=== PATIENT | female | born 1985 | race Caucasian/White ===

== ENCOUNTER → 2016-07-29 | Outpatient (CLI) | payer BC ==
[~2016-07-29] MED LIST: HYDR1SOL3 PO; HYDR1SOL6 PO; LEVO50TA4 PO; NITR100C4 PO; PREN29TA PO; PROT40TA PO; TRAZ100T4 PO; ZOFR4TAB PO
== END ==
LOC: HPND 07:20
PROVIDERS: ATTEND Obstetrics & Gynecology
DX: Z36 Encounter for antenatal screening of mother (principal); Z98.84 Bariatric surgery status
CPT/HCPCS: 36416; 76813

== ENCOUNTER 2016-08-13 15:29 | Observation (INO) | payer BC ==
[~2016-08-13] VITALS: Ht 160 cm; Wt 65.0 kg
[2016-08-13 15:34] VITALS: BP 102/54; PULSE 70; RESP 14; O2SAT 100
[2016-08-13] MEDS ORDERED: SODIUM CHLOR 0.9% 1000 ML INJ 1,000 ML IV SCH (17:09)
[2016-08-13] MEDS ORDERED: MORPHINE SULFATE 4 MG/ML INJ IV PUSH ONE (17:15)
[2016-08-13] MEDS ORDERED: ONDANSETRON HCL 4 MG/2 ML VIAL IVP ONE (17:15)
[2016-08-13] MEDS ORDERED: SODIUM CHLORIDE 0.9% FLUSH 5 ML FLUSH IVF PRN (17:15)
--- NOTE | 2016-08-13 17:18 | PD ---
HPI Chief Complaint: GI Complaint Time Seen by Provider: 16:58 Travel History International Travel<30 days: No Contact w/Intl Traveler<30days: No Traveled to known affect area: No History of Present Illness HPI 30-year-old female status post laparoscopic Cassandra-en-Y gastric bypass surgery 2 years ago in [facility] that was followed by numerous complications including peptic ulcers with perforated bowel, cholecystectomy, approximately 15 -1/2 weeks , LMP was 04/27/16, here for evaluation of nausea, vomiting, abdominal pain. The patient reports that she is unable to keep liquids down. Emesis has been frothy/clear, nonbloody. Last bowel movement was 2 days ago. Pain is epigastric and lower, burning/sharp, worse with eating, moderate to severe. She tried taking her hydrocodone at home which she has as needed for epigastric pain without relief of symptoms. She also tried taking Zofran without improvement in nausea. She has noticed slight increase yellowish vaginal discharge which she has communicated with her [employer] physician Dr. Rodriguez. No fevers. No urinary symptoms. PFSH Past Medical History ?: LMP: 04/27/16 Social History Tobacco Use: No (former smoker) Allergies-Medications (Allergen,Severity, Reaction): Coded Allergies: Augmentin (Verified Allergy, Unknown, 08/13/16) Levaquin (Verified Allergy, Unknown, 08/13/16) Nonsteroidal Anti-Inflammatory Agts (Verified Allergy, Unknown, 08/13/16) Suprax (Verified Allergy, Unknown, 08/13/16) Reported Meds & Prescriptions Reported Meds & Active Scripts Active Reported Zofran (Ondansetron HCl) 4 Mg Tab 4 Mg PO Q6HR PRN Hydrocodone-Acetaminophen Liq 7.5-325 Mg/15 Ml Soln 10 Ml PO Q6H PRN Levothyroxine (Levothyroxine Sodium) 50 Mcg Tab 50 Mcg PO DAILY Plus Iron 29-1 mg ( Vit-Iron Carbonyl) 1 Tab Tab 1 Tab PO DAILY Protonix (Pantoprazole Sodium) 40 Mg Tab 40 Mg PO DAILY Trazodone (Trazodone HCl) 100 Mg Tab 100 Mg PO HS Review of Systems Except as stated in HPI: all other systems reviewed are Neg Physical Exam Narrative GENERAL: Well-developed, well-nourished, comfortable, no acute distress. SKIN: Warm and dry. Well-healed laparoscopic surgical incisions on abdomen. HEAD: Atraumatic. Normocephalic. EYES: Pupils equal and round. No scleral icterus. No injection or drainage. ENT: Mucous membranes pink and moist. NECK: Trachea midline. No JVD. CARDIOVASCULAR: Regular rate and rhythm. RESPIRATORY: No accessory muscle use. Clear to auscultation. Breath sounds equal bilaterally. GASTROINTESTINAL: Abdomen soft, nondistended. Mild diffuse tenderness without peritoneal signs. Normal bowel sounds. MUSCULOSKELETAL: No obvious deformities. No clubbing. No cyanosis. No edema. NEUROLOGICAL: Awake and alert. No obvious cranial nerve deficits. Motor grossly within normal limits. Normal speech. PSYCHIATRIC: Appropriate mood and affect; insight and judgment normal. Data Data Last Documented VS Vital Signs Date Time Temp Pulse Resp B/P Pulse Ox O2 Delivery O2 Flow Rate FiO2 08/13/16 15:34 70 14 102/54 100 Room Air Orders Complete Blood Count With Diff (08/13/16 17:) Comprehensive Metabolic Panel (08/13/16 17:) Lipase (08/13/16 17:09) Lactic Acid (08/13/16 17:09) Prothrombin Time / Inr (Pt) (08/13/16 17:09) Act Partial Throm Time (Ptt) (08/13/16 17:09) Urinalysis - C+S If Indicated (08/13/16 17:09) Iv Access Insert/Monitor (08/13/16 17:09) Ecg Monitoring (08/13/16 17:09) Oximetry (08/13/16 17:09) Morphine Inj (Morphine Inj) (08/13/16 17:15) Ondansetron Inj (Zofran Inj) (08/13/16 17:15) Sodium Chlor 0.9% 1000 Ml Inj (Ns 1000 M (08/13/16 17:09) Sodium Chloride 0.9% Flush (Ns Flush) (08/13/16 17:15) Famotidine (Pepcid) (08/13/16 19:30) Sucralfate Liq (Carafate Liq) (08/13/16 19:30) Metoclopramide Inj (Reglan Inj) (08/13/16 19:45) Admit Order (Ed Use Only) (08/13/16 19:37) Consult General Surgery (08/13/16 ) Labs Laboratory Tests Test 08/13/16 17:45 White Blood Count 8.3 TH/MM3 Red Blood Count 3.56 MIL/MM3 Hemoglobin 11.5 GM/DL Hematocrit 33.8 % Mean Corpuscular Volume 94.7 FL Mean Corpuscular Hemoglobin 32.2 PG Mean Corpuscular Hemoglobin 34.0 % Concent Red Cell Distribution Width 12.7 % Platelet Count 158 TH/MM3 Mean Platelet Volume 9.4 FL Neutrophils (%) (Auto) 72.8 % Lymphocytes (%) (Auto) 21.6 % Monocytes (%) (Auto) 4.9 % Eosinophils (%) (Auto) 0.4 % Basophils (%) (Auto) 0.3 % Neutrophils # (Auto) 6.0 TH/MM3 Lymphocytes # (Auto) 1.8 TH/MM3 Monocytes # (Auto) 0.4 TH/MM3 Eosinophils # (Auto) 0.0 TH/MM3 Basophils # (Auto) 0.0 TH/MM3 CBC Comment DIFF FINAL Differential Comment Prothrombin Time 10.5 SEC Prothromb Time International 1.0 RATIO Ratio Activated Partial 26.1 SEC Thromboplast Time Urine Color YELLOW Urine Turbidity CLEAR Urine pH 5.5 Urine Specific [place] 1.025 Urine Protein NEG mg/dL Urine Glucose (UA) NEG mg/dL Urine Ketones 40 mg/dL Urine Occult Blood NEG Urine Nitrite NEG Urine Bilirubin NEG Urine Urobilinogen LESS THAN 2.0 MG/DL Urine Leukocyte Esterase NEG Urine RBC 1 /hpf Urine WBC 1 /hpf Urine Squamous Epithelial 2 /hpf Cells Urine Mucus FEW /lpf Microscopic Urinalysis Comment CULT NOT INDICATED Sodium Level 138 MEQ/L Potassium Level 3.7 MEQ/L Chloride Level 105 MEQ/L Carbon Dioxide Level 23.0 MEQ/L Anion Gap 10 MEQ/L Blood Urea Nitrogen 10 MG/DL Creatinine 0.43 MG/DL Estimat Glomerular Filtration 175 ML/MIN Rate Random Glucose 69 MG/DL Lactic Acid Level 0.7 mmol/L Calcium Level 8.4 MG/DL Total Bilirubin 0.2 MG/DL Aspartate Amino Transf 17 U/L (AST/SGOT) Alanine Aminotransferase 18 U/L (ALT/SGPT) Alkaline Phosphatase 43 U/L Total Protein 6.0 GM/DL Albumin 3.4 GM/DL Lipase 66 U/L [facility] Medical Decision Making Medical Screen Exam Complete: Yes Emergency Medical Condition: Yes Differential Diagnosis Bowel obstruction, internal hernia, peptic ulcer disease, metabolic abnormality , dehydration Narrative Course Initial vital signs show heart rate 70, blood pressure 102/54, pulse ox 100% on room air. CBC shows WBC 8.3, hemoglobin 11.5, hematocrit 33.8, platelets 158. CMP is unremarkable. Lactic acid is 0.7. Lipase is 66. UA shows 40 ketones, otherwise within normal limits, not suggestive of UTI. Bedside transabdominal ultrasound performed by me shows an IUP with heart rate of 150 bpm. The patient was given a dose of morphine and Zofran as well as a liter of normal saline IV. She is still complaining of epigastric abdominal pain. She has some epigastric tenderness on exam. No peritoneal signs. Case discussed with surgical attending Dr. Spangler who has a background and bariatric surgery. He recommends giving the patient a dose of Carafate. The patient will be admitted to the medical service, and he will happily see the patient in consultation. Case discussed with hospitalist Dr. Levy who will admit the patient to her service. Procedures Procedure Narrative Transabdominal bedside ultrasound: Using the curvilinear probe, transabdominal bedside ultrasound was performed by me and shows an IUP with a heart rate of 158 bpm. Diagnosis Primary Impression: Epigastric abdominal pain Additional Impressions: Nausea and vomiting Qualified Code: R11.2 - Nausea and vomiting, intractability of vomiting not specified, unspecified vomiting type Qualified Code: Z3A.15 - 15 weeks gestation of Admitting Information Admitting Physician Requests: Admit Norman Rios MD Aug 13, 2016 17:18
[2016-08-13] MEDS ORDERED: TRAZ100T4 PO (17:31)
[2016-08-13] MEDS ORDERED: PROT40TA PO (17:31)
[2016-08-13] MEDS ORDERED: LEVO50TA4 PO (17:31)
[2016-08-13] MEDS ORDERED: ZOFR4TAB PO (17:31)
[2016-08-13] MEDS ORDERED: HYDR1SOL3 PO (17:31)
[2016-08-13] MEDS ORDERED: PREN29TA PO (17:31)
[2016-08-13 18:25] LABS: BASOPHIL % 0.3 % (0.0-2.0); EOSINOPHIL % 0.4 % (0.0-4.0); HEMATOCRIT 33.8 % (35.0-46.0); HEMO FLAGS DIFF FINAL; LYMPH % 21.6 % (9.0-44.0); LYMPHOCYTE # 1.8 TH/MM3 (1.0-4.8); MEAN CELL VOLUME 94.7 FL (80.0-100.0); MEAN CORPUSCULAR HEMOGLOBIN 32.2 PG (27.0-34.0); MONO % 4.9 % (0.0-8.0); NEUT % 72.8 % (16.0-70.0); PLATELET COUNT 158 TH/MM3 (150-450); RED BLOOD COUNT 3.56 MIL/MM3 (4.00-5.30); RED CELL DISTRIBUTION WIDTH 12.7 % (11.6-17.2); WHITE BLOOD COUNT 8.3 TH/MM3 (4.0-11.0)
[2016-08-13 18:35] LABS: APTT (PATIENT) 26.1 SEC (24.3-30.1); BLOOD, URINE NEG (NEG); COMMENT (UR) CULT NOT INDICATED; CULTURE IF INDICATED CULT NOT INDICATED; GLUCOSE,URINE NEG (NEG); KETONE, URINE 40 mg/dL (NEG); MUCUS URINE FEW /lpf (OCC); NITRITE,URINE NEG (NEG); PH, URINE 5.5 (5.0-8.5); PROTHROMBIN TIME - PATIENT 10.5 SEC (9.8-11.6); SQUAMOUS EPITHELIAL CELL URINE 2 /hpf (0-5); URINE COLOR YELLOW (YELLW/STRAW)
[2016-08-13 18:49] LABS: ALKALINE PHOSPHATASE 43 U/L (45-117); TOTAL BILIRUBIN ADULT 0.2 MG/DL (0.2-1.0)
[2016-08-13 18:50] LABS: ALT (GPT) 18 U/L (10-53); ANION GAP 10 MEQ/L (5-15); AST (GOT) 17 U/L (15-37); BLOOD UREA NITROGEN 10 MG/DL (7-18); CHLORIDE 105 MEQ/L (98-107); GLOMERULAR FILTRATION RATE 175 ML/MIN (>89); POTASSIUM 3.7 MEQ/L (3.5-5.1); SODIUM (NA) 138 MEQ/L (136-145)
[2016-08-13] MEDS ORDERED: FAMOTIDINE 20 MG TAB PO ONE (19:30)
[2016-08-13] MEDS ORDERED: SUCRALFATE 1 GM/10 ML CUP PO ONE (19:30)
[2016-08-13] MEDS ORDERED: SODIUM CHLORIDE 0.9% FLUSH 5 ML FLUSH FLUSH PRN (19:45)
[2016-08-13] MEDS ORDERED: METOCLOPRAMIDE HCL 10 MG/2 ML VIAL IV PUSH ONE (19:45)
[2016-08-13] MEDS ORDERED: NALOXONE HCL 0.4 MG/ML AMP IV PRN (19:45)
[2016-08-13] MEDS ORDERED: SUCRALFATE 1 GM TAB PO PRN (19:45)
[2016-08-13 20:00] VITALS: BP 98/51; PULSE 58; RESP 16; O2SAT 98
[2016-08-13] MEDS ORDERED: MULTIVITAMIN INJ 10 ML, THIAMINE INJ 100 MG, FOLIC ACID INJ 1 MG in SODIUM CHLOR 0.45% ... IV ONE (20:15)
[2016-08-13] MEDS: SODIUM CHLOR 0.9% 1000 ML INJ 1,000 ML IV SCH (20:15)
[2016-08-13] MEDS: SODIUM CHLORIDE 0.9% FLUSH 5 ML FLUSH FLUSH SCH (21:00)
[2016-08-13 21:44] VITALS: BP 86/48; PULSE 56; RESP 16; O2SAT 99
--- NOTE | 2016-08-13 21:45 | HHI.HP ---
[facility] No Primary Care Physician Admission Diagnosis epigastric abdominal pain, vomiting, Diagnoses: Chief Complaint: abdominal pain, nausea and vomiting Travel History International Travel<30 Days: No Contact w/Intl Traveler <30 Da: No Traveled to Known Affected Are: No History of Present Illness 30 y/o female with a history of gastric bypass surgery 2 years ago who is 15 weeks presented to the ED with complaints of abdominal pain, nausea and vomiting. Three months after her surgery she developed complications with a peptic ulcer. After discharge the next day she woke up septic from a perforated ulcer. After that she then underwent 7 different surgeries. She states the last few days she has unable to take in food, has associated nausea, vomiting 1-2 times a day and dizziness. She also has severe cramping abdominal pain in the mid gastric region. She states she does go through this a few days every month, ever since she got her feeding tube out in December, and usually sticking to soft foods and soup helps. She explains this episode is different and that is why she came into the hospital. She does take Protonix daily, and she took Zofran prior to coming in without relief. She denies any chest pain, sob, fever or chills. She states she is constipated more than her norm but is unsure if it is related to her . She is currently 15 weeks and is followed by Dr. Rodriguez. Review of Systems Constitutional: COMPLAINS OF: Dizziness, DENIES: Fever, Chills Respiratory: DENIES: Cough, Sputum production, Shortness of breath Cardiovascular: DENIES: Chest pain, Dyspnea on Exertion, Lower Extremity Edema Gastrointestinal: COMPLAINS OF: Abdominal pain, Constipation, Nausea, Vomiting , DENIES: Diarrhea Genitourinary: DENIES: Urinary frequency, Hematuria, Dysuria Musculoskeletal: DENIES: Back pain, Neck pain Integumentary: DENIES: Rash Hematologic/lymphatic: DENIES: Lymphadenopathy Immunologic/allergic: DENIES: Urticaria Neurologic: DENIES: Headache Past Family Social History Past Medical History Hypothyroidism 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5 Peptic ulcer Past Surgical History Tonsillectomy Gastric bypass with multiple abdominal surgeries Cholecystectomy Reported Medications Reported Meds & Active Scripts Active Reported Zofran (Ondansetron HCl) 4 Mg Tab 4 Mg PO Q6HR PRN Hydrocodone-Acetaminophen Liq 7.5-325 Mg/15 Ml Soln 10 Ml PO Q6H PRN Levothyroxine (Levothyroxine Sodium) 50 Mcg Tab 50 Mcg PO DAILY Plus Iron 29-1 mg ( Vit-Iron Carbonyl) 1 Tab Tab 1 Tab PO DAILY Protonix (Pantoprazole Sodium) 40 Mg Tab 40 Mg PO DAILY Trazodone (Trazodone HCl) 100 Mg Tab 100 Mg PO HS Allergies: Coded Allergies: Augmentin (Verified Allergy, Unknown, 08/13/16) Levaquin (Verified Allergy, Unknown, 08/13/16) Nonsteroidal Anti-Inflammatory Agts (Verified Allergy, Unknown, 08/13/16) Suprax (Verified Allergy, Unknown, 08/13/16) Active Ordered Medications Current Medications Medications (Trade) Dose Ordered Sig/[place] Route Start Time Stop Time Status Last Admin (NS 1000 ml Inj) 1,000 ml @ 100 mls/hr Q10H IV 08/13/16 19:38 08/13/16 20:15 (NS Flush) 2 ml UNSCH PRN FLUSH 08/13/16 19:45 (NS Flush) 2 ml BID FLUSH 08/13/16 21:00 (Reglan Inj) 5 mg Q6H PRN IV PUSH 08/13/16 19:45 (Narcan Inj) 0.4 mg UNSCH PRN IV 08/13/16 19:45 Sucralfate 1 gm 1 gm ACHS PRN PO 08/13/16 19:45 (Mvi-12 Inj/ Thiamine Inj/ Folvite Inj/1/2 NS 500 ml Inj) 511.2 ml @ 125 mls/hr ONCE ONCE IV 08/13/16 20:15 08/14/16 00:20 Family History Patient is the only child. She denies any cardiac family history. Social History Tobacco use: denies Alcohol use: denies lllicit drug use: denies Physical Exam Vital Signs Vital Signs Date Time Temp Pulse Resp B/P Pulse Ox O2 Delivery O2 Flow Rate FiO2 08/13/16 15:34 70 14 102/54 100 Room Air Physical Exam GENERAL: This is a well-nourished, well-developed patient, in no apparent distress. SKIN: No rashes, ecchymoses or lesions. Cool and dry. HEAD: Atraumatic. Normocephalic. No temporal or scalp tenderness. EYES: Pupils equal round and reactive. Extraocular motions intact. ENT: Nose without bleeding, purulent drainage or septal hematoma. NECK: Trachea midline. No JVD CARDIOVASCULAR: Regular rate and rhythm without murmurs, gallops, or rubs. RESPIRATORY: Clear to auscultation. Breath sounds equal bilaterally. No wheezes , rales, or rhonchi. GASTROINTESTINAL: Abdomen soft, mid epigastric tenderness, itching weeks . No hepato-splenomegaly, or palpable masses. No guarding. MUSCULOSKELETAL: Extremities without clubbing, cyanosis, or edema. No joint tenderness, effusion, or edema noted. No calf tenderness. NEUROLOGICAL: Awake and alert. Motor and sensory grossly within normal limits. Normal speech. Laboratory Laboratory Tests Test 08/13/16 17:45 White Blood Count 8.3 Red Blood Count 3.56 Hemoglobin 11.5 Hematocrit 33.8 Mean Corpuscular Volume 94.7 Mean Corpuscular Hemoglobin 32.2 Mean Corpuscular Hemoglobin 34.0 Concent Red Cell Distribution Width 12.7 Platelet Count 158 Mean Platelet Volume 9.4 Neutrophils (%) (Auto) 72.8 Lymphocytes (%) (Auto) 21.6 Monocytes (%) (Auto) 4.9 Eosinophils (%) (Auto) 0.4 Basophils (%) (Auto) 0.3 Neutrophils # (Auto) 6.0 Lymphocytes # (Auto) 1.8 Monocytes # (Auto) 0.4 Eosinophils # (Auto) 0.0 Basophils # (Auto) 0.0 CBC Comment DIFF FINAL Differential Comment Prothrombin Time 10.5 Prothromb Time International 1.0 Ratio Activated Partial 26.1 Thromboplast Time Urine Color YELLOW Urine Turbidity CLEAR Urine pH 5.5 Urine Specific [place] 1.025 Urine Protein NEG Urine Glucose (UA) NEG Urine Ketones 40 Urine Occult Blood NEG Urine Nitrite NEG Urine Bilirubin NEG Urine Urobilinogen LESS THAN 2.0 Urine Leukocyte Esterase NEG Urine RBC 1 Urine WBC 1 Urine Squamous Epithelial 2 Cells Urine Mucus FEW Microscopic Urinalysis Comment CULT NOT INDICATED Sodium Level 138 Potassium Level 3.7 Chloride Level 105 Carbon Dioxide Level 23.0 Anion Gap 10 Blood Urea Nitrogen 10 Creatinine 0.43 Estimat Glomerular Filtration 175 Rate Random Glucose 69 Lactic Acid Level 0.7 Calcium Level 8.4 Total Bilirubin 0.2 Aspartate Amino Transf 17 (AST/SGOT) Alanine Aminotransferase 18 (ALT/SGPT) Alkaline Phosphatase 43 Total Protein 6.0 Albumin 3.4 Lipase 66 Result Diagram: 08/13/16174408/13/161744 Assessment and Plan Problem List: (1) ICD Code: Z33.1 Status: Acute (2) Nausea and vomiting ICD Code: R11.2 Status: Acute (3) Epigastric abdominal pain ICD Code: R10.13 Status: Acute Assessment and Plan 30 y/o female with a history of gastric bypass surgery 2 years ago who is 15 weeks presented to the ED with complaints of abdominal pain, nausea and vomiting. , currently 15 weeks -Will be monitored by OB on the medical floor - monitor ordered Epigastric abdominal pain- r/o PUD flare up vs complication of previous bariatric sx / will need evaluation of pouch -Consult general surgery, Dr. Spangler plans to take patient in AM for EGD -IVF hydration -Carafate ACHS Nausea and Vomiting -Antiemetic as needed -Clear liquids as tolerated, NPO after midnight DVT prophylaxis: SCDs Written by Tish BRIGGS, acting as scribe for Dr. Levy on 08/13/16 at 2153. All or portions of this note were transcribed by scribe [Tish Sorto]. I, Dr. Rajeev Levy personally performed the history, physical exam, and medical decision making; and confirmed the accuracy of the information in the transcribed note. Authenticated by Dr. Rajeev Levy on08/13/16 at 2153. PLEASE NOTE THAT PT WAS ADMITTED UNDER OBSERVATION- HP WRONGLY WRITTEN IN DIFFERENT FORMAT OF FULL ADMIT- BUT ADMISSION IS FOR OBS AT THIS POINT AND BILLED SUCH Discussed Condition With Patient and ER physician Physician Certification 2 Midnight Certification Type: Admission for Inpatient Services Order for Inpatient Services The services are ordered in accordance with Medicare regulations or non- Medicare payer requirements, as applicable. In the case of services not specified as inpatient-only, they are appropriately provided as inpatient services in accordance with the 2-midnight benchmark. Estimated LOS (days): 3 days is the estimated time the patient will need to remain in the hospital, assuming treatment plan goals are met and no additional complications. Post-Hospital Plan: Home Problem Qualifiers (1) : Qualified Code: Z3A.15 - 15 weeks gestation of (2) Nausea and vomiting: Qualified Code: R11.2 - Nausea and vomiting, intractability of vomiting not specified, unspecified vomiting type Tish Sorto Aug 13, 2016 21:45 Rajeev Levy MD Aug 14, 2016 06:58
[2016-08-13 22:44] VITALS: BP 91/55; PULSE 60; RESP 16; O2SAT 99
[2016-08-13] MEDS ORDERED: diphenhydrAMINE HCL 50 MG/ML VIAL IV PUSH ONE (23:45)
[2016-08-14 00:28] VITALS: BP 96/50; PULSE 79; RESP 16; TEMP 98.8; O2SAT 96
[2016-08-14] MEDS: METOCLOPRAMIDE HCL 10 MG/2 ML VIAL IV PUSH PRN ×3 (00:45→17:19)
[2016-08-14 04:00] VITALS: BP 87/43; PULSE 57; RESP 16; TEMP 98; O2SAT 99
[2016-08-14] MEDS: LEVOTHYROXINE SODIUM 50 MCG TAB PO SCH (05:35)
--- NOTE | 2016-08-14 07:45 | HHI.PR ---
Subjective Remarks f/u epigastric pain/n/v/ Pt states her abdominal pain is located in the epigastric region, comes and goes , still a 7/10, stabbing in nature w no radiation. Noted pelvic cramps this morning but no vaginal bleeding or spotting. She is NPO for EGD for this morning. No nausea or vomiting thus far (feels that is improved). she tells me that she is being followed but Dr. Nicola Rodriguez (OBGYN) and had an u/s 2 weeks ago and was normal. Objective Vitals Vital Signs Date Time Temp Pulse Resp B/P Pulse Ox O2 Delivery O2 Flow Rate FiO2 08/14/16 04:00 98.0 57 16 87/43 99 08/14/16 00:28 98.8 79 16 96/50 96 08/13/16 22:44 60 16 91/55 99 Room Air 08/13/16 21:44 56 16 86/48 99 Room Air 08/13/16 20:00 58 16 98/51 98 Room Air 08/13/16 15:34 70 14 102/54 100 Room Air I/O 08/13/16 08/13/16 08/13/16 08/14/16 08/14/16 08/14/16 07:00 15:00 23:00 07:00 15:00 23:00 Intake Total 900 ml Balance 900 ml Intake Oral 0 ml IV Total 900 ml # Voids 1 # Bowel Movements 0 Result Diagram: 08/13/16 1745 08/13/16 174 Objective Remarks GENERAL: This is a well-nourished, well-developed patient, in no apparent distress. EYES: Extraocular motions intact. CARDIOVASCULAR: Regular rate and rhythm without murmurs RESPIRATORY: Clear to auscultation. Breath sounds equal bilaterally. No wheezes GASTROINTESTINAL: Abdomen soft, mid epigastric tenderness. some discomfort w palpation in the suprapubic area but no guarding or rebound noted on exam. MUSCULOSKELETAL: Extremities without edema. No calf tenderness. NEUROLOGICAL: Awake and alert. Motor and sensory grossly within normal limits. Normal speech. A/P Problem List: (1) ICD Code: Z33.1 Status: Acute (2) Nausea and vomiting ICD Code: R11.2 Status: Acute (3) Epigastric abdominal pain ICD Code: R10.13 Status: Acute Assessment and Plan 30 y/o female with a history of gastric bypass surgery 2 years ago who is 15 weeks presented to the ED with complaints of abdominal pain, nausea and vomiting. , currently 15 weeks -I have placed an OB consult to her OBGYN, Dr. Rodriguez. She complains of some cramping but no spotting or vaginal bleeding. Continue IVFs for now as this may be caused by dehydration. - monitor ordered by night team. Epigastric abdominal pain- r/o PUD flare up vs complication of previous bariatric sx / will need evaluation of pouch -General surgery, Dr. Spangler following and plans on taking patient for EGD this morning. -IVF hydration -Carafate ACHS prn Nausea and Vomiting -reglan as needed -NPO for EGD DVT prophylaxis: SCDs Discharge Planning scheduled for EGD in AM. Problem Qualifiers (1) : Qualified Code: Z3A.15 - 15 weeks gestation of (2) Nausea and vomiting: Qualified Code: R11.2 - Nausea and vomiting, intractability of vomiting not specified, unspecified vomiting type Maria Gill MD Aug 14, 2016 07:45
[2016-08-14 07:50] VITALS: BP 92/45; PULSE 59; RESP 20; TEMP 97.5; O2SAT 98
[2016-08-14 08:13] LABS: AUTOMATED NEUTROPHIL # 3.1 TH/MM3 (1.8-7.7); BASOPHIL % 0.5 % (0.0-2.0); EOSINOPHIL % 0.5 % (0.0-4.0); HEMATOCRIT 28.4 % (35.0-46.0); LYMPH % 32.5 % (9.0-44.0); LYMPHOCYTE # 1.7 TH/MM3 (1.0-4.8); MEAN CELL VOLUME 93.6 FL (80.0-100.0); MEAN CORPUSCULAR HEMOGLOBIN 33.7 PG (27.0-34.0); MONO % 6.2 % (0.0-8.0); NEUT % 60.3 % (16.0-70.0); PLATELET COUNT 123 TH/MM3 (150-450); RED BLOOD COUNT 3.04 MIL/MM3 (4.00-5.30); RED CELL DISTRIBUTION WIDTH 12.8 % (11.6-17.2); WHITE BLOOD COUNT 5.1 TH/MM3 (4.0-11.0)
[2016-08-14 08:20] LABS: HEMO FLAGS AUTO DIFF
[2016-08-14 08:32] LABS: BICARBONATE 21.2 MEQ/L (21.0-32.0); POTASSIUM 3.3 MEQ/L (3.5-5.1)
[2016-08-14] MEDS: PANTOPRAZOLE SOD 40 MG DELAYED RELEASE TAB PO SCH (09:25)
[2016-08-14] MEDS: SODIUM CHLOR 0.9% 1000 ML INJ 1,000 ML IV SCH ×2 (09:29→22:22)
[2016-08-14] MEDS: SODIUM CHLORIDE 0.9% FLUSH 5 ML FLUSH FLUSH SCH ×2 (09:29→20:55)
[2016-08-14] MEDS: MULTIVIT/MIN/PREN/FOL AC/IRON PRENATAL TAB PO SCH (09:29)
[2016-08-14 09:37] LABS: SCAN/DIFF AUTO DIFF CONFIRMED
[2016-08-14] MEDS ORDERED: SODIUM CHLOR 0.9% 1000 ML INJ 1,000 ML IV ONE (10:00)
--- NOTE | 2016-08-14 10:59 | MB ---
cc: MINO BERRY MD DATE OF CONSULTATION: 08/13/2016 REASON FOR CONSULTATION History of gastric bypass, nausea, vomiting and epigastric pain. HISTORY OF PRESENT ILLNESS The patient is a 30-year-old female who presents with complex medical-surgical history including Cassandra-en-Y gastric bypass 2 years ago. She is also 15 weeks . She presented to the emergency department with increasing nausea, vomiting and epigastric pain. She states the pain started a few days ago and is getting increasingly worse. The pain is severe, it is sharp, epigastric region, is non-radiating and it is worse with food. She states some improvement with lying still and some improvement with IV pain medication. She states this pain feels similar to the pain she experienced with her complex surgical history and previous ulcer disease. She came to the emergency department for further workup including lab values with a normal white count. The patient has again the complex surgical history. She underwent a gastric bypass that was noted. The patient required seven surgeries following her bypass procedure due to perforation, gastric ulcer disease and as noted to have two gastrostomy tubes. These tubes have since been removed and she states she has indeed improved since these episodes and has been doing relatively well. She does report taking her vitamins and bariatric vitamins. She has had substantial weight loss from her bypass procedure, initially weighing 256 pounds and now got down to 143 pounds. On my exam the patient is resting comfortably. She does state this continued epigastric pain. She states the pain is approximately 7 out of 10, it has been going on for about 1 week. She denies any fevers or chills, chest pain. She does have a history of constipation and complains of this, denies diarrhea. PAST MEDICAL HISTORY 1. Morbid obesity. 2. Hypothyroidism. 3. Meningococcal meningitis. 4. Peptic ulcer disease. PAST SURGICAL HISTORY 1. Tonsillectomy. 2. Gastric bypass including seven laparoscopic surgeries and revisions and gastrostomy tubes x2. 3. Cholecystectomy. MEDICATIONS See EMR. ALLERGIES AUGMENTIN, LEVAQUIN, NSAIDS, SUPRAX. FAMILY HISTORY Denies diabetes or hypertension in family. SOCIAL HISTORY Denies smoking, ETOH or IVDA. REVIEW OF SYSTEMS GENERAL: The patient denies fevers, complaint of dizziness and vomiting. HEENT: Denies eye pain, ear pain. RESPIRATORY: Denies cough or wheeze. CARDIOVASCULAR: Denies palpitations or chest pain. GI: Complains of nausea, vomiting, abdominal pain, diarrhea. : Denies dysuria, hematuria. MUSCULOSKELETAL: Denies arthralgias, myalgias. INTEGUMENT: Denies rash or lesions. HEMATOLOGIC: Denies hemarthrosis. NEUROLOGIC: Complains of headache. Denies numbness. PSYCHE: Denies change in sensorium or affect or mood. PHYSICAL EXAMINATION GENERAL: The patient is in no acute distress. VITAL SIGNS: Temperature 98.8, pulse 70, respirations 14, blood pressure 102/54, saturation 100% on room air. HEENT: PERRLA, EOMI. No scleral icterus. Moist mucous membranes. NECK: Supple. Trachea midline. LUNGS: Bilateral expansion. Clear chest. CARDIAC: Regular rate and rhythm, S1-S2. ABDOMEN: Soft, positive tenderness to palpation epigastric region. No rebound. Well-healed surgical scars. : Within normal limits. EXTREMITIES: No edema. Moving all extremities. NEUROLOGIC: GCS of 15, AO x 3. 5/5 motor all extremities. INTEGUMENT: No obvious new masses or lesions. LABORATORY DIAGNOSTIC DATA WBC 8.3, hemoglobin 11.5, hematocrit 33.8, platelets 158, sodium 138, potassium 3.7, chloride 105, BUN 10, creatinine 0.43, glucose 173, calcium 8.4, bili 0.2, AST 17, ALT 18, alk phos 43, lipase 66, INR 1, PTT 26.1, PT 10.5. ASSESSMENT The patient is a 30-year-old female with history of gastric bypass with complication, presents with epigastric pain, primarily concern for recurrent ulcer disease. PLAN After full clinical laboratory workup the patient with above-named findings including significant severe epigastric pain and decreased p.o. intake with nausea, vomiting. At this point the patient will need hydration. We will preemptively treat the patient as if she does have ulcer disease present and give her Protonix, Carafate, pain control and appropriate nausea medication. We will plan to do endoscopy for the patient to evaluate her ulcer disease. We will attempt to avoid full radiologic workup in light of the patient being . If the patient's clinical status changes or further warrants a CT scan or further x-rays, we will obtain this despite the , again if clinically warranted. However, currently we will proceed with endoscopy tomorrow. This was discussed with the patient in detail. She states understanding and agrees with current treatment regimen. MD SHAHRAM Grimaldo/UYEN /10:14 AM /10:32 AM
--- NOTE | 2016-08-14 11:04 | HHI.PR ---
Subjective Subjective Notes Resting in bed Objective Vitals/I&O Vital Signs Date Time Temp Pulse Resp B/P Pulse Ox O2 Delivery O2 Flow Rate FiO2 08/14/16 07:50 97.5 59 20 92/45 98 08/13/16 22:44 Room Air Labs Laboratory Tests Test 08/13/16 08/14/16 17:45 05:44 White Blood Count 8.3 5.1 Red Blood Count 3.56 3.04 Hemoglobin 11.5 10.2 Hematocrit 33.8 28.4 Mean Corpuscular Volume 94.7 93.6 Mean Corpuscular Hemoglobin 32.2 33.7 Mean Corpuscular Hemoglobin 34.0 36.0 Concent Red Cell Distribution Width 12.7 12.8 Platelet Count 158 123 Mean Platelet Volume 9.4 9.7 Neutrophils (%) (Auto) 72.8 60.3 Lymphocytes (%) (Auto) 21.6 32.5 Monocytes (%) (Auto) 4.9 6.2 Eosinophils (%) (Auto) 0.4 0.5 Basophils (%) (Auto) 0.3 0.5 Neutrophils # (Auto) 6.0 3.1 Lymphocytes # (Auto) 1.8 1.7 Monocytes # (Auto) 0.4 0.3 Eosinophils # (Auto) 0.0 0.0 Basophils # (Auto) 0.0 0.0 CBC Comment DIFF FINAL AUTO DIFF Differential Comment AUTO DIFF CONFIRMED Prothrombin Time 10.5 Prothromb Time International 1.0 Ratio Activated Partial 26.1 Thromboplast Time Urine Color YELLOW Urine Turbidity CLEAR Urine pH 5.5 Urine Specific [place] 1.025 Urine Protein NEG Urine Glucose (UA) NEG Urine Ketones 40 Urine Occult Blood NEG Urine Nitrite NEG Urine Bilirubin NEG Urine Urobilinogen LESS THAN 2.0 Urine Leukocyte Esterase NEG Urine RBC 1 Urine WBC 1 Urine Squamous Epithelial 2 Cells Urine Mucus FEW Microscopic Urinalysis Comment CULT NOT INDICATED Sodium Level 138 138 Potassium Level 3.7 3.3 Chloride Level 105 106 Carbon Dioxide Level 23.0 21.2 Anion Gap 10 11 Blood Urea Nitrogen 10 8 Creatinine 0.43 0.39 Estimat Glomerular Filtration 175 196 Rate Random Glucose 69 68 Lactic Acid Level 0.7 Calcium Level 8.4 7.8 Total Bilirubin 0.2 Aspartate Amino Transf 17 (AST/SGOT) Alanine Aminotransferase 18 (ALT/SGPT) Alkaline Phosphatase 43 Total Protein 6.0 Albumin 3.4 Lipase 66 Cardiovascular: Regular Lungs: Clear Abdomen: Non-distended, Other (epigastric tenderness ) Extremities: No edema A/P Assessment and Plan 30 year old female s/p gastric bypass surgery with nausea and vomiting -NPO -1L bolus this morning -Plan for EGD this afternoon with Dr. Spangler -Continue Reglan and Protonix Attending Statement patients seen at bedside concern for ulcer continue medical tx will plan for egd to evaluate gastrojejunostomy Attestation The exam, history, and the medical decision-making described in the above note were completed with the assistance of the mid-level provider. I reviewed and agree with the findings presented. I attest that I had a [id number] encounter with the patient on the same day, and personally performed and documented my assessment and findings in the medical record. Florencia Patterson Aug 14, 2016 11:04 Xavier Spangler MD Aug 17, 2016 21:38
[2016-08-14 11:50] VITALS: BP 96/55; PULSE 57; RESP 20; TEMP 97.8; O2SAT 100
[2016-08-14 15:00] VITALS: BP 104/52; PULSE 59; RESP 20; TEMP 98.5; O2SAT 100
[2016-08-14] MEDS ORDERED: PROPOFOL 200 MG/20 ML AMP IV ONE (16:20)
[2016-08-14] MEDS ORDERED: ONDANSETRON HCL 4 MG/2 ML VIAL IV PUSH ONE (17:00)
[2016-08-14] MEDS ORDERED: ePHEDrine/NS 25 MG/5 ML SYR IV ONE (17:00)
--- NOTE | 2016-08-14 17:08 | GIPROC ---
[facility] [address] [facility]. [facility], [id number] EGD PROCEDURE REPORT EXAM DATE: 08/14/2016 PATIENT NAME: Alda Collado MR #: [id number] BIRTHDATE: 1985 ATTENDING: Xavier Spangler MD ORDER #: [id number] BREAD STACKER: Raz Swann and Cat Deluna STATUS: inpatient INDICATIONS: The patient is a 30 yr old female here for an EGD due to epigastric abdominal pain PROCEDURE PERFORMED: EGD, diagnostic MEDICATIONS: Per Anesthesia and None. TOPICAL ANESTHETIC: none CONSENT: The patient understands the risks and benefits of the procedure and understands that these risks include, but are not limited to: sedation, allergic reaction, infection, perforation and/or bleeding. Alternative means of evaluation and treatment include, among others: physical exam, x-rays, and/or surgical intervention. The patient elects to proceed with this endoscopic procedure. medical equipment was checked for proper function. Hand hygiene and appropriate measures for infection prevention was taken. After the risks, benefits and alternatives of the procedure were thoroughly explained, Informed consent was verified, confirmed and timeout was successfully executed by the treatment team. The patient was anesthetized with topical anesthesia and the [employer] [id number] endoscope was introduced through the mouth and advanced to the gastrojejunostomy . There was presence of a diverticula with a retained pill likely due to hiatal hernia. Long blind limb 8cm. The scope passed through the anstmosis but was somewhat tight. The gastroscope was then slowly withdrawn and removed. Diverticula proximal to gastrojejunal anastomosis, possible due to hiatal hernia. ADVERSE EVENTS: There were no complications. IMPRESSIONS: Diverticula proximal to gastrojejunal anastomosis, possible due to hiatal hernia, stricutring of gastrojejunostomy RECOMMENDATIONS: Upper GI PATIENT CONDITION: fair DISPOSITION: Inpatient REPEAT EXAM: Return as needed for Dilatation Xavier Spangler MD eSigned: Xavier Spangler MD 08/14/2016 5:07 PM cc: [id number]
[2016-08-14] MEDS ORDERED: *ONDANSETRON 4 MG VIAL PERIprocedural Use ONLY ONE (17:09)
[2016-08-14] MEDS ORDERED: *morphine SULFATE 8 MG/ML PERIprocedure ONLY ONE (17:19)
[2016-08-14] MEDS ORDERED: DO NOT ADM ANY ANTICOAGULANT DRUGS XX PRN (18:15)
[2016-08-14 20:48] VITALS: BP 108/52; PULSE 67; RESP 16; TEMP 95.2; O2SAT 100
[2016-08-14] MEDS ORDERED: traZODone HCL 100 MG TAB PO SCH (21:00)
--- NOTE | 2016-08-14 21:40 | MB ---
cc: MINO SPANGLER MD,EVAN GILL,VALENCIA Wing MD DATE OF CONSULTATION 08/10/16 REASON FOR CONSULTATION 1. at 15 weeks. 2. Abdominal pain, nausea and vomiting related to previous gastric bypass HISTORY OF PRESENT ILLNESS The patient is single white female para 0, LMP 04/27/2016, EDC of 02/01/2017. Her course has been benign. Ultrasound showed appropriate growth and genetic testing has been normal. Her history is notable for in 2014 had a Cassandra-en-Y gastric bypass procedure, laparoscopic, and required approximately seven procedures after that for various complications related to the procedure. She did successfully lose about 125 pounds from the procedure. Over the last two weeks, she has had increasing nausea and vomiting, what she calls pouch pain refractory to symptomatic treatment. She was admitted to the hospital last evening, received IV fluid hydration and further gastric evaluation. She had endoscopy today. OB ultrasound today was normal at 15 weeks. PAST MEDICAL HISTORY 1. T&A age [age] 2. History of ALLERGIES TO AUGMENTIN, SUPRAX, LEVAQUIN, NSAIDS AND ASPIRIN. 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 SOCIAL HISTORY She is single. Cigar [employer] at [employer]. Alcohol, tobacco and drugs are none. MEDICATIONS 1. Protonix 2. Levothyroxine 3. Vitamin B12 4. Acyclovir 5. Fiber 6. Iron pills PHYSICAL EXAMINATION GENERAL: A well-nourished well-developed white female in no distress. HEENT: Exam is normal. CHEST: Clear CARDIOVASCULAR: Regular rate. ABDOMEN: Soft, fundal height 15 weeks. ASSESSMENT As above PLAN Proceed with the appropriate evaluation through Dr. Spangler and Dr. Gill. Discharge home when stable. MD HARDIK Nielson/ /9:11 PM /9:17 PM MTDD
[2016-08-15] VITALS: BP 99/55; PULSE 64; RESP 16; TEMP 96.6; O2SAT 93
[2016-08-15] MEDS: METOCLOPRAMIDE HCL 10 MG/2 ML VIAL IV PUSH PRN (00:22)
[2016-08-15] MEDS ORDERED: MORPHINE SULFATE 4 MG/ML INJ IV PUSH ONE (00:30)
[2016-08-15] MEDS: SODIUM CHLOR 0.9% 1000 ML INJ 1,000 ML IV SCH ×2 (01:38→08:25)
[2016-08-15 04:00] VITALS: BP 104/53; PULSE 66; RESP 18; TEMP 97.8; O2SAT 98
[2016-08-15] MEDS: LEVOTHYROXINE SODIUM 50 MCG TAB PO SCH (05:04)
[2016-08-15 06:56] LABS: BICARBONATE 22.1 MEQ/L (21.0-32.0); POTASSIUM 3.3 MEQ/L (3.5-5.1)
--- NOTE | 2016-08-15 07:57 | HHI.PR ---
Subjective Remarks Pt feeling much better. Currently has no pain. Had mild nausea during the night but no vomiting. Passing flatus but no BM. No CP or SOB complains of a sore throat from the procedure. Objective Vitals Vital Signs Date Time Temp Pulse Resp B/P Pulse Ox O2 Delivery O2 Flow Rate FiO2 08/15/16 04:00 97.8 66 18 104/53 98 08/15/16 00:00 96.6 64 16 99/55 93 08/14/16 20:48 95.2 67 16 108/52 100 08/14/16 17:30 90 16 114/58 97 Room Air 08/14/16 17:15 92 16 128/65 99 08/14/16 17:10 97.8 98 16 130/66 99 Nasal Cannula 2 08/14/16 15:00 98.5 59 20 104/52 100 08/14/16 11:50 97.8 57 20 96/55 100 I/O 08/14/16 08/14/16 08/14/16 08/15/16 08/15/16 08/15/16 07:00 15:00 23:00 07:00 15:00 23:00 Intake Total 900 ml 0 ml 900 ml 520 ml Balance 900 ml 0 ml 900 ml 520 ml Intake Oral 0 ml 0 ml 120 ml IV Total 900 ml 900 ml 400 ml # Voids 1 8 2 # Bowel Movements 0 0 Result Diagram: 08/14/16 0544 08/15/16 0608 Objective Remarks GENERAL: This is a well-nourished, well-developed patient, in no apparent distress. EYES: Extraocular motions intact. CARDIOVASCULAR: Regular rate and rhythm without murmurs RESPIRATORY: Clear to auscultation. Breath sounds equal bilaterally. No wheezes GASTROINTESTINAL: Abdomen soft, non tender to deep palpation. no guarding or rebound noted on exam. MUSCULOSKELETAL: Extremities without edema. No calf tenderness. NEUROLOGICAL: Awake and alert. Motor and sensory grossly within normal limits. Normal speech. A/P Problem List: (1) ICD Code: Z33.1 Status: Acute (2) Nausea and vomiting ICD Code: R11.2 Status: Acute (3) Epigastric abdominal pain ICD Code: R10.13 Status: Acute Assessment and Plan 30 y/o female with a history of gastric bypass surgery 2 years ago who is 15 weeks presented to the ED with complaints of abdominal pain, nausea and vomiting. , currently 15 weeks - OB, Dr. Rodriguez evaluated the patient. Has cleared pt for discharge when cleared by surgery. Epigastric abdominal pain- r/o PUD flare up vs complication of previous bariatric sx / will need evaluation of pouch -General surgery, Dr. Spangler following. EGD performed 08/14/16 showed diverticula w retained pill possibly due to hiatal hernia. -Tolerating clears, advance diet per surgical team. -Carafate ACHS prn Nausea and Vomiting -reglan as needed -clears DVT prophylaxis: SCDs Discharge Planning advance diet per surgical team. awaiting final recs from surgical team for discharge. Problem Qualifiers (1) : Qualified Code: Z3A.15 - 15 weeks gestation of (2) Nausea and vomiting: Qualified Code: R11.2 - Nausea and vomiting, intractability of vomiting not specified, unspecified vomiting type Maria Gill MD Aug 15, 2016 07:57
[2016-08-15 08:00] VITALS: BP 80/42; PULSE 60; RESP 16; TEMP 98.2; O2SAT 98
[2016-08-15] MEDS ORDERED: POTASSIUM CHLORIDE 25 MEQ EFFERVESCENT TAB PO ONE (08:00)
[2016-08-15] MEDS: SODIUM CHLORIDE 0.9% FLUSH 5 ML FLUSH FLUSH SCH (08:24)
[2016-08-15] MEDS: MULTIVIT/MIN/PREN/FOL AC/IRON PRENATAL TAB PO SCH (08:24)
[2016-08-15] MEDS: PANTOPRAZOLE SOD 40 MG DELAYED RELEASE TAB PO SCH (08:24)
[2016-08-15 12:00] VITALS: BP 102/50; PULSE 62; RESP 16; TEMP 98.2; O2SAT 99
[2016-08-15 12:18] LABS: AUTOMATED NEUTROPHIL # 3.6 TH/MM3 (1.8-7.7); BASOPHIL % 0.5 % (0.0-2.0); EOSINOPHIL % 0.6 % (0.0-4.0); HEMATOCRIT 30.9 % (35.0-46.0); HEMO FLAGS DIFF FINAL; LYMPHOCYTE # 1.3 TH/MM3 (1.0-4.8); MEAN CELL VOLUME 94.7 FL (80.0-100.0); MEAN CORPUSCULAR HEMOGLOBIN 31.8 PG (27.0-34.0); MEAN CORPUSCULAR HGB CONC 33.6 % (32.0-36.0); MONO % 5.9 % (0.0-8.0); PLATELET COUNT 113 TH/MM3 (150-450); RED BLOOD COUNT 3.26 MIL/MM3 (4.00-5.30); RED CELL DISTRIBUTION WIDTH 12.8 % (11.6-17.2); WHITE BLOOD COUNT 5.3 TH/MM3 (4.0-11.0)
[2016-08-15 12:43] LABS: BICARBONATE 22.2 MEQ/L (21.0-32.0); POTASSIUM 3.8 MEQ/L (3.5-5.1)
--- NOTE | 2016-08-15 15:55 | HHI.PR ---
Subjective Subjective Notes Resting in bed Tolerating clears today Objective Vitals/I&O Vital Signs Date Time Temp Pulse Resp B/P Pulse Ox O2 Delivery O2 Flow Rate FiO2 08/15/16 12:00 98.2 62 16 102/50 99 08/14/16 17:30 Room Air 08/14/16 17:10 2 Labs Laboratory Tests Test 08/15/16 08/15/16 06:08 12:01 Sodium Level 141 138 Potassium Level 3.3 3.8 Chloride Level 109 108 Carbon Dioxide Level 22.1 22.2 Anion Gap 10 8 Blood Urea Nitrogen 6 4 Creatinine 0.34 0.37 Estimat Glomerular Filtration 229 208 Rate Random Glucose 64 69 Calcium Level 7.9 7.8 White Blood Count 5.3 Red Blood Count 3.26 Hemoglobin 10.4 Hematocrit 30.9 Mean Corpuscular Volume 94.7 Mean Corpuscular Hemoglobin 31.8 Mean Corpuscular Hemoglobin 33.6 Concent Red Cell Distribution Width 12.8 Platelet Count 113 Mean Platelet Volume 9.2 Neutrophils (%) (Auto) 69.0 Lymphocytes (%) (Auto) 24.0 Monocytes (%) (Auto) 5.9 Eosinophils (%) (Auto) 0.6 Basophils (%) (Auto) 0.5 Neutrophils # (Auto) 3.6 Lymphocytes # (Auto) 1.3 Monocytes # (Auto) 0.3 Eosinophils # (Auto) 0.0 Basophils # (Auto) 0.0 CBC Comment DIFF FINAL Differential Comment Cardiovascular: Regular Lungs: Clear Abdomen: Non-distended, Non-tender Extremities: No edema A/P Assessment and Plan 30 year old female s/p gastric bypass surgery with nausea and vomiting -Advance to full liquids with bariatric protein shakes -s/p EGD with Dr. Spangler -Continue Reglan and Protonix -OOB and mobilize Attending Statement pt seen at bedside tolerating clears adv to fulls may need egd with dilation if further n/v Attestation The exam, history, and the medical decision-making described in the above note were completed with the assistance of the mid-level provider. I reviewed and agree with the findings presented. I attest that I had a [id number] encounter with the patient on the same day, and personally performed and documented my assessment and findings in the medical record. Florencia Patterson Aug 15, 2016 15:55 Xavier Spangler MD Aug 19, 2016 22:41
[2016-08-15 16:00] VITALS: BP 93/55; PULSE 69; RESP 16; TEMP 98.8; O2SAT 99
--- NOTE | 2016-08-16 19:34 | PD.AMA ---
Against Medical Advice Note Discharge Disposition: Against Medical Advice Pt Condition on Discharge: Stable AMA Statement Patient Alda Collado has decided to leave the hospital against medical advice. This patient has the capacity to refuse care and understands the risks of leaving, including permanent disability and/or , and has had an opportunity to ask questions about her condition. The patient has been informed that she may return for care at any time, and follow up has been arranged/advised. GS wanted pt to remain another 24 hrs to make sure that her pain was controlled and that she was tolerating a diet without any more abdominal pain. Pt opted not to stay in the hospital and leave AMA even though surgery spoke to her again about the risk of leaving AMA. Maria Gill MD Aug 16, 2016 19:34
== END 2016-08-15 18:01 | disposition left against medical advice (07) ==
LOC: NEPB 15:29 → NEDA 19:39 → INTOOBSV 19:39 → NEDA 22:06 → HOCB 22:06 → HOCA 08-14 00:10
PROVIDERS: ADMIT Hospitalist; ATTEND Hospitalist
DX: O99.612 Diseases of the digestive system complicating pregnancy, second trimester (principal); K57.10 Diverticulosis of small intestine without perforation or abscess without bleeding; O21.9 Vomiting of pregnancy, unspecified; O26.892 Other specified pregnancy related conditions, second trimester; R10.13 Epigastric pain; Z3A.15 15 weeks gestation of pregnancy; O99.282 Endocrine, nutritional and metabolic diseases complicating pregnancy, second trimester; E03.9 Hypothyroidism, unspecified; Z88.1 Allergy status to other antibiotic agents; Z88.8 Allergy status to other drugs, medicaments and biological substances; Z87.891 Personal history of nicotine dependence; Z87.11 Personal history of peptic ulcer disease; Z98.84 Bariatric surgery status; Z68.25 Body mass index [BMI] 25.0-25.9, adult; Z98.0 Intestinal bypass and anastomosis status
CPT/HCPCS: 00740; 43235; 76805; 80048; 80053; 81001; 83605; 83690; 85025; 85610; 85730; 96374; 96375; 99284; G0378; J1200; J2270; J2405; J2765; J3411; J7030

== ENCOUNTER → 2016-09-10 | Outpatient (CLI) | payer BC | LOC: HPND 08:03 | PROVIDERS: ATTEND Obstetrics & Gynecology | DX: O35.8XX0 Maternal care for other (suspected) fetal abnormality and damage, not applicable or unspecified (principal); Z98.84 Bariatric surgery status | CPT/HCPCS: 76805; 76816 ==

== ENCOUNTER → 2016-10-07 | Outpatient (CLI) | payer BC | LOC: HPND 07:32 | PROVIDERS: ATTEND Obstetrics & Gynecology | DX: O35.8XX0 Maternal care for other (suspected) fetal abnormality and damage, not applicable or unspecified (principal) | CPT/HCPCS: 76811; 76817 ==

== ENCOUNTER 2016-10-10 15:45 | Emergency (ER) | payer BC ==
[~2016-10-10 15:45] MED LIST changes: -HYDR1SOL6 PO; -NITR100C4 PO
--- NOTE | 2016-10-10 16:50 | PD ---
HPI Travel History International Travel<30 Days: No Contact w/Intl Traveler<30Days: No Known Affected Area: No History of Present Illness HPI This patient is a 30-year-old 2 para 0010 EDC February 01, 2017 presently at 23 weeks and 5 days she presents with a chief complaint of possible rupture of membranes states she felt her vagina after she urinated mild cramps in her lower abdomen this occurred about 7:30 this morning Spoke with Dr. 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 Multiple epidurals for back pain tonsils and adenoid Endoscopies Family History Family History: Negative Social History Alcohol Use: No Tobacco Use: No Substance Abuse: No Allergies-Medications (Allergen,Severity, Reaction): Coded Allergies: Augmentin (Verified Allergy, Unknown, 08/13/16) Levaquin (Verified Allergy, Unknown, 08/13/16) Nonsteroidal Anti-Inflammatory Agts (Verified Allergy, Unknown, 08/13/16) Suprax (Verified Allergy, Unknown, 08/13/16) Home Meds Reported Medications Ondansetron (Zofran)4 Mg Tab4 Mg PO Q6HR PRN (NAUSEA OR VOMITING) Ref 0 08/13/16 Hydrocodone-Acetaminophen Liq 7.5-325 Mg/15 Ml Soln10 Ml PO Q6H PRN (PAIN) Ref 0 08/13/16 Levothyroxine 50 Mcg Tab50 Mcg PO DAILY #30 TAB Ref 0 08/13/16 Vit-Iron Carbonyl ( Plus Iron 29-1 mg)1 Tab Tab1 Tab PO DAILY #30 TAB Ref 0 08/13/16 Pantoprazole (Protonix)40 Mg Tab40 Mg PO DAILY #30 TAB Ref 0 08/13/16 Trazodone 100 Mg [id number] Mg PO HS #30 TAB Ref 0 08/13/16 Review of Systems Gastrointestinal: Abdominal Pain (mild suprapubic cramps) Genitourinary: Other (questionable leaking fluid) Physical Exam Narrative GENERAL: Well-nourished, well-developed patient. Alert oriented 3 and cooperative in no acute distress SKIN: Warm and dry. HEAD: Normocephalic and atraumatic. EYES: No scleral icterus. No injection or drainage. Conjunctiva are pink ENT: No nasal drainage noted. Mucous membranes pink. Airway patent. Mucous membranes are moist NECK: Supple, trachea midline. No JVD. No thyroid enlargement no lymphadenopathy CARDIOVASCULAR: Regular rate and rhythm without murmurs, gallops, or rubs. RESPIRATORY: Breath sounds equal bilaterally. No accessory muscle use. ABDOMEN/GI: Gravid consistent with 23 weeks gestation mild tenderness over the left and right round ligament and in the suprapubic area no palpable contractions no epigastric or right upper quadrant tenderness Gravid to [-] weeks size 23 Fundal Height: [-] GENITOURINARY: Speculum exam is done there is no gross fluid in the vagina what appears to be medication from previous insertion of the vaginal suppositories present External Genitalia: intact and normal in appearance BUS glands: [-] Cervix: [-] Posterior soft Dilatation: [-] Closed Effacement: [-] About 25% effaced Station: [-] High Presentation: [-] Membranes: [intact Amnisure is negative Uterine Contractions: [-] no contractions are palpable or seen on the monitor FHT's: Category: [-] 1 Baseline: [-] 140 Reactive: [-] + For 23 weeks Variability: [-] Moderate Decels: [-] 0 EXTREMITIES: No cyanosis or edema. 2+ reflexes NEUROLOGICAL: Awake and alert. Motor and sensory grossly within normal limits. Five out of 5 muscle strength in all muscle groups. Normal speech. Data Data Vital Signs Reviewed: Yes (blood pressures 105/57 pulse is 71 patient is afebrile) Orders Vital Signs (Adult) .ON ADMISSION (10/10/16 16:41) ^ Labor Status (10/10/16 16:41) Urinalysis - C+S If Indicated (10/10/16 16:41) ^ Hydration (10/10/16 16:41) Pamg-1 Test .ONCE (10/10/16 16:41) [facility] Medical Record Reviewed: Yes Interpretation(s) 30-year-old at 23 weeks and 5 days No clinical evidence of rupture of membranes No clinical evidence of labor History of a short cervix presently being treated with hormonal therapy Multiple medical problems associated with gastric bypass Narrative Course / MDM Urinalysis is negative amnisure is negative Spoke with Dr. FRAGOSO states to discharge the patient home Plan External monitoring By mouth fluid hydration Urinalysis rule out UTI If negative Will discharge patient home to continue by mouth fluid hydration kick counts Follow-up with Dr. marte on Thursday Signs of labor review Physician Communication Discharge home Rest over the weekend By mouth fluid hydration Kick counts Appointment for ultrasound on Thursday Diagnosis Diagnosis: Primary Impression: with 23 completed weeks gestation Additional Impressions: Suspected problem with amniotic cavity and membrane not found Short cervix during in second trimester History of gastric bypass Disposition: 01 DISCHARGE HOME Condition: Stable Elva Montoya MD October 10, 2016 16:50
[2016-10-10 17:20] LABS: BLOOD, URINE NEG (NEG); COMMENT (UR) CULT NOT INDICATED; CULTURE IF INDICATED CULT NOT INDICATED; GLUCOSE,URINE NEG (NEG); KETONE, URINE NEG (NEG); NITRITE,URINE NEG (NEG); SQUAMOUS EPITHELIAL CELL URINE <1 /hpf (0-5); URINE COLOR YELLOW (YELLW/STRAW)
== END 2016-10-10 17:39 | disposition home or self-care (01) ==
LOC: HOBED 15:45
DX: O26.872 Cervical shortening, second trimester (principal); Z98.84 Bariatric surgery status; Z3A.23 23 weeks gestation of pregnancy
CPT/HCPCS: 81001; 99284

== ENCOUNTER → 2016-10-21 | Outpatient (CLI) | payer BC ==
[~2016-10-21] MED LIST changes: +HYDR1SOL6 PO; +NITR100C4 PO
== END ==
LOC: HPND 09:36
PROVIDERS: ATTEND Obstetrics & Gynecology
DX: O26.872 Cervical shortening, second trimester (principal); Z3A.25 25 weeks gestation of pregnancy
CPT/HCPCS: 76815; 76817; 82731

== ENCOUNTER 2016-11-03 22:29 | Inpatient (IN) | payer BC ==
[~2016-11-03] VITALS: Ht 160 cm; Wt 69.4 kg
[~2016-11-03 22:29] MED LIST changes: -HYDR1SOL6 PO; -NITR100C4 PO
[2016-11-04] VITALS (55 sets, daily range): BP systolic 88–110; BP diastolic 43–73; PULSE 67–101; RESP 16–18; TEMP 97.5–98.8
[2016-11-04 00:03] LABS: BACTERIA, URINE RARE /hpf; BLOOD, URINE NEG (NEG); GLUCOSE,URINE NEG (NEG); KETONE, URINE NEG (NEG); NITRITE,URINE NEG (NEG); URINE COLOR LIGHT-YELLOW (YELLW/STRAW)
[2016-11-04 00:04] LABS: COMMENT (UR) CULT NOT INDICATED; CULTURE IF INDICATED CULT NOT INDICATED
--- NOTE | 2016-11-04 00:17 | PD ---
HPI Chief Complaint abdominal pain Date Seen: Nov 03, 2016 Time Seen: 23:00 Travel History International Travel<30 Days: No Contact w/Intl Traveler<30Days: No Known Affected Area: No History of Present Illness HPI Pt is a 30 y/o with IUP at 27.2 wks presents with c/o cramping and lower abdominal pain. Pt states pain started 2 hours ago. Pain is constant but fluctuating in intensity. Pt denies vag bleeding, dysuria, fever, diarrhea , constipation. Pt reports vaginal discharge but currently using progesterone suppository for shortened cervix. Pt states last cervical length of 2.2 cm on ultrasound. also complicated by h/o bariatric surgery with multiple post-surgical complications. Para: 0 : 2 : 1 History Past Medical History Narrative Medical hypothyroidism Obstetric History Obstetric History EAB x 1 secondary to complications from bariatric surgery Past Surgical History Narrative Surgical 2014 gastric bypass pt reports multiple additional surgeries secondary to complications: revision surgeries, hernia repair, G tube placement and removal, GJ tube placement and removal cholecystectomy Family History Family History: Negative Social History Alcohol Use: No Tobacco Use: No Substance Abuse: No Allergies-Medications (Allergen,Severity, Reaction): Coded Allergies: Augmentin (Verified Allergy, Unknown, 08/13/16) Levaquin (Verified Allergy, Unknown, 08/13/16) Nonsteroidal Anti-Inflammatory Agts (Verified Allergy, Unknown, 08/13/16) Suprax (Verified Allergy, Unknown, 08/13/16) Home Meds Reported Medications Ondansetron (Zofran)4 Mg Tab4 Mg PO Q6HR PRN (NAUSEA OR VOMITING) Ref 0 08/13/16 Hydrocodone-Acetaminophen Liq 7.5-325 Mg/15 Ml Soln10 Ml PO Q6H PRN (PAIN) Ref 0 08/13/16 Levothyroxine 50 Mcg Tab50 Mcg PO DAILY #30 TAB Ref 0 08/13/16 Vit-Iron Carbonyl ( Plus Iron 29-1 mg)1 Tab Tab1 Tab PO DAILY #30 TAB Ref 0 08/13/16 Pantoprazole (Protonix)40 Mg Tab40 Mg PO DAILY #30 TAB Ref 0 08/13/16 Trazodone 100 Mg [id number] Mg PO HS #30 TAB Ref 0 08/13/16 Review of Systems General / Constitutional: No: Fever, Weight Gain, Weight Loss, Chills, Other Eyes: No: Diploplia, Blurred Vision, Visual changes, Pain, Photophobia, Other HENT: No: Headaches, Vertigo, Dental Difficulties, Lightheadedness, Other Cardiovascular: No: Irregular Rhythm, Chest Pain or Discomfort, Palpitations, Tachycardia, Syncope, Varicosities, Edema, Cyanosis, Other Respiratory: No: Cough, Short of Breath, Wheezing, Other Gastrointestinal: Abdominal Pain Genitourinary: No: Urgency, Frequency, Dysuria, Nocturia, Hematuria, Decreased Urinary Output, Oliguria, Hesitancy, Dribbling, Incontinence, Pelvic Pain, Dyspareunia, Discharge, Menorrhagia, Vaginal Bleeding, Other Musculoskeletal: No: Limited ROM, Weakness, Cramping, Edema, Pain, Other Skin: No Rash, No Itching, No Dryness, No Lumps, No Change in Pigmentation, No Change in Nails, No Alopecia, No Lesions, No Breast Lumps, No Breast Tenderness , No Breast Swelling, No Other Neurologic: No: Weakness, Dizziness, Syncope, Focal Abnormalities, Coordination Problem, Headache, Slurred Speech, Seizures, Other Psychiatric: No: Anxiety, Depression, Suicidal Ideations, Disorder of Thought, Mood Disorder, Substance Abuse, Homicidal Ideation, Other Endocrine: No: Heat Intolerance, Cold Intolerance, Polydipsia, Polyuria, Other Hematologic/Lymphatic: No Easy Bruising, No Lymph Node Enlargement, No Other Physical Exam 103/59, 67, 18, Narrative GENERAL: Well-nourished, well-developed patient. SKIN: Warm and dry. HEAD: Normocephalic and atraumatic. EYES: No scleral icterus. No injection or drainage. ENT: No nasal drainage noted. Mucous membranes pink. Airway patent. NECK: Supple, trachea midline. No JVD. CARDIOVASCULAR: Regular rate and rhythm without murmurs, gallops, or rubs. RESPIRATORY: Breath sounds equal bilaterally. No accessory muscle use. ABDOMEN/GI: Abdomen soft, non-tender, bowel sounds present, no rebound, no guarding Gravid GENITOURINARY: External Genitalia: intact and normal in appearance BUS glands: [wnl] Cervix: visually closed, large amount of yellow discharge present (c/w progesterone vaginal suppository use) Dilatation: closed Effacement: 50 Station: high Presentation: - Membranes: intact Uterine Contractions: irritability, q 2 FHT's: Category: 1 Baseline: 140s Reactive: no Variability: mod Decels: no EXTREMITIES: No cyanosis or edema. BACK: Nontender without obvious deformity. No CVA tenderness. NEUROLOGICAL: Awake and alert. Motor and sensory grossly within normal limits. Five out of 5 muscle strength in all muscle groups. Normal speech. Data Data Vital Signs Reviewed: Yes Orders Vital Signs (Adult) .ON ADMISSION (11/03/16 23:26) ^ Labor Status (11/03/16 23:26) Urinalysis - C+S If Indicated (11/03/16 23:26) Fibronectin (11/03/16 23:26) Wet Prep Profile (11/03/16 23:26) Lactated Ringer's 1000 Ml Inj (Lr 1000 M (11/03/16 23:26) MDM Medical Record Reviewed: Yes Narrative Course / MDM 30 y/o with IUP at 27.2 wks with lower abdominal pain, h/o short cervix --FFN and wet prep collected --place IV for hydration PT reports pain decreased some after hydration. FFN +, continued uterine activity noted on toco tracing. wet prep neg. UA neg Plan: admit 23 hr observation for threatened premature labor, Magnesium tocolysis, BMS for lung maturity, clindamycin for GBS prophylaxis, ultrasound with diagnostics in am d/w Vazquez Barbosa MD Nov 04, 2016 00:17
[2016-11-04] MEDS ORDERED: ACETAMINOPHEN 325 MG TAB PO PRN (01:15)
[2016-11-04] MEDS ORDERED: MAGNESIUM SULFATE 4 GM PREMIX 100 ML IV ONE (01:15)
[2016-11-04] MEDS ORDERED: CALCIUM GLUCONATE 10% 1 GM/10 ML VIAL IV PRN (01:15)
[2016-11-04] MEDS ORDERED: SODIUM CHLORIDE 0.9% FLUSH 10 ML FLUSH IV FLUSH PRN (01:15)
[2016-11-04] MEDS: BETAMETHASONE SOD PHOS/ACETATE SUSP 30 MG/5 ML VIAL IM SCH (01:47)
[2016-11-04] MEDS: LACTATED RINGER'S 1000 ML INJ 1,000 ML IV SCH ×4 (01:47→16:11)
[2016-11-04 02:09] LABS: AMPHETAMINE, URINE NEG (NEG); BARBITURATES, URINE NEG (NEG); COCAINE, URINE NEG (NEG)
[2016-11-04] MEDS: CLINDAMYCIN INJ 900 MG in SODIUM CHLORIDE 0.9% INJ 100 ML IV SCH ×3 (02:12→18:15)
[2016-11-04] MEDS: MAGNESIUM SULFATE 40 GM PREMIX 1,000 ML IV SCH ×2 (02:26→20:12)
[2016-11-04] MEDS ORDERED: LEVOTHYROXINE SODIUM 100 MCG TAB PO ONE (09:00)
[2016-11-04 11:19] LABS: AUTOMATED NEUTROPHIL # 9.9 TH/MM3 (1.8-7.7); BASOPHIL % 0.1 % (0.0-2.0); HEMATOCRIT 36.3 % (35.0-46.0); HEMO FLAGS DIFF FINAL; LYMPH % 7.1 % (9.0-44.0); LYMPHOCYTE # 0.8 TH/MM3 (1.0-4.8); MEAN CELL VOLUME 97.3 FL (80.0-100.0); MEAN CORPUSCULAR HEMOGLOBIN 32.2 PG (27.0-34.0); MEAN CORPUSCULAR HGB CONC 33.1 % (32.0-36.0); MONO % 0.6 % (0.0-8.0); NEUT % 92.2 % (16.0-70.0); PLATELET COUNT 152 TH/MM3 (150-450); RED BLOOD COUNT 3.72 MIL/MM3 (4.00-5.30); RED CELL DISTRIBUTION WIDTH 12.3 % (11.6-17.2); WHITE BLOOD COUNT 10.8 TH/MM3 (4.0-11.0)
--- NOTE | 2016-11-04 13:06 | MH ---
cc: EVAN VASQUEZ DATE OF ADMISSION: 11/04/2016 ADMITTING DIAGNOSIS at 27 weeks with labor. HISTORY OF PRESENT ILLNESS The patient is a 30-year-old single white female para 0-0-1-0 with an LMP of 04/27/2016, EDC of 02/01/2017. The patient developed lower abdominal crampy discomfort at approximately 10:00 p.m. yesterday. She presented to the OB ED this morning at about 12:30 a.m. Her monitoring showed intermittent contractions and her fFN was positive. She was seen by the hospitalist who then contacted me via phone and we agreed to admission, magnesium sulfate therapy and steroids. The patient is now in therapy and contractions have ceased. PAST MEDICAL HISTORY PREVIOUS SURGERY 1. T&A at age 7. 2. In 2014 she had a Cassandra-en-Y gastric bypass via laparoscope. Has had at least seven additional surgeries for complications since that time. she now sees Dr. Spangler in the [facility] for evaluation and control of pouch pain. MEDICATIONS 1. Vitamins. 1. Hydrocodone. ALLERGIES AUGMENTIN. SUPRAX. LEVAQUIN. NSAIDS. SOCIAL HISTORY She is single. 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 Alcohol, tobacco and drugs are none. PHYSICAL EXAMINATION GENERAL: This is a gravid white female in no distress. HEENT EXAM: Normal. CHEST: Clear. HEART: Regular rate. BREASTS: Symmetrical. ABDOMEN: Gravid, nontender. PELVIC EXAM: Cervical exam this a.m. by our hospitalist was finger and 50%. ASSESSMENT 1. As above. 2. Additionally, the patient is known to have short cervix. PLAN 1. We will continue mag sulfate therapy for 24 hours until second dose is given. 2. Eval tomorrow by [facility] which is scheduled. Evan Vasquez MD JAW/MARIELA /12:40 PM /12:55 PM
[2016-11-04] MEDS: PANTOPRAZOLE SOD 40 MG DELAYED RELEASE TAB PO SCH (18:18)
[2016-11-04] MEDS: SODIUM CHLORIDE 0.9% FLUSH 10 ML FLUSH IV FLUSH SCH (20:40)
[2016-11-04] MEDS ORDERED: traZODone HCL 50 MG TAB PO SCH (21:00)
[2016-11-04] MEDS ORDERED: PROGESTERONE SCH (21:00)
[2016-11-04] MEDS: ACETAMINOPHEN 325MG/HYDROcodone 7.5MG/15ML UDC PO PRN (21:01)
[2016-11-04] MEDS: ONDANSETRON HCL 4 MG/2 ML VIAL IV PRN (21:15)
[2016-11-04] MEDS: traZODone HCL 100 MG TAB PO SCH (21:15)
[2016-11-05] VITALS (63 sets, daily range): BP systolic 93–108; BP diastolic 46–59; PULSE 62–92; RESP 18; TEMP 98–99.5
[2016-11-05] MEDS: BETAMETHASONE SOD PHOS/ACETATE SUSP 30 MG/5 ML VIAL IM SCH (01:06)
[2016-11-05] MEDS: CLINDAMYCIN INJ 900 MG in SODIUM CHLORIDE 0.9% INJ 100 ML IV SCH ×3 (01:06→18:04)
[2016-11-05 05:49] LABS: AUTOMATED NEUTROPHIL # 11.1 TH/MM3 (1.8-7.7); BASOPHIL % 0.1 % (0.0-2.0); EOSINOPHIL % 0.1 % (0.0-4.0); HEMATOCRIT 33.5 % (35.0-46.0); HEMO FLAGS DIFF FINAL; LYMPH % 6.9 % (9.0-44.0); LYMPHOCYTE # 0.9 TH/MM3 (1.0-4.8); MEAN CELL VOLUME 95.2 FL (80.0-100.0); MEAN CORPUSCULAR HEMOGLOBIN 32.5 PG (27.0-34.0); MEAN CORPUSCULAR HGB CONC 34.1 % (32.0-36.0); MONO % 2.7 % (0.0-8.0); NEUT % 90.2 % (16.0-70.0); PLATELET COUNT 152 TH/MM3 (150-450); RED BLOOD COUNT 3.52 MIL/MM3 (4.00-5.30); RED CELL DISTRIBUTION WIDTH 12.5 % (11.6-17.2); WHITE BLOOD COUNT 12.4 TH/MM3 (4.0-11.0)
[2016-11-05] MEDS: LEVOTHYROXINE SODIUM 50 MCG TAB PO SCH (06:49)
[2016-11-05] MEDS: PRENATAL VITAMIN CHEWABLE TAB PO SCH (08:50)
[2016-11-05] MEDS: PANTOPRAZOLE SOD 40 MG DELAYED RELEASE TAB PO SCH (08:50)
[2016-11-05] MEDS: SODIUM CHLORIDE 0.9% FLUSH 10 ML FLUSH IV FLUSH SCH ×2 (09:00→21:00)
[2016-11-05] MEDS ORDERED: MAGNESIUM SULFATE 4 GM PREMIX 100 ML ONE (12:29)
[2016-11-05] MEDS ORDERED: MAGNESIUM SULFATE 40 GM PREMIX 1,000 ML ONE (12:29)
[2016-11-05] MEDS: MAGNESIUM SULFATE 40 GM PREMIX 1,000 ML IV SCH (12:30)
--- NOTE | 2016-11-05 12:48 | PD.CONS ---
HPI Chief Complaint PTL Date Seen: Nov 05, 2016 Time Seen: 12:33 Travel History International Travel<30 Days: No Contact w/Intl Traveler<30Days: No Known Affected Area: No History of Present Illness HPI 30 yo P0010 with ALIREZA 02/01/17 at 27w 3d. Admitted 11/04/16 for PTL- CTX, positive FFN. Initially, closed cervix. No vag bleeding or leaking. No other complaints, no recent trauma or sex. Treated with Mag Suolfate x 24+ hours, Celeastone x 2 doses, antibuiotics. Mag D/Cd this am at 0700 with good uterine quiescence. However, contractions have resumed an are about Q 3 minutes- patient aware. No SOB. by Dr Rodriguez. Complicated by short cx Dxd at 23 weeks-> Crinone. states had negatiove Cell Free DNA screen. History Past Medical History Narrative Medical Hypothyroidism, on Synthroid Obstetric History Obstetric History 1 TOP @ 12 weeks Past Surgical History Narrative Surgical Bariatric surgery 2013 with revision , hernia repair, ulcer repair Family History Family History: Negative Social History Alcohol Use: No Tobacco Use: No Substance Abuse: No Allergies-Medications (Allergen,Severity, Reaction): Coded Allergies: Augmentin (Verified Allergy, Unknown, 08/13/16) Levaquin (Verified Allergy, Unknown, 08/13/16) Nonsteroidal Anti-Inflammatory Agts (Verified Allergy, Unknown, 08/13/16) Suprax (Verified Allergy, Unknown, 08/13/16) Home Meds Reported Medications Ondansetron (Zofran)4 Mg Tab4 Mg PO Q6HR PRN (NAUSEA OR VOMITING) Ref 0 08/13/16 Hydrocodone-Acetaminophen Liq 7.5-325 Mg/15 Ml Soln10 Ml PO Q6H PRN (PAIN) Ref 0 08/13/16 Levothyroxine 50 Mcg Tab50 Mcg PO DAILY #30 TAB Ref 0 08/13/16 Vit-Iron Carbonyl ( Plus Iron 29-1 mg)1 Tab Tab1 Tab PO DAILY #30 TAB Ref 0 08/13/16 Pantoprazole (Protonix)40 Mg Tab40 Mg PO DAILY #30 TAB Ref 0 08/13/16 Trazodone 100 Mg [id number] Mg PO HS #30 TAB Ref 0 08/13/16 Review of Systems Except as stated in HPI: all other systems reviewed are Neg Physical Exam Vital Signs Date Time Temp Pulse Resp B/P Pulse Ox O2 Delivery O2 Flow Rate FiO2 11/05/16 08:47 98.0 18 11/05/16 08:47 85 103/48 11/05/16 06:49 79 104/56 11/05/16 06:00 78 104/49 11/05/16 05:00 82 106/58 11/05/16 04:37 99.5 11/05/16 04:00 74 103/51 11/05/16 03:00 76 104/49 11/05/16 02:00 81 96/53 11/05/16 01:00 62 93/47 11/05/16 00:00 77 101/50 11/05/16 00:00 98.3 18 11/04/16 23:00 79 101/52 11/04/16 22:00 79 105/44 11/04/16 21:00 93 104/54 11/04/16 20:22 98.8 18 11/04/16 20:00 86 109/59 11/04/16 19:00 88 101/57 11/04/16 18:00 86 110/55 11/04/16 17:28 98.0 11/04/16 17:00 81 98/59 11/04/16 16:30 18 11/04/16 16:30 97.5 11/04/16 16:00 82 102/58 11/04/16 15:40 94 104/57 11/04/16 15:40 86 11/04/16 15:35 87 11/04/16 15:30 87 11/04/16 15:25 88 11/04/16 15:20 87 11/04/16 15:15 88 11/04/16 15:10 87 11/04/16 15:05 87 11/04/16 15:00 85 11/04/16 14:55 85 11/04/16 14:50 84 11/04/16 14:45 85 11/04/16 14:40 85 11/04/16 14:35 88 11/04/16 14:30 86 11/04/16 14:25 85 11/04/16 14:20 84 11/04/16 14:15 88 11/04/16 14:10 85 11/04/16 14:05 85 11/04/16 14:00 85 11/04/16 14:00 87 103/53 11/04/16 13:55 86 11/04/16 13:50 93 11/04/16 13:00 82 102/53 Narrative GENERAL: Well-nourished, well-developed patient, alert, NAD SKIN: Warm and dry. HEAD: Normocephalic and atraumatic. EYES: No scleral icterus. No injection or drainage. ENT: No nasal drainage noted. Mucous membranes pink. Airway patent. NECK: Supple, trachea midline. No JVD. CARDIOVASCULAR: Regular rate and rhythm without murmurs, gallops, or rubs. RESPIRATORY: Breath sounds equal bilaterally. No accessory muscle use. ABDOMEN/GI: Abdomen soft, non-tender, bowel sounds present, no rebound, no guarding Gravid uterus, non tender. having mild CTX Q 3 min Pelvic: deferred. Per RN, Cx 1 cm dilated/ 50% eff/ intact FMS: Negative sct with accelerations. CTX Q 3 min. EXTREMITIES: No cyanosis or edema. BACK: Nontender without obvious deformity. No CVA tenderness. NEUROLOGICAL: Awake and alert. Motor and sensory grossly within normal limits. Five out of 5 muscle strength in all muscle groups. Normal speech. NL DTRs. US 11/04/16: Single fetus, cephalic, efw 2lbs 7oz (1108 g). Nl anatomy; kellie 19.6 cm; ant plac gr 1, no lesions, not previa; 3 v cord Data Data Orders Trazodone (Desyrel) (11/04/16 21:00) Pantoprazole (Protonix) (11/04/16 18:00) Sbyiqft-Bbm-Nq-Iron Prena Chew ( (11/05/16 09:00) Acetamin-Hydrocod 325-7.5 Liq (Hycet 325 (11/04/16 18:15) Patient Own Medication (11/04/16 21:00) ^ Medication Indications (11/04/16 21:47) Patient Own Medication (11/05/16 21:00) Magnesium Sulfate 4 Gm Premix (Magnesium (11/05/16 12:29) Magnesium Sulfate 40 Gm Premix (Magnesiu (11/05/16 12:29) Labs Laboratory Tests Test 11/04/16 11/04/16 11/05/16 16:35 21:38 05:00 Magnesium Level 5.4 5.4 White Blood Count 12.4 Red Blood Count 3.52 Hemoglobin 11.4 Hematocrit 33.5 Mean Corpuscular Volume 95.2 Mean Corpuscular Hemoglobin 32.5 Mean Corpuscular Hemoglobin 34.1 Concent Red Cell Distribution Width 12.5 Platelet Count 152 Mean Platelet Volume 9.6 Neutrophils (%) (Auto) 90.2 Lymphocytes (%) (Auto) 6.9 Monocytes (%) (Auto) 2.7 Eosinophils (%) (Auto) 0.1 Basophils (%) (Auto) 0.1 Neutrophils # (Auto) 11.1 Lymphocytes # (Auto) 0.9 Monocytes # (Auto) 0.3 Eosinophils # (Auto) 0.0 Basophils # (Auto) 0.0 CBC Comment DIFF FINAL Differential Comment Date/Time Procedure Status Source Growth 11/03/16 22:48 Urine Culture - Final Complete Urine Clean Catch <10,000 CFU/ML MIXED JUAN... MDM Plan IMPRESSION: 1. IUP 27w 3d 2. PTL- recurrent now after initial tocolysis and Celestone. Slight cx change but regular CTX q 3 min. Not candidate for Indocin due to Hx/ "sllergy" or Procardia due to low DBP. 3. Previous short cx on Crinone 4. Hx gastric by pass with revision RECOMMENDATIONS: 1. Re start Mag Sulfate 4 g IVB, then 2g/hr 2. If unable to tocolyze, consider transfer to Level 3 institution. 3. Total IVFs at 125 ml/hr, follow I & O closely, avoid fluid overload 4. Continue GBS prophylaxis 5. No need to give Celestone- already done 6. Situation, recommendations and risks to her & baby, including risks of therapy and risks of prematurity, discussed. 7. case/ recommendations discussed with Dr Rodriguez 60 minutes Emiliano Terry MD Nov 05, 2016 12:48
[2016-11-05] MEDS ORDERED: CALCIUM GLUCONATE 10% 1 GM/10 ML VIAL IV PUSH PRN (13:30)
[2016-11-05] MEDS ORDERED: MAGNESIUM SULFATE 4GRAM PRMIX-LOAD DOSE IV ONE (13:30)
[2016-11-05] MEDS: LACTATED RINGER'S 1000 ML INJ 1,000 ML IV SCH (13:30)
[2016-11-05] MEDS: ONDANSETRON HCL 4 MG/2 ML VIAL IV PRN (20:23)
[2016-11-05] MEDS ORDERED: PROGESTERONE 200 MG SCH (21:00)
[2016-11-05] MEDS: traZODone HCL 100 MG TAB PO SCH (22:54)
[2016-11-05] MEDS: ACETAMINOPHEN 325MG/HYDROcodone 7.5MG/15ML UDC PO PRN (22:55)
[2016-11-06] VITALS (26 sets, daily range): BP systolic 79–103; BP diastolic 39–57; PULSE 63–85; RESP 16–18; TEMP 98–99
[2016-11-06] MEDS: CLINDAMYCIN INJ 900 MG in SODIUM CHLORIDE 0.9% INJ 100 ML IV SCH ×3 (02:37→17:41)
[2016-11-06] MEDS: LACTATED RINGER'S 1000 ML INJ 1,000 ML IV SCH ×2 (02:43→16:10)
[2016-11-06] MEDS: MAGNESIUM SULFATE 40 GM PREMIX 1,000 ML IV SCH (06:19)
[2016-11-06] MEDS: LEVOTHYROXINE SODIUM 50 MCG TAB PO SCH (06:20)
[2016-11-06] MEDS: SODIUM CHLORIDE 0.9% FLUSH 10 ML FLUSH IV FLUSH SCH ×2 (09:00→21:00)
[2016-11-06] MEDS: PRENATAL VITAMIN CHEWABLE TAB PO SCH (11:02)
[2016-11-06] MEDS: PANTOPRAZOLE SOD 40 MG DELAYED RELEASE TAB PO SCH (11:02)
[2016-11-06] MEDS ORDERED: LIDOCAINE 2% JELLY 30 ML TUBE ONE (16:50)
[2016-11-06] MEDS ORDERED: LIDOCAINE 2% JELLY 30 ML TUBE TOPICAL ONE (17:00)
[2016-11-06] MEDS: ONDANSETRON HCL 4 MG/2 ML VIAL IV PRN (18:50)
[2016-11-06 18:57] LABS: BACTERIA, URINE FEW /hpf; BLOOD, URINE MOD (NEG); COMMENT (UR) CULTURE INDICATED; CULTURE IF INDICATED CULTURE INDICATED; GLUCOSE,URINE NEG (NEG); KETONE, URINE NEG (NEG); NITRITE,URINE POS (NEG); PH, URINE 8.5 (5.0-8.5); RENAL EPITHELIAL CELLS <1 /hpf; URINE COLOR YELLOW (YELLW/STRAW)
[2016-11-06] MEDS: NITROFURANTOIN MONOHYD MACROCR 100 MG CAP PO SCH (19:30)
[2016-11-06] MEDS: traZODone HCL 100 MG TAB PO SCH (22:04)
[2016-11-06] MEDS: ACETAMINOPHEN 325MG/HYDROcodone 7.5MG/15ML UDC PO PRN (22:05)
[2016-11-07] MEDS: CLINDAMYCIN INJ 900 MG in SODIUM CHLORIDE 0.9% INJ 100 ML IV SCH (01:54)
[2016-11-07] MEDS: LEVOTHYROXINE SODIUM 50 MCG TAB PO SCH (06:06)
[2016-11-07] MEDS ORDERED: NITR100C4 PO (07:05)
[2016-11-07 09:11] VITALS: BP 99/48; PULSE 70; TEMP 98.4
[2016-11-07 09:12] VITALS: RESP 18
[2016-11-07] MEDS: PRENATAL VITAMIN CHEWABLE TAB PO SCH (09:20)
[2016-11-07] MEDS: NITROFURANTOIN MONOHYD MACROCR 100 MG CAP PO SCH (09:20)
--- NOTE | 2016-11-11 18:12 | MD ---
cc: EVAN VASQUEZ ADMISSION DATE: 11/06/2016 DISCHARGE DATE: 11/07/2016 ADMISSION DIAGNOSIS 27-28 weeks, labor. DISCHARGE DIAGNOSIS Resolution of labor. HISTORY OF PRESENT ILLNESS A 30 year-old white female para 0-0-1-0 with an EDC of 02/01/2017 admitted on 11/04/2016 for labor. Positive FFN and mild cervical change. She received mag sulfate therapy for 24+ hours. She received steroid therapy x2 after the mag was D&C'd. She began with uterine contractions. Was seen by MFM recommended further 24 hours. This was performed and stopped at 6:30 on 11/06/2016. Contractions have remained absent since that time. She is now discharged home on bed rest, NPV. She will continue her crinone one applicator per vagina qhs daily. She will be off work for remainder of the . She will return to see me in 1 week. She will return to the hospital dru for signs of labor, leakage of fluid, decreased movement or any abnormal symptomatology. She was given a script for Macrobid 100 mg p.o. b.i.d. #14 for positive GI, culture pending. Her last ultrasound on 11/04/16 showed vertex presentation, normal fluid, EFW of 1108 grams. The cervix at 1.8 centimeters. MD HARDIK Nielson/ /7:09 AM /6:11 PM [facility]
== END 2016-11-07 09:53 | disposition home or self-care (01) | DRG 778 ==
LOC: HOBED 22:29 → INTOOBSV 11-04 01:09 → H2EA 11-04 01:09 → OBSVTOIN 11-06 09:48
PROVIDERS: ADMIT Obstetrics & Gynecology; ATTEND Obstetrics & Gynecology
DX: O60.02 Preterm labor without delivery, second trimester (principal); O26.872 Cervical shortening, second trimester; O99.842 Bariatric surgery status complicating pregnancy, second trimester; O99.282 Endocrine, nutritional and metabolic diseases complicating pregnancy, second trimester; Z3A.27 27 weeks gestation of pregnancy; E03.9 Hypothyroidism, unspecified
CPT/HCPCS: 76816; 76817; 80307; 81001; 82731; 83735; 85025; 87077; 87086; 87186; 87210; 96374; 99285; G0378; J0702; J2405; J3475; J7120

== ENCOUNTER 2016-11-21 11:04 | Inpatient (IN) | payer BC ==
[~2016-11-21 11:04] MED LIST changes: +NITR100C4 PO
--- NOTE | 2016-11-21 12:35 | PD ---
HPI Chief Complaint vaginal discharge Date Seen: Nov 21, 2016 Time Seen: 12:27 Travel History International Travel<30 Days: No Contact w/Intl Traveler<30Days: No Known Affected Area: No History of Present Illness HPI 31-year-old white female who is at 29 weeks 2 days gestation comes in with vaginal discharge. Patient states that she's had a thick vaginal discharge for the past 2-1/2 weeks due to the intravaginal progesterone that she 's been utilizing but the discharge has changed in frequency and intensity over the past 2 days. Patient has a history of a shortened cervix and was started on vaginal progesterone in the form of Prometrium at 24 weeks. She was treated early in the with magnesium sulfate and given a full course of betamethasone 2 weeks ago when her cervix was digitally examined and found to be 1 cm and the patient had contractions. She eventually discharged home with follow-up's. Patient denies uterine contractions, vaginal bleeding. Patient states that she's been having normal movement Para: 0 : 2 : 1 History Past Medical History Narrative Medical Hypothyroidism on levo thyroxine Gastric ulcer with perforation Gastric bypass 6 GERD Obstetric History Obstetric History Gastric bypass 6 Laparoscopic cholecystectomy with hernia repair Past Surgical History Narrative Surgical Gastric bypass 6 copy cholecystectomy with hernia repair Surgical History: No Previous Surgery Family History Family History: Negative Social History Alcohol Use: No Tobacco Use: No Substance Abuse: No Allergies-Medications (Allergen,Severity, Reaction): Coded Allergies: Augmentin (Verified Allergy, Unknown, 08/13/16) Levaquin (Verified Allergy, Unknown, 08/13/16) Nonsteroidal Anti-Inflammatory Agts (Verified Allergy, Unknown, 08/13/16) Suprax (Verified Allergy, Unknown, 08/13/16) Home Meds Active Scripts Nitrofurantoin Monohydrate Macrocrystals 100 Mg [id number] Mg PO BID PRN (UTI) #14 CAP Prov:Nicola Rodriguez MD 11/07/16 Reported Medications Ondansetron (Zofran)4 Mg Tab4 Mg PO Q6HR PRN (NAUSEA OR VOMITING) Ref 0 08/13/16 Hydrocodone-Acetaminophen Liq 7.5-325 Mg/15 Ml Soln10 Ml PO Q6H PRN (PAIN) Ref 0 08/13/16 Levothyroxine 50 Mcg Tab50 Mcg PO DAILY #30 TAB Ref 0 08/13/16 Vit-Iron Carbonyl ( Plus Iron 29-1 mg)1 Tab Tab1 Tab PO DAILY #30 TAB Ref 0 08/13/16 Pantoprazole (Protonix)40 Mg Tab40 Mg PO DAILY #30 TAB Ref 0 08/13/16 Trazodone 100 Mg Pss153 Mg PO HS #30 TAB Ref 0 08/13/16 Review of Systems Except as stated in HPI: all other systems reviewed are Neg Physical Exam Narrative GENERAL: Well-nourished, well-developed patient. SKIN: Warm and dry. HEAD: Normocephalic and atraumatic. EYES: No scleral icterus. No injection or drainage. ENT: No nasal drainage noted. Mucous membranes pink. Airway patent. NECK: Supple, trachea midline. No JVD. CARDIOVASCULAR: Regular rate and rhythm without murmurs, gallops, or rubs. RESPIRATORY: Breath sounds equal bilaterally. No accessory muscle use. BREASTS: Bilateral exam showed no masses , no retractions, no nipple discharge. ABDOMEN/GI: Abdomen soft, non-tender, bowel sounds present, no rebound, no guarding Gravid to [-] weeks size Fundal Height: [-29] GENITOURINARY: Sterile speculum examination was performed External Genitalia: intact and normal in appearance BUS glands: [Normal-] Cervix: [-Posterior] Dilatation: [Appears closed although previous exam examination done digitally was 1 cm-] Effacement: [-] Station: [-] Presentation: [-] Membranes: Ruptured based on positive amnisure Uterine Contractions: [-Absent] FHT's: Category: [1-] Baseline: [140-] Reactive: [Moderate-] Variability: [Moderate] Decels: [-Absent] EXTREMITIES: No cyanosis or edema. BACK: Nontender without obvious deformity. No CVA tenderness. NEUROLOGICAL: Awake and alert. Motor and sensory grossly within normal limits. Five out of 5 muscle strength in all muscle groups. Normal speech. Data Data Orders Vital Signs (Adult) .ON ADMISSION (11/21/16 12:23) ^ Labor Status (11/21/16 12:23) Urinalysis - C+S If Indicated (11/21/16 12:23) Diet Liquid (11/21/16 Lunch) Cbc No Diff, Includes Plts (11/21/16 12:23) Type And Screen (11/21/16 12:23) Basic Metabolic Panel (Bmp) (11/21/16 12:23) Lactated Ringer's 1000 Ml Inj (Lr 1000 M (11/21/16 12:23) Us Ob Bpp Wo Nst (11/21/16 12:23) MDM Plan Patient at 29 weeks 2 days with premature rupture of membranes-patient is a candidate for IV antibiotics Ultrasound ordered for EFW and CALLIE Patient recently with a full course of betamethasone 2 weeks ago No signs of labor at this time Diagnosis Diagnosis: Primary Impression: 29 weeks gestation of Additional Impressions: premature rupture of membranes History of gastric bypass History of labor, current Emma Espinal MD Nov 21, 2016 12:35
[2016-11-21] MEDS ORDERED: LACTATED RINGER'S 1000 ML INJ 1,000 ML IV SCH (12:38)
[2016-11-21] MEDS ORDERED: AZITHROMYCIN INJ 250 MG in SODIUM CHLOR 0.9% 250 ML INJ 250 ML IV SCH ×2 (12:45→13:15)
[2016-11-21] MEDS ORDERED: AZITHROMYCIN INJ 500 MG in SODIUM CHLOR 0.9% 250 ML INJ 250 ML IV ONE ×3 (12:45→15:00)
[2016-11-21] MEDS ORDERED: DOCUSATE SODIUM 100 MG CAP PO PRN (12:45)
[2016-11-21] MEDS ORDERED: ZOLPIDEM TARTRATE 5 MG TAB PO PRN (12:45)
[2016-11-21] MEDS ORDERED: SODIUM CHLORIDE 0.9% FLUSH 10 ML FLUSH IV FLUSH PRN (12:45)
[2016-11-21] MEDS ORDERED: CALCIUM GLUCONATE 10% 1 GM/10 ML VIAL IV PRN (12:45)
--- NOTE | 2016-11-21 12:58 | PD ---
History of Present Illness History of Present Illness This patient is unfortunately allergic to penicillin with some skin rash and hives. Although she states she had rashes Suprax she is able to take Ceclor without any issues. Additionally the pharmacy has run out of erythromycin. Plan to administer cephalosporin 2 g initially then 1 g IV every 8 As azithromycin is known to have a similar advantage via the CDC for premature rupture membranes will order 500 mg IV for today followed by 250 mg IV daily If the group B strep comes out negative and patient may have discontinuation of cyclosporine. Emma Espinal MD Nov 21, 2016 12:58
[2016-11-21 13:51] LABS: AMPHETAMINE, URINE NEG (NEG); BARBITURATES, URINE NEG (NEG); COCAINE, URINE NEG (NEG)
[2016-11-21 14:18] LABS: HEMATOCRIT 35.8 % (35.0-46.0); MEAN CELL VOLUME 94.1 FL (80.0-100.0); MEAN CORPUSCULAR HEMOGLOBIN 31.8 PG (27.0-34.0); MEAN CORPUSCULAR HGB CONC 33.7 % (32.0-36.0); PLATELET COUNT 200 TH/MM3 (150-450); RED CELL DISTRIBUTION WIDTH 12.3 % (11.6-17.2); REVIEW FLAG FINAL
[2016-11-21 14:37] LABS: POTASSIUM 3.5 MEQ/L (3.5-5.1)
[2016-11-21] MEDS ORDERED: ceFAZolin 2 GM PREMIX 50 ML IV ONE (14:45)
[2016-11-21] MEDS: LACTATED RINGER'S 1000 ML INJ 1,000 ML IV SCH ×2 (14:54→23:14)
--- NOTE | 2016-11-21 15:08 | MH ---
cc: EVAN VASQUEZ DATE OF ADMISSION: 11/21/2016 ADMITTING DIAGNOSIS at 29/30 weeks with premature rupture of membranes. HISTORY OF PRESENT ILLNESS The patient is a 30-year-old single white female, para 0-0-1-0, with an LMP of 04/27/2016, EDC of 02/01/2017. She has been followed for this since 07/15/2016. She was diagnosed with a short cervix and begun on Crinone vaginal gel on 10/07/2016. She was admitted for labor on 11/04/2016, received mag sulfate for 24 hours and steroids x2, and then had recurrent labor, treated with a second 24-hour window of mag sulfate and then improved and was discharged home in stable condition on bed rest on 11/07/2016. She was doing well until apparently she awoke about 9:00 a.m. yesterday and felt very wet and since that time has had some pink spotting and mucus and continued to feel wet. She called today at 9:15 a.m. and was advised to come in for evaluation. AmniSure was positive. monitoring is normal. No signs of labor. She is now admitted for evaluation and treatment. PAST MEDICAL HISTORY PREVIOUS SURGERY T&A age 7. In 2014 she had a laparoscopic Cassandra-en-Y gastric bypass procedure and at least seven operations afterwards for complications. SERIOUS MEDICAL ILLNESSES She had pneumonia at age 5 and meningitis. She has hypothyroidism. ALLERGIES 1. AUGMENTIN. 2. SUPRAX. 3. LEVAQUIN. 4. NSAIDS. 5. ASPIRIN. SOCIAL HISTORY She is single. 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 Alcohol, tobacco and drugs are none. FAMILY HISTORY Noncontributory. PHYSICAL EXAMINATION GENERAL: A well-nourished, well-developed white female in no distress. HEENT: Exam is normal. CHEST: Clear. HEART: Regular rate. ABDOMEN: Gravid, nontender. BREASTS: Symmetrical. PELVIC: Speculum exam done by Dr. Espinal revealed cervix appeared closed. ASSESSMENT As above. PLAN She is admitted. She will have an ultrasound, check CALLIE, monitoring, strep culture, antibiotic prophylaxis with ampicillin and erythromycin, and observation. If she develops signs of labor or compromise, will need to proceed with delivery. She would prefer to stay at [facility] Delivery if feasible and that will be the intended plan. MD HARDIK Nielson/JW /2:50 PM /2:59 PM
[2016-11-21] MEDS: ONDANSETRON HCL 4 MG/2 ML VIAL IV PRN (15:12)
[2016-11-21 15:37] LABS: BLOOD, URINE NEG (NEG); GLUCOSE,URINE NEG (NEG); KETONE, URINE NEG (NEG); NITRITE,URINE NEG (NEG); PH, URINE 7.5 (5.0-8.5); SQUAMOUS EPITHELIAL CELL URINE <1 /hpf (0-5); URINE COLOR YELLOW (YELLW/STRAW)
[2016-11-21 15:38] LABS: COMMENT (UR) CULT NOT INDICATED; CULTURE IF INDICATED CULT NOT INDICATED
[2016-11-21] MEDS: ACETAMINOPHEN 325MG/HYDROcodone 7.5MG/15ML UDC PO PRN (18:32)
[2016-11-21 19:11] VITALS: BP 102/55; PULSE 72
[2016-11-21 19:12] VITALS: RESP 18; TEMP 98.6
[2016-11-21] MEDS: PANTOPRAZOLE SOD 40 MG DELAYED RELEASE TAB PO SCH (19:57)
[2016-11-21] MEDS: SODIUM CHLORIDE 0.9% FLUSH 10 ML FLUSH IV FLUSH SCH (21:00)
[2016-11-21 23:04] VITALS: RESP 16; TEMP 98.3
[2016-11-21 23:05] VITALS: BP 101/59; PULSE 61
[2016-11-22] VITALS (15 sets, daily range): BP systolic 104–122; BP diastolic 47–65; PULSE 61–90; RESP 16–18; TEMP 98.1–98.5; O2SAT 98–100
[2016-11-22] MEDS: ACETAMINOPHEN 325MG/HYDROcodone 7.5MG/15ML UDC PO PRN ×3 (00:05→15:08)
[2016-11-22] MEDS: traZODone HCL 100 MG TAB PO SCH (00:31)
[2016-11-22] MEDS: LEVOTHYROXINE SODIUM 50 MCG TAB PO SCH (06:37)
[2016-11-22] MEDS: LACTATED RINGER'S 1000 ML INJ 1,000 ML IV SCH ×5 (06:38→23:04)
[2016-11-22 07:35] LABS: AUTOMATED NEUTROPHIL # 6.3 TH/MM3 (1.8-7.7); BASOPHIL % 0.3 % (0.0-2.0); EOSINOPHIL % 0.4 % (0.0-4.0); HEMATOCRIT 32.6 % (35.0-46.0); HEMO FLAGS DIFF FINAL; LYMPH % 19.2 % (9.0-44.0); LYMPHOCYTE # 1.6 TH/MM3 (1.0-4.8); MEAN CELL VOLUME 94.5 FL (80.0-100.0); MEAN CORPUSCULAR HEMOGLOBIN 32.3 PG (27.0-34.0); MEAN CORPUSCULAR HGB CONC 34.2 % (32.0-36.0); MONO % 6.5 % (0.0-8.0); NEUT % 73.6 % (16.0-70.0); PLATELET COUNT 163 TH/MM3 (150-450); RED BLOOD COUNT 3.45 MIL/MM3 (4.00-5.30); RED CELL DISTRIBUTION WIDTH 12.1 % (11.6-17.2); WHITE BLOOD COUNT 8.5 TH/MM3 (4.0-11.0)
[2016-11-22] MEDS: SODIUM CHLORIDE 0.9% FLUSH 10 ML FLUSH IV FLUSH SCH ×2 (07:55→21:00)
[2016-11-22] MEDS: PANTOPRAZOLE SOD 40 MG DELAYED RELEASE TAB PO SCH (09:14)
[2016-11-22] MEDS: MULTIVIT/MIN/PREN/FOL AC/IRON PRENATAL TAB PO SCH (09:14)
[2016-11-22] MEDS: ONDANSETRON HCL 4 MG/2 ML VIAL IV PRN ×2 (09:24→15:07)
[2016-11-22] MEDS ORDERED: BETAMETHASONE SOD PHOS/ACETATE SUSP 30 MG/5 ML VIAL IM ONE (11:00)
[2016-11-22] MEDS: AZITHROMYCIN INJ 250 MG in SODIUM CHLOR 0.9% 250 ML INJ 250 ML IV SCH (13:58)
[2016-11-22] MEDS ORDERED: OXYTOCIN 30 UNITS-500ML PREMIX 500 ML IV PRN (18:15)
[2016-11-22] MEDS ORDERED: LACTATED RINGER'S 1000 ML IV ONE (21:30)
[2016-11-22] MEDS ORDERED: CITRIC ACID-SODIUM CITRATE LIQ 30 ML UDC PO SCH (21:30)
[2016-11-22] MEDS ORDERED: OXYTOCIN 10 UNIT/ML AMP ONE (21:46)
[2016-11-22] MEDS: LACTATED RINGER'S 1000 ML IV SCH (21:50)
[2016-11-22] MEDS ORDERED: SIMETHICONE 80 MG CHEWABLE TAB PO PRN (22:00)
[2016-11-22] MEDS ORDERED: ONDANSETRON HCL 4 MG/2 ML VIAL IVP PRN (22:00)
[2016-11-22] MEDS ORDERED: MEASLES, MUMPS, RUBELLA VACCINE 0.5 ML VIAL SQ ONE (22:00)
[2016-11-22] MEDS ORDERED: ZOLPIDEM TARTRATE 5 MG TAB PO PRN (22:00)
[2016-11-22] MEDS ORDERED: EPIDURAL-NO SYSTEMIC NARCOTICS PRN (22:00)
[2016-11-22] MEDS ORDERED: EPIDURAL-DIPHENHYDRAMINE HCL 50 MG CAP PO PRN (22:00)
[2016-11-22] MEDS ORDERED: EPIDURAL-DO NOT ADMINISTER ANTICOAGULANTS PRN (22:00)
[2016-11-22] MEDS ORDERED: EPIDURAL-DIPHENHYDRAMINE HCL 50 MG/ML VIAL IV PUSH PRN (22:00)
[2016-11-22] MEDS ORDERED: OXYTOCIN 30 UNITS-500ML PREMIX 500 ML IV ONE (22:00)
[2016-11-22] MEDS ORDERED: SODIUM CHLORIDE 0.9% FLUSH 5 ML FLUSH IV PRN (22:00)
[2016-11-22] MEDS ORDERED: EPIDURAL-NALOXONE HCL 0.4 MG/ML AMP IV PRN (22:00)
[2016-11-22] MEDS ORDERED: CLINDAMYCIN PHOS 600 MG/4 ML VIAL ONE (22:20)
[2016-11-22] MEDS: ACETAMINOPHEN 1000 MG/100 ML VIAL IV SCH (22:45)
[2016-11-22] MEDS ORDERED: ACETAMINOPHEN 1000 MG/100 ML VIAL IV ONE (22:47)
[2016-11-22] MEDS ORDERED: MORPHINE SULFATE PF 5 MG/10 ML VIAL ONE (23:01)
[2016-11-22] MEDS ORDERED: ONDANSETRON HCL 4 MG/2 ML VIAL ONE (23:01)
[2016-11-22 23:53] LABS: BLOOD GAS BASE EXCESS -1.5 mmol/L (-2-2); BLOOD GAS O2 HGB SATURATION 28 % (90-100); CORD BLOOD GAS HCO3 24 mmol/L (21-29); CORD BLOOD GAS PCO2 54 mmHG (34-78); CORD BLOOD GAS PH 7.28 (7.14-7.42); CORD BLOOD GAS PO2 17 mmHG (3.0-40.0)
[2016-11-22 23:54] LABS: DRAW SITE CORD BLOOD; STAT NO
[2016-11-23] VITALS: BP 121/58; PULSE 84; RESP 16; TEMP 97.8; O2SAT 98
[2016-11-23] MEDS: traZODone HCL 100 MG TAB PO SCH ×3 (02:23→23:05)
[2016-11-23] MEDS: LACTATED RINGER'S 1000 ML IV SCH (02:25)
[2016-11-23] MEDS: LACTATED RINGER'S 1000 ML INJ 1,000 ML IV SCH (02:46)
[2016-11-23] MEDS: ACETAMINOPHEN 1000 MG/100 ML VIAL IV SCH (06:00)
--- NOTE | 2016-11-23 06:31 | MP ---
cc: EVAN VASQUEZ M.D. DATE OF SURGERY: 11/22/2016 PREOPERATIVE DIAGNOSIS: 1. at 29-30 weeks. 2. Premature rupture of membranes. 3. Non-reassuring heart rate tracing. POSTOPERATIVE DIAGNOSIS: 1. at 29-30 weeks. 2. Premature rupture of membranes. 3. Non-reassuring heart rate tracing. 4. Short cord. OPERATION: Primary low transverse section. ANESTHESIA Spinal SURGEON Evan Vasquez MD. ESTIMATED BLOOD LOSS About 500 cc FLUIDS: One liter Crystalloid OBJECTIVE FINDINGS Following induction of adequate spinal anesthesia the patient was prepped and draped supine on the operating table left lateral tilt position in sterile fashion with the bladder being drained by Jensen catheterization. The abdomen was opened through a Pfannenstiel incision using a knife to cut down from the skin to the fascia. The fascia was opened transversely, stripped from the muscle. The rectus muscle was split in the midline and the peritoneum opened sharply without incident. The bladder flap was taken down sharply, retracted inferiorly with the [place] blade. The lower uterine segment was incised transversely with the knife, extended with blunt dissection, which showed clear fluid. The baby was in LOT position. The baby was delivered with embossograph operator guidance, and fundal pressure. The mouth was suctioned, cord clamped and cut after 45 seconds and the baby was passed to the awaiting team. Cord blood was collected for ABG and for gas. The cord was noted to be short. The placenta was delivered manually. The uterine cavity was wiped clean with laps. The uterus was exteriorized and closed in two layers of running suture, first with a running locking stitch of 0 Vicryl, the second with a running imbricating stitch of 0 Vicryl. On posterior inspection of the uterus, tubes and ovaries were normal. The uterus was now placed in the peritoneal cavity. Irrigation was performed, no bleeding was evident. The bladder flap was closed with a running stitch of 3-0 Vicryl. All laps and retractors were removed, counts were correct. The anterior peritoneum was closed with a running stitch of 2-0 Vicryl, the fascia closed with a running locking stitch of 0 Vicryl, corner to midline and tied. The subcu was closed with running 3-0 Vicryl and skin with a running subcuticular stitch of 3-0 Monocryl. Dermabond applied. All counts were correct. The patient was awake and taken to the recovery room in good condition. MD HARDIK Nielson/ROSA /10:59 PM /6:10 AM
[2016-11-23] MEDS: LEVOTHYROXINE SODIUM 50 MCG TAB PO SCH (06:37)
[2016-11-23] MEDS: ONDANSETRON HCL 4 MG/2 ML VIAL IV PRN (06:37)
[2016-11-23] MEDS: ACETAMINOPHEN 325MG/HYDROcodone 7.5MG/15ML UDC PO PRN ×5 (06:38→21:58)
[2016-11-23 07:40] VITALS: BP 103/62; PULSE 65; RESP 18; TEMP 98.4
[2016-11-23] MEDS: PANTOPRAZOLE SOD 40 MG DELAYED RELEASE TAB PO SCH (09:00)
[2016-11-23] MEDS ORDERED: SODIUM CHLORIDE 0.9% FLUSH 5 ML FLUSH IV SCH (09:00)
[2016-11-23] MEDS: MULTIVIT/MIN/PREN/FOL AC/IRON PRENATAL TAB PO SCH (09:00)
[2016-11-23 09:43] LABS: AUTOMATED NEUTROPHIL # 16.6 TH/MM3 (1.8-7.7); BASOPHIL % 0.1 % (0.0-2.0); HEMATOCRIT 33.2 % (35.0-46.0); HEMO FLAGS DIFF FINAL; LYMPH % 6.7 % (9.0-44.0); LYMPHOCYTE # 1.3 TH/MM3 (1.0-4.8); MEAN CELL VOLUME 94.9 FL (80.0-100.0); MEAN CORPUSCULAR HEMOGLOBIN 31.9 PG (27.0-34.0); MEAN CORPUSCULAR HGB CONC 33.7 % (32.0-36.0); MONO % 4.3 % (0.0-8.0); NEUT % 88.9 % (16.0-70.0); PLATELET COUNT 152 TH/MM3 (150-450); WHITE BLOOD COUNT 18.7 TH/MM3 (4.0-11.0)
[2016-11-23 10:06] LABS: BICARBONATE 22.2 MEQ/L (21.0-32.0); POTASSIUM 3.9 MEQ/L (3.5-5.1)
[2016-11-23] MEDS: traMADol HCL 50 MG TAB PO PRN ×2 (16:45→23:06)
[2016-11-23] MEDS: DOCUSATE SODIUM 50 MG/SENNA 8.6 MG TAB PO PRN (16:48)
[2016-11-23 16:56] VITALS: BP 98/58; PULSE 62; RESP 16
[2016-11-23 19:45] VITALS: BP 89/55; PULSE 58; RESP 16; TEMP 97.9
[2016-11-24] MEDS: ACETAMINOPHEN 325MG/HYDROcodone 7.5MG/15ML UDC PO PRN ×5 (03:43→22:12)
[2016-11-24] MEDS: LACTATED RINGER'S 1000 ML INJ 1,000 ML IV SCH ×2 (04:23→12:23)
[2016-11-24] MEDS: traMADol HCL 50 MG TAB PO PRN ×3 (05:47→19:34)
[2016-11-24] MEDS: DOCUSATE SODIUM 50 MG/SENNA 8.6 MG TAB PO PRN ×2 (05:48→19:34)
[2016-11-24] MEDS: LEVOTHYROXINE SODIUM 50 MCG TAB PO SCH (05:48)
[2016-11-24] MEDS: LACTATED RINGER'S 1000 ML IV SCH ×2 (06:50→13:30)
[2016-11-24] MEDS: SODIUM CHLORIDE 0.9% FLUSH 10 ML FLUSH IV FLUSH SCH (07:43)
[2016-11-24] MEDS: MULTIVIT/MIN/PREN/FOL AC/IRON PRENATAL TAB PO SCH (07:51)
[2016-11-24] MEDS: PANTOPRAZOLE SOD 40 MG DELAYED RELEASE TAB PO SCH (07:51)
[2016-11-24 08:02] VITALS: BP 109/63; PULSE 62; RESP 16; TEMP 98.4
[2016-11-24] MEDS ORDERED: DIPHTH/TETANUS/ACEL PERTUSSIS (BOOSTER) 0.5 ML VIAL/PFS IM ONE (09:00)
[2016-11-24] MEDS: AZITHROMYCIN INJ 250 MG in SODIUM CHLOR 0.9% 250 ML INJ 250 ML IV SCH (14:00)
[2016-11-24 19:32] VITALS: BP 105/60; PULSE 65; RESP 14; TEMP 98.4
[2016-11-24] MEDS: traZODone HCL 100 MG TAB PO SCH (23:24)
[2016-11-25] MEDS: ACETAMINOPHEN 325MG/HYDROcodone 7.5MG/15ML UDC PO PRN ×4 (02:24→15:07)
[2016-11-25] MEDS: traMADol HCL 50 MG TAB PO PRN ×2 (04:20→10:47)
[2016-11-25] MEDS: LEVOTHYROXINE SODIUM 50 MCG TAB PO SCH (06:09)
[2016-11-25] MEDS ORDERED: HYDR1SOL6 PO (08:31)
--- NOTE | 2016-11-25 08:32 | HHI.DCPOC ---
Discharge Care Plan Report Symptoms to Your Doctor -Temperature above 100.5 degrees -Redness, of incision or excessive or foul smelling drainage -Unusual pain or calf pain -Increased vaginal bleeding -Painful or difficulty urinating -Feelings of extreme sadness or anxiety after 2 weeks Goals to Promote Your Health * To prevent worsening of your condition and complications * To maintain your health at the optimal level Directions to Meet Your Goals Take your medications as prescribed Follow your dietary instruction Follow activity as directed Ensure plenty of rest for recovery Drink fluids for hydration Keep your appointments as scheduled Take your immunizations and boosters as scheduled If your symptoms worsen call your PCP, if no PCP go to Urgent Care Center or Emergency Room Smoking is Dangerous to Your Health. Avoid second hand smoke Call the 24-hour crisis hotline for domestic abuse at Nicola Rodriguez MD Nov 25, 2016 08:32
[2016-11-25 09:00] VITALS: BP 97/58; PULSE 62; RESP 16; TEMP 98.3
[2016-11-25] MEDS: PANTOPRAZOLE SOD 40 MG DELAYED RELEASE TAB PO SCH (10:47)
[2016-11-25] MEDS: DOCUSATE SODIUM 50 MG/SENNA 8.6 MG TAB PO PRN (10:47)
[2016-11-25] MEDS: MULTIVIT/MIN/PREN/FOL AC/IRON PRENATAL TAB PO SCH (10:48)
[2016-11-25] MEDS: AZITHROMYCIN INJ 250 MG in SODIUM CHLOR 0.9% 250 ML INJ 250 ML IV SCH (14:00)
== END 2016-11-25 15:18 | disposition home or self-care (01) | DRG 765 ==
LOC: HOBED 11:04 → H2EA 13:11 → H1EA 11-23 00:56
PROVIDERS: ADMIT Obstetrics & Gynecology; ATTEND Obstetrics & Gynecology
PROC: 10D00Z1 Extraction of Products of Conception, Low, Open Approach (ICD-10-PCS; principal; 2016-11-22)
DX: O42.913 Preterm premature rupture of membranes, unspecified as to length of time between rupture and onset of labor, third trimester (principal); O60.14X0 Preterm labor third trimester with preterm delivery third trimester, not applicable or unspecified; O26.873 Cervical shortening, third trimester; O99.284 Endocrine, nutritional and metabolic diseases complicating childbirth; O99.844 Bariatric surgery status complicating childbirth; O76 Abnormality in fetal heart rate and rhythm complicating labor and delivery; O69.3XX0 Labor and delivery complicated by short cord, not applicable or unspecified; Z37.0 Single live birth; Z3A.30 30 weeks gestation of pregnancy; Z88.0 Allergy status to penicillin; Z88.1 Allergy status to other antibiotic agents
CPT/HCPCS: 76819; 80048; 80307; 81001; 82805; 84112; 85025; 85027; 86703; 86850; 86900; 86901; 87081; 87150; 88307; 90715; J0131; J0456; J0690; J0702; J2274; J2405; J2590; J7050; J7120

== ENCOUNTER → 2016-12-26 | Outpatient (CLI) | payer BC, MEDICAID ==
[~2016-12-26] VITALS: Ht 160 cm; Wt 69.2 kg
[~2016-12-26] MED LIST changes: +ALPR.25 PO; +CHLORHEXIDINE GLUCONATE 2 % 1 PACK (2 CLOTHS) TOPICAL PRN; +HYDR1SOL6 PO; +INSULIN HUMAN REGULAR 1,000 UNITS/10 ML VIAL SQ PRN; +LACTATED RINGER'S 1000 ML IV PRN; -NITR100C4 PO; +POVIDONE IODINE 5% (ANTISEPSIS KIT) 4 APPLICATIONS EACH NARE PRN; +PROPOFOL 200 MG/20 ML AMP IV ONE; +SODIUM CHLORID 0.9% 500 ML IV PRN; -TRAZ100T4 PO; +TRAZ100T6 PO; +ZOLO25TA PO
[2016-12-26 05:25] VITALS: BP 104/56; PULSE 58; RESP 16; TEMP 98.3; O2SAT 100
[2016-12-26 08:00] VITALS: TEMP 97.5
--- NOTE | 2016-12-26 08:01 | GIPROC ---
[facility] [address]. [facility] [place] [facility], [address] EGD WITH DILATION PROCEDURE REPORT EXAM DATE: 12/26/2016 PATIENT NAME: Alda Collado MR#: [id number] BIRTHDATE: 1985 ATTENDING: Xavier Spangler MD ORDER #: [id number] HR BUSINESS PARTNER: Ernesto Hudson and Vidhya Quiroz STATUS: outpatient INDICATIONS: The patient is a 31 yr old female here for an EGD with dilation due to dysphagia and history of gastric bypass PROCEDURE PERFORMED: EGD w/ balloon dilation of esophagus MEDICATIONS: None and Per Anesthesia. TOPICAL ANESTHETIC: none CONSENT: The patient understands the risks and benefits of the procedure and understands that these risks include, but are not limited to: sedation, allergic reaction, infection, perforation and/or bleeding. Alternative means of evaluation and treatment include, among others: physical exam, x-rays, and/or surgical intervention. The patient elects to proceed with this endoscopic procedure. medical equipment was checked for proper function. Hand hygiene and appropriate measures for infection prevention was taken. After the risks, benefits and alternatives of the procedure were thoroughly explained, Informed consent was verified, confirmed and timeout was successfully executed by the treatment team. The patient was anesthetized with anesthesia and the [employer]le[employer] [id number] endoscope was introduced through the mouth and advanced to the anastomosis. The instrument was slowly withdrawn as the mucosa was fully examined. Gastrojejunostomy ulcer, stricturing at gastrojejunostomy anastomosis. Dilation was done x2 with improvement following dilation. Dilation was performed at gastrojejunostomy. DILATOR: SIZE(S): RESISTANCE: HEME: APPEARANCE: Dilator: Balloon over guidewire Size(s): 20 Resistance: moderate Appearance: adequate COMMENT: gastrojejunostomy ulcer with stricturing Retroflexion was not performed ADVERSE EVENTS: There were no complications. IMPRESSIONS: 1. Gastrojejunostomy ulcer, stricturing at gastrojejunostomy anastomosis 2. Retroflexion was not performed RECOMMENDATIONS: 1. Continue PPI 2. Carafate 1 gm po qid ac REPEAT EXAM: NONE Xavier Spangler MD eSigned: Xavier Spangler MD 12/26/2016 8:01 AM cc: PATIENT NAME: Tobias Alda Manley MR#: [id number]
[2016-12-26 08:30] VITALS: BP 95/56; PULSE 54; RESP 18; O2SAT 95
== END ==
LOC: HEND 05:08
PROVIDERS: ATTEND Surgery
DX: R13.10 Dysphagia, unspecified (principal); Z98.84 Bariatric surgery status
CPT/HCPCS: 00740; 43245; C1726

== ENCOUNTER 2017-02-22 17:39 | Observation (INO) | payer BC, MEDICAID ==
[~2017-02-22] VITALS: Ht 160 cm; Wt 70.0 kg
[~2017-02-22 17:39] MED LIST changes: -CHLORHEXIDINE GLUCONATE 2 % 1 PACK (2 CLOTHS) TOPICAL PRN; -HYDR1SOL3 PO; -INSULIN HUMAN REGULAR 1,000 UNITS/10 ML VIAL SQ PRN; -LACTATED RINGER'S 1000 ML IV PRN; -POVIDONE IODINE 5% (ANTISEPSIS KIT) 4 APPLICATIONS EACH NARE PRN; -PROPOFOL 200 MG/20 ML AMP IV ONE; -SODIUM CHLORID 0.9% 500 ML IV PRN
[2017-02-22 17:48] VITALS: BP 97/53; PULSE 72; RESP 16; TEMP 98.1; O2SAT 99
[2017-02-22] MEDS ORDERED: CARA1SUS3 PO (17:58)
[2017-02-22] MEDS ORDERED: SODIUM CHLOR 0.9% 1000 ML INJ 1,000 ML IV ONE (18:00)
[2017-02-22] MEDS ORDERED: MORPHINE SULFATE 4 MG/ML INJ IV PUSH ONE ×2 (18:00→19:15)
[2017-02-22] MEDS: SODIUM CHLORIDE 0.9% FLUSH 10 ML FLUSH IV FLUSH PRN ×2 (18:13→19:18)
[2017-02-22 18:26] LABS: BLOOD, URINE NEG (NEG); COMMENT (UR) CULT NOT INDICATED; CULTURE IF INDICATED CULT NOT INDICATED; GLUCOSE,URINE NEG (NEG); KETONE, URINE NEG (NEG); NITRITE,URINE NEG (NEG); SQUAMOUS EPITHELIAL CELL URINE 1 /hpf (0-5); URINE COLOR LIGHT-YELLOW (YELLW/STRAW)
[2017-02-22 18:32] LABS: AUTOMATED NEUTROPHIL # 4.6 TH/MM3 (1.8-7.7); BASOPHIL % 0.5 % (0.0-2.0); EOSINOPHIL # 0.1 TH/MM3 (0-0.4); EOSINOPHIL % 0.9 % (0.0-4.0); HEMATOCRIT 35.9 % (35.0-46.0); LYMPH % 24.8 % (9.0-44.0); LYMPHOCYTE # 1.7 TH/MM3 (1.0-4.8); MEAN CORPUSCULAR HEMOGLOBIN 31.7 PG (27.0-34.0); MEAN CORPUSCULAR HGB CONC 33.7 % (32.0-36.0); MONO % 7.6 % (0.0-8.0); NEUT % 66.2 % (16.0-70.0); PLATELET COUNT 175 TH/MM3 (150-450); RED BLOOD COUNT 3.82 MIL/MM3 (4.00-5.30); RED CELL DISTRIBUTION WIDTH 12.5 % (11.6-17.2); WHITE BLOOD COUNT 6.9 TH/MM3 (4.0-11.0)
[2017-02-22 18:35] LABS: HEMO FLAGS AUTO DIFF
[2017-02-22 18:59] LABS: SCAN/DIFF AUTO DIFF CONFIRMED
[2017-02-22 19:04] LABS: ALT (GPT) 54 U/L (10-53)
[2017-02-22 19:06] LABS: ALKALINE PHOSPHATASE 76 U/L (45-117); TOTAL BILIRUBIN ADULT 0.3 MG/DL (0.2-1.0)
[2017-02-22 19:10] LABS: ANION GAP 6 MEQ/L (5-15); AST (GOT) 40 U/L (15-37); BICARBONATE 25.3 MEQ/L (21.0-32.0); BLOOD UREA NITROGEN 10 MG/DL (7-18); CHLORIDE 111 MEQ/L (98-107); GLOMERULAR FILTRATION RATE 118 ML/MIN (>89); POTASSIUM 3.8 MEQ/L (3.5-5.1); SODIUM (NA) 142 MEQ/L (136-145)
[2017-02-22] MEDS ORDERED: DEXTROSE 50% IN WATER 50 ML SYRINGE IV PUSH ONE (19:15)
--- NOTE | 2017-02-22 19:24 | PD ---
HPI Chief Complaint: GI Complaint Time Seen by Provider: 17:52 Travel History International Travel<30 days: No Contact w/Intl Traveler<30days: No Traveled to known affect area: No History of Present Illness HPI 31-year-old female came to the emergency room by EMS for intractable abdominal pain. Patient has history of gastric bypass surgery in the past. However she says she has been admitted in this hospital and seen by Dr. Spangler in the past. She went to [facility] yesterday for this pain where CT scan and labs were done. They were within normal limit and she was discharged home. However patient continues to be nauseous and abdominal pain and hence decided to come here today. Pain is generalized. No aggravating or relieving factors. It is just constant. Vital signs are stable. [facility] Past Medical History Narrative Medical List of her past medical, surgical, social and family history is reviewed from the nursing note. Blood Disorders: No Anxiety: Yes Depression: No Cancer: No Cardiovascular Problems: No Diabetes: No Endocrine: Yes Gastrointestinal Disorders: Yes (peptic ulcers; endoscopy with perf) Genitourinary: No Hepatitis: No Hiatal Hernia: No Immune Disorder: No Musculoskeletal: No Neurologic: No Psychiatric: Yes (ANXIETY) Reproductive: No Respiratory: No Thyroid Disease: Yes (hypothyroidism) Influenza Vaccination: No ?: Not Past Surgical History Abdominal Surgery: Yes (gastric bypass(reversal)-hernia-feeding tube) AICD: No Cholecystectomy: Yes Ear Surgery: No Eye Surgery: No Gynecologic Surgery: Yes (C SECTION 11-22-2016) Joint Replacement: No Oral Surgery: No Pacemaker: No Tonsillectomy: Yes Social History Alcohol Use: No Tobacco Use: No Substance Use: No Allergies-Medications (Allergen,Severity, Reaction): Coded Allergies: diclofenac (Unverified Allergy, Unknown, 01/13/17) etodolac (Unverified Allergy, Unknown, 01/13/17) flurbiprofen (Unverified Allergy, Unknown, 01/13/17) ibuprofen (Unverified Allergy, Unknown, 01/13/17) indomethacin (Unverified Allergy, Unknown, 01/13/17) ketoprofen (Unverified Allergy, Unknown, 01/13/17) ketorolac (Unverified Allergy, Unknown, 01/13/17) levofloxacin (Unverified Allergy, Unknown, 01/13/17) naproxen (Unverified Allergy, Unknown, 01/13/17) oxaprozin (Unverified Allergy, Unknown, 01/13/17) Comments List of her allergies reviewed from the nursing note. Reported Meds & Prescriptions Reported Meds & Active Scripts Active Reported Carafate Liq (Sucralfate) 1 Gm/10 Ml Susp 1 Gm PO SIX TIMES DAY on empty stomach Levothyroxine (Levothyroxine Sodium) 50 Mcg Tab 50 Mcg PO DAILY Plus Iron 29-1 mg ( Vit-Iron Carbonyl) 1 Tab Tab 1 Tab PO DAILY Protonix (Pantoprazole Sodium) 40 Mg Tab 40 Mg PO DAILY Narrative Medication List of her home medications reviewed from the nursing note. Review of Systems Except as stated in HPI: all other systems reviewed are Neg Physical Exam Narrative GENERAL: Awake, alert, moderate distress SKIN: Focused skin assessment warm/dry. HEAD: Atraumatic. Normocephalic. EYES: Pupils equal and round. No scleral icterus. No injection or drainage. ENT: No nasal bleeding or discharge. Mucous membranes pink and moist. NECK: Trachea midline. No JVD. CARDIOVASCULAR: Regular rate and rhythm. No murmur appreciated. RESPIRATORY: No accessory muscle use. Clear to auscultation. Breath sounds equal bilaterally. GASTROINTESTINAL: Abdomen soft, non-tender, nondistended. Hepatic and splenic margins not palpable. MUSCULOSKELETAL: No obvious deformities. No clubbing. No cyanosis. No edema. NEUROLOGICAL: Awake and alert. No obvious cranial nerve deficits. Motor grossly within normal limits. Normal speech. PSYCHIATRIC: Appropriate mood and affect; insight and judgment normal. Data Data Last Documented VS Orders Orders Complete Blood Count With Diff (02/22/17 17:52) Comprehensive Metabolic Panel (02/22/17 17:52) Lipase (02/22/17 17:52) Urinalysis - C+S If Indicated (02/22/17 17:52) Iv Access Insert/Monitor (02/22/17 17:52) Ecg Monitoring (02/22/17 17:52) Oximetry (02/22/17 17:52) Sodium Chloride 0.9% Flush (Ns Flush) (02/22/17 18:00) Ed Urine Pregnancytest Poc (02/22/17 17:52) Sodium Chlor 0.9% 1000 Ml Inj (Ns 1000 M (02/22/17 18:00) Morphine Inj (Morphine Inj) (02/22/17 18:00) Morphine Inj (Morphine Inj) (02/22/17 19:15) Dextrose 50% In Luis (Syr) Inj (D50w (Syr (02/22/17 19:15) Admit Order (Ed Use Only) (02/22/17 19:35) Labs Laboratory Tests Test 02/22/17 18:00 02/22/17 18:05 White Blood Count 6.9 TH/MM3 Red Blood Count 3.82 MIL/MM3 Hemoglobin 12.1 GM/DL Hematocrit 35.9 % Mean Corpuscular Volume 94.0 FL Mean Corpuscular Hemoglobin 31.7 PG Mean Corpuscular Hemoglobin Concent 33.7 % Red Cell Distribution Width 12.5 % Platelet Count 175 TH/MM3 Mean Platelet Volume 9.8 FL Neutrophils (%) (Auto) 66.2 % Lymphocytes (%) (Auto) 24.8 % Monocytes (%) (Auto) 7.6 % Eosinophils (%) (Auto) 0.9 % Basophils (%) (Auto) 0.5 % Neutrophils # (Auto) 4.6 TH/MM3 Lymphocytes # (Auto) 1.7 TH/MM3 Monocytes # (Auto) 0.5 TH/MM3 Eosinophils # (Auto) 0.1 TH/MM3 Basophils # (Auto) 0.0 TH/MM3 CBC Comment AUTO DIFF Differential Comment AUTO DIFF CONFIRMED Blood Urea Nitrogen 10 MG/DL Creatinine 0.60 MG/DL Random Glucose 50 MG/DL Total Protein 6.1 GM/DL Albumin 3.4 GM/DL Calcium Level 8.2 MG/DL Alkaline Phosphatase 76 U/L Aspartate Amino Transf (AST/SGOT) 40 U/L Alanine Aminotransferase (ALT/SGPT) 54 U/L Total Bilirubin 0.3 MG/DL Sodium Level 142 MEQ/L Potassium Level 3.8 MEQ/L Chloride Level 111 MEQ/L Carbon Dioxide Level 25.3 MEQ/L Anion Gap 6 MEQ/L Estimat Glomerular Filtration Rate 118 ML/MIN Lipase 103 U/L Urine Color LIGHT-YELLOW Urine Turbidity CLEAR Urine pH 6.0 Urine Specific [place] 1.011 Urine Protein NEG mg/dL Urine Glucose (UA) NEG mg/dL Urine Ketones NEG mg/dL Urine Occult Blood NEG Urine Nitrite NEG Urine Bilirubin NEG Urine Urobilinogen LESS THAN 2.0 MG/DL Urine Leukocyte Esterase NEG Urine RBC LESS THAN 1 /hpf Urine WBC 1 /hpf Urine Squamous Epithelial Cells 1 /hpf Microscopic Urinalysis Comment CULT NOT INDICATED MDM Medical Decision Making Medical Screen Exam Complete: Yes Emergency Medical Condition: Yes Medical Record Reviewed: Yes Differential Diagnosis Intractable abdominal pain, acute gastritis, acute gastroenteritis Narrative Course 7:23 PM blood test results of back. Patient has hypoglycemia. I've ordered D50 for her. [facility] fax the medical records of her CAT scan and blood test report. All other reports are within normal limit. She was given a dose of morphine initially but she is complaining that the pain continues and I ordered a second dose. Given her intractable pain I will admit this patient. Awaiting for the hospitalist call back. Procedures EKG Prior to Arrival: No Diagnosis Primary Impression: Intractable abdominal pain Additional Impression: Hypoglycemia Admitting Information Admitting Physician Requests: Observation Scripts Metoclopramide (Reglan) 10 Mg Tab 10 MG PO TIDAC for Nausea/Vomiting, #21 TAB 0 Refills Prov: Jimenez Erwin 02/26/17 Oxycodone (Oxycodone) 5 Mg Tab 5 MG PO Q6HR Y for PAIN > 5, #12 TAB Prov: Jimenez Erwin 02/26/17 Ondansetron (Zofran) 4 Mg Tab 4 MG PO Q6HR Y for NAUSEA OR VOMITING, #10 TAB 0 Refills Prov: Jimenez Erwin 02/26/17 Elvin Mann MD Feb 22, 2017 19:24
[2017-02-22 19:29] VITALS: BP 99/54; PULSE 61; RESP 16; O2SAT 97
[2017-02-22] MEDS ORDERED: SENNOSIDES 8.6 MG TAB PO PRN (20:00)
[2017-02-22] MEDS ORDERED: LACTULOSE SYRUP 20 GM/30 ML CUP PO PRN (20:00)
[2017-02-22] MEDS ORDERED: MAGNESIUM HYDROXIDE SUSP 30 ML CUP PO PRN (20:00)
[2017-02-22] MEDS ORDERED: BISACODYL 10 MG SUPP RECTAL PRN (20:00)
[2017-02-22] MEDS ORDERED: NALOXONE HCL 0.4 MG/ML AMP IV PUSH PRN (20:00)
[2017-02-22] MEDS ORDERED: D5-1/2 NS + KCL 20 MEQ INJ 1,000 ML IV SCH (20:00)
--- NOTE | 2017-02-22 20:30 | HHI.HP ---
HPI Service [facility] Hospitalists Primary Care Physician No Primary Care Physician Admission Diagnosis intractable abdominal pain Diagnoses: Chief Complaint: Abdominal pain Travel History International Travel<30 Days: No Contact w/Intl Traveler <30 Da: No Traveled to Known Affected Are: No History of Present Illness 31-year-old female with a medical history significant for hypothyroidism, gastric bypass with multiple revisions per the patient. She reports she has ongoing abdominal pain and nausea relating to her gastric bypass. She has been followed by Dr. Spangler and pain management. Most recently in November underwent gastrojejunostomy dilation and also found to have ulcers at the time. Patient reports for the past 2 days she has been experiencing severe midepigastric pain. She reports they are sharp and burning. She reports associated nausea and vomiting. She presented to [facility] yesterday where her workup was negative. She was sent home but did not get better and therefore she presented to [place]. She reports ongoing intermittent diarrhea. Significant other at bedside reports they have been under increasing amount of stress which they report may have exacerbated her symptoms. There has been no fevers or chills. No hematemesis. Outside records from [facility] reviewed. She had an unremarkable abdominal CT scan. Labs and vital signs were also unremarkable. Review of Systems Constitutional: DENIES: Fever, Chills Respiratory: DENIES: Hemoptysis, Shortness of breath Gastrointestinal: COMPLAINS OF: Abdominal pain, Diarrhea, Nausea, Vomiting, DENIES: Black stools, Bloody stools, Difficulty Swallowing Except as stated in HPI: all other systems reviewed are Neg Past Family Social History Past Medical History History of gastric bypass with multiple revisions Hypothyroidism Chronic abdominal pain Past Surgical History Patient reports a total of 8 abdominal surgeries including gastric bypass and revisions. Cholecystectomy Reported Medications Reported Meds & Active Scripts Active Hydrocodon-Acetamin 7.5-325/15 (Hydrocodone/Acetaminophen) 15 Ml Solution 30 Ml PO Q4H PRN 10 Days Reported Carafate Liq (Sucralfate) 1 Gm/10 Ml Susp 1 Gm PO SIX TIMES DAY on empty stomach Zofran (Ondansetron HCl) 4 Mg Tab 4 Mg PO Q6HR PRN Levothyroxine (Levothyroxine Sodium) 50 Mcg Tab 50 Mcg PO DAILY Plus Iron 29-1 mg ( Vit-Iron Carbonyl) 1 Tab Tab 1 Tab PO DAILY Protonix (Pantoprazole Sodium) 40 Mg Tab 40 Mg PO DAILY Allergies: Coded Allergies: diclofenac (Unverified Allergy, Unknown, 01/13/17) etodolac (Unverified Allergy, Unknown, 01/13/17) flurbiprofen (Unverified Allergy, Unknown, 01/13/17) ibuprofen (Unverified Allergy, Unknown, 01/13/17) indomethacin (Unverified Allergy, Unknown, 01/13/17) ketoprofen (Unverified Allergy, Unknown, 01/13/17) ketorolac (Unverified Allergy, Unknown, 01/13/17) levofloxacin (Unverified Allergy, Unknown, 01/13/17) naproxen (Unverified Allergy, Unknown, 01/13/17) oxaprozin (Unverified Allergy, Unknown, 01/13/17) Family History Reviewed and found to be noncontributory. Social History Patient does not use tobacco, alcohol, or illicit drugs. Physical Exam Vital Signs Vital Signs Date Time Temp Pulse Resp B/P (MAP) Pulse Ox O2 Delivery O2 Flow Rate FiO2 02/22/17 19:29 61 16 99/54 (69) 97 Room Air 02/22/17 17:48 98.1 72 16 97/53 (68) 99 Physical Exam GENERAL: This is a well-nourished, well-developed patient, in no apparent distress. SKIN: No rashes, ecchymoses or lesions. Cool and dry. HEAD: Atraumatic. Normocephalic. No temporal or scalp tenderness. EYES: Pupils equal round and reactive. Extraocular motions intact. No scleral icterus. No injection or drainage. ENT: Nose without bleeding, purulent drainage or septal hematoma. Throat without erythema, tonsillar hypertrophy or exudate. Uvula midline. Airway patent. NECK: Trachea midline. No JVD or lymphadenopathy. Supple, nontender, no meningeal signs. CARDIOVASCULAR: Regular rate and rhythm without murmurs, gallops, or rubs. RESPIRATORY: Clear to auscultation. Breath sounds equal bilaterally. No wheezes , rales, or rhonchi. GASTROINTESTINAL: Abdomen soft, tender to palpation in the midepigastric region. No guarding. MUSCULOSKELETAL: Extremities without clubbing, cyanosis, or edema. No joint tenderness, effusion, or edema noted. No calf tenderness. Negative Homans sign bilaterally. NEUROLOGICAL: Awake and alert. Cranial nerves II through XII intact. Motor and sensory grossly within normal limits. Five out of 5 muscle strength in all muscle groups. Normal speech. Laboratory Laboratory Tests Test 02/22/17 18:00 02/22/17 18:05 White Blood Count 6.9 Red Blood Count 3.82 Hemoglobin 12.1 Hematocrit 35.9 Mean Corpuscular Volume 94.0 Mean Corpuscular Hemoglobin 31.7 Mean Corpuscular Hemoglobin Concent 33.7 Red Cell Distribution Width 12.5 Platelet Count 175 Mean Platelet Volume 9.8 Neutrophils (%) (Auto) 66.2 Lymphocytes (%) (Auto) 24.8 Monocytes (%) (Auto) 7.6 Eosinophils (%) (Auto) 0.9 Basophils (%) (Auto) 0.5 Neutrophils # (Auto) 4.6 Lymphocytes # (Auto) 1.7 Monocytes # (Auto) 0.5 Eosinophils # (Auto) 0.1 Basophils # (Auto) 0.0 CBC Comment AUTO DIFF Differential Comment AUTO DIFF CONFIRMED Blood Urea Nitrogen 10 Creatinine 0.60 Random Glucose 50 Total Protein 6.1 Albumin 3.4 Calcium Level 8.2 Alkaline Phosphatase 76 Aspartate Amino Transf (AST/SGOT) 40 Alanine Aminotransferase (ALT/SGPT) 54 Total Bilirubin 0.3 Sodium Level 142 Potassium Level 3.8 Chloride Level 111 Carbon Dioxide Level 25.3 Anion Gap 6 Estimat Glomerular Filtration Rate 118 Lipase 103 Urine Color LIGHT-YELLOW Urine Turbidity CLEAR Urine pH 6.0 Urine Specific [place] 1.011 Urine Protein NEG Urine Glucose (UA) NEG Urine Ketones NEG Urine Occult Blood NEG Urine Nitrite NEG Urine Bilirubin NEG Urine Urobilinogen LESS THAN 2.0 Urine Leukocyte Esterase NEG Urine RBC LESS THAN 1 Urine WBC 1 Urine Squamous Epithelial Cells 1 Microscopic Urinalysis Comment CULT NOT INDICATED Result Diagram: 02/22/17 1800 02/22/17 1800 Caprini VTE Risk Assessment Caprini VTE Risk Assessment: No/Low Risk (score <= 1) Caprini Risk Assessment Model Point Value = 1 Point Value = 2 Point Value = 3 Point Value = 5 Age 41-60 Minor surgery BMI > 25 kg/m2 Swollen legs Varicose veins or History of unexplained or recurrent spontaneous Oral contraceptives or hormone replacement Sepsis (< 1 month) Serious lung disease, including pneumonia (< 1 month) Abnormal pulmonary function Acute myocardial infarction Congestive heart failure (< 1 month) History of inflammatory bowel disease Medical patient at bed rest Age 61-74 Arthroscopic surgery Major open surgery (> 45 min) Laparoscopic surgery (> 45 min) Malignancy Confined to bed (> 72 hours) Immobilizing plaster cast Central venous access Age >= 75 History of VTE Family history of VTE Factor V Leiden Prothrombin [id number] Lupus anticoagulant Anticardiolipin antibodies Elevated serum homocysteine Heparin-induced thrombocytopenia Other congenital or acquired thrombophilia Stroke (< 1 month) Elective arthroplasty Hip, pelvis, or leg fracture Acute spinal cord injury (< 1 month) Prophylaxis Regimen Total Risk Factor Score Risk Level Prophylaxis Regimen 0-1 Low Early ambulation 2 Moderate Order ONE of the following: *Sequential Compression Device (SCD) *Heparin 5000 units SQ BID 3-4 Higher Order ONE of the following medications: *Heparin 5000 units SQ TID *Enoxaparin/Lovenox 40 mg SQ daily (WT < 150 kg, CrCl > 30 mL/min) *Enoxaparin/Lovenox 30 mg SQ daily (WT < 150 kg, CrCl > 10-29 mL/min) *Enoxaparin/Lovenox 30 mg SQ BID (WT < 150 kg, CrCl > 30 mL/min) AND/OR *Sequential Compression Device (SCD) 5 or more Highest Order ONE of the following medications: *Heparin 5000 units SQ TID (Preferred with Epidurals) *Enoxaparin/Lovenox 40 mg SQ daily (WT < 150 kg, CrCl > 30 mL/min) *Enoxaparin/Lovenox 30 mg SQ daily (WT < 150 kg, CrCl > 10-29 mL/min) *Enoxaparin/Lovenox 30 mg SQ BID (WT < 150 kg, CrCl > 30 mL/min) AND *Sequential Compression Device (SCD) Assessment and Plan Problem List: (1) Intractable abdominal pain ICD Code: R10.9 - Unspecified abdominal pain Status: Acute (2) Nausea and vomiting ICD Code: R11.2 - Nausea with vomiting, unspecified Status: Acute (3) History of gastric bypass ICD Code: Z98.890 - Other specified postprocedural states Status: Acute Assessment and Plan 31-year-old female with history of gastric bypass and revisions presented with acute on chronic epigastric pain, persistent nausea. Patient has a known history of gastrojejunal ulcers and strictures. She has been followed by Dr. Spangler. Abdominal CT scan. Patient has persistent nausea and states she has not been able to eat for the past 2 days. She is hypoglycemic on the BMP. - Admit for observation. Consult Dr. Spangler for assistance - Pain medication and antiemetics ordered. - IV fluid with D5 half-normal saline. Follow I/O - Continue PPI and Carate Hypothyroidism: Continue home dose Synthroid. Check TSH GI prophylaxis: PPI. Stool softener PRN constipation. DVT PPx: Ambulatory patient. Ghazala Palomo MD Feb 22, 2017 20:30
[2017-02-22] MEDS ORDERED: PANTOPRAZOLE SODIUM 40 MG VIAL IV PUSH ONE (21:00)
[2017-02-22] MEDS: SODIUM CHLORIDE 0.9% FLUSH 10 ML FLUSH IV FLUSH SCH (21:13)
[2017-02-22 21:27] VITALS: BP 112/55; PULSE 61; RESP 18; TEMP 99; O2SAT 99
[2017-02-22] MEDS: PROMETHAZINE INJ 25 MG/ML VIAL IM PRN (22:21)
[2017-02-22] MEDS: D5-1/2 NS + KCL 20 MEQ INJ 1,000 ML IV SCH (22:49)
[2017-02-22] MEDS: TEMAZEPAM 15 MG CAP PO PRN (23:11)
[2017-02-22] MEDS: SUCRALFATE 1 GM/10 ML CUP PO SCH (23:11)
[2017-02-22 23:19] VITALS: BP 104/57; PULSE 58; RESP 18; TEMP 98.1; O2SAT 100
[2017-02-23] MEDS: MORPHINE SULFATE 4 MG/ML INJ IV PUSH PRN ×6 (01:24→23:30)
[2017-02-23 04:09] VITALS: BP 104/55; PULSE 60; RESP 18; TEMP 98.7; O2SAT 100
[2017-02-23] MEDS: SUCRALFATE 1 GM/10 ML CUP PO SCH ×3 (06:06→18:14)
[2017-02-23] MEDS: LEVOTHYROXINE SODIUM 50 MCG TAB PO SCH (06:06)
[2017-02-23] MEDS: PROMETHAZINE INJ 25 MG/ML VIAL IM PRN (06:25)
[2017-02-23 06:26] LABS: BICARBONATE 26.5 MEQ/L (21.0-32.0); POTASSIUM 3.6 MEQ/L (3.5-5.1)
[2017-02-23 08:06] VITALS: BP 93/52; PULSE 61; RESP 16; TEMP 98.4; O2SAT 99
[2017-02-23] MEDS: SODIUM CHLORIDE 0.9% FLUSH 10 ML FLUSH IV FLUSH SCH ×2 (08:58→19:36)
[2017-02-23] MEDS: PANTOPRAZOLE SOD 40 MG DELAYED RELEASE TAB PO SCH (08:58)
[2017-02-23] MEDS: D5-1/2 NS + KCL 20 MEQ INJ 1,000 ML IV SCH ×2 (08:59→19:35)
[2017-02-23] MEDS ORDERED: PROMETHAZINE HCL 25 MG SUPP RECTAL PRN (09:45)
--- NOTE | 2017-02-23 09:50 | HHI.PR ---
Subjective Remarks Follow-up for intractable abdominal pain. The patient has a history of chronic abdominal pain. She had 8 surgeries on her abdomen last year. She had a C- section over the summer. She is not breast-feeding. She had abdominal pain after giving and had an endoscopy with Dr. Spangler which showed ulcers. She's been compliant with her Protonix and Carafate. She's been following with pain management for continued abdominal pain and taking [place] as needed. She states the pain is sharp and epigastric although her entire abdomen is tender to touch. She vomited foamy material 2 days ago. She continues to have nausea which was exacerbated when she tried to eat breakfast today. She reports her stool was diarrhea 2 days ago and seemed a little darker. She denies any bright red or coffee-ground vomitus or stool. She denies any vaginal discharge. She is asking for Zofran instead of Phenergan. Objective Vitals Vital Signs Date Time Temp Pulse Resp B/P (MAP) Pulse Ox O2 Delivery O2 Flow Rate FiO2 02/23/17 08:06 98.4 61 16 93/52 (66) 99 02/23/17 06:24 16 02/23/17 06:05 18 02/23/17 04:09 98.7 60 18 104/55 (71) 100 02/22/17 23:19 98.1 58 18 104/57 (73) 100 02/22/17 21:27 99.0 61 18 112/55 (74) 99 02/22/17 21:22 02/22/17 19:29 61 16 99/54 (69) 97 Room Air 02/22/17 17:48 98.1 72 16 97/53 (68) 99 I/O 02/22/17 02/22/17 02/22/17 02/23/17 02/23/17 02/23/17 07:00 15:00 23:00 07:00 15:00 23:00 Intake Total 1880 ml Balance 1880 ml Intake Oral 1200 ml IV Total 680 ml # Voids 2 Result Diagram: 02/22/17 1800 02/23/17 0550 Objective Remarks GENERAL: Well-developed well-nourished. In no acute distress. SKIN: Warm and dry. No lesions noted. HEENT: Normocephalic. Pupils equal and round. Mucous membranes pink and moist. CARDIOVASCULAR: Regular rate and rhythm. No murmur appreciated. RESPIRATORY: No accessory muscle use. Clear to auscultation. Breath sounds equal bilaterally. GASTROINTESTINAL: Abdomen soft, nondistended. Generalized tenderness to palpation. Bowel sounds x4. Well-healed previous laparoscopy scars. MUSCULOSKELETAL: No obvious deformities. No clubbing or cyanosis. No edema. NEUROLOGICAL: Awake and alert. No focal neurological deficits. Moves upper and lower extremities spontaneously. Normal speech. PSYCHIATRIC: Appropriate mood and affect; insight and judgment normal. A/P Problem List: (1) Intractable abdominal pain ICD Code: R10.9 - Unspecified abdominal pain Status: Acute (2) Nausea and vomiting ICD Code: R11.2 - Nausea with vomiting, unspecified Status: Acute (3) History of gastric bypass ICD Code: Z98.890 - Other specified postprocedural states Status: Chronic Assessment and Plan 31-year-old female with history of gastric bypass and revisions presented with acute on chronic epigastric pain, persistent nausea. Patient has a known history of gastrojejunal ulcers and strictures. She has been followed by Dr. Spangler. Abdominal CT report from outside ED 02/21 was reviewed and unremarkable.. Patient has persistent nausea and states she has not been able to eat for the past 2 days. She was hypoglycemic on the BMP. Intractable abdominal pain and nausea: History of multiple abdominal surgeries and gastrojejunal ulcers. - Consulted Dr. Spangler for assistance - Zofran IV and Phenergan suppository as needed - IV fluid with D5 half-normal saline. Follow I/O - Continue IV PPI and Carate - Pain control with oral oxycodone and IV morphine for breakthrough as needed - Pain and nausea exacerbated by eating, nothing by mouth until surgery evaluation - Check stool for Hemoccult - Follow-up minimally elevated LFTs Hypothyroidism: Continue home dose Synthroid. TSH pending. GI prophylaxis: PPI. Stool softener PRN constipation. DVT prophylaxis: Ambulatory patient. Discharge Planning Follow-up general surgery recommendations Jimenez Eriwn Feb 23, 2017 09:50
[2017-02-23] MEDS: ONDANSETRON HCL 4 MG/2 ML VIAL IV PUSH PRN ×3 (10:35→22:09)
[2017-02-23 12:27] LABS: TOTAL BILIRUBIN ADULT 0.1 MG/DL (0.2-1.0)
--- NOTE | 2017-02-23 15:15 | RADRPT ---
EXAM DATE/TIME: 02/23/2017 14:51 [facility] COMPARISON: No previous studies available for comparison. INDICATIONS : Pain in chest and abdomen. Previous history of ulcers. FLUORO TIME: 1.5 minutes IMAGE COUNT: 13 CONTRAST: 1. E-Z Gas II-Effervescent granules (Antacid .014 oz) 2. Liquid E-Z Paque Barium Sulfate (60% w/v, 41% w.w) MEDICAL HISTORY : None. SURGICAL HISTORY : Cassandra e y surgery. Gastric surgery x 8. ENCOUNTER: Initial ACUITY: 1 day PAIN SCORE: 8/10 LOCATION: Center of chest. FINDINGS: Preliminary film is unremarkable. Surgical clips are noted in the right upper quadrant. Examination of the swallowing function demonstrates no evidence of aspiration or penetration. The loan dy of the esophagus is unremarkable. No reflux or hiatal hernia is identified. Examination of the stomach demonstrates no evidence of intraluminal mass or extrinsic compression. T he gastric volume appears normal for gastric bypass procedure with gastrojejunostomy and there are no findings of ulceration. The visualized small bowel is unremarkable. CONCLUSION: No evidence for extravasation or ulceration. [place] MD on February 23, 2017 at 15:12 Board Certified Radiologist. This report was verified electronically.
[2017-02-23 17:11] VITALS: BP 98/51; PULSE 59; RESP 16; TEMP 98.6; O2SAT 100
[2017-02-23 20:08] VITALS: BP 104/55; PULSE 66; RESP 18; TEMP 98.4; O2SAT 99
[2017-02-24] VITALS (7 sets, daily range): BP systolic 87–97; BP diastolic 46–52; PULSE 60–65; RESP 16–18; TEMP 98.2–98.6; O2SAT 97–100
[2017-02-24] MEDS: TEMAZEPAM 15 MG CAP PO PRN ×2 (01:15→21:43)
[2017-02-24] MEDS: MORPHINE SULFATE 4 MG/ML INJ IV PUSH PRN ×4 (03:08→18:45)
[2017-02-24] MEDS: ONDANSETRON HCL 4 MG/2 ML VIAL IV PUSH PRN ×2 (04:14→10:45)
[2017-02-24] MEDS: D5-1/2 NS + KCL 20 MEQ INJ 1,000 ML IV SCH ×3 (05:44→20:08)
[2017-02-24] MEDS: LEVOTHYROXINE SODIUM 50 MCG TAB PO SCH (05:50)
--- NOTE | 2017-02-24 06:02 | MB ---
cc: MINO BERRY MD DATE OF CONSULTATION 02/23/2017 REASON FOR CONSULTATION Epigastric pain. Patient known to service. HISTORY OF PRESENT ILLNESS The patient is a 31-year-old female who presents with history of morbid obesity and history of Cassandra-en-Y gastric bypass several years ago. The patient was noted to have eight separate surgeries for revisional operation. She presented with acute onset of epigastric pain and some nausea and vomiting. She stated the pain started several days ago but has been chronic and unremitting. She states the pain is 8/10, some relief with pain medication and Protonix. It is sharp, non-radiating, worse with movement, better with lying still. She has had a history of endoscopy while with concern for possible stricturing and ulcer. Repeat endoscopy confirmed ulcer. The patient has been currently treated with PPIs and Carafate and had some improvement until about 2 weeks ago when she states the pain began to increase in and in the last 3 days was severe. PAST MEDICAL HISTORY 1. Morbid obesity. 2. Hypothyroidism. 3. Chronic pain. PAST SURGICAL HISTORY 1. History of gastric bypass. 2. Eight surgeries with revisions. 3. Cholecystectomy. MEDICATIONS See EMR. ALLERGIES DICLOFENAC. ETODOLAC. IBUPROFEN. INDOMETHACIN. KETOPROFEN. KETOROLAC. LEVOFLOXACIN. NAPROSYN. OXAPROZIN. SOCIAL HISTORY Denies smoking, EtOH or IVDA. FAMILY HISTORY Denies diabetes or hypertension. REVIEW OF SYSTEMS GENERAL: Denies fevers or chills. HEENT: Denies eye pain or ear pain. NECK: Denies swelling or pain. LUNGS: Denies cough or wheeze. CARDIAC: Denies palpitations or chest pain. ABDOMEN: Complained of nausea, vomiting, abdominal pain. : Denies dysuria, hematuria. ENDOCRINE: Denies polyuria, polydipsia. MUSCULOSKELETAL: Denies arthralgias, myalgias. PHYSICAL EXAMINATION GENERAL: The patient in no acute distress. VITAL SIGNS: Temperature 98.1, pulse 72, respirations 16, blood pressure 97/53, pulse ox 99%. HEENT: PERRLA. Pupils equal, round, reactive. NECK: Supple. Trachea midline. LUNGS: Bilateral expansion. Clear. HEART: S1, S2, regular. ABDOMEN: Soft. Positive tenderness to palpation. Epigastric and left side. No rebound. No guarding. Well-healed surgical incision. EXTREMITIES: Warm, well-perfused. NEUROLOGIC: GCS of 15. 5/5 motor in all extremities. INTEGUMENT: No obvious masses or lesions. LABORATORY AND DIAGNOSTIC DATA WBC 6.9, hemoglobin 12.1, hematocrit 35.9, platelets 175, sodium 142, potassium 3.8, chloride 111, BUN 10, creatinine 0.6, AST 40, ALT 54, T bili is 0.1. IMAGING STUDIES No recent imaging. The patient was seen at [facility] with [facility] scan without evidence of abnormality. ASSESSMENT The patient is a 31-year-old female with history of morbid obesity, gastric bypass, concern for gastrojejunostomy, ulcer. PLAN After full clinical and radiologic workup, the patient with the above-named issues including concern for persistent gastric ulcers. At this point we will obtain upper GI including gastric pouch and try to identify ulcer. We will also consider EGD pending results. Discussed with the patient in detail who stated understanding and agreed. Currently recommend PPIs and Carafate continuation. The patient will have a full liquid diet, n.p.o. after midnight. MD SHAHRAM Grimlado/MARIELA /8:20 PM /5:49 AM
[2017-02-24 07:51] LABS: APTT (PATIENT) 23.8 SEC (24.3-30.1); PROTHROMBIN TIME - PATIENT 10.7 SEC (9.8-11.6)
[2017-02-24] MEDS: SUCRALFATE 1 GM/10 ML CUP PO SCH ×3 (08:00→17:28)
[2017-02-24 08:07] LABS: POTASSIUM 3.9 MEQ/L (3.5-5.1)
[2017-02-24] MEDS: SODIUM CHLORIDE 0.9% FLUSH 10 ML FLUSH IV FLUSH SCH ×2 (09:00→20:08)
--- NOTE | 2017-02-24 09:09 | GIPROC ---
[facility] [address] [facility]. [facility], [address] EGD PROCEDURE REPORT EXAM DATE: 02/24/2017 PATIENT NAME: Alda Collado MR #: [id number] BIRTHDATE: 1985 ATTENDING: Xavier Spangler MD ORDER #: [id number] PRODUCT CONSULTANT: Raz Swann and Vidhya Quiroz STATUS: inpatient INDICATIONS: The patient is a 31 yr old female here for an EGD due to heartburn, epigastric pain, hx of gastrojejunostomy ulcer, hx rygb PROCEDURE PERFORMED: EGD, diagnostic MEDICATIONS: Per Anesthesia and None. TOPICAL ANESTHETIC: none CONSENT: The patient understands the risks and benefits of the procedure and understands that these risks include, but are not limited to: sedation, allergic reaction, infection, perforation and/or bleeding. Alternative means of evaluation and treatment include, among others: physical exam, x-rays, and/or surgical intervention. The patient elects to proceed with this endoscopic procedure. medical equipment was checked for proper function. Hand hygiene and appropriate measures for infection prevention was taken. After the risks, benefits and alternatives of the procedure were thoroughly explained, Informed consent was verified, confirmed and timeout was successfully executed by the treatment team. The patient was anesthetized with anesthesia and the Pentax [id number] endoscope was introduced through the mouth and advanced to the anastomosis. Difficult view due to retained food particle, no definitive ulcer noted. Previous ulcer noted to be resolved. Retroflexion was not performed The gastroscope was then slowly withdrawn and removed. Retained food, long blind limb 10cm, no definitive ulcer, scope passed through GJ but conern for narrowing. possible small hiatal hernia. ADVERSE EVENTS: There were no complications. IMPRESSIONS: 1. Retroflexion was not performed 2. Retained food, long blind limb 10cm, no definitive ulcer, scope passed through GJ but conern for narrowing. possible small hiatal hernia. RECOMMENDATIONS: Continue PPI PATIENT CONDITION: fair DISPOSITION: Inpatient REPEAT EXAM: NONE Xavier Spangler MD eSigned: Xavier Spangler MD 02/24/2017 9:09 AM cc: PATIENT NAME: Alda Collado MR#: [id number]
[2017-02-24] MEDS: PANTOPRAZOLE SOD 40 MG DELAYED RELEASE TAB PO SCH (09:36)
--- NOTE | 2017-02-24 12:08 | HHI.PR ---
Subjective Remarks Follow up for intractable abdominal pain. The patient is seen post EGD. She reports continued intractable epigastric pain. She has not vomited overnight however has continued bouts of nausea, temporarily relieved by IV Zofran. She has tolerated milk post procedure. Denies any fevers/chills. She states she can' t keep living like this especially since she has a at home. She is requesting her pain medication be increased, explained this can worsen abdominal symptoms. Objective Vitals Vital Signs Date Time Temp Pulse Resp B/P (MAP) Pulse Ox O2 Delivery O2 Flow Rate FiO2 02/24/17 09:25 98.4 62 16 96/46 (63) 98 02/24/17 09:04 58 18 94/50 (65) 97 02/24/17 08:57 98.3 66 18 96/51 (66) 97 02/24/17 07:37 98.5 65 16 97/50 (66) 98 02/24/17 06:17 18 02/24/17 04:44 18 02/24/17 04:05 98.2 60 18 97/52 (67) 98 02/24/17 00:14 98.4 64 18 93/50 (64) 97 02/23/17 20:08 98.4 66 18 104/55 (71) 99 02/23/17 19:23 18 02/23/17 17:11 98.6 59 16 98/51 (67) 100 I/O 02/23/17 02/23/17 02/23/17 02/24/17 02/24/17 02/24/17 06:59 14:59 22:59 06:59 14:59 22:59 Intake Total 1880 ml 1000 ml 200 ml 600 ml Balance 1880 ml 1000 ml 200 ml 600 ml Intake Oral 1200 ml 200 ml IV Total 680 ml 1000 ml Other 600 ml # Voids 2 Result Diagram: 02/22/17 1800 02/24/17 0725 Imaging Last Impressions Upper GI Series 02/23/17 0000 Signed Impressions: Service Date/Time: Thursday, February 23, 2017 14:51 - CONCLUSION: No evidence for extravasation or ulceration. New Holbrook MD Objective Remarks GENERAL: Well-nourished, well-developed young female patient in [facility]. SKIN: Warm and dry. No rash. HEENT: Normocephalic. Atraumatic. Pupils equal and round. Mucous membranes pink and moist. CARDIOVASCULAR: Regular rate and rhythm. S1, S2 noted. No murmur appreciated. RESPIRATORY: No accessory muscle use. Clear to auscultation. Breath sounds equal bilaterally. GASTROINTESTINAL: Abdomen soft, non-tender with distraction, nondistended. Normoactive bowel sounds x4. MUSCULOSKELETAL: No obvious deformities. Extremities without clubbing, cyanosis , or edema. NEUROLOGICAL: Awake and alert. No obvious cranial nerve deficits. Motor grossly within normal limits. Normal speech. PSYCHIATRIC: Appropriate mood and affect; insight and judgment normal. Medications and IVs Current Medications Medications (Trade) Dose Ordered Sig/Chetan Route Start Time Stop Time Status Last Admin (Synthroid) 50 mcg DAILY@0600 PO 02/23/17 06:00 02/23/17 06:06 (Protonix) 40 mg DAILY PO 02/23/17 09:00 02/24/17 09:36 (NS Flush) 2 ml UNSCH PRN IV FLUSH 02/22/17 20:00 (NS Flush) 2 ml BID IV FLUSH 02/22/17 21:00 02/23/17 19:36 (Restoril) 15 mg HS PRN PO 02/22/17 20:00 02/24/17 01:15 (Narcan Inj) 0.4 mg UNSCH PRN IV PUSH 02/22/17 20:00 (Milk Of Magnesia Liq) 30 ml Q12H PRN PO 02/22/17 20:00 (Senokot) 17.2 mg Q12H PRN PO 02/22/17 20:00 (Dulcolax Supp) 10 mg DAILY PRN RECTAL 02/22/17 20:00 (Lactulose Liq) 30 ml DAILY PRN PO 02/22/17 20:00 (Morphine Inj) 4 mg Q3H PRN IV PUSH 02/22/17 20:00 02/24/17 10:46 Potassium Chloride/Dextrose/ Sod Cl 1,000 ml @ 100 mls/hr Q10H IV 02/22/17 22:00 02/24/17 05:44 (Roxicodone) 5 mg Q4H PRN PO 02/22/17 20:30 02/24/17 09:36 (Carafate Liq) 1 gm TIDAC PO 02/23/17 12:00 02/23/17 18:14 (Phenergan Supp) 25 mg Q6H PRN RECTAL 02/23/17 09:45 (Zofran Inj) 4 mg Q6HR PRN IV PUSH 02/23/17 09:45 02/24/17 10:45 A/P Problem List: (1) Intractable abdominal pain ICD Code: R10.9 - Unspecified abdominal pain Status: Acute (2) Nausea and vomiting ICD Code: R11.2 - Nausea with vomiting, unspecified Status: Acute (3) History of gastric bypass ICD Code: Z98.890 - Other specified postprocedural states Status: Chronic Assessment and Plan 31-year-old female with history of gastric bypass and revisions presented with acute on chronic epigastric pain, persistent nausea. Patient has a known history of gastrojejunal ulcers and strictures. She has been followed by Dr. Spangler. Abdominal CT report from outside ED 02/21 was reviewed and unremarkable.. Patient has persistent nausea and states she has not been able to eat for the past 2 days. She was hypoglycemic on the BMP. Intractable abdominal pain and nausea: History of multiple abdominal surgeries and gastrojejunal ulcers. - Zofran IV and Phenergan suppository as needed - IV fluid with D5 half-normal saline. Follow I/O - Continue IV PPI and Carate - Pain control with oral oxycodone and IV morphine for breakthrough as needed - Check stool for Hemoccult - Follow-up minimally elevated LFTs - Consulted Dr. Spangler for assistance, s/p EGD today 02/24, showed retained food , long blind limb 10cm, no definite ulcers - Diet advanced to full liquid, monitor for improvement Hypothyroidism: Continue home dose Synthroid. TSH wnl. GI prophylaxis: PPI. Stool softener PRN constipation. DVT prophylaxis: Ambulatory patient. Discharge Planning Discharge pending further clinical improvement and clearance from Dr. Spangler. Sharifa Medley PA-C Feb 24, 2017 12:08 pm
[2017-02-24] MEDS: METOCLOPRAMIDE HCL 10 MG/2 ML VIAL IV PUSH SCH ×2 (13:42→20:08)
--- NOTE | 2017-02-24 15:20 | HHI.PR ---
Subjective Subjective Notes Laying in bed Tolerating milk after EGD Still complaining of abdominal pain and nausea Objective Vitals/I&O Vital Signs Date Time Temp Pulse Resp B/P (MAP) Pulse Ox O2 Delivery O2 Flow Rate FiO2 02/24/17 13:14 98.5 61 16 87/52 (64) 100 02/22/17 19:29 Room Air Labs Laboratory Tests Test 02/24/17 06:50 02/24/17 07:25 Prothrombin Time 10.7 Prothromb Time International Ratio 1.0 Activated Partial Thromboplast Time 23.8 Blood Urea Nitrogen 8 Creatinine 0.52 Random Glucose 82 Calcium Level 7.8 Sodium Level 139 Potassium Level 3.9 Chloride Level 108 Carbon Dioxide Level 24.0 Anion Gap 7 Estimat Glomerular Filtration Rate 139 Radiology Last Impressions Upper GI Series 02/23/17 0000 Signed Impressions: Service Date/Time: Thursday, February 23, 2017 14:51 - CONCLUSION: No evidence for extravasation or ulceration. New Holbrook MD Cardiovascular: Regular Lungs: Clear Abdomen: Other (tenderness to palpation to epigastric area) Extremities: Perfused A/P Assessment and Plan 31yo F with pertinent history of gastric bypass needing multiple revisions presented with intractable abdominal pain -EGD didn't reveal any ulcers. Did have some retained food and possible hiatal hernia -Add Reglan 10mg [id number] --Advance diet as tolerated Discharge Planning Hopefully tomorrow Attending Statement Patient seen at bedside EGD without ulcer but pt still has persistent ulcer like symptoms encourage po d/c plan when pain controlled and adequate nutrition Attestation The exam, history, and the medical decision-making described in the above note were completed with the assistance of the mid-level provider. I reviewed and agree with the findings presented. I attest that I had a [id number] encounter with the patient on the same day, and personally performed and documented my assessment and findings in the medical record. Eloise Buchanan Feb 24, 2017 15:20 Xavier Spangler MD Mar 02, 2017 10:18
[2017-02-25 00:37] VITALS: BP 89/52; PULSE 70; RESP 18; TEMP 98.3; O2SAT 98
[2017-02-25] MEDS: METOCLOPRAMIDE HCL 10 MG/2 ML VIAL IV PUSH SCH ×4 (00:44→19:21)
[2017-02-25] MEDS: MORPHINE SULFATE 4 MG/ML INJ IV PUSH PRN ×5 (00:45→21:08)
[2017-02-25] MEDS: ONDANSETRON HCL 4 MG/2 ML VIAL IV PUSH PRN ×3 (03:08→23:36)
[2017-02-25 04:44] VITALS: BP 97/48; PULSE 64; RESP 16; TEMP 98.1; O2SAT 97
[2017-02-25] MEDS: LEVOTHYROXINE SODIUM 50 MCG TAB PO SCH (05:04)
[2017-02-25] MEDS: SUCRALFATE 1 GM/10 ML CUP PO SCH ×3 (05:04→16:13)
[2017-02-25 07:36] VITALS: BP 88/52; PULSE 55; RESP 14; TEMP 98; O2SAT 98
[2017-02-25] MEDS: SODIUM CHLORIDE 0.9% FLUSH 10 ML FLUSH IV FLUSH SCH ×2 (08:01→20:12)
[2017-02-25] MEDS ORDERED: SODIUM CHLORID 0.9% 500 ML INJ 500 ML IV ONE (09:30)
--- NOTE | 2017-02-25 09:57 | HHI.PR ---
Subjective Remarks Follow up for intractable abdominal pain. The patient reports continued constant epigastric pain, unchanged compared to yesterday. She reports nausea that is well controlled with IV zofran, denies any vomiting. Denies fevers/ chills. She states she did not eat dinner last night because almost everything had sugar in it. She has been tolerating milk only. Encouraged to try breakfast. She has no other medical complaints at this time. Objective Vitals Vital Signs Date Time Temp Pulse Resp B/P (MAP) Pulse Ox O2 Delivery O2 Flow Rate FiO2 02/25/17 07:36 98.0 55 14 88/52 (64) 98 02/25/17 05:15 18 02/25/17 04:44 98.1 64 16 97/48 (64) 97 02/25/17 00:37 98.3 70 18 89/52 (64) 98 02/25/17 00:02 18 02/24/17 20:59 98.4 62 18 89/47 (61) 97 02/24/17 17:12 98.6 63 16 88/52 (64) 99 02/24/17 13:14 98.5 61 16 87/52 (64) 100 I/O 02/24/17 02/24/17 02/24/17 02/25/17 02/25/17 02/25/17 07:00 15:00 23:00 07:00 15:00 23:00 Intake Total 600 ml 1200 ml Balance 600 ml 1200 ml Intake Oral 200 ml IV Total 1000 ml Other 600 ml Result Diagram: 02/22/17 1800 02/24/17 0725 Imaging Last Impressions Upper GI Series 02/23/17 0000 Signed Impressions: Service Date/Time: Thursday, February 23, 2017 14:51 - CONCLUSION: No evidence for extravasation or ulceration. New Holbrook MD Objective Remarks GENERAL: Well-nourished, well-developed young female patient in [facility]. SKIN: Warm and dry. No rash. HEENT: Normocephalic. Atraumatic. Pupils equal and round. Mucous membranes pink and moist. CARDIOVASCULAR: Regular rate and rhythm. S1, S2 noted. No murmur appreciated. RESPIRATORY: No accessory muscle use. Clear to auscultation. Breath sounds equal bilaterally. GASTROINTESTINAL: Abdomen soft, non-tender with distraction, nondistended. Normoactive bowel sounds x4. MUSCULOSKELETAL: No obvious deformities. Extremities without clubbing, cyanosis , or edema. NEUROLOGICAL: Awake and alert. No obvious cranial nerve deficits. Motor grossly within normal limits. Normal speech. PSYCHIATRIC: Appropriate mood and affect; insight and judgment normal. Procedures EGD 02/[address] Spangler, showed retained food, long blind limb 10cm, no definite ulcers Medications and IVs Current Medications Medications (Trade) Dose Ordered Sig/Chtean Route Start Time Stop Time Status Last Admin (Synthroid) 50 mcg DAILY@0600 PO 02/23/17 06:00 02/25/17 05:04 (Protonix) 40 mg DAILY PO 02/23/17 09:00 02/24/17 09:36 (NS Flush) 2 ml UNSCH PRN IV FLUSH 02/22/17 20:00 (NS Flush) 2 ml BID IV FLUSH 02/22/17 21:00 02/25/17 08:01 (Restoril) 15 mg HS PRN PO 02/22/17 20:00 02/24/17 21:43 (Narcan Inj) 0.4 mg UNSCH PRN IV PUSH 02/22/17 20:00 (Milk Of Magnesia Liq) 30 ml Q12H PRN PO 02/22/17 20:00 (Senokot) 17.2 mg Q12H PRN PO 02/22/17 20:00 02/24/17 21:43 (Dulcolax Supp) 10 mg DAILY PRN RECTAL 02/22/17 20:00 (Lactulose Liq) 30 ml DAILY PRN PO 02/22/17 20:00 (Morphine Inj) 4 mg Q3H PRN IV PUSH 02/22/17 20:00 02/25/17 05:05 Potassium Chloride/Dextrose/ Sod Cl 1,000 ml @ 100 mls/hr Q10H IV 02/22/17 22:00 02/24/17 20:08 (Roxicodone) 5 mg Q4H PRN PO 02/22/17 20:30 02/25/17 07:58 (Carafate Liq) 1 gm TIDAC PO 02/23/17 12:00 02/25/17 05:04 (Phenergan Supp) 25 mg Q6H PRN RECTAL 02/23/17 09:45 (Zofran Inj) 4 mg Q6HR PRN IV PUSH 02/23/17 09:45 02/25/17 03:08 (Reglan Inj) 10 mg Q6H IV PUSH 02/24/17 14:00 02/25/17 07:59 Sodium Chloride 500 ml @ 500 mls/hr BOLUS ONCE IV 02/25/17 09:30 02/25/17 10:29 A/P Problem List: (1) Intractable abdominal pain ICD Code: R10.9 - Unspecified abdominal pain Status: Acute (2) Nausea and vomiting ICD Code: R11.2 - Nausea with vomiting, unspecified Status: Acute (3) History of gastric bypass ICD Code: Z98.890 - Other specified postprocedural states Status: Chronic Assessment and Plan 31-year-old female with history of gastric bypass and revisions presented with acute on chronic epigastric pain, persistent nausea. Patient has a known history of gastrojejunal ulcers and strictures. She has been followed by Dr. Spangler. Abdominal CT report from outside ED 02/21 was reviewed and unremarkable.. Patient has persistent nausea and states she has not been able to eat for the past 2 days. She was hypoglycemic on the BMP. Intractable abdominal pain and nausea: History of multiple abdominal surgeries and gastrojejunal ulcers. - Zofran IV and Phenergan suppository as needed - IV fluid with D5 half-normal saline. Follow I/O - Continue IV PPI and Carate - Pain control with oral oxycodone and IV morphine for breakthrough as needed - Check stool for Hemoccult - Follow-up minimally elevated LFTs - Consulted Dr. Spangler for assistance, s/p EGD 02/24, showed retained food, long blind limb 10cm, no definite ulcers - Diet advanced to full liquid - 02/25 patient still not tolerating oral intake, started on IV Reglan q6h Hypotension: BP 88/52 this morning. Suspect secondary to poor oral intake on top of baseline low blood pressure. No evidence of sepsis. - continue IVF and give IVF bolus today - monitor BP Hypothyroidism: Continue home dose Synthroid. TSH wnl. GI prophylaxis: PPI. Stool softener PRN constipation. DVT prophylaxis: teds/SCDs, ambulation Discharge Planning Discharge pending further clinical improvement and clearance from surgery. Discussed with Dr. Spangler, patient not yet ready for discharge today. Sharifa Medley PA-C Feb 25, 2017 9:57 am
[2017-02-25] MEDS: PANTOPRAZOLE SOD 40 MG DELAYED RELEASE TAB PO SCH (11:04)
[2017-02-25 11:23] VITALS: BP 94/57; PULSE 63; RESP 16; TEMP 98.3; O2SAT 97
[2017-02-25 15:21] VITALS: BP 100/49; PULSE 75; RESP 16; TEMP 98.2; O2SAT 99
[2017-02-25] MEDS: D5-1/2 NS + KCL 20 MEQ INJ 1,000 ML IV SCH ×2 (16:15→16:18)
--- NOTE | 2017-02-25 16:52 | HHI.PR ---
Subjective Subjective Notes Laying in bed Denies pain at this moment but states she does have pain with eating or drinking. No worse than on admission Nausea better with Reglan Objective Vitals/I&O Vital Signs Date Time Temp Pulse Resp B/P (MAP) Pulse Ox O2 Delivery O2 Flow Rate FiO2 02/25/17 16:10 20 02/25/17 15:21 98.2 75 100/49 (66) 99 02/22/17 19:29 Room Air Labs Laboratory Tests Test 02/22/17 18:00 02/22/17 18:05 02/23/17 05:50 02/24/17 06:50 White Blood Count 6.9 TH/MM3 Red Blood Count 3.82 MIL/MM3 Hemoglobin 12.1 GM/DL Hematocrit 35.9 % Mean Corpuscular Volume 94.0 FL Mean Corpuscular Hemoglobin 31.7 PG Mean Corpuscular Hemoglobin Concent 33.7 % Red Cell Distribution Width 12.5 % Platelet Count 175 TH/MM3 Mean Platelet Volume 9.8 FL Neutrophils (%) (Auto) 66.2 % Lymphocytes (%) (Auto) 24.8 % Monocytes (%) (Auto) 7.6 % Eosinophils (%) (Auto) 0.9 % Basophils (%) (Auto) 0.5 % Neutrophils # (Auto) 4.6 TH/MM3 Lymphocytes # (Auto) 1.7 TH/MM3 Monocytes # (Auto) 0.5 TH/MM3 Eosinophils # (Auto) 0.1 TH/MM3 Basophils # (Auto) 0.0 TH/MM3 CBC Comment AUTO DIFF Differential Comment AUTO DIFF CONFIRMED Lipase 103 U/L Urine Color LIGHT-YELLOW Urine Turbidity CLEAR Urine pH 6.0 Urine Specific [place] 1.011 Urine Protein NEG mg/dL Urine Glucose (UA) NEG mg/dL Urine Ketones NEG mg/dL Urine Occult Blood NEG Urine Nitrite NEG Urine Bilirubin NEG Urine Urobilinogen LESS THAN 2.0 MG/DL Urine Leukocyte Esterase NEG Urine RBC LESS THAN 1 /hpf Urine WBC 1 /hpf Urine Squamous Epithelial Cells 1 /hpf Microscopic Urinalysis Comment CULT NOT INDICATED Total Bilirubin 0.1 MG/DL Direct Bilirubin 0.1 MG/DL Indirect Bilirubin 0.0 MG/DL Aspartate Amino Transf (AST/SGOT) 21 U/L Alanine Aminotransferase (ALT/SGPT) 39 U/L Alkaline Phosphatase 66 U/L Total Protein 5.3 GM/DL Albumin 2.9 GM/DL Thyroid Stimulating Hormone 3rd Gen 2.300 uIU/ML Prothrombin Time 10.7 SEC Prothromb Time International Ratio 1.0 RATIO Activated Partial Thromboplast Time 23.8 SEC Test 02/24/17 07:25 Blood Urea Nitrogen 8 MG/DL Creatinine 0.52 MG/DL Random Glucose 82 MG/DL Calcium Level 7.8 MG/DL Sodium Level 139 MEQ/L Potassium Level 3.9 MEQ/L Chloride Level 108 MEQ/L Carbon Dioxide Level 24.0 MEQ/L Anion Gap 7 MEQ/L Estimat Glomerular Filtration Rate 139 ML/MIN Radiology Last Impressions Upper GI Series 02/23/17 0000 Signed Impressions: Service Date/Time: Thursday, February 23, 2017 14:51 - CONCLUSION: No evidence for extravasation or ulceration. New Holbrook MD Cardiovascular: Regular Lungs: Clear Abdomen: Other (Tenderness wtih palpation to epigastric region) Extremities: Perfused A/P Assessment and Plan 31yo F with pertinent history of gastric bypass needing multiple revisions presented with intractable abdominal pain -EGD didn't reveal any ulcers. Did have some retained food and possible hiatal hernia, long blind limb -Increase PO intake as tolerated -Pt will need possible repair of hiatal hernia as outpatient Discharge Planning Depending on hospital course Attending Statement Patient seen at bedside long blind limb, hh with food particles encourage nutrition and pain control Attestation The exam, history, and the medical decision-making described in the above note were completed with the assistance of the mid-level provider. I reviewed and agree with the findings presented. I attest that I had a [id number] encounter with the patient on the same day, and personally performed and documented my assessment and findings in the medical record. Eloise Buchanan Feb 25, 2017 16:52 Xavier Spangler MD Mar 02, 2017 10:23
[2017-02-25] MEDS: SODIUM CHLORIDE 0.9% FLUSH 10 ML FLUSH IV FLUSH PRN ×3 (19:21→23:35)
[2017-02-25 20:36] VITALS: BP 99/49; PULSE 68; RESP 16; TEMP 98.4; O2SAT 97
[2017-02-25] MEDS: TEMAZEPAM 15 MG CAP PO PRN (23:35)
[2017-02-26 00:32] VITALS: BP 98/50; PULSE 65; RESP 16; TEMP 98.2; O2SAT 96
[2017-02-26] MEDS: MORPHINE SULFATE 4 MG/ML INJ IV PUSH PRN ×3 (01:46→12:32)
[2017-02-26] MEDS: SODIUM CHLORIDE 0.9% FLUSH 10 ML FLUSH IV FLUSH PRN ×2 (01:47→05:52)
[2017-02-26] MEDS: METOCLOPRAMIDE HCL 10 MG/2 ML VIAL IV PUSH SCH ×3 (01:47→14:00)
[2017-02-26 04:14] VITALS: BP 93/48; PULSE 69; RESP 18; TEMP 98.1; O2SAT 97
[2017-02-26] MEDS: D5-1/2 NS + KCL 20 MEQ INJ 1,000 ML IV SCH (05:32)
[2017-02-26] MEDS: LEVOTHYROXINE SODIUM 50 MCG TAB PO SCH (05:51)
[2017-02-26] MEDS: ONDANSETRON HCL 4 MG/2 ML VIAL IV PUSH PRN ×2 (05:52→10:09)
[2017-02-26 08:00] VITALS: BP 92/54; PULSE 65; RESP 16; TEMP 98; O2SAT 98
[2017-02-26] MEDS: SODIUM CHLORIDE 0.9% FLUSH 10 ML FLUSH IV FLUSH SCH (09:00)
[2017-02-26] MEDS: SUCRALFATE 1 GM/10 ML CUP PO SCH ×2 (10:08→12:00)
[2017-02-26] MEDS: PANTOPRAZOLE SOD 40 MG DELAYED RELEASE TAB PO SCH (10:08)
--- NOTE | 2017-02-26 10:22 | HHI.PR ---
Subjective Remarks Follow-up for abdominal pain. The patient is feeling improved today. She states her abdominal pain was 9/10 upon admission and has improved to a more tolerable 7/10 currently. She did tolerate grits for breakfast, but hasn't eaten a lot else because she does not eat sugar. She would like to try to advance her diet. She has not had a bowel movement since admission, but attributes this to not eating much. No vomiting. She is hoping to go home soon. She has noticed a red itchy rash on her left upper arm, no generalized rash, no shortness breath, no lip or tongue swelling. Objective Vitals Vital Signs Date Time Temp Pulse Resp B/P (MAP) Pulse Ox O2 Delivery O2 Flow Rate FiO2 02/26/17 08:00 98.0 65 16 92/54 (67) 98 02/26/17 04:14 98.1 69 18 93/48 (63) 97 02/26/17 01:51 14 02/26/17 00:32 98.2 65 16 98/50 (66) 96 02/25/17 20:36 98.4 68 16 99/49 (66) 97 02/25/17 16:10 20 02/25/17 15:21 98.2 75 16 100/49 (66) 99 02/25/17 11:23 98.3 63 16 94/57 (69) 97 Result Diagram: 02/22/17 1800 02/24/17 0725 Imaging Last Impressions Upper GI Series 02/23/17 0000 Signed Impressions: Service Date/Time: Thursday, February 23, 2017 14:51 - CONCLUSION: No evidence for extravasation or ulceration. New Holbrook MD Objective Remarks GENERAL: Well-developed well-nourished. In no acute distress. SKIN: Warm and dry. Contact dermatitis noted on the left upper arm. HEENT: Normocephalic. Pupils equal and round. Mucous membranes pink and moist. CARDIOVASCULAR: Regular rate and rhythm. No murmur appreciated. RESPIRATORY: No accessory muscle use. Clear to auscultation. Breath sounds equal bilaterally. GASTROINTESTINAL: Abdomen soft, nondistended. Mild epigastric TTP. Bowel sounds x4. Well-healed previous laparoscopy scars. MUSCULOSKELETAL: No obvious deformities. No clubbing or cyanosis. No edema. NEUROLOGICAL: Awake and alert. No focal neurological deficits. Moves upper and lower extremities spontaneously. Normal speech. PSYCHIATRIC: Appropriate mood and affect; insight and judgment normal. Procedures EGD 02/[address] Spangler, showed retained food, long blind limb 10cm, no definite ulcers A/P Problem List: (1) Intractable abdominal pain ICD Code: R10.9 - Unspecified abdominal pain Status: Acute (2) Nausea and vomiting ICD Code: R11.2 - Nausea with vomiting, unspecified Status: Acute (3) History of gastric bypass ICD Code: Z98.890 - Other specified postprocedural states Status: Chronic Assessment and Plan 31-year-old female with history of gastric bypass and revisions presented with acute on chronic epigastric pain, persistent nausea. Patient has a known history of gastrojejunal ulcers and strictures. She has been followed by Dr. Spangler. Abdominal CT report from outside ED 02/21 was reviewed and unremarkable.. Patient has persistent nausea and states she has not been able to eat for the past 2 days. She was hypoglycemic on the BMP. Intractable abdominal pain and nausea: History of multiple abdominal surgeries and gastrojejunal ulcers. - Zofran IV and Phenergan suppository as needed - IV fluid with D5 half-normal saline. Follow I/O - Continue IV PPI and Carate - Pain control with oral oxycodone and IV morphine for breakthrough as needed - Follow-up minimally elevated LFTs - Consulted Dr. Spangler for assistance, small bowel series unremarkable, s/p EGD 02/24 which showed retained food, long blind limb 10cm, no definite ulcers - started on IV Reglan q6h - Improving, tolerating full liquids, advance to regular diet as tolerated Contact dermatitis: - Steroid cream and Benadryl as needed Soft blood pressure: Patient has been borderline hypertensive throughout admission. Suspect secondary to poor oral intake on top of baseline low blood pressure. Has been stable. - continue IVF - monitor BP Hypothyroidism: Continue home dose Synthroid. TSH wnl. GI prophylaxis: PPI. Stool softener PRN constipation. DVT prophylaxis: teds/SCDs, ambulation Discharge Planning Possible discharge planning later today if symptoms remain controlled and patient tolerates diet Problem Qualifiers (1) Nausea and vomiting: Qualified Codes: R11.2 - Nausea with vomiting, unspecified Jimenez Erwin Feb 26, 2017 10:22
[2017-02-26 11:58] VITALS: BP 96/52; PULSE 69; RESP 16; TEMP 99.6; O2SAT 100
[2017-02-26] MEDS ORDERED: diphenhydrAMINE HCL 25 MG CAP PO ONE (12:15)
[2017-02-26 12:37] VITALS: RESP 20
[2017-02-26] MEDS ORDERED: HYDROCORTISONE 1% CREAM 30 GM TOPICAL SCH (13:00)
[2017-02-26] MEDS ORDERED: REGL10TA5 PO (13:51)
[2017-02-26] MEDS ORDERED: ZOFR4TAB PO (13:51)
[2017-02-26] MEDS ORDERED: OXYC-392 PO (13:51)
--- NOTE | 2017-02-26 13:57 | HHI.DS ---
Discharge Summary Admission Date Feb 22, 2017 at 19:36 Discharge Date: Feb 26, 2017 Admitting Diagnosis intractable abdominal pain (1) Intractable abdominal pain ICD Code: R10.9 - Unspecified abdominal pain Diagnosis: Principal Status: Acute (2) Nausea and vomiting ICD Code: R11.2 - Nausea with vomiting, unspecified Status: Acute (3) History of gastric bypass ICD Code: Z98.890 - Other specified postprocedural states Diagnosis: Secondary Status: Chronic Procedures EGD 02/[address] Spangler, showed retained food, long blind limb 10cm, no definite ulcers Brief History - From Admission 31-year-old female with a medical history significant for hypothyroidism, gastric bypass with multiple revisions per the patient. She reports she has ongoing abdominal pain and nausea relating to her gastric bypass. She has been followed by Dr. Spangler and pain management. Most recently in November underwent gastrojejunostomy dilation and also found to have ulcers at the time. Patient reports for the past 2 days she has been experiencing severe midepigastric pain. She reports they are sharp and burning. She reports associated nausea and vomiting. She presented to [facility] yesterday where her workup was negative. She was sent home but did not get better and therefore she presented to [facility]. She reports ongoing intermittent diarrhea. Significant other at bedside reports they have been under increasing amount of stress which they report may have exacerbated her symptoms. There has been no fevers or chills. No hematemesis. Outside records from [facility] reviewed. She had an unremarkable abdominal CT scan. Labs and vital signs were also unremarkable. CBC/BMP: 02/22/17 1800 02/24/17 0725 Significant Findings Laboratory Tests Test 02/24/17 06:50 02/24/17 07:25 Activated Partial Thromboplast Time 23.8 SEC (24.3-30.1) Calcium Level 7.8 MG/DL (8.5-10.1) Chloride Level 108 MEQ/L (98-107) Imaging Last Impressions Upper GI Series 02/23/17 0000 Signed Impressions: Service Date/Time: Thursday, February 23, 2017 14:51 - CONCLUSION: No evidence for extravasation or ulceration. New A. Yusef, MD PE at Discharge GENERAL: Well-developed well-nourished. In no acute distress. SKIN: Warm and dry. Contact dermatitis noted on the left upper arm. HEENT: Normocephalic. Pupils equal and round. Mucous membranes pink and moist. CARDIOVASCULAR: Regular rate and rhythm. No murmur appreciated. RESPIRATORY: No accessory muscle use. Clear to auscultation. Breath sounds equal bilaterally. GASTROINTESTINAL: Abdomen soft, nondistended. Mild epigastric TTP. Bowel sounds x4. Well-healed previous laparoscopy scars. MUSCULOSKELETAL: No obvious deformities. No clubbing or cyanosis. No edema. NEUROLOGICAL: Awake and alert. No focal neurological deficits. Moves upper and lower extremities spontaneously. Normal speech. PSYCHIATRIC: Appropriate mood and affect; insight and judgment normal. Pt update on day of discharge Patient tolerated gram crackers and peanut butter. She is feeling improved. She wants to go home. She is out of Zofran at home and would like a refill. Hospital Course 31-year-old female with history of gastric bypass and revisions presented with acute on chronic epigastric pain, persistent nausea. Patient has a known history of gastrojejunal ulcers and strictures. She has been followed by Dr. Spangler. Abdominal CT report from outside ED 02/21 was reviewed and unremarkable. Patient had persistent nausea and states she was not been able to eat for 2 days prior to admission. Intractable abdominal pain and nausea: History of multiple abdominal surgeries and gastrojejunal ulcers. -Given supportive care with antiemetics and IV fluids - Continue and Carate - Pain control with oral oxycodone as needed - Consulted Dr. Spangler for assistance, small bowel series unremarkable, s/p EGD 02/24 which showed retained food, long blind limb 10cm, no definite ulcers - started on IV Reglan q6h, transition to oral at discharge - diet as tolerated - Symptoms improved Pt Condition on Discharge: Stable Discharge Disposition: Discharge Home Discharge Time: > 30 minutes Discharge Instructions DIET: Follow Instructions for: Gastric Bypass Activities you can perform: Regular-No Restrictions Follow up Referrals: PCP Follow-up - 1 Week Surgical - 10 Days with Xavier Spangler MD New Medications: Metoclopramide (Reglan) 10 Mg Tab 10 MG PO TIDAC for Nausea/Vomiting, #21 TAB 0 Refills Oxycodone (Oxycodone) 5 Mg Tab 5 MG PO Q6HR PRN for PAIN > 5, #12 TAB Continued Medications: Levothyroxine (Levothyroxine) 50 Mcg Tab 50 MCG PO DAILY for Thyroid, #30 TAB 0 Refills Ondansetron (Zofran) 4 Mg Tab 4 MG PO Q6HR PRN for NAUSEA OR VOMITING, #10 TAB 0 Refills (This prescription has been renewed) Pantoprazole (Protonix) 40 Mg Tab 40 MG PO DAILY for Reflux, #30 TAB 0 Refills Vit-Iron Carbonyl ( Plus Iron 29-1 mg) 1 Tab Tab 1 TAB PO DAILY for Nutritional Supplement, #30 TAB 0 Refills Sucralfate Liq (Carafate Liq) 1 Gm/10 Ml Susp 1 GM PO six times day for Duodenal ulcer, #900 ML 0 Refills on empty stomach Discontinued Medications: Hydrocodone/Acetaminophen (Hydrocodon-Acetamin 7.5-325/15) 15 Ml Solution 30 ML PO Q4H PRN for PAIN SCALE 6-10 for 10 Days, Jimenez Campbell Feb 26, 2017 13:57
[2017-02-26] MEDS ORDERED: diphenhydrAMINE HCL 25 MG CAP PO PRN (18:00)
== END 2017-02-26 15:10 | disposition home or self-care (01) ==
LOC: NEPE 17:39 → NEDA 19:36 → NEPHCDU 21:24
PROVIDERS: ADMIT Hospitalist; ATTEND Hospitalist
DX: R10.13 Epigastric pain (principal); R10.9 Unspecified abdominal pain; K28.9 Gastrojejunal ulcer, unspecified as acute or chronic, without hemorrhage or perforation; Z98.84 Bariatric surgery status; R11.2 Nausea with vomiting, unspecified; E03.9 Hypothyroidism, unspecified; R19.7 Diarrhea, unspecified; L25.9 Unspecified contact dermatitis, unspecified cause
CPT/HCPCS: 00740; 43235; 74241; 80048; 80053; 80076; 81001; 83690; 84443; 84703; 85025; 85610; 85730; 96361; 96365; 96366; 96375; 96376; 99285; C9113; G0378; J2270; J2405; J2550; J2765; J3480; J7030; J7040

== ENCOUNTER 2017-03-06 18:41 | Emergency (ER) | payer BC, MEDICAID ==
[~2017-03-06] VITALS: Ht 160 cm; Wt 68.0 kg
[~2017-03-06 18:41] MED LIST changes: -ALPR.25 PO; +CARA1SUS3 PO; -HYDR1SOL6 PO; +OXYC-392 PO; +REGL10TA5 PO; -TRAZ100T6 PO; -ZOLO25TA PO
[2017-03-06 18:43] VITALS: BP 148/74; PULSE 74; RESP 15; TEMP 98.6; O2SAT 96
[2017-03-06] MEDS ORDERED: SODIUM CHLOR 0.9% 1000 ML INJ 1,000 ML IV SCH (19:50)
[2017-03-06] MEDS ORDERED: HYDR1SOL3 PO (19:52)
[2017-03-06 19:53] VITALS: BP 119/64; PULSE 62; RESP 16; TEMP 99.1; O2SAT 98
[2017-03-06] MEDS ORDERED: FAMOTIDINE 20 MG/2 ML VIAL IV PUSH ONE (20:00)
[2017-03-06] MEDS ORDERED: ONDANSETRON HCL 4 MG/2 ML VIAL IVP ONE (20:00)
[2017-03-06] MEDS ORDERED: MORPHINE SULFATE 4 MG/ML INJ IV PUSH ONE (20:00)
[2017-03-06] MEDS ORDERED: SODIUM CHLOR 0.9% 1000 ML INJ 1,000 ML IV ONE ×2 (20:00→21:15)
[2017-03-06] MEDS ORDERED: SODIUM CHLORIDE 0.9% FLUSH 10 ML FLUSH IV FLUSH PRN (20:00)
[2017-03-06 20:41] LABS: ALT (GPT) 28 U/L (10-53)
--- NOTE | 2017-03-06 20:41 | PD ---
HPI Chief Complaint: Abdominal Pain Time Seen by Provider: 19:50 Travel History International Travel<30 days: No Contact w/Intl Traveler<30days: No Traveled to known affect area: No History of Present Illness HPI The patient is a 31-year-old female who presents emergency department for nausea, vomiting, and epigastric abdominal pain. The patient has a history of gastric bypass that was performed by a surgeon in [place], [place]. The patient states she has had 8 revisions of her gastric bypass but continues to have complications including ulcers and chronic pain. The patient is currently followed by her general surgeon, Dr. Spangler. The patient was recently admitted to the hospital January where she underwent an upper GI series recently had a panendoscopy. The patient has been taking a PPI as well as Carafate for known history of ulcers. The patient states she developed severe epigastric abdominal pain last night with persistent nausea and vomiting. She also has a history of previous cholecystectomy. The patient has a 3 month at home, denies . She denies any fever, chills, sweats, or dysuria. She does note decreased bowel movements, no bowel movement today and notes decreased passage of flatus. The patient denies any known history of previous partial small bowel obstruction or small bowel obstruction. She does not currently have a primary physician. PFSH Past Medical History Blood Disorders: No Anxiety: Yes Depression: No Cancer: No Cardiovascular Problems: No Diabetes: No Endocrine: Yes Gastrointestinal Disorders: Yes (peptic ulcers; endoscopy with perf) Genitourinary: No Hepatitis: No Hiatal Hernia: No Immune Disorder: No Musculoskeletal: No Neurologic: No Psychiatric: Yes (ANXIETY) Reproductive: No Respiratory: No Thyroid Disease: Yes (hypothyroidism) Influenza Vaccination: No ?: Not LMP: 02/18/17 : 2 Para: 1 : 1 Past Surgical History Abdominal Surgery: Yes (gastric bypass(reversal)-hernia-feeding tube) AICD: No Section: Yes Cholecystectomy: Yes Ear Surgery: No Eye Surgery: No Gynecologic Surgery: Yes (C SECTION 11-22-2016) Joint Replacement: No Oral Surgery: No Pacemaker: No Tonsillectomy: Yes Other Surgery: Yes (RUE IN Y GASTRIC BYPASS & REVISION, CHOLESTECTOMY, PERINEAL REPAIR) Social History Alcohol Use: No Tobacco Use: No Substance Use: No Allergies-Medications (Allergen,Severity, Reaction): Coded Allergies: diclofenac (Unverified Allergy, Unknown, 01/13/17) etodolac (Unverified Allergy, Unknown, 01/13/17) flurbiprofen (Unverified Allergy, Unknown, 01/13/17) ibuprofen (Unverified Allergy, Unknown, 01/13/17) indomethacin (Unverified Allergy, Unknown, 01/13/17) ketoprofen (Unverified Allergy, Unknown, 01/13/17) ketorolac (Unverified Allergy, Unknown, 01/13/17) levofloxacin (Unverified Allergy, Unknown, 01/13/17) naproxen (Unverified Allergy, Unknown, 01/13/17) oxaprozin (Unverified Allergy, Unknown, 01/13/17) Reported Meds & Prescriptions Reported Meds & Active Scripts Active Reglan (Metoclopramide HCl) 10 Mg Tab 10 Mg PO TIDAC Zofran (Ondansetron HCl) 4 Mg Tab 4 Mg PO Q6HR PRN Reported Hydrocodone-Acetaminophen Liq 7.5-325 Mg/15 Ml Soln 30 Ml PO Q6H PRN Carafate Liq (Sucralfate) 1 Gm/10 Ml Susp 1 Gm PO TID on empty stomach Levothyroxine (Levothyroxine Sodium) 50 Mcg Tab 50 Mcg PO DAILY Plus Iron 29-1 mg ( Vit-Iron Carbonyl) 1 Tab Tab 1 Tab PO DAILY Protonix (Pantoprazole Sodium) 40 Mg Tab 40 Mg PO BID Review of Systems Except as stated in HPI: all other systems reviewed are Neg General / Constitutional: No: Fever Cardiovascular: No: Chest Pain or Discomfort Respiratory: No: Shortness of Breath Gastrointestinal: Positive: Nausea, Vomiting, Abdominal Pain, Changes in Bowel Habits, No: Diarrhea Genitourinary: No: Dysuria Physical Exam Narrative GENERAL: Awake and alert, very pleasant 31 year-old female who appears her stated age and is in no acute respiratory distress. SKIN: Focused skin assessment warm/dry. HEAD: Atraumatic. Normocephalic. EYES: Pupils equal and round. No scleral icterus. No injection or drainage. ENT: No nasal bleeding or discharge. Mucous membranes pink and moist. NECK: Trachea midline. No JVD. CARDIOVASCULAR: Regular rate and rhythm. No murmur appreciated. Heart rate in the 80s. RESPIRATORY: No accessory muscle use. Clear to auscultation. Breath sounds equal bilaterally. GASTROINTESTINAL: Abdomen soft, tender palpation epigastrium. Multiple laparoscopic scars noted. No obvious distention. MUSCULOSKELETAL: No obvious deformities. No clubbing. No cyanosis. No edema. NEUROLOGICAL: Awake and alert. No obvious cranial nerve deficits. Motor grossly within normal limits. Normal speech. PSYCHIATRIC: Appropriate mood and affect; insight and judgment normal. Data Data Last Documented VS Vital Signs Date Time Temp Pulse Resp B/P (MAP) Pulse Ox O2 Delivery O2 Flow Rate FiO2 03/06/17 19:53 99.1 62 16 119/64 (82) 98 Room Air Orders Orders Complete Blood Count With Diff (03/06/17 19:50) Comprehensive Metabolic Panel (03/06/17 19:50) Lipase (03/06/17 19:50) Lactic Acid (03/06/17 19:50) Iv Access Insert/Monitor (03/06/17 19:50) Ecg Monitoring (03/06/17 19:50) Oximetry (03/06/17 19:50) Morphine Inj (Morphine Inj) (03/06/17 20:00) Ondansetron Inj (Zofran Inj) (03/06/17 20:00) Sodium Chlor 0.9% 1000 Ml Inj (Ns 1000 M (03/06/17 19:50) Sodium Chloride 0.9% Flush (Ns Flush) (03/06/17 20:00) Famotidine Inj (Pepcid Inj) (03/06/17 20:00) Abdomen, Upright Only (03/06/17 ) Sodium Chlor 0.9% 1000 Ml Inj (Ns 1000 M (03/06/17 20:00) Ns (Bolus) Inj (03/06/17 21:15) Promethazine (Phenergan) (03/06/17 21:15) Hydromorphone Pf Inj (Dilaudid Pf Inj) (03/06/17 21:15) Labs Laboratory Tests Test 03/06/17 20:00 03/06/17 20:30 Blood Urea Nitrogen 9 MG/DL Creatinine 0.60 MG/DL Random Glucose 84 MG/DL Total Protein 8.1 GM/DL Albumin 4.3 GM/DL Calcium Level 9.0 MG/DL Alkaline Phosphatase 92 U/L Aspartate Amino Transf (AST/SGOT) 29 U/L Alanine Aminotransferase (ALT/SGPT) 28 U/L Total Bilirubin 0.3 MG/DL Sodium Level 136 MEQ/L Potassium Level 4.1 MEQ/L Chloride Level 103 MEQ/L Carbon Dioxide Level 25.4 MEQ/L Anion Gap 8 MEQ/L Estimat Glomerular Filtration Rate 118 ML/MIN Lipase 131 U/L White Blood Count 4.8 TH/MM3 Red Blood Count 3.98 MIL/MM3 Hemoglobin 12.1 GM/DL Hematocrit 36.7 % Mean Corpuscular Volume 92.3 FL Mean Corpuscular Hemoglobin 30.5 PG Mean Corpuscular Hemoglobin Concent 33.1 % Red Cell Distribution Width 12.5 % Platelet Count 225 TH/MM3 Mean Platelet Volume 8.7 FL Neutrophils (%) (Auto) 48.8 % Lymphocytes (%) (Auto) 42.7 % Monocytes (%) (Auto) 6.1 % Eosinophils (%) (Auto) 1.4 % Basophils (%) (Auto) 1.0 % Neutrophils # (Auto) 2.3 TH/MM3 Lymphocytes # (Auto) 2.0 TH/MM3 Monocytes # (Auto) 0.3 TH/MM3 Eosinophils # (Auto) 0.1 TH/MM3 Basophils # (Auto) 0.0 TH/MM3 CBC Comment DIFF FINAL Differential Comment Lactic Acid Level 0.9 mmol/L MDM Medical Decision Making Medical Screen Exam Complete: Yes Emergency Medical Condition: Yes Medical Record Reviewed: Yes Interpretation(s) X-ray the abdomen and upright reveals no acute findings. Cholecystectomy clips right upper quadrant. Mild scoliosis. Laboratory Tests Test 03/06/17 20:00 03/06/17 20:30 Blood Urea Nitrogen 9 MG/DL Creatinine 0.60 MG/DL Random Glucose 84 MG/DL Total Protein 8.1 GM/DL Albumin 4.3 GM/DL Calcium Level 9.0 MG/DL Alkaline Phosphatase 92 U/L Aspartate Amino Transf (AST/SGOT) 29 U/L Alanine Aminotransferase (ALT/SGPT) 28 U/L Total Bilirubin 0.3 MG/DL Sodium Level 136 MEQ/L Potassium Level 4.1 MEQ/L Chloride Level 103 MEQ/L Carbon Dioxide Level 25.4 MEQ/L Anion Gap 8 MEQ/L Estimat Glomerular Filtration Rate 118 ML/MIN Lipase 131 U/L White Blood Count 4.8 TH/MM3 Red Blood Count 3.98 MIL/MM3 Hemoglobin 12.1 GM/DL Hematocrit 36.7 % Mean Corpuscular Volume 92.3 FL Mean Corpuscular Hemoglobin 30.5 PG Mean Corpuscular Hemoglobin Concent 33.1 % Red Cell Distribution Width 12.5 % Platelet Count 225 TH/MM3 Mean Platelet Volume 8.7 FL Neutrophils (%) (Auto) 48.8 % Lymphocytes (%) (Auto) 42.7 % Monocytes (%) (Auto) 6.1 % Eosinophils (%) (Auto) 1.4 % Basophils (%) (Auto) 1.0 % Neutrophils # (Auto) 2.3 TH/MM3 Lymphocytes # (Auto) 2.0 TH/MM3 Monocytes # (Auto) 0.3 TH/MM3 Eosinophils # (Auto) 0.1 TH/MM3 Basophils # (Auto) 0.0 TH/MM3 CBC Comment DIFF FINAL Differential Comment Lactic Acid Level 0.9 mmol/L Differential Diagnosis Differential diagnosis includes gastritis, peptic ulcer disease, perforated viscus, partial small bowel obstruction, internal hernia, pancreatitis, retained biliary stone, chronic pain, abdominal migraine, electrolyte abnormality, dehydration. Narrative Course IV was established, labs are drawn and sent, and the patient was placed on cardiac telemetry monitoring and continuous pulse oximetry monitoring. The patient was administered morphine, Zofran, and 2 L of IV fluids. I discussed the patient with Dr. Spangler, after discussion was agreed the patient have an upright x-ray and laboratory evaluation. The patient would then be reevaluated , she may need future surgery and/or GJ tube placement. CBC is unremarkable. BUN and creatinine are normal. Electrolyte unremarkable. Lactic acid is within normal limits. Upright x-ray reveals no evidence of small bowel obstruction. The patient was reevaluated at 9 PM. The patient still had mild discomfort, was administered Dilaudid and Phenergan by mouth with 1 more liter of IV fluids. I had a discussion with the patient regarding 23 hour observation for possible GJ tube placement versus outpatient follow-up. The patient does not currently want a GJ tube, labs are unremarkable, she will be discharged home. The patient states she has antiemetics at home and already sees pain intervention, therefore, no prescriptions were provided. The patient was given a copy of her x-ray results and lab results at discharge. She is advised to follow-up with her surgeon as scheduled. I also discussed the findings with Dr. Spangler who states the patient can follow-up as scheduled. Diagnosis Primary Impression: Epigastric abdominal pain Additional Impression: Nausea and vomiting Qualified Codes: R11.2 - Nausea with vomiting, unspecified Patient Instructions: General Instructions, Narcotic given in the ED Additional Instructions: Please provide the patient a copy of her x-ray results and lab results at discharge. Follow-up with Dr. Spangler as scheduled. Return if symptoms worsen or progress. Disposition: 01 DISCHARGE HOME Condition: Stable Siva Castaneda MD Mar 06, 2017 20:41
[2017-03-06 20:43] LABS: ALKALINE PHOSPHATASE 92 U/L (45-117); TOTAL BILIRUBIN ADULT 0.3 MG/DL (0.2-1.0)
[2017-03-06 20:46] LABS: ANION GAP 8 MEQ/L (5-15); AST (GOT) 29 U/L (15-37); BICARBONATE 25.4 MEQ/L (21.0-32.0); BLOOD UREA NITROGEN 9 MG/DL (7-18); CHLORIDE 103 MEQ/L (98-107); GLOMERULAR FILTRATION RATE 118 ML/MIN (>89); POTASSIUM 4.1 MEQ/L (3.5-5.1); SODIUM (NA) 136 MEQ/L (136-145)
--- NOTE | 2017-03-06 20:56 | RADRPT ---
EXAM DATE/TIME: 03/06/2017 20:06 [facility] COMPARISON: No previous studies available for comparison. INDICATIONS : Abdominal pain. MEDICAL HISTORY : None. SURGICAL HISTORY : Cassandra-en-Y gastric bypass 2013. Cholecystectomy 2015. Gastric bypass revision 2015. ENCOUNTER: Initial ACUITY: 1 day PAIN SCORE: 8/10 LOCATION: Epigastrum, below xyphoid tip. FINDINGS: A single erect view of the abdomen demonstrates the lower lungs to be clear. No evidence of free int raperitoneal gas. The visualized bowel loops are unremarkable. CONCLUSION: 1. No acute findings. Cholecystectomy clips right upper quadrant. Mild scoliosis. Edgar Mac MD on March 06, 2017 at 20:54 Board Certified Radiologist. This report was verified electronically.
[2017-03-06 21:00] LABS: AUTOMATED NEUTROPHIL # 2.3 TH/MM3 (1.8-7.7); EOSINOPHIL # 0.1 TH/MM3 (0-0.4); EOSINOPHIL % 1.4 % (0.0-4.0); HEMATOCRIT 36.7 % (35.0-46.0); HEMO FLAGS DIFF FINAL; LYMPH % 42.7 % (9.0-44.0); MEAN CELL VOLUME 92.3 FL (80.0-100.0); MEAN CORPUSCULAR HEMOGLOBIN 30.5 PG (27.0-34.0); MEAN CORPUSCULAR HGB CONC 33.1 % (32.0-36.0); MONO % 6.1 % (0.0-8.0); NEUT % 48.8 % (16.0-70.0); PLATELET COUNT 225 TH/MM3 (150-450); RED BLOOD COUNT 3.98 MIL/MM3 (4.00-5.30); RED CELL DISTRIBUTION WIDTH 12.5 % (11.6-17.2); WHITE BLOOD COUNT 4.8 TH/MM3 (4.0-11.0)
[2017-03-06] MEDS ORDERED: PROMETHAZINE HCL 25 MG TAB PO ONE (21:15)
[2017-03-06] MEDS ORDERED: HYDROmorphone HCL PF 1 MG/ML VIAL IV PUSH ONE ×2 (21:15→22:30)
== END 2017-03-06 22:56 | disposition home or self-care (01) ==
LOC: NEPE 18:41
DX: R10.13 Epigastric pain (principal); R11.2 Nausea with vomiting, unspecified; Z98.84 Bariatric surgery status
CPT/HCPCS: 74000; 80053; 83605; 83690; 85025; 96361; 96374; 96375; 96376; 99284; J1170; J2270; J2405; J7030; Q0169

== ENCOUNTER 2017-06-15 01:10 | Emergency (ER) | payer BC, MEDICAID ==
[~2017-06-15] VITALS: Ht 160 cm; Wt 70.0 kg
[~2017-06-15 01:10] MED LIST changes: +HYDR1SOL3 PO; -OXYC-392 PO
[2017-06-15 01:11] VITALS: BP 100/60; PULSE 76; RESP 16; TEMP 98.7; O2SAT 100
[2017-06-15] MEDS ORDERED: GADODIAMIDE PF 287 MG/ML 5 ML VIAL (for RAD MRI) IV PUSH ONE (01:11)
[2017-06-15] MEDS ORDERED: TRAZ1TAB14 PO (02:01)
--- NOTE | 2017-06-15 02:49 | RADRPT ---
EXAM DATE/TIME: 06/15/2017 02:26 [facility] COMPARISON: No previous studies available for comparison. INDICATIONS : Abdominal pain MEDICAL HISTORY : None. SURGICAL HISTORY : section. Cholecystectomy. Tonsillectomy. Gastric Bypass reversal ENCOUNTER: Initial ACUITY: 1 day PAIN SCORE: 8/10 LOCATION: Bilateral chest FINDINGS: A single view of the chest demonstrates the lungs to be symmetrically aerated without evidence of mas s, infiltrate or effusion. The cardiomediastinal contours are unremarkable. Osseous structures are intact. Clips are seen in the report of the abdomen. CONCLUSION: No acute disease. Nicola Winters MD on June 15, 2017 at 2:47 Board Certified Radiologist. This report was verified electronically.
[2017-06-15 02:54] LABS: AUTOMATED NEUTROPHIL # 5.1 TH/MM3 (1.8-7.7); BASOPHIL % 0.5 % (0.0-2.0); EOSINOPHIL # 0.1 TH/MM3 (0-0.4); EOSINOPHIL % 0.9 % (0.0-4.0); HEMATOCRIT 39.2 % (35.0-46.0); HEMOGLOBIN 13.5 GM/DL (11.6-15.3); LYMPH % 30.8 % (9.0-44.0); LYMPHOCYTE # 2.6 TH/MM3 (1.0-4.8); MEAN CELL VOLUME 97.7 FL (80.0-100.0); MEAN CORPUSCULAR HEMOGLOBIN 33.6 PG (27.0-34.0); MEAN CORPUSCULAR HGB CONC 34.4 % (32.0-36.0); MONO % 6.6 % (0.0-8.0); MONOCYTE # 0.6 TH/MM3 (0-0.9); NEUT % 61.2 % (16.0-70.0); PLATELET COUNT 247 TH/MM3 (150-450); RED BLOOD COUNT 4.01 MIL/MM3 (4.00-5.30); RED CELL DISTRIBUTION WIDTH 11.9 % (11.6-17.2); WHITE BLOOD COUNT 8.3 TH/MM3 (4.0-11.0)
[2017-06-15 02:55] LABS: BILIRUBIN, URINE NEG (NEG); BLOOD, URINE NEG (NEG); GLUCOSE,URINE NEG (NEG); KETONE, URINE NEG (NEG); MUCUS URINE FEW /lpf (OCC); NITRITE,URINE NEG (NEG); PH, URINE 5.5 (5.0-8.5); SQUAMOUS EPITHELIAL CELL URINE 2 /hpf (0-5); URINE COLOR YELLOW (YELLW/STRAW); URINE LEUKOCYTE ESTERASE NEG (NEG)
[2017-06-15 03:07] LABS: ALBUMIN 4.3 GM/DL (3.4-5.0); ALT (GPT) 26 U/L (10-53); AST (GOT) 13 U/L (15-37); BICARBONATE 26.5 MEQ/L (21.0-32.0); BLOOD UREA NITROGEN 19 MG/DL (7-18); C-REACTIVE PROTEIN LESS THAN 0.29 MG/DL (0.00-0.30); CALCIUM 8.6 MG/DL (8.5-10.1); CHLORIDE 106 MEQ/L (98-107); CREATININE 0.61 MG/DL (0.50-1.00); GLOMERULAR FILTRATION RATE 116 ML/MIN (>89); GLUCOSE,RANDOM 76 MG/DL (74-106); LIPASE 107 U/L (73-393); SODIUM (NA) 138 MEQ/L (136-145)
[2017-06-15 03:09] LABS: ALKALINE PHOSPHATASE 68 U/L (45-117); TOTAL BILIRUBIN ADULT 0.3 MG/DL (0.2-1.0); TOTAL PROTEIN 7.3 GM/DL (6.4-8.2)
--- NOTE | 2017-06-15 03:11 | PD ---
HPI Chief Complaint: Abdominal Pain Time Seen by Provider: 02:04 Travel History International Travel<30 days: No Contact w/Intl Traveler<30days: No Traveled to known affect area: No History of Present Illness HPI The patient is a 31 year old female who presents to the [facility] emergency department with a history of abdominal pain and back pain. The patient reports having a history of chronic abdominal pain since 2013 when she had a bariatric surgery done by a physician and [place], [place]. She reports that she's had several revisions by that physician since then. She reports that she has now been referred to another specialist for treatment. She is followed by the [facility] and is planning to have another surgery done on July 06. She reports that at that time they will do a small bowel resection and revision of the bariatric surgery. She reports that the pain is in the midepigastric area. The patient reports the back pain is new. She reports that it began on Thursday morning. She awoke within on that day. The patient reports that she was evaluated at [place] emergency department for her abdominal pain. She reports that she was seen twice on Thursday and admitted on the second time. She reports that she was discharged on Thursday. She has had nausea without vomiting. She is on Zofran for nausea at home. She denies being on any pain medications at home. She last moved her bowels yesterday. She denies any history of IV drug use. The patient reports that the back pain is in the low back. She has never had a back pain like this previously. She reports that this evening she began to have weakness in her lower extremities and numbness in her legs from the waist down. She denies any loss of bowel or bladder control. She denies any recent fevers. She denies any recent weight loss. She reports that she does have night sweats, however they have intermittently been present for the last year. She denies any dysuria, urinary frequency, or urinary urgency. On review of systems otherwise, she denies having any cough, congestion, neck pain, chest pain, shortness of breath, upper extremity weakness or tingling, facial droop, headache, or difficulty with word finding ability. Dr. Bartlett at the [facility]. LMP: on it currently. [facility] Past Medical History Narrative Medical bariatric surgery done in 2013 by a physician in [place], [place], Blood Disorders: No Anxiety: Yes Depression: No Cancer: No Cardiovascular Problems: No Diabetes: No Endocrine: Yes Gastrointestinal Disorders: Yes Genitourinary: No Hepatitis: No Hiatal Hernia: No Immune Disorder: No Medical other: No Musculoskeletal: No Neurologic: No Psychiatric: Yes Reproductive: No Respiratory: No Thyroid Disease: Yes (hypothyroidism) Ulcer: Yes (peptic ulcers; endoscopy with perf) ?: Not LMP: 06/15/17 : 2 Para: 1 : 1 Past Surgical History Abdominal Surgery: Yes (gastric bypass(reversal)-hernia-feeding tube/REMOVED, 7 BARIATRIC REPAIR) AICD: No Section: Yes Cholecystectomy: Yes Ear Surgery: No Eye Surgery: No Gynecologic Surgery: Yes Joint Replacement: No Oral Surgery: No Pacemaker: No Tonsillectomy: Yes Other Surgery: Yes (PERINEAL REPAIR) Social History Alcohol Use: No Tobacco Use: No Substance Use: No Allergies-Medications (Allergen,Severity, Reaction): Coded Allergies: amoxicillin (Verified Allergy, Mild, Rash, 06/15/17) cefixime (Verified Allergy, Mild, Rash, 06/15/17) clavulanic acid (Verified Allergy, Mild, Rash, 06/15/17) diclofenac (Unverified Allergy, Unknown, 06/15/17) etodolac (Unverified Allergy, Unknown, 06/15/17) flurbiprofen (Unverified Allergy, Unknown, 06/15/17) ibuprofen (Unverified Allergy, Unknown, 06/15/17) indomethacin (Unverified Allergy, Unknown, 06/15/17) ketoprofen (Unverified Allergy, Unknown, 06/15/17) ketorolac (Unverified Allergy, Unknown, 06/15/17) levofloxacin (Unverified Allergy, Unknown, 06/15/17) naproxen (Unverified Allergy, Unknown, 06/15/17) oxaprozin (Unverified Allergy, Unknown, 06/15/17) aspirin (Verified Adverse Reaction, Intermediate, 06/15/17) CAN'T HAVE IT R/T WEIGHT LOSS SX Reported Meds & Prescriptions Reported Meds & Active Scripts Active Tylenol-Codeine Elixir (Acetaminophen-Codeine Liq) 120-12 Mg/5 Ml Soln 5 Ml PO Q8HR PRN Flexeril (Cyclobenzaprine HCl) 10 Mg Tab 10 Mg PO TID 5 Days Zofran (Ondansetron HCl) 4 Mg Tab 4 Mg PO Q6HR PRN Reported Trazodone (Trazodone HCl) 150 Mg Tablet 150 Mg PO HS Levothyroxine (Levothyroxine Sodium) 50 Mcg Tab 50 Mcg PO DAILY Plus Iron 29-1 mg ( Vit-Iron Carbonyl) 1 Tab Tab 1 Tab PO DAILY Protonix (Pantoprazole Sodium) 40 Mg Tab 40 Mg PO BID Physical Exam Narrative General: The patient is a well-developed well-nourished female in no acute distress. Head and Neck exam: Head is normocephalic atraumatic. Eyes: EOMI, pupils are equal round and reactive to light. Nose: Midline septum with pink mucous membranes Mouth: Dentition unremarkable. Moist mucus membranes. Posterior oropharynx is not erythematous. No tonsillar hypertrophy. Uvula midline. Airway patent. Neck: No palpable lymphadenopathy. No nuchal rigidity. No thyromegaly. Cardiovascular: Regular rate and rhythm without murmurs, gallops, or rubs. No pulse deficit to the extremities on simultaneous auscultation and palpation of her radial artery. Lungs: Clear to auscultation bilaterally. No wheezes, rhonchi, or rales. Abdomen: Soft, with reported midepigastric abdominal tenderness on palpation. No tenderness on palpation of the other quadrants of the abdomen. No guarding, rebound, or rigidity. Normal bowel sounds are audible. No tenderness on palpation of McBurney's point. Negative Ortega's sign. Extremities: No clubbing, cyanosis, or edema. 2+ pulses in all 4 extremities. No calf tenderness on palpation. Back: The patient reports having tenderness on palpation along the lower lumbar spine at the border to the sacrum along the transverse processes. No step-off or crepitus. No erythema or ecchymosis. No edema noted. No costovertebral angle tenderness to palpation. Neurologic Exam: Cranial nerves 2-12 were intact on exam. Strength is 4/5 in all 4 extremities. Positive straight leg raise bilaterally. The patient reports increased pain with straight leg raise is worse on the right compared to the left. The patient reports having numbness to bilateral lower extremities. She reports that it is in the stocking distribution from the waist down. Skin Exam: No rash noted. Intact skin that is warm and dry. Data Data Last Documented VS Vital Signs Date Time Temp Pulse Resp B/P (MAP) Pulse Ox O2 Delivery O2 Flow Rate FiO2 06/15/17 09:31 62 18 97/54 (68) 99 06/15/17 04:34 Room Air 06/15/17 01:11 98.7 Orders Orders Complete Blood Count With Diff (06/15/17 02:20) Comprehensive Metabolic Panel (06/15/17 02:20) C-Reactive Protein (Crp) (06/15/17 02:20) Lipase (06/15/17 02:20) Urinalysis - C+S If Indicated (06/15/17 02:20) Chest, Single Ap (06/15/17 02:20) Iv Access Insert/Monitor (06/15/17 02:20) Ecg Monitoring (06/15/17 02:20) Oximetry (06/15/17 02:20) Ed Urine Pregnancytest Poc (06/15/17 02:20) Mri L Spine W&W/O Contrast (06/15/17 ) Mri T Spine W & W/O Contrast (06/15/17 ) Sodium Chlor 0.9% 1000 Ml Inj (Ns 1000 M (06/15/17 04:15) Morphine Inj (Morphine Inj) (06/15/17 04:15) Ondansetron Inj (Zofran Inj) (06/15/17 04:15) Morphine Inj (Morphine Inj) (06/15/17 05:45) Gadodiamide Pf Inj (Omniscan Pf Inj) (06/15/17 01:11) Ondansetron Inj (Zofran Inj) (06/15/17 08:00) Ed Discharge Order (06/15/17 09:14) Labs Laboratory Tests Test 06/15/17 02:30 White Blood Count 8.3 TH/MM3 Red Blood Count 4.01 MIL/MM3 Hemoglobin 13.5 GM/DL Hematocrit 39.2 % Mean Corpuscular Volume 97.7 FL Mean Corpuscular Hemoglobin 33.6 PG Mean Corpuscular Hemoglobin Concent 34.4 % Red Cell Distribution Width 11.9 % Platelet Count 247 TH/MM3 Mean Platelet Volume 9.0 FL Neutrophils (%) (Auto) 61.2 % Lymphocytes (%) (Auto) 30.8 % Monocytes (%) (Auto) 6.6 % Eosinophils (%) (Auto) 0.9 % Basophils (%) (Auto) 0.5 % Neutrophils # (Auto) 5.1 TH/MM3 Lymphocytes # (Auto) 2.6 TH/MM3 Monocytes # (Auto) 0.6 TH/MM3 Eosinophils # (Auto) 0.1 TH/MM3 Basophils # (Auto) 0.0 TH/MM3 CBC Comment DIFF FINAL Differential Comment Urine Color YELLOW Urine Turbidity CLEAR Urine pH 5.5 Urine Specific [place] 1.022 Urine Protein NEG mg/dL Urine Glucose (UA) NEG mg/dL Urine Ketones NEG mg/dL Urine Occult Blood NEG Urine Nitrite NEG Urine Bilirubin NEG Urine Urobilinogen LESS THAN 2.0 MG/DL Urine Leukocyte Esterase NEG Urine RBC 1 /hpf Urine WBC 1 /hpf Urine Squamous Epithelial Cells 2 /hpf Urine Mucus FEW /lpf Microscopic Urinalysis Comment CULT NOT INDICATED Blood Urea Nitrogen 19 MG/DL Creatinine 0.61 MG/DL Random Glucose 76 MG/DL Total Protein 7.3 GM/DL Albumin 4.3 GM/DL Calcium Level 8.6 MG/DL Alkaline Phosphatase 68 U/L Aspartate Amino Transf (AST/SGOT) 13 U/L Alanine Aminotransferase (ALT/SGPT) 26 U/L Total Bilirubin 0.3 MG/DL Sodium Level 138 MEQ/L Potassium Level 3.9 MEQ/L Chloride Level 106 MEQ/L Carbon Dioxide Level 26.5 MEQ/L Anion Gap 6 MEQ/L Estimat Glomerular Filtration Rate 116 ML/MIN C-Reactive Protein LESS THAN 0.29 MG/DL Lipase 107 U/L MDM Medical Decision Making Medical Screen Exam Complete: Yes Emergency Medical Condition: Yes Medical Record Reviewed: Yes Interpretation(s) Last Impressions Chest X-Ray 06/15/17 0220 Signed Impressions: Service Date/Time: Thursday, June 15, 2017 02:26 - CONCLUSION: No acute disease. Nicola Winters MD Thoracic Spine MRI 06/15/17 0000 Signed Impressions: Service Date/Time: Thursday, June 15, 2017 05:56 - CONCLUSION: 1. No evidence of cord compression. 2. Mild right paracentral bulging T1-T2. 3. Mild broad-based bulging T9-T10. 4. Incidental finding of a hemangioma in the liver measuring 2.1 cm. Oliverio Saez MD Lumbar Spine MRI 06/15/17 0000 Signed Impressions: Service Date/Time: Thursday, June 15, 2017 05:56 - CONCLUSION: 1. Mild broad-based bulging L3-4. 2. Mild broad-based and central bulging L4-5. 3. Disc dehydration and disc space narrowing at L3-4 and L4-5. 4. No evidence of cord compression. Oliverio Saez MD Differential Diagnosis Exacerbation of chronic pain, versus cord compression, versus gastritis, versus pancreatitis, versus bilateral sciatic Narrative Course During the course of the patients emergency department visit, the patients history, examination, and differential diagnosis were reviewed with the patient. The patient was placed on a diagnostic cardiac sonographer with oximetry and frequent blood pressure monitoring. The patient had IV access obtained and blood work sent for analysis. The patient was initially provided morphine for pain, Zofran for nausea. The patient has given normal saline 1 L IV fluid bolus. The patients laboratory studies were reviewed and remarkable for CBC within normal limits, CMP as remarkable for BUN of 19, AST 13, C-reactive protein at less than 0.29, lipase 107, urinalysis unremarkable Radiology studies were reviewed and remarkable for chest x-ray shows no acute disease, MRI of the T-spine shows no evidence of cord compression. MRI of the lumbar spine as pending at the conclusion of my shift. The patient's case with checked out to the oncoming emergency physician. Please see his addendum regarding this patient's final disposition. Diagnosis Primary Impression: Chronic abdominal pain Additional Impressions: Abdominal pain Qualified Codes: R10.13 - Epigastric pain Acute back pain Qualified Codes: M54.5 - Low back pain Paresthesias Bilateral leg weakness Scripts Acetaminophen-Codeine Liq (Tylenol-Codeine Elixir) 120-12 Mg/5 Ml Soln 5 ML PO Q8HR Y for PAIN, #60 ML 0 Refills Prov: Rafael Tom MD 06/15/17 Cyclobenzaprine (Flexeril) 10 Mg Tab 10 MG PO TID for Muscle Spasm for 5 Days, #15 TAB 0 Refills Prov: Rafael Tom MD 06/15/17 Kamla Gao MD Jun 15, 2017 03:11
[2017-06-15] MEDS ORDERED: MORPHINE SULFATE 4 MG/ML INJ IV PUSH ONE ×2 (04:15→05:45)
[2017-06-15] MEDS ORDERED: ONDANSETRON HCL 4 MG/2 ML VIAL IV PUSH ONE ×2 (04:15→08:00)
[2017-06-15] MEDS ORDERED: SODIUM CHLOR 0.9% 1000 ML INJ 1,000 ML IV ONE (04:15)
[2017-06-15 04:32] VITALS: O2SAT 99
[2017-06-15 04:34] VITALS: BP 91/51; PULSE 61; RESP 18; O2SAT 99
--- NOTE | 2017-06-15 07:11 | RADRPT ---
EXAM DATE/TIME: 06/15/2017 05:56 [facility] COMPARISON: CHEST SINGLE AP, June 15, 2017, 2:26. INDICATIONS : Cord compression. CONTRAST: 13 cc Omniscan (gadodiamide) IV MEDICAL HISTORY : None. SURGICAL HISTORY : Gastric bypass. Tonsillectomy. Cholecystectomy. . ENCOUNTER: Initial ACUITY: 2 day PAIN SCORE: 4/10 LOCATION: t-spine TECHNIQUE: Multiplanar multisequence MRI of the thoracic spine was performed. FINDINGS: VERTEBRA: Normal vertebral body height. Homogeneous marrow signal. No compression fracture injuries. ALIGNMENT: Normal. CORD: Normal position and configuration. POST CONTRAST: No abnormal areas of contrast enhancement seen involving the thoracic spine or spinal cord. Incidenta l finding of a hemangioma in the liver measuring 2.1 x 1.7 cm. Peripheral nodular enhancement is seen in the postcontrast images.. T1-T2: Mild right paracentral bulging. The neural foramina per pain. T2-T3: The thecal sac has a normal diameter. No evidence of disc bulge or protrusion. T3-T4: The thecal sac has a normal diameter. No evidence of disc bulge or protrusion. T4-T5: The thecal sac has a normal diameter. No evidence of disc bulge or protrusion. T5-T6: The thecal sac has a normal diameter. No evidence of disc bulge or protrusion. T6-T7: The thecal sac has a normal diameter. No evidence of disc bulge or protrusion. T7-T8: The thecal sac has a normal diameter. No evidence of disc bulge or protrusion. T8-T9: The thecal sac has a normal diameter. No evidence of disc bulge or protrusion. T9-T10: Mild broad-based bulging. Neural foramina appear patent. T10-T11: The thecal sac has a normal diameter. No evidence of disc bulge or protrusion. T11-T12: The thecal sac has a normal diameter. No evidence of disc bulge or protrusion. T12-L1: The thecal sac has a normal diameter. No evidence of disc bulge or protrusion. CONCLUSION: 1. No evidence of cord compression. 2. Mild right paracentral bulging T1-T2. 3. Mild broad-based bulging T9-T10. 4. Incidental finding of a hemangioma in the liver measuring 2.1 cm. Oliverio Saez MD on June 15, 2017 at 7:02 Board Certified Radiologist. This report was verified electronically.
--- NOTE | 2017-06-15 07:18 | RADRPT ---
EXAM DATE/TIME: 06/15/2017 05:56 [facility] COMPARISON: No previous studies available for comparison. INDICATIONS : Cord compression. CONTRAST: 13 cc Omniscan (gadodiamide) IV MEDICAL HISTORY : None. SURGICAL HISTORY : Tonsillectomy. Cholecystectomy. Colon resection. ENCOUNTER: Initial ACUITY: 2 day PAIN SCORE: 4/10 LOCATION: lumbar TECHNIQUE: Multiplanar multisequence MRI of the lumbar spine was performed with and without contrast. FINDINGS: The most caudal appearing lumbar vertebra is numbered as L5. VERTEBRAE: Homogeneous signal. Normal alignment. There is disc degeneration and disc space narrowing at L3-4 an d L4-5. No compression fractures are demonstrated. CONUS: Normal level and configuration. POST CONTRAST: No abnormal areas of contrast enhancement are seen. T12-L1: The thecal sac has a normal diameter. No evidence of disc bulge or protrusion. The neural foramina are patent bilaterally. L1-L2: The thecal sac has a normal diameter. No evidence of disc bulge or protrusion. The neural foramina are patent bilaterally. L2-L3: The thecal sac has a normal diameter. No evidence of disc bulge or protrusion. The neural foramina are patent bilaterally. L3-L4: Mild broad-based bulging. The neural foramina are patent bilaterally. L4-L5: Mild diffuse broad-based and central bulging. The neural foramina are patent bilaterally. L5-S1: The thecal sac has a normal diameter. No evidence of disc bulge or protrusion. The neural foramina are patent bilaterally. CONCLUSION: 1. Mild broad-based bulging L3-4. 2. Mild broad-based and central bulging L4-5. 3. Disc dehydration and disc space narrowing at L3-4 and L4-5. 4. No evidence of cord compression. Oliverio Saez MD on June 15, 2017 at 7:13 Board Certified Radiologist. This report was verified electronically.
[2017-06-15] MEDS ORDERED: ACET300T49 PO (07:46)
[2017-06-15] MEDS ORDERED: CYCL10TA PO (07:46)
--- NOTE | 2017-06-15 07:52 | PD ---
Physical Exam Date Seen by Provider: Jun 15, 2017 Time Seen by Provider: 07:00 Narrative She was signed out to me by Dr. Gao at change of shift. Please see her dictation for further details. We are awaiting MRI results of the T and L- spine. Patient was complaining of pain in her back and down her legs. Initially the concern was that she was having weakness. On further evaluation and exam and questioning, the patient was having pain but no weakness. Data Data Last Documented VS Vital Signs Date Time Temp Pulse Resp B/P (MAP) Pulse Ox O2 Delivery O2 Flow Rate FiO2 06/15/17 04:34 61 18 91/51 (64) 99 Room Air 06/15/17 01:11 98.7 Orders Orders Complete Blood Count With Diff (06/15/17 02:20) Comprehensive Metabolic Panel (06/15/17 02:20) C-Reactive Protein (Crp) (06/15/17 02:20) Lipase (06/15/17 02:20) Urinalysis - C+S If Indicated (06/15/17 02:20) Chest, Single Ap (06/15/17 02:20) Iv Access Insert/Monitor (06/15/17 02:20) Ecg Monitoring (06/15/17 02:20) Oximetry (06/15/17 02:20) Ed Urine Pregnancytest Poc (06/15/17 02:20) Mri L Spine W&W/O Contrast (06/15/17 ) Mri T Spine W & W/O Contrast (06/15/17 ) Sodium Chlor 0.9% 1000 Ml Inj (Ns 1000 M (06/15/17 04:15) Morphine Inj (Morphine Inj) (06/15/17 04:15) Ondansetron Inj (Zofran Inj) (06/15/17 04:15) Morphine Inj (Morphine Inj) (06/15/17 05:45) Gadodiamide Pf Inj (Omniscan Pf Inj) (06/15/17 01:11) Ondansetron Inj (Zofran Inj) (06/15/17 08:00) Labs Laboratory Tests Test 06/15/17 02:30 White Blood Count 8.3 TH/MM3 Red Blood Count 4.01 MIL/MM3 Hemoglobin 13.5 GM/DL Hematocrit 39.2 % Mean Corpuscular Volume 97.7 FL Mean Corpuscular Hemoglobin 33.6 PG Mean Corpuscular Hemoglobin Concent 34.4 % Red Cell Distribution Width 11.9 % Platelet Count 247 TH/MM3 Mean Platelet Volume 9.0 FL Neutrophils (%) (Auto) 61.2 % Lymphocytes (%) (Auto) 30.8 % Monocytes (%) (Auto) 6.6 % Eosinophils (%) (Auto) 0.9 % Basophils (%) (Auto) 0.5 % Neutrophils # (Auto) 5.1 TH/MM3 Lymphocytes # (Auto) 2.6 TH/MM3 Monocytes # (Auto) 0.6 TH/MM3 Eosinophils # (Auto) 0.1 TH/MM3 Basophils # (Auto) 0.0 TH/MM3 CBC Comment DIFF FINAL Differential Comment Urine Color YELLOW Urine Turbidity CLEAR Urine pH 5.5 Urine Specific [place] 1.022 Urine Protein NEG mg/dL Urine Glucose (UA) NEG mg/dL Urine Ketones NEG mg/dL Urine Occult Blood NEG Urine Nitrite NEG Urine Bilirubin NEG Urine Urobilinogen LESS THAN 2.0 MG/DL Urine Leukocyte Esterase NEG Urine RBC 1 /hpf Urine WBC 1 /hpf Urine Squamous Epithelial Cells 2 /hpf Urine Mucus FEW /lpf Microscopic Urinalysis Comment CULT NOT INDICATED Blood Urea Nitrogen 19 MG/DL Creatinine 0.61 MG/DL Random Glucose 76 MG/DL Total Protein 7.3 GM/DL Albumin 4.3 GM/DL Calcium Level 8.6 MG/DL Alkaline Phosphatase 68 U/L Aspartate Amino Transf (AST/SGOT) 13 U/L Alanine Aminotransferase (ALT/SGPT) 26 U/L Total Bilirubin 0.3 MG/DL Sodium Level 138 MEQ/L Potassium Level 3.9 MEQ/L Chloride Level 106 MEQ/L Carbon Dioxide Level 26.5 MEQ/L Anion Gap 6 MEQ/L Estimat Glomerular Filtration Rate 116 ML/MIN C-Reactive Protein LESS THAN 0.29 MG/DL Lipase 107 U/L [facility] Medical Record Reviewed: Yes Supervised Visit with [facility]: No Narrative Course MRI of the T-spine and L-spine show no evidence of cord compression. There is multiple levels of degenerative changes. Is also in and still finding of a hemangioma on the liver. The patient will be discharged with prescription for Flexeril for she's also given a prescription for acetaminophen with codeine for 3 days. She is instructed to follow up with with a primary care physician. She is instructed to return if she develops any worsening symptoms i.e. true weakness of her lower extremities, loss of bowel or bladder function, or any other reason the concerns her. Diagnosis Primary Impression: Chronic abdominal pain Additional Impressions: Acute back pain Qualified Codes: M54.5 - Low back pain Abdominal pain Qualified Codes: R10.13 - Epigastric pain Bilateral leg weakness Paresthesias Additional Instruction: Moist heat to lower back 3 times daily. Return if loss of bowel or bladder function or true weakness of lower extremities. Avoid heavy lifting. It is important he find a primary care physician. Med/Other Pt SpecificInfo: Prescription(s) given Scripts Cyclobenzaprine (Flexeril) 10 Mg Tab 10 MG PO TID for Muscle Spasm for 5 Days, #15 TAB 0 Refills Prov: Rafael Tom MD 06/15/17 Acetaminophen-Codeine (Acetaminophen-Codeine) 300-15 mg Tab 1 TAB PO Q8HR Y for PAIN for 3 Days, TAB 0 Refills Prov: Rafael Tom MD 06/15/17 Disposition: 01 DISCHARGE HOME Condition: Stable Rafael Tom MD Jun 15, 2017 07:52
[2017-06-15] MEDS ORDERED: ACET120S PO (09:26)
[2017-06-15 09:31] VITALS: BP 97/54
== END 2017-06-15 09:31 | disposition home or self-care (01) ==
LOC: NEPE 01:10
DX: R10.13 Epigastric pain (principal); G89.29 Other chronic pain; M54.5 Low back pain; R20.0 Anesthesia of skin; R53.1 Weakness; F41.9 Anxiety disorder, unspecified; E03.9 Hypothyroidism, unspecified; Z88.0 Allergy status to penicillin; Z88.6 Allergy status to analgesic agent; Z98.84 Bariatric surgery status
CPT/HCPCS: 71045; 72157; 72158; 80053; 81001; 83690; 84703; 85025; 86140; 96361; 96374; 96375; 96376; 99285; A9579; J2270; J2405; J7030

== ENCOUNTER 2017-12-05 19:44 | Observation (INO) ==
[2017-12-05] MEDS ORDERED: Metoclopramide Inj 10 MG in Sodium Chlor 0.9% Inj 50 ML IV.SIG ONE (21:55)
[2017-12-05] MEDS ORDERED: Sod Chloride 0.9% Inj 1,000 ML IV.SIG ONE (21:55)
[2017-12-05] MEDS ORDERED: Morphine Sulfate Inj 2 MG/ML Vial IV.PUSH ONE (21:55)
--- NOTE | 2017-12-05 21:55 | ED ---
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 Patient is 11 weeks . She says she has a gastric bypass surgery done a few years ago and has had multiple revisions. The last one was at [facility]. However now because of the they have not been able to do a CAT scan or the surgeon to see her until the is over. Meanwhile she says she has been to the emergency room at [place] 3-4 times in past 2 weeks the last visit being 2 days ago for the exact same complaint. Patient says that they have been giving her IV fluid, nausea medication and morphine and then discharge her. She says this is not taking care of her pain. She called her OB today who asked her to come to the [place] emergency room. It is Dr. Bolden. Vital signs are stable. No radiation of the pain. No aggravating or relieving factors identified. No history of spotting or cramping. Related Data Home Medications Medication Instructions Recorded Confirmed levothyroxine 50 mcg PO DAILY 12/05/17 12/05/17 sucralfate [Carafate] 500 mg PO PRN 12/05/17 12/05/17 trazodone 100 mg PO DAILY 12/05/17 12/05/17 Previous Rx's Medication Instructions Recorded doxylamine-pyridoxine (vit B6) 2 tab PO BID 30 Days #120 tab 12/06/17 [Diclegis] ondansetron 4 mg PO Q6H PRN 14 Days tab 12/06/17 Allergies Allergy/AdvReac Type Severity Reaction Status Date / Time amoxicillin Allergy Mild Rash Verified 06/15/17 01:29 cefixime Allergy Mild Rash Verified 06/15/17 01:29 clavulanic acid Allergy Mild Rash Verified 06/15/17 01:29 diclofenac Allergy Unknown Unverified 06/15/17 01:59 etodolac Allergy Unknown Unverified 06/15/17 01:59 flurbiprofen Allergy Unknown Unverified 06/15/17 01:59 ibuprofen Allergy Unknown Unverified 06/15/17 01:59 indomethacin Allergy Unknown Unverified 06/15/17 01:59 ketoprofen Allergy Unknown Unverified 06/15/17 01:59 ketorolac Allergy Unknown Unverified 06/15/17 01:59 levofloxacin Allergy Unknown Unverified 06/15/17 01:59 naproxen Allergy Unknown Unverified 06/15/17 01:59 oxaprozin Allergy Unknown Unverified 06/15/17 01:59 aspirin AdvReac Intermediate Verified 06/15/17 01:59 Review of Systems ROS Unobtainable All other systems reviewed negative except as stated in HPI Gastrointestinal Reports abdominal pain, Reports nausea and Reports vomiting [facility] Medical History Medical History Jejunostomy tube fell out (Acute) Surgical History Surgical History Bariatric surgery status (Acute) Hx of hernia repair (Acute) S/P gastric surgery (Acute) S/P small bowel resection (Acute) Family History Family History Other Family history non-contributory Social History Social History Substance History: No History of Abuse Second Hand Smoke Exposure: No Smoking Status: Former smoker How Often Do You Have a Drink Containing Alcohol: Never Hx Recent Travel: No Recent Travel in [facility] within the Last 8 Weeks: No Recent Out of Country Travel within the Last 8 Weeks: No Immunization History Tetanus Immunization: Unsure Hx Influenza Vaccine This Season: No Exam Narrative Exam Narrative: GENERAL: Awake, alert, anxious, moderate distress SKIN: Focused skin assessment warm/dry. HEAD: Atraumatic. Normocephalic. EYES: Pupils equal and round. No scleral icterus. No injection or drainage. ENT: No nasal bleeding or discharge. Mucous membranes pink and moist. NECK: Trachea midline. No JVD. CARDIOVASCULAR: Regular rate and rhythm. No murmur appreciated. RESPIRATORY: No accessory muscle use. Clear to auscultation. Breath sounds equal bilaterally. GASTROINTESTINAL: Abdomen soft, non-tender, nondistended. Hepatic and splenic margins not palpable. MUSCULOSKELETAL: No obvious deformities. No clubbing. No cyanosis. No edema. NEUROLOGICAL: Awake and alert. No obvious cranial nerve deficits. Motor grossly within normal limits. Normal speech. PSYCHIATRIC: Appropriate mood and affect; insight and judgment normal. Course Initial Documented Vital Signs Temperature 99.1 F 12/05/17 20:20 Pulse Rate 90 12/05/17 20:20 Respiratory Rate 18 12/05/17 20:20 Blood Pressure 122/59 L 12/05/17 20:20 Pulse Oximetry 99 12/05/17 20:20 Last Documented Vital Signs Temperature 97.9 F 12/06/17 13:56 Pulse Rate 60 12/06/17 13:47 Respiratory Rate 16 12/06/17 13:56 Blood Pressure 83/45 L 12/06/17 13:56 Pulse Oximetry 98 12/06/17 13:56 Medical Decision Making MDM Narrative Medical decision making narrative: Blood test results are back and within normal limit. Because of the intractable pain and vomiting I have recommended that patient could be admitted. I have given her IV fluid bolus, Reglan and morphine. She could be consulted by bariatric surgeon as well as the OB in the morning. Awaiting for the hospitalist to call back. Lab Data Result diagrams: 12/05/17 22:10 12/05/17 22:10 Lab Results 12/05/17 12/05/17 Range/Units 22:10 22:10 WBC 7.5 (4.0-11.0) th/mm3 RBC 4.57 (4.00-5.30) mil/mm3 Hgb 14.2 (11.6-15.3) gm/dL Hct 41.7 (35.0-46.0) % MCV 91.2 (80.0-100.0) fL MCH 31.0 (27.0-34.0) pg MCHC 34.0 (32.0-36.0) % RDW 13.2 (11.6-17.2) % Plt Count 202 (150-450) th/mm3 MPV 8.3 (7.0-11.0) fL Neut % (Auto) 74.3 H (16.0-70.0) % Lymph % (Auto) 18.9 (9.0-44.0) % [place] % (Auto) 5.9 (0.0-8.0) % Eos % (Auto) 0.6 (0.0-4.0) % Baso % (Auto) 0.3 (0.0-2.0) % Neut # (Auto) 5.5 (1.8-7.7) th/mm3 Lymph # (Auto) 1.4 (1.0-4.8) th/mm3 [place] # (Auto) 0.4 (0.0-0.9) th/mm3 Eos # (Auto) 0.0 (0.0-0.4) th/mm3 Baso # (Auto) 0.0 (0.0-0.2) th/mm3 WBC Differential . Differential Comment Auto diff final Sodium 139 (136-145) meq/L Potassium 3.6 (3.5-5.1) meq/L Chloride 108 H (98-107) meq/L Carbon Dioxide 22.3 (21.0-32.0) meq/L Anion Gap 9 (5-15) meq/L BUN 11 (7-18) mg/dL Creatinine 0.61 (0.50-1.00) mg/dL Estimated GFR Greater than 89 (>89) mL/min Random Glucose 89 (74-106) mg/dL Calcium 9.2 (8.5-10.1) mg/dL Total Bilirubin 0.5 (0.2-1.0) mg/dL AST 10 L (15-37) U/L ALT 38 (10-53) U/L Alkaline Phosphatase 103 (45-117) U/L Total Protein 7.5 (6.4-8.2) g/dL Albumin 4.0 (3.4-5.0) g/dL Lipase 85 (73-393) U/L Discharge Plan Discharge Disposition Patient Disposition: 01 Discharge Home Discharge Condition Condition: Good Discharge Order Discharge Orders: Discharge Order (Routine); Ordered 12/06/17 Ordered By: Ghazala Palomo Discharge Details Anticipated Discharge Date: 12/06/17 Diagnosis: Hyperemesis gravidarum, Intractable abdominal pain Physicians Team ED Provider: Elvin Mann Primary Care Provider: Oscar Bolden Attending Provider: Ghazala Palomo Other Providers: Judy Chiu Status ED Status: Left Department Discharge Information Discharge Date/Time: 12/06/17 01:14
[2017-12-05 22:31] LABS: Baso % (Auto) 0.3 % (0.0-2.0); Eos % (Auto) 0.6 % (0.0-4.0); Hematocrit 41.7 % (35.0-46.0); Hemoglobin 14.2 gm/dL (11.6-15.3); Lymph # (Auto) 1.4 th/mm3 (1.0-4.8); Lymph % (Auto) 18.9 % (9.0-44.0); Mean Corpuscular Volume 91.2 fL (80.0-100.0); Mean Platelet Volume 8.3 fL (7.0-11.0); Mono # (Auto) 0.4 th/mm3 (0.0-0.9); Mono % (Auto) 5.9 % (0.0-8.0); Neut # (Auto) 5.5 th/mm3 (1.8-7.7); Neut % (Auto) 74.3 % (16.0-70.0); Platelet Count 202 th/mm3 (150-450); Red Blood Count 4.57 mil/mm3 (4.00-5.30); Red Cell Distribution Width 13.2 % (11.6-17.2); White Blood Count 7.5 th/mm3 (4.0-11.0)
[2017-12-05 22:52] LABS: Anion Gap 9 meq/L (5-15); Aspartate Aminotransferase 10 U/L (15-37); Blood Urea Nitrogen 11 mg/dL (7-18); Calcium 9.2 mg/dL (8.5-10.1); Carbon Dioxide 22.3 meq/L (21.0-32.0); Chloride 108 meq/L (98-107); Glomerular Filtration Rate Greater Than 89 mL/min (>89); Glucose,Random 89 mg/dL (74-106); Lipase 85 U/L (73-393); Potassium 3.6 meq/L (3.5-5.1); Sodium 139 meq/L (136-145)
[2017-12-05 22:53] LABS: Alanine Aminotransferase 38 U/L (10-53)
[2017-12-05] MEDS: Morphine Inj 4 MG/ML Vial IV.PUSH SCH (22:54)
[2017-12-05 22:55] LABS: Alkaline Phosphatase 103 U/L (45-117); Total Protein 7.5 g/dL (6.4-8.2)
[2017-12-06] MEDS ORDERED: Morphine Sulfate Inj 2 MG/ML Vial IV.PUSH PRN (00:23)
[2017-12-06] MEDS ORDERED: Acetaminophen 325 MG Tablet PO PRN (00:25)
[2017-12-06] MEDS: Morphine Inj 4 MG/ML Vial IV.PUSH SCH (00:50)
[2017-12-06] MEDS: Morphine Inj 4 MG/ML Vial IV.PUSH PRN ×3 (03:51→11:57)
[2017-12-06] MEDS: Sod Chloride 0.9% Inj 1,000 ML IV.CONT SCH ×2 (04:06→14:14)
--- NOTE | 2017-12-06 10:54 | P.CONOB ---
History of Present Illness Service: Obstetrics Primary Care Physician: Oscar Bolden MD Chief Complaint: severe nausea/vomiting first trimester History of Present Illness: 32 yo with EDC 06/29/18 by 10w3d ultrasound in Dr. Bolden's office ( confirmed by verbal report from Dr. Bolden to me this morning) presented to ED for c/o severe nausea/vomiting, unable to keep liquids down over past 24 hours. Had similar issues with her last , son born at 29 weeks by emergency here at [place] with Dr. Rodriguez due to incompetent cervix and NRFHTs per pt report. That child was born 11/22/16. Patient was not taking any medication for nausea at home, does not remember taking Diclegis with previous . States has been to [place] ER 3-4 times in past 2 weeks for similar complaints and states they give her IV fluids and medication then discharge her with no Rx. Pt is frustrated, wants to be home caring for her 1 yr old son. 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 They live in [place]. Pt has a complicated past medical and surgical history, reports bariatric surgery in 2015 in [place] "Dr. Gian Pal" with numerous complications requiring 8 surgeries since initial, with pt reporting GI ulcers, perforations of intestine, and small bowel obstruction with most recent surgery 07/2017 performed at [facility] in [place] "Dr. Jorge A Angel" with patient stating small bowel resection at that time. Was not doing anything to avoid . Is taking vitamins with folic acid but has emesis most mornings. Does state her first had to be terminated due to her poor health, that was in 2016 after her bariatric surgery. A D&C was performed for termination at 12 weeks per pt's report. This morning pt states she has been able to keep down water and Gatorade and would like to be able to go home to her family if possible. Has an appointment with Dr. Bolden tomorrow, Thursday12/07/17 in the office for New OB appointment. Weeks Gestation:: 10 (10w5d, EDC 06/29/18) Para: 1 : 3 Total # of Miscarriage(s): 0 Total # of Abortions (Spontaneous & Elective): 1 (for medical indication, severe malnutrition of pt) - Inpatient Certification If this patient has been admitted as an Inpatient: I certify that the inpatient services were ordered in accordance with Medicare regulations governing the order. This includes certification that hospital inpatient services are reasonable and necessary and in the case of services not specified as inpatient-only under 42 CFR 419.22(n), that they are appropriately provided as inpatient services in accordance to with the 2-midnight benchmark under 43 CFR 412.3(e) Estimated Total Length of Stay (Days): 1 Plans for Post Hospital Care: Home Review of Systems All other systems reviewed negative except as stated in HPI PMFSH - History History Provided By: Patient - Medical History Medical History: Medical History (Last Updated 12/06/17 @ 10:41 by Judy Chiu MD) History of delivery, currently History of obesity Hx of cervical incompetence in , currently Hypothyroid Insomnia Jejunostomy tube fell out Short interval between pregnancies affecting in first trimester, antepartum - Surgical History Surgical History: Surgical History (Last Updated 12/06/17 @ 10:43 by Judy Chiu MD) Bariatric surgery status History of dilation and curettage History of low transverse section Hx of hernia repair S/P gastric surgery S/P small bowel resection - Family History Family History: Family History (Last Updated 12/06/17 @ 10:44 by Judy Chiu MD) Other No family history of breast cancer - Tobacco History Second Hand Smoke Exposure: No Tobacco Use In Past 30 Days: No Smoking Status: Former smoker - Alcohol History How Often Do You Have a Drink Containing Alcohol: Never - Substance Use History Substance History: No History of Abuse - Travel History History of Recent Travel: No Recent Travel in the [place] Within the Last 8 Weeks: No Recent Travel Out of the Country Within the Last 8 Weeks: No - Immunization History Tetanus Immunization: Unsure Hx Influenza Vaccine This Season: No Medications and Allergies Active Medications: Active Medications Acetaminophen (Tylenol) 650 mg PO Q4H PRN PRN Reason: Temp > 100.4 Sodium Chloride (Ns Inj) 1,000 mls @ 80 mls/hr IV.CONT .[id number] CHANA Last Admin: 12/06/17 04:06 Dose: 80 mls/hr Morphine Sulfate (Morphine Inj) 2 mg IV.PUSH Q4H PRN PRN Reason: pain 6-10 Last Admin: 12/06/17 07:48 Dose: 2 mg Ondansetron HCl (Zofran Odt) 4 mg PO Q6H PRN PRN Reason: NAUSEA OR VOMITING Last Admin: 12/06/17 07:53 Dose: 4 mg Sodium Chloride (Ns Flush) 2 ml IV.FLUSH PRN PRN PRN Reason: FLUSH AFTER USING IV ACCESS Allergies Allergy/AdvReac Type Severity Reaction Status Date / Time amoxicillin Allergy Mild Rash Verified 06/15/17 01:29 cefixime Allergy Mild Rash Verified 06/15/17 01:29 clavulanic acid Allergy Mild Rash Verified 06/15/17 01:29 diclofenac Allergy Unknown Unverified 06/15/17 01:59 etodolac Allergy Unknown Unverified 06/15/17 01:59 flurbiprofen Allergy Unknown Unverified 06/15/17 01:59 ibuprofen Allergy Unknown Unverified 06/15/17 01:59 indomethacin Allergy Unknown Unverified 06/15/17 01:59 ketoprofen Allergy Unknown Unverified 06/15/17 01:59 ketorolac Allergy Unknown Unverified 06/15/17 01:59 levofloxacin Allergy Unknown Unverified 06/15/17 01:59 naproxen Allergy Unknown Unverified 06/15/17 01:59 oxaprozin Allergy Unknown Unverified 06/15/17 01:59 aspirin AdvReac Intermediate Verified 06/15/17 01:59 Home Medications Medication Instructions Recorded Confirmed Type levothyroxine 50 mcg PO DAILY 12/05/17 12/05/17 History sucralfate [Carafate] 500 mg PO PRN 12/05/17 12/05/17 History trazodone 100 mg PO DAILY 12/05/17 12/05/17 History Exam Vital signs: Vital Signs 12/05/17 20:20 12/05/17 22:57 12/05/17 23:14 Temperature 99.1 F Pulse Rate 90 69 Respiratory Rate 18 15 Blood Pressure 122/59 L 95/52 L Pulse Oximetry 99 100 100 12/06/17 04:00 12/06/17 08:00 12/06/17 08:30 Temperature 98 F 97.7 F Pulse Rate 65 62 Respiratory Rate 16 16 Blood Pressure 90/47 L 90/42 L Pulse Oximetry 98 99 99 Intake & Output 07/12/1612/06/17 12/06/17 18:59 06:59 18:59 Intake Total 1052 / 1052 Balance 1052 / 1052 Weight 64.41 kg Intake: IV 1052 / 1052 Reglan Inj 10 MG In NS Inj 50 52 / 52 ML @ 104 mls/hr IV.SIG ONCE ONE Rx#:[id number] NS Inj 1,000 ML @ Wide Open IV. 1000 / 1000 SIG BOLUS ONE Rx#:[id number] - Constitutional mild distress (appears fatigued, laying in bed) - Routine HEENT Exam Head: Present: normocephalic, atraumatic Eye: Present: EOMI, PERRL ENT: Present: dentition normal, nares patent - Routine Neck Exam Present: supple, full ROM - Routine Chest/Breast/Axilla Exam Chest wall: Absent: tenderness, mass Axillae: Absent: lymphadenopathy, mass - Routine Respiratory Exam Present: CTA bilaterally. Absent: accessory muscle use - Routine Cardiovascular Exam Present: RRR. Absent: murmur - Routine Abdominal Exam Present: soft. Absent: distended, rebound - Routine Extremities Exam Absent: cyanosis, clubbing, edema - Routine Skin Exam Present: intact. Absent: erythema - Routine Neurological Exam Present: alert, oriented X3 - Additional findings Additional findings: deferred exam; no blood on bed Results - Labs CBC & Chem 7: 12/05/17 22:10 12/05/17 22:10 Labs: Laboratory Results - last 24 hr 12/05/17 12/05/17 22:10 22:10 WBC 7.5 RBC 4.57 Hgb 14.2 Hct 41.7 MCV 91.2 MCH 31.0 MCHC 34.0 RDW 13.2 Plt Count 202 MPV 8.3 Neut % (Auto) 74.3 H Lymph % (Auto) 18.9 [place] % (Auto) 5.9 Eos % (Auto) 0.6 Baso % (Auto) 0.3 Neut # (Auto) 5.5 Lymph # (Auto) 1.4 [place] # (Auto) 0.4 Eos # (Auto) 0.0 Baso # (Auto) 0.0 WBC Differential . Differential Comment Auto diff final Sodium 139 Potassium 3.6 Chloride 108 H Carbon Dioxide 22.3 Anion Gap 9 BUN 11 Creatinine 0.61 Estimated GFR Greater than 89 Random Glucose 89 Calcium 9.2 Total Bilirubin 0.5 AST 10 L ALT 38 Alkaline Phosphatase 103 Total Protein 7.5 Albumin 4.0 Lipase 85 Caprini VTE Risk Assessment Caprini VTE Risk Assessment: No/Low Risk (score <= 1) Caprini Risk Assessment Model: Point Value = 1 Point Value = 2 Point Value = 3 Point Value = 5 Age 41-60 Minor surgery BMI > 25 kg/m2 Swollen legs Varicose veins or History of unexplained or recurrent spontaneous Oral contraceptives or hormone replacement Sepsis (< 1 month) Serious lung disease, including pneumonia (< 1 month) Abnormal pulmonary function Acute myocardial infarction Congestive heart failure (< 1 month) History of inflammatory bowel disease Medical patient at bed rest Age 61-74 Arthroscopic surgery Major open surgery (> 45 min) Laparoscopic surgery (> 45 min) Malignancy Confined to bed (> 72 hours) Immobilizing plaster cast Central venous access Age >= 75 History of VTE Family history of VTE Factor V Leiden Prothrombin [id number] Lupus anticoagulant Anticardiolipin antibodies Elevated serum homocysteine Heparin-induced thrombocytopenia Other congenital or acquired thrombophilia Stroke (< 1 month) Elective arthroplasty Hip, pelvis, or leg fracture Acute spinal cord injury (< 1 month) Prophylaxis Regimen: Total Risk Factor Score Risk Level Prophylaxis Regimen 0-1 Low Early ambulation 2 Moderate Order ONE of the following: *Sequential Compression Device (SCD) *Heparin 5000 units SQ BID 3-4 Higher Order ONE of the following medications: *Heparin 5000 units SQ TID *Enoxaparin/Lovenox 40 mg SQ daily (WT < 150 kg, CrCl > 30 mL/min) *Enoxaparin/Lovenox 30 mg SQ daily (WT < 150 kg, CrCl > 10-29 mL/min) *Enoxaparin/Lovenox 30 mg SQ BID (WT < 150 kg, CrCl > 30 mL/min) AND/OR *Sequential Compression Device (SCD) 5 or more Highest Order ONE of the following medications: *Heparin 5000 units SQ TID (Preferred with Epidurals) *Enoxaparin/Lovenox 40 mg SQ daily (WT < 150 kg, CrCl > 30 mL/min) *Enoxaparin/Lovenox 30 mg SQ daily (WT < 150 kg, CrCl > 10-29 mL/min) *Enoxaparin/Lovenox 30 mg SQ BID (WT < 150 kg, CrCl > 30 mL/min) AND *Sequential Compression Device (SCD) Assessment and Plan - Diagnosis (1) Hyperemesis gravidarum Code(s): O21.0 - Mild hyperemesis gravidarum Status: Acute (2) Code(s): Z34.90 - Encounter for supervision of normal , unspecified, unspecified trimester Status: Acute - Plan 32 yo with EDC 06/29/18 presents to ED with intractable nausea/vomiting and abdominal pain 1) N/V first trimester: has resolved with IV medication & hydration, pt able to tolerate fluids without emesis; will start oral Diclegis and give Rx for scheduled Diclegis and prn Zofran at home; if pt remains without emesis recommend discharge with office f/u tomorrow 12/07/[address] Bolden 2) h/o bariatric surgery & complication/re-operation x 8 per pt: will need all records from Dr. Gian Pal at [facility] & Dr. Jorge A Angel at [facility]; Dr. Bolden will request for records as outpt when sees pt for f/u 12/07/17 3) high risk : h/o multiple surgeries including 11/22/17; based on short inter- interval do not recommend TOLAC/; with h/o cervical incompetence is candidate for vaginal progesterone therapy; d/w pt today she can get Rx as outpt from Dr. Bolden 4) chronic insomnia with trazadone use: reports 100mg daily use for years; counseled pt on risks of medication with no good human studies; pt took for entire prior ; d/w pt if continues will risk withdrawal & will need MFM eval with likely echocardiogram between 24-28 wks for addt' l evaluation; pt aware 5) hypothyroidism: continue home med, reports levothyroxine 50mcg daily in AM 6) dispo: pending agreement with primary team, recommend discharge to home if remains without emesis and office f/u in [address] Bolden Discharge Planning: routine, if continues to be without emesis plan d/c today (2) Qualifiers: Weeks of gestation: 10 weeks Qualified Code(s): Z3A.10 - 10 weeks gestation of
--- NOTE | 2017-12-06 11:19 | P.HPIM ---
History of Present Illness Primary Care Physician: Oscar Bolden MD Chief Complaint: severe nausea/vomiting first trimester History of Present Illness: 32-year-old female reportedly 11 weeks presented to the emergency room with complaint of nausea and vomiting. Patient reports she is unable to keep anything down for the past 24 hours. She has a medical history significant for gastric bypass. Patient had similar issue with her prior pregnancies. The patient currently denies vaginal bleeding or lower abdominal cramps. Since arrival to the emergency room, the patient reports that she is now able to keep down water and Gatorade. She has been evaluated by obstetrics. Diclegis has been added to her medication regimen - Diagnosis (1) Hyperemesis gravidarum (2) Inpatient Certification: I certify that the inpatient services were ordered in accordance with Medicare regulations governing the order. This includes certification that hospital inpatient services are reasonable and necessary and in the case of services not specified as inpatient-only under 42 CFR 419.22(n), that they are appropriately provided as inpatient services in accordance to with the 2-midnight benchmark under 43 CFR 412.3(e) Estimated Total Length of Stay (Days): 1 Plans for Post Hospital Care: Home Review of Systems All other systems reviewed negative except as stated in HPI PMFSH - History History Provided By: Patient - Medical History Medical History: Medical History (Last Reviewed 12/06/17 @ 14:17 by Ghazala Palomo MD) History of delivery, currently History of obesity Hx of cervical incompetence in , currently Hypothyroid Insomnia Jejunostomy tube fell out Short interval between pregnancies affecting in first trimester, antepartum - Surgical History Surgical History: Surgical History (Last Reviewed 12/06/17 @ 14:17 by Ghazala Palomo MD) Bariatric surgery status History of dilation and curettage History of low transverse section Hx of hernia repair S/P gastric surgery S/P small bowel resection - Family History Family History: Family History (Last Updated 12/06/17 @ 14:17 by Ghazala Palomo MD) Other Family history non-contributory No family history of breast cancer - Tobacco History Second Hand Smoke Exposure: No Tobacco Use In Past 30 Days: No Smoking Status: Former smoker - Alcohol History How Often Do You Have a Drink Containing Alcohol: Never - Substance Use History Substance History: No History of Abuse - Travel History History of Recent Travel: No Recent Travel in the [place] Within the Last 8 Weeks: No Recent Travel Out of the Country Within the Last 8 Weeks: No - Immunization History Tetanus Immunization: Unsure Hx Influenza Vaccine This Season: No Medications and Allergies Active Medications: Active Medications Acetaminophen (Tylenol) 650 mg PO Q4H PRN PRN Reason: Temp > 100.4 Sodium Chloride (Ns Inj) 1,000 mls @ 80 mls/hr IV.CONT .[id number] CHANA Last Admin: 12/06/17 04:06 Dose: 80 mls/hr Morphine Sulfate (Morphine Inj) 2 mg IV.PUSH Q4H PRN PRN Reason: pain 6-10 Last Admin: 12/06/17 07:48 Dose: 2 mg Ondansetron HCl (Zofran Odt) 4 mg PO Q6H PRN PRN Reason: NAUSEA OR VOMITING Last Admin: 12/06/17 07:53 Dose: 4 mg Sodium Chloride (Ns Flush) 2 ml IV.FLUSH PRN PRN PRN Reason: FLUSH AFTER USING IV ACCESS Allergies Allergy/AdvReac Type Severity Reaction Status Date / Time amoxicillin Allergy Mild Rash Verified 06/15/17 01:29 cefixime Allergy Mild Rash Verified 06/15/17 01:29 clavulanic acid Allergy Mild Rash Verified 06/15/17 01:29 diclofenac Allergy Unknown Unverified 06/15/17 01:59 etodolac Allergy Unknown Unverified 06/15/17 01:59 flurbiprofen Allergy Unknown Unverified 06/15/17 01:59 ibuprofen Allergy Unknown Unverified 06/15/17 01:59 indomethacin Allergy Unknown Unverified 06/15/17 01:59 ketoprofen Allergy Unknown Unverified 06/15/17 01:59 ketorolac Allergy Unknown Unverified 06/15/17 01:59 levofloxacin Allergy Unknown Unverified 06/15/17 01:59 naproxen Allergy Unknown Unverified 06/15/17 01:59 oxaprozin Allergy Unknown Unverified 06/15/17 01:59 aspirin AdvReac Intermediate Verified 06/15/17 01:59 Home Medications Medication Instructions Recorded Confirmed Type levothyroxine 50 mcg PO DAILY 12/05/17 12/05/17 History sucralfate [Carafate] 500 mg PO PRN 12/05/17 12/05/17 History trazodone 100 mg PO DAILY 12/05/17 12/05/17 History Exam Vital signs: Vital Signs 12/05/17 20:20 12/05/17 22:57 12/05/17 23:14 Temperature 99.1 F Pulse Rate 90 69 Respiratory Rate 18 15 Blood Pressure 122/59 L 95/52 L Pulse Oximetry 99 100 100 12/06/17 04:00 12/06/17 08:00 12/06/17 08:30 Temperature 98 F 97.7 F Pulse Rate 65 62 Respiratory Rate 16 16 Blood Pressure 90/47 L 90/42 L Pulse Oximetry 98 99 99 Intake & Output 12/05/17 12/06/17 12/06/17 18:59 06:59 18:59 Intake Total 1052 / 1052 Balance 1052 / 1052 Weight 64.41 kg Intake: IV 1052 / 1052 Reglan Inj 10 MG In NS Inj 50 52 / 52 ML @ 104 mls/hr IV.SIG ONCE ONE Rx#:[id number] NS Inj 1,000 ML @ Wide Open IV. 1000 / 1000 SIG BOLUS ONE Rx#:[id number] Narrative: GENERAL: This is a well-nourished, well-developed patient, in no apparent distress. CARDIOVASCULAR: Normal rate and regular rhythm without murmurs, gallops, or rubs. RESPIRATORY: Good respiratory efforts. Breath sounds equal and clear to auscultation bilaterally. GASTROINTESTINAL: Abdomen soft, non-tender, non-distended. Normal active bowel sounds MUSCULOSKELETAL: Extremities without cyanosis, or edema. NEURO: Alert & Oriented x4 to person, place, time, situation. Moves all ext x4 PSYCH: Appropriate mood and affect. Results - Labs CBC & Chem 7: 12/05/17 22:10 12/05/17 22:10 Labs: Short CBC 12/05/17 Range/Units 22:10 WBC 7.5 (4.0-11.0) th/mm3 Hgb 14.2 (11.6-15.3) gm/dL Hct 41.7 (35.0-46.0) % Plt Count 202 (150-450) th/mm3 BMP 12/05/17 22:10 Sodium 139 Potassium 3.6 Chloride 108 H Carbon Dioxide 22.3 BUN 11 Creatinine 0.61 Calcium 9.2 Liver Function 07/07/18 Range/Units 22:10 Total Bilirubin 0.5 (0.2-1.0) mg/dL AST 10 L (15-37) U/L ALT 38 (10-53) U/L Alkaline Phosphatase 103 (45-117) U/L Albumin 4.0 (3.4-5.0) g/dL Caprini VTE Risk Assessment Caprini VTE Risk Assessment: No/Low Risk (score <= 1) Caprini Risk Assessment Model: Point Value = 1 Point Value = 2 Point Value = 3 Point Value = 5 Age 41-60 Minor surgery BMI > 25 kg/m2 Swollen legs Varicose veins or History of unexplained or recurrent spontaneous Oral contraceptives or hormone replacement Sepsis (< 1 month) Serious lung disease, including pneumonia (< 1 month) Abnormal pulmonary function Acute myocardial infarction Congestive heart failure (< 1 month) History of inflammatory bowel disease Medical patient at bed rest Age 61-74 Arthroscopic surgery Major open surgery (> 45 min) Laparoscopic surgery (> 45 min) Malignancy Confined to bed (> 72 hours) Immobilizing plaster cast Central venous access Age >= 75 History of VTE Family history of VTE Factor V Leiden Prothrombin [id number] Lupus anticoagulant Anticardiolipin antibodies Elevated serum homocysteine Heparin-induced thrombocytopenia Other congenital or acquired thrombophilia Stroke (< 1 month) Elective arthroplasty Hip, pelvis, or leg fracture Acute spinal cord injury (< 1 month) Prophylaxis Regimen: Total Risk Factor Score Risk Level Prophylaxis Regimen 0-1 Low Early ambulation 2 Moderate Order ONE of the following: *Sequential Compression Device (SCD) *Heparin 5000 units SQ BID 3-4 Higher Order ONE of the following medications: *Heparin 5000 units SQ TID *Enoxaparin/Lovenox 40 mg SQ daily (WT < 150 kg, CrCl > 30 mL/min) *Enoxaparin/Lovenox 30 mg SQ daily (WT < 150 kg, CrCl > 10-29 mL/min) *Enoxaparin/Lovenox 30 mg SQ BID (WT < 150 kg, CrCl > 30 mL/min) AND/OR *Sequential Compression Device (SCD) 5 or more Highest Order ONE of the following medications: *Heparin 5000 units SQ TID (Preferred with Epidurals) *Enoxaparin/Lovenox 40 mg SQ daily (WT < 150 kg, CrCl > 30 mL/min) *Enoxaparin/Lovenox 30 mg SQ daily (WT < 150 kg, CrCl > 10-29 mL/min) *Enoxaparin/Lovenox 30 mg SQ BID (WT < 150 kg, CrCl > 30 mL/min) AND *Sequential Compression Device (SCD) Assessment and Plan - Assessment (1) Hyperemesis gravidarum Code(s): O21.0 - Mild hyperemesis gravidarum Status: Acute Plan: Appreciate input from obstetrics. I discussed the case with Dr. Block. The patient is improved. She will be discharged home on Diclegis and Zofran. She is to follow-up outpatient with Dr. Bolden tomorrow. (2) Code(s): Z34.90 - Encounter for supervision of normal , unspecified, unspecified trimester Status: Acute Plan: F/U with OB tomorrow. Patient had a recent unremarkable US. - Attending Attestation Patient can be discharged home in stable condition Activity: Regular as tolerated Diet: Low-fat diet for now. Follow-up with: OB Meds: Per med rec. H&P: Quality - VTE Deep Vein Thrombosis/Pulmonary Embolism Present on Admission: No (2) Qualifiers: Weeks of gestation: 10 weeks Qualified Code(s): Z3A.10 - 10 weeks gestation of
== END 2017-12-06 15:56 | disposition home or self-care (01) ==
LOC: NEDA 19:44 → NEPD 19:44 → NEPHCDU 19:44
PROVIDERS: ADMIT Family Medicine; ATTEND Family Medicine

== ENCOUNTER 2018-03-26 03:43 | Observation (INO) ==
--- NOTE | 2018-03-26 04:56 | ED ---
History of Present Illness Primary Care Physician: UNKNOWN Chief Complaint: pelvic pressure, cramping History of Present Illness: 32-year-old , IUP at 26.3 care complicated by history of delivery at 29 weeks for labor, history of obesity status post gastric bypass, history of cervical incompetence, hypothyroidism, insomnia, short interpregnancy interval, anxiety The patient presents complaining of the onset of pelvic pressure and menstrual cramping since last night. She reports that the cramping has increased in intensity and frequency. There are no alleviating factors or attempted treatments. The patient denies intercourse and is currently on pelvic rest. The patient is concerned due to her history of delivery at 29 weeks. She reports continued nausea. She reports associated back pain. She reports that she is to receive a PICC line for IV hydration due to persistent nausea and vomiting during . Patient denies any leaking of fluid or vaginal bleeding. The patient reports good movement. [employer]: , delivery at 29 weeks via delivery, SAB x1 at 12 weeks, denies abnormal Paps or STDs PMH: History of delivery, currently History of obesity Hx of cervical incompetence in , currently Hypothyroid Insomnia Jejunostomy tube fell out Short interval between pregnancies affecting in first trimester, antepartum History of obesity, hypothyroidism, insomnia, anxiety PSH: Surgical History (Last Reviewed 01/05/18 @ 09:57 by Lucero Rodriguez) Bariatric surgery status History of dilation and curettage History of low transverse section Hx of hernia repair S/P gastric surgery S/P small bowel resection FH: Non-contributory SH: Denies Meds/allergies: As per EMR Review of Systems All other systems reviewed negative except as stated in HPI PMFSH - History History Provided By: Patient - Medical History Medical History: Medical History (Last Reviewed 01/05/18 @ 10:02 by ADRY Ordoñez) History of delivery, currently History of obesity Hx of cervical incompetence in , currently Hypothyroid Insomnia Jejunostomy tube fell out Short interval between pregnancies affecting in first trimester, antepartum - Surgical History Surgical History: Surgical History (Last Reviewed 01/05/18 @ 09:57 by Lucero Rodriguez) Bariatric surgery status History of dilation and curettage History of low transverse section Hx of hernia repair S/P gastric surgery S/P small bowel resection - Family History Family History: Family History (Last Updated 12/06/17 @ 14:18 by Ghazala Palomo MD) Other Family history non-contributory - Tobacco History Second Hand Smoke Exposure: No Smoking Status: Never smoker - Alcohol History How Often Do You Have a Drink Containing Alcohol: Never - Substance Use History Substance History: No History of Abuse - Travel History History of Recent Travel: No Recent Travel in the [place] Within the Last 8 Weeks: No Recent Travel Out of the Country Within the Last 8 Weeks: No Medications and Allergies Allergies Allergy/AdvReac Type Severity Reaction Status Date / Time aspirin Allergy Intermediate Rash Verified 03/04/18 20:40 amoxicillin Allergy Mild Rash Verified 03/04/18 20:40 cefixime Allergy Mild Rash Verified 03/04/18 20:40 clavulanic acid Allergy Mild Rash Verified 03/04/18 20:40 diclofenac Allergy Unknown Somnolence Unverified 03/04/18 20:40 etodolac Allergy Unknown Gastrointestinal Unverified 03/04/18 20:40 Upset flurbiprofen Allergy Unknown Gastrointestinal Verified 03/04/18 20:40 Upset ibuprofen Allergy Unknown Ulcers Verified 03/04/18 20:40 indomethacin Allergy Unknown Ulcers Verified 03/26/18 08:12 ketoprofen Allergy Unknown Ulcers Verified 03/04/18 20:40 ketorolac Allergy Unknown Ulcers Verified 03/26/18 08:12 levofloxacin Allergy Unknown Muscle Pain Unverified 03/04/18 20:40 naproxen Allergy Unknown Ulcers Verified 03/04/18 20:40 oxaprozin Allergy Unknown Ulcers Unverified 03/04/18 20:40 thiamine (vitamin B1) Allergy Unknown Vomiting Verified 03/04/18 20:40 Home Medications Medication Instructions Recorded Confirmed Type levothyroxine 50 mcg PO DAILY 12/05/17 03/26/18 History hydrocodone-acetaminophen [Lortab 30 ml PO BID PRN 01/01/18 03/26/18 History Elixir] hydroxyprogest(PF)(preg presv) 275 mg SUBCUT QWEEK 03/04/18 03/26/18 History [Janyn (PF)] ondansetron [Zofran ODT] 4 mg PO Q4-6H PRN 03/04/18 03/26/18 History omeprazole 40 mg PO PRN 03/26/18 03/26/18 History vit,[id number] 1 tab PO DAILY 03/26/18 03/26/18 History [PNV 29-1] Exam Vital signs: Vital Signs 03/26/18 04:04 03/26/18 04:05 Temperature 98.9 F Pulse Rate 89 Respiratory Rate 18 Blood Pressure 108/62 Narrative: GENERAL: Well-nourished, well-developed patient. SKIN: Warm and dry. No rashes, masses, lesions noted HEAD: Normocephalic and atraumatic. EYES: No scleral icterus. No injection or drainage. ENT: No nasal drainage noted. Mucous membranes pink. Airway patent. NECK: Supple, trachea midline. No JVD. CARDIOVASCULAR: Regular rate and rhythm without murmurs, gallops, or rubs. RESPIRATORY: Breath sounds equal bilaterally. No accessory muscle use. BREASTS: Deferred ABDOMEN/GI: Abdomen soft, non-tender, bowel sounds present, no rebound, no guarding Gravid GENITOURINARY: Normal EGBUS. No cervical or vaginal masses noted. Grossly normal rugate. Speculum examination revealed physiologic appearing discharge and a visibly closed cervix. fibronectin obtained that was positive. SVE closed/thick/high/posterior Uterine Contractions: None noted FHT's: heart tones are in the 140s with moderate long-term variability, good accelerations, no decelerations noted. This is a reassuring heart rate tracing that is appropriate for gestational age EXTREMITIES: No cyanosis or edema. Pulses equal bilaterally. BACK: Nontender without obvious deformity. NEUROLOGICAL: Awake and alert x3. Grossly normal memory/affect. Grossly normal range of motion. Cranial nerves II through XII grossly intact. Motor and sensory grossly within normal limits. Five out of 5 muscle strength in all muscle groups. Normal speech. Results - Labs CBC & Chem 7: 03/26/18 08:25 Assessment and Plan - Plan Assessment/plan: 1. IUP at 26.3 2. Poor obstetrical history with history of PPROM/ delivery by section at 29 weeks. There is no evidence of labor at this time however the patient had a positive fibronectin. Based on her previous history and the positive fibronectin, will admit to Dr. Delong. Will provide IV hydration and modified bedrest. 3. Prematurity: Will administer betamethasone. 4. well-being: Reassuring testing with heart rate tracing that is appropriate for gestational age, continue monitoring 5. History of previous delivery 6. Multiple gastrointestinal issues and surgeries. 7. Anxiety. 8. Insomnia: We will order Ambien to assist with rest 9. Hypothyroidism: Will continue home medication of Synthroid 50 mcg p.o. daily 10. History of chronic pain: continue lortab Discharge Plan - Discharge Disposition Patient Disposition: 30 Still Patient - Physicians Team ED Provider: Lizy Iglesias Primary Care Provider: Primary Care Latisha Lora
[2018-03-26 05:10] LABS: Bacteria,Urine Occasional /hpf; Bilirubin,Urine Negative (Negative); Calcium Oxalate Crystals,Urine Occasional /hpf; Clarity,Urine Hazy (Clear); Color,Urine Yellow (Yellw/Straw); Glucose,Urine (UA) Negative (Negative); Leukocyte Esterase,Urine Negative (Negative); Mucus,Urine Few /lpf (Occasional); Nitrite,Urine Negative (Negative); Specific Gravity,Urine 1.024 (1.002-1.035); Squamous Epithelial Cell,Urine 1 /hpf (0-5)
[2018-03-26] MEDS ORDERED: Zolpidem Tartrate 5 MG Tablet PO PRN (07:45)
[2018-03-26] MEDS ORDERED: Acetaminophen 325 MG Tablet PO PRN (07:45)
[2018-03-26 08:43] LABS: Baso % (Auto) 0.3 % (0.0-2.0); Eos % (Auto) 0.3 % (0.0-4.0); Hematocrit 31.8 % (35.0-46.0); Hemoglobin 10.6 gm/dL (11.6-15.3); Lymph # (Auto) 1.2 th/mm3 (1.0-4.8); Lymph % (Auto) 15.5 % (9.0-44.0); Mean Corpuscular HGB Conc 33.4 % (32.0-36.0); Mean Corpuscular Volume 95.6 fL (80.0-100.0); Mean Platelet Volume 8.3 fL (7.0-11.0); Mono # (Auto) 0.7 th/mm3 (0.0-0.9); Mono % (Auto) 9.1 % (0.0-8.0); Neut # (Auto) 5.7 th/mm3 (1.8-7.7); Neut % (Auto) 74.8 % (16.0-70.0); Platelet Count 176 th/mm3 (150-450); Red Blood Count 3.32 mil/mm3 (4.00-5.30); White Blood Count 7.6 th/mm3 (4.0-11.0)
[2018-03-26] MEDS: Betamethasone Sod Phos/Acetate Inj 30 MG/5 ML Vial IM SCH (08:51)
[2018-03-26] MEDS: Docusate Sodium 100 MG Capsule PO SCH (09:11)
[2018-03-26] MEDS: Ferrous Sulfate 325 MG Tablet PO SCH ×2 (09:11→21:00)
[2018-03-26] MEDS: Acetaminophen-HYDROcodone 325/7.5 Liq 15 ML UDC PO PRN ×3 (09:11→21:00)
[2018-03-26 09:34] LABS: Amphetamine Urine With Conf Neg (Neg); Benzodiazepine Urine With Conf Neg (Neg)
[2018-03-26] MEDS: Levothyroxine 50 MCG Tablet PO SCH (10:44)
[2018-03-26] MEDS ORDERED: Morphine Inj 4 MG/ML Vial IV.PUSH ONE (12:45)
--- NOTE | 2018-03-26 15:00 | MH ---
cc: Maciej Bolden MD Delivery,Labor DATE OF ADMISSION: 03/26/2018 HISTORY OF PRESENT ILLNESS: Ms. Collado is a 32-year-old white female, para 0-1-1-1 who has intrauterine at 26 and 1/2 weeks. She presented to the emergency room this morning complaining of pelvic pressure, menstrual-like cramping abdominal pain. She has had this pain the entire . She says that it has increased in intensity and frequency. There are no alleviating factors. We have treated her with numerous medicines in the past. Nothing seems to help. She is on pelvic rest at this time. She did have a delivery at 29 weeks a year ago. She has a short interval here and has been in the emergency room many times this for dehydration, abdominal pain, and cramping. They did a fibronectin last night and it was positive. Because of her history of labor and her history of possible cervical incompetence, we decided to admit her. She was also dehydrated as well. She is in the works now to get a PICC line and to get IV fluids at home with a Zofran pump. PAST OBSTETRICAL HISTORY: She is para 0-1-1-1. She has a delivery at 29 weeks via section. She had a spontaneous at 12 weeks. PAST GYNECOLOGIC HISTORY: Normal. PAST SURGICAL HISTORY: Remarkable for delivery 1 year ago gastric bypass surgery, hernia repair surgery, small bowel resection, dilation and curettage. PAST MEDICAL HISTORY: Remarkable for hypothyroidism, insomnia, abdominal pain, obesity. FAMILY HISTORY: Noncontributory. SOCIAL HISTORY: She does not smoke or drink alcohol or take drugs. REVIEW OF SYSTEMS: Negative except for the history of present illness. PHYSICAL EXAMINATION: GENERAL: A well-developed, well-nourished female, in mild distress. SKIN: Warm and dry. HEENT: Normocephalic, atraumatic. NECK: Supple. Trachea is in the midline. There is no thyromegaly or adenopathy. CHEST: Clear to auscultation bilaterally. HEART: Has a regular rate and rhythm without murmur or gallop. ABDOMEN: Soft, nontender, gravid. There is no rebound. There is no guarding. The fundus is nontender. Her cervical exam this morning reveals closed, thick, high, and posterior. EXTREMITIES: There is no clubbing, cyanosis, or edema. The tracing reveals good heart tones in the 140s with fairly good variability for fetus's gestation. She has no decelerations. There are no uterine contractions noted at all. LABORATORY DATA: Her lab work reveals anemia with a hemoglobin of 10.6. Her platelets are 176. Her white count is 7.6. Her urinalysis reveals that she is dehydrated. Her specific gravity is 1.024. She has trace ketones as well. ASSESSMENT AND PLAN: 1. Intrauterine at 26 and 1/2 weeks. 2. Poor obstetrical history with a history of delivery and premature rupture of membranes at 29 weeks. She has no evidence of labor at this time, but she did have a positive fibronectin. Based on her history, I will admit her and we will provide her with some IV hydration, bedrest, and we will go ahead and give her some betamethasone at this time in case she does deliver early. I have put her on pelvic rest. 3. Dehydration. She continuously comes into the emergency room for this. I am going to start giving her some Zofran pump and IV fluids daily and see if we can keep her out of the emergency department. 4. History of delivery. We will discuss a versus at a later issue. 5. Anxiety. She has suffered with this the entire . I am going to try to give her some methods to calm this down. 6. Status post gastric bypass. I think we need to go ahead and get her a glucometer at this time and we will get blood sugars as I do not want to give her a large sugar load as this will cause dumping in her. 7. Hypothyroidism. We will continue her Synthroid at 50 mcg daily. 8. History of chronic abdominal pains. She uses Lortab. She sees a pain specialist. I have told her to try to not take that as much, only as needed. R. Nicola Bolden MD RJV/ts , 02:10 PM , 02:23 PM
[2018-03-26] MEDS: Morphine Sulfate Inj 8 MG/ML Vial IM PRN ×2 (17:07→22:39)
[2018-03-27] MEDS: Morphine Sulfate Inj 8 MG/ML Vial IM PRN ×2 (03:22→08:10)
[2018-03-27] MEDS: Acetaminophen-HYDROcodone 325/7.5 Liq 15 ML UDC PO PRN (05:09)
[2018-03-27] MEDS: Levothyroxine 50 MCG Tablet PO SCH (05:57)
[2018-03-27 07:53] VITALS: RESP 16
[2018-03-27] MEDS: Ferrous Sulfate 325 MG Tablet PO SCH (08:40)
[2018-03-27] MEDS: Betamethasone Sod Phos/Acetate Inj 30 MG/5 ML Vial IM SCH (08:40)
[2018-03-27] MEDS: Docusate Sodium 100 MG Capsule PO SCH (09:01)
[2018-03-27 13:04] VITALS: BP 105/54; PULSE 80; TEMP 98.9
--- NOTE | 2018-03-27 13:06 | P.OBGPN ---
Patient is doing a little bit better today Has been taking the narcotics as usual She is still having diarrhea and her C. difficile was negative She is to have a Zofran pump and IV fluids were arranging that through home health and will take care of that Thursday Physical exam well-developed well-nourished female in bed no acute distress with good color The chest is clear Heart has a regular rate and rhythm The abdomen is soft and not The fundus is nontender The bladder is nontender The extremities there is no clubbing cyanosis or edema Assessment and plan 1. Intrauterine at 26+ weeks 2 intractable abdominal pain. She has multiple ER visits she comes in with the pain and is dehydrated and gets fluids we are going ahead to get her IV fluids at home and a Zofran pump which hopefully will help the situation. She is taking narcotics and interestingly her narcotic screen on admission was again negative it was already negative once in the office and I have talked to her pain management provider about this issue. I stressed to her the need to keep hydrated and to stay at rest she will come in if there is any change in her situation 3. Long-standing diarrhea she is being seen by GI her C. difficile was negative 4. Dehydration again we are going to take care of this with daily IV fluids 5. Anemia she is to continue her iron sulfate. 6. Status post gastric bypass where he trained her today on the Accu-Cheks and we will go ahead and start checking her blood sugars in the near future rather than give her a glucose load which would cause of dumping syndrome and her. Return to the office next week
[2018-03-31] MEDS ORDERED: HYDROXYPROGESTERONE CAPROATE SQ SCH (09:00)
== END 2018-03-27 13:31 | disposition home or self-care (01) ==
LOC: H2E 03:43 → HOBED 03:43 → H2E 07:30
PROVIDERS: ADMIT Obstetrics & Gynecology; ATTEND Obstetrics & Gynecology

== ENCOUNTER 2018-03-28 19:54 | Observation (INO) ==
--- NOTE | 2018-03-28 20:29 | ED ---
History of Present Illness Primary Care Physician: NOT REQUIRED Chief Complaint: abdominal cramping, nausea/vomiting History of Present Illness: Patient is a 32 yo at 26 weeks and 5 days who presents to [facility] with c/ o nausea and vomiting,diarrhea, and cramping low abdominal pain. patient states she was ween here 03/26/2018 and kept overnight. She had similar c/o low abdominal pain and nausea and vomiting. Pt received IV rehydration, IV antiemetic, a Betamethasone course and sent home after feeling better. She states that nausea and vomiting worsened today. She has not taken any Zofran today. She states she has not been any able to keep any food and only small amounts of water. She has h/o diarrhea throughout the , but has had 10 episodes of diarrhea today. No sick contacts. Low abdominal pain improved after her last visit, but worsened today. Pain is intermittent. She reports vaginal leaking. care with Dr Bolden. EDC 06-29-2018. She has a h/o prior PPROM and delivery. She had prior C Section. TV CL was 4cm 03-18-2018 with [facility]. fFN was positive 03-26-2018. Patient has h/o chronic abdominal pain. She takes Lortab, prescribed by her pain management physician. She is s/p gastric bypass surgery 2013. Weeks Gestation:: 26 Para: 1 : 3 Total # of Miscarriage(s): 1 Review of Systems All other systems reviewed negative except as stated in HPI Psychiatric: Reports anxiety PMFSH - History History Provided By: Patient - Medical History Medical History: Medical History (Last Reviewed 01/05/18 @ 10:02 by ADRY Ordoñez) History of delivery, currently History of obesity Hx of cervical incompetence in , currently Hypothyroid Insomnia Jejunostomy tube fell out Short interval between pregnancies affecting in first trimester, antepartum - Surgical History Surgical History: Surgical History (Last Reviewed 01/05/18 @ 09:57 by Lucero Rodriguez) Bariatric surgery status History of dilation and curettage History of low transverse section Hx of hernia repair S/P gastric surgery S/P small bowel resection - Family History Family History: Family History (Last Updated 12/06/17 @ 14:18 by Ghazala Palomo MD) Other Family history non-contributory - Tobacco History Second Hand Smoke Exposure: No Smoking Status: Never smoker - Alcohol History How Often Do You Have a Drink Containing Alcohol: Never - Substance Use History Substance History: No History of Abuse - Travel History History of Recent Travel: No Medications and Allergies Allergies Allergy/AdvReac Type Severity Reaction Status Date / Time aspirin Allergy Intermediate Rash Verified 03/28/18 20:05 amoxicillin Allergy Mild Rash Verified 03/28/18 20:05 cefixime Allergy Mild Rash Verified 03/28/18 20:05 clavulanic acid Allergy Mild Rash Verified 03/28/18 20:05 diclofenac Allergy Unknown Ulcers Verified 03/28/18 20:05 etodolac Allergy Unknown Gastrointestinal Verified 03/28/18 20:05 Upset flurbiprofen Allergy Unknown Gastrointestinal Verified 03/28/18 20:05 Upset ibuprofen Allergy Unknown Ulcers Verified 03/28/18 20:05 indomethacin Allergy Unknown Ulcers Verified 03/28/18 20:05 ketoprofen Allergy Unknown Ulcers Verified 03/28/18 20:05 ketorolac Allergy Unknown Ulcers Verified 03/28/18 20:05 levofloxacin Allergy Unknown unknown Verified 03/28/18 20:05 naproxen Allergy Unknown Ulcers Verified 03/28/18 20:05 oxaprozin Allergy Unknown Ulcers Verified 03/28/18 20:05 thiamine (vitamin B1) Allergy Unknown Vomiting Verified 03/28/18 20:05 Home Medications Medication Instructions Recorded Confirmed Type levothyroxine 50 mcg PO DAILY 12/05/17 03/26/18 History hydrocodone-acetaminophen [Lortab 30 ml PO BID PRN 01/01/18 03/26/18 History Elixir] hydroxyprogest(PF)(preg presv) 275 mg SUBCUT QWEEK 03/04/18 03/26/18 History [Janny (PF)] ondansetron [Zofran ODT] 4 mg PO Q4-6H PRN 03/04/18 03/26/18 History omeprazole 40 mg PO PRN 03/26/18 03/26/18 History vit,[id number] 1 tab PO DAILY 03/26/18 03/26/18 History [PNV 29-1] Exam Vital signs: Vital Signs 03/28/18 20:16 03/28/18 20:25 Temperature 99.0 F Pulse Rate 83 Respiratory Rate 18 Blood Pressure 97/49 L Narrative: GENERAL: Well-nourished, well-developed patient. SKIN: Warm and dry. HEAD: Normocephalic and atraumatic. EYES: No scleral icterus. No injection or drainage. ENT: No nasal drainage noted. Mucous membranes pink. Airway patent. NECK: Supple, trachea midline. No JVD. CARDIOVASCULAR: Regular rate and rhythm without murmurs, gallops, or rubs. RESPIRATORY: Breath sounds equal bilaterally. No accessory muscle use. BREASTS: Bilateral exam showed no masses , no retractions, no nipple discharge. ABDOMEN/GI: Abdomen soft, NON-TENDER, bowel sounds present, no rebound, no guarding Gravid to [26] weeks size Fundal Height: [-] GENITOURINARY: External Genitalia: intact and normal in appearance BUS glands: [wnl] Cervix: [firm] Dilatation: [closed] Effacement: [uneffaced] Station: [-3] Presentation: [-] Membranes: [intact ] Amniosure NEGATIVE. Uterine Contractions: [none] FHT's: Category: [1] Baseline: [140s] Reactive: [-] Variability: [moderate] Decels: [none] EXTREMITIES: No cyanosis or edema. BACK: Nontender without obvious deformity. No CVA tenderness. NEUROLOGICAL: Awake and alert. Motor and sensory grossly within normal limits. Five out of 5 muscle strength in all muscle groups. Normal speech. - Constitutional no acute distress Results - Labs CBC & Chem 7: 03/28/18 20:50 03/28/18 20:50 Assessment and Plan - Diagnosis (1) Diarrhea Code(s): R19.7 - Diarrhea, unspecified Status: Acute Qualifiers: Diarrhea type: unspecified type Qualified Code(s): R19.7 - Diarrhea, unspecified (2) 26 weeks gestation of Code(s): Z3A.26 - 26 weeks gestation of Status: Acute (3) Nausea & vomiting Code(s): R11.2 - Nausea with vomiting, unspecified Status: Acute Plan: Electrolytes wnl. No vomiting since arriving in hospital Urine SC 1.015, no ketonuria (4) Abdominal pain Code(s): R10.9 - Unspecified abdominal pain Status: Acute Plan: No contractions on TOCO. Cervix closed and long. will get TV CL in AM. (5) Vaginal discharge during Code(s): O26.899 - Other specified related conditions, unspecified trimester; N89.8 - Other specified noninflammatory disorders of vagina Status : Acute Plan: Amniosure NEGATIVE Discharge Plan - Discharge Disposition Patient Disposition: 30 Still Patient - Discharge Condition Condition: Fair - Discharge Details Diagnosis: 26 weeks gestation of , Nausea and vomiting, Diarrhea, Intractable abdominal pain - Physicians Team ED Provider: Bandar Saxena Primary Care Provider: NOT REQUIRED, - Rxs /Orders / Referrals /Forms Prescriptions: No Action hydrocodone-acetaminophen [Lortab Elixir] 10-300 mg/15 mL Solution 30 ml PO BID PRN (Reason: Acute Pain) hydroxyprogest(PF)(preg presv) [Janny (PF)] 275 mg/1.1 mL Auto-Injector 275 mg SUBCUT QWEEK levothyroxine 50 mcg Tablet 50 mcg PO DAILY omeprazole 40 mg capsule,delayed release(DR/EC) 40 mg PO PRN ondansetron [Zofran ODT] 4 mg Tablet,Disintegrating 4 mg PO Q4-6H PRN (Reason: Nausea) vit,[id number] [PNV 29-1] 29 mg iron- 1 mg Tablet 1 tab PO DAILY - Discharge Instructions Print Language: Macedonian
[2018-03-28 21:30] LABS: Hematocrit 29.1 % (35.0-46.0); Hemoglobin 10.2 gm/dL (11.6-15.3); Mean Corpuscular HGB Conc 35.1 % (32.0-36.0); Mean Corpuscular Hemoglobin 33.3 pg (27.0-34.0); Mean Corpuscular Volume 94.9 fL (80.0-100.0); Mean Platelet Volume 8.8 fL (7.0-11.0); Platelet Count 204 th/mm3 (150-450); Red Blood Count 3.07 mil/mm3 (4.00-5.30); Red Cell Distribution Width 12.9 % (11.6-17.2)
[2018-03-28 21:44] LABS: Bacteria,Urine Few /hpf; Bilirubin,Urine Negative (Negative); Calcium Oxalate Crystals,Urine Moderate /hpf; Clarity,Urine Hazy (Clear); Color,Urine Yellow (Yellw/Straw); Glucose,Urine (UA) 50 mg/dL (Negative); Leukocyte Esterase,Urine Negative (Negative); Mucus,Urine Few /lpf (Occasional); Nitrite,Urine Negative (Negative); Specific Gravity,Urine 1.015 (1.002-1.035); Squamous Epithelial Cell,Urine <1 /hpf (0-5)
[2018-03-28 21:51] LABS: Anion Gap 8 meq/L (5-15); Blood Urea Nitrogen 9 mg/dL (7-18); Calcium 7.6 mg/dL (8.5-10.1); Carbon Dioxide 24.9 meq/L (21.0-32.0); Chloride 110 meq/L (98-107); Glomerular Filtration Rate Greater Than 89 mL/min (>89); Glucose,Random 63 mg/dL (74-106); Sodium 143 meq/L (136-145)
[2018-03-28] MEDS: Acetaminophen-HYDROcodone 325/7.5 Liq 15 ML UDC PO PRN (22:41)
[2018-03-29] MEDS: Acetaminophen-HYDROcodone 325/7.5 Liq 15 ML UDC PO PRN ×6 (02:53→22:24)
[2018-03-29 06:10] LABS: Anion Gap 9 meq/L (5-15); Blood Urea Nitrogen 9 mg/dL (7-18); Calcium 7.5 mg/dL (8.5-10.1); Chloride 108 meq/L (98-107); Glomerular Filtration Rate Greater Than 89 mL/min (>89); Glucose,Random 69 mg/dL (74-106); Potassium 3.5 meq/L (3.5-5.1); Sodium 141 meq/L (136-145)
[2018-03-29] MEDS: Levothyroxine 50 MCG Tablet PO SCH (07:20)
--- NOTE | 2018-03-29 10:36 | P.CONGI ---
History of Present Illness Consult date: 03/29/18 Consult reason: Abdominal pain, vomiting, 26 weeks Chief complaint: ABD PAIN History of Present Illness: This patient is a 32-year-old female who is 26 weeks and 5 days who presents to the obstetric emergency department with complaints of nausea and vomiting, diarrhea and lower abdominal pain. Patient describes abdominal pain as cramping sensation, and rates same at 8 out of 10. She states the pain has been constant and feels like intestinal burning. Our service has been consulted to evaluate patient's loose stools, diarrhea. During consultation patient reports lower abdominal cramping with loose watery stools increasing in frequency over the last 4 days. Patient reports that she has had diarrhea/watery stools since September 2017. She estimates having 1-10 stools daily. States history of C. difficile diagnosed in July 2017 resolved after receiving antibiotic therapy. Surgical history includes gastric bypass, small bowel resection(07/2017), ulcer repair, J-tube placement, GJ tube placement, with removal(12/2016), cholecystectomy(01/2015), hiatal hernia repair. Patient states that she is already had 4 loose brown bowel movements today. Denies any noted bleeding. States that her stools are normally gusman colored but are somewhat darker today after receiving iron supplements. States that she has tried Imodium, Tums, and Pepto-Bismol over the last week with no resolution of loose stools. She does report subjectively feeling intermittent fever and chills. States that she has tried brat diet and stools do not form. Patient denies any sick contacts or recent travel. She reports completing a course of Azithromycin 3 weeks ago for sinus infection. Last EGD was done 05/2017 per patient. She states she was diagnosed at that time with gastric ulcers. She does endorse having epigastric pain/burning most days with meals. Patient denies heartburn and states that she takes Protonix 40 mg p.o. twice daily. Patient unable to recollect last colonoscopy. She reports that she was last seen by a general surgeon in the [facility] in July 2017 and does not currently have a local GI physician following. Patient states she has had some degree of nausea and vomiting since gastric bypass surgery however she states that the symptoms have increased in frequency over the last 4 days. She describes emesis as bile colored with foam. Patient denies any known family history of any gastrointestinal disorders. She denies use of tobacco or alcohol products. <Regi Rhodes - Last Filed: 03/29/18 10:16> Review of Systems All other systems reviewed negative except as stated in HPI <Regi Rhodes - Last Filed: 03/29/18 10:16> PMFSH - History History Provided By: Patient - Medical History Medical History: Medical History (Last Reviewed 01/05/18 @ 10:02 by ADRY Ordoñez) History of delivery, currently History of obesity Hx of cervical incompetence in , currently Hypothyroid Insomnia Jejunostomy tube fell out Short interval between pregnancies affecting in first trimester, antepartum - Surgical History Surgical History: Surgical History (Last Reviewed 01/05/18 @ 09:57 by Lucero Rodriguez) Bariatric surgery status History of dilation and curettage History of low transverse section Hx of hernia repair S/P gastric surgery S/P small bowel resection - Family History Family History: Family History (Last Updated 12/06/17 @ 14:18 by Ghazala Palomo MD) Other Family history non-contributory - Tobacco History Second Hand Smoke Exposure: No Smoking Status: Never smoker - Alcohol History How Often Do You Have a Drink Containing Alcohol: Never - Substance Use History Substance History: No History of Abuse - Travel History History of Recent Travel: No Recent Travel in the [place] Within the Last 8 Weeks: No Recent Travel Out of the Country Within the Last 8 Weeks: No <Regi Rhodes - Last Filed: 03/29/18 10:16> - Medical History Medical History: Medical History (Last Reviewed 01/05/18 @ 10:02 by ADRY Ordoñez) History of delivery, currently History of obesity Hx of cervical incompetence in , currently Hypothyroid Insomnia Jejunostomy tube fell out Short interval between pregnancies affecting in first trimester, antepartum - Surgical History Surgical History: Surgical History (Last Reviewed 01/05/18 @ 09:57 by Lucero Rodriguez) Bariatric surgery status History of dilation and curettage History of low transverse section Hx of hernia repair S/P gastric surgery S/P small bowel resection - Family History Family History: Family History (Last Updated 12/06/17 @ 14:18 by Ghazala Palomo MD) Other Family history non-contributory <Damian Leigh - Last Filed: 03/29/18 11:09> Medications and Allergies Active Medications: Active Medications Hydrocodone Bitart/Acetaminophen (Hycet 325/7.5 Mg Liq) 15 ml PO Q4H PRN PRN Reason: ABDOMINAL PAIN Last Admin: 03/29/18 06:45 Dose: 15 ml Lactated Ringer's (Lr 1000 Ml Inj) 1,000 mls @ 75 mls/hr IV.CONT .[id number] CHANA Last Admin: 03/28/18 22:41 Dose: 75 mls/hr Iron Sucrose 200 mg/ Sodium (Chloride) 110 mls @ 110 mls/hr IV.SIG Q24H CHANA Stop: 03/31/18 11:59 Levothyroxine Sodium (Synthroid) 50 mcg PO DAILY@0600 [facility] Last Admin: 03/29/18 07:20 Dose: 50 mcg Ondansetron HCl (Zofran Inj) 4 mg IV.PUSH Q6H PRN PRN Reason: NAUSEA OR VOMITING Last Admin: 03/29/18 02:53 Dose: 4 mg Pantoprazole Sodium (Protonix) 40 mg PO DAILY [facility] Promethazine HCl (Phenergan Inj) 25 mg IM Q6H PRN PRN Reason: NAUSEA OR VOMITING Last Admin: 03/29/18 07:32 Dose: 25 mg Sodium Chloride (Ns Flush) 2 ml IV.FLUSH BID [facility] Last Admin: 03/29/18 09:31 Dose: Not Given Sodium Chloride (Ns Flush) 2 ml IV.FLUSH PRN PRN PRN Reason: FLUSH AFTER USING IV ACCESS <Regi Rhodes - Last Filed: 03/29/18 10:16> Active Medications: Active Medications Hydrocodone Bitart/Acetaminophen (Hycet 325/7.5 Mg Liq) 15 ml PO Q4H PRN PRN Reason: ABDOMINAL PAIN Last Admin: 03/29/18 10:30 Dose: 15 ml Lactated Ringer's (Lr 1000 Ml Inj) 1,000 mls @ 75 mls/hr IV.CONT .[id number] [facility]ANA Last Admin: 03/28/18 22:41 Dose: 75 mls/hr Iron Sucrose 200 mg/ Sodium (Chloride) 110 mls @ 110 mls/hr IV.SIG Q24H [facility]ANA Stop: 03/31/18 11:59 Levothyroxine Sodium (Synthroid) 50 mcg PO DAILY@0600 [facility] Last Admin: 03/29/18 07:20 Dose: 50 mcg Ondansetron HCl (Zofran Inj) 4 mg IV.PUSH Q6H PRN PRN Reason: NAUSEA OR VOMITING Last Admin: 03/29/18 02:53 Dose: 4 mg Pantoprazole Sodium (Protonix) 40 mg PO DAILY [facility] Last Admin: 03/29/18 10:30 Dose: 40 mg Promethazine HCl (Phenergan Inj) 25 mg IM Q6H PRN PRN Reason: NAUSEA OR VOMITING Last Admin: 03/29/18 07:32 Dose: 25 mg Sodium Chloride (Ns Flush) 2 ml IV.FLUSH BID [facility] Last Admin: 03/29/18 09:31 Dose: Not Given Sodium Chloride (Ns Flush) 2 ml IV.FLUSH PRN PRN PRN Reason: FLUSH AFTER USING IV ACCESS <Hemaidan,Ammar - Last Filed: 03/29/18 11:09> Allergies Allergy/AdvReac Type Severity Reaction Status Date / Time aspirin Allergy Intermediate Rash Verified 03/28/18 20:05 amoxicillin Allergy Mild Rash Verified 03/28/18 20:05 cefixime Allergy Mild Rash Verified 03/28/18 20:05 clavulanic acid Allergy Mild Rash Verified 03/28/18 20:05 diclofenac Allergy Unknown Ulcers Verified 03/28/18 20:05 etodolac Allergy Unknown Gastrointestinal Verified 03/28/18 20:05 Upset flurbiprofen Allergy Unknown Gastrointestinal Verified 03/28/18 20:05 Upset ibuprofen Allergy Unknown Ulcers Verified 03/28/18 20:05 indomethacin Allergy Unknown Ulcers Verified 03/28/18 20:05 ketoprofen Allergy Unknown Ulcers Verified 03/28/18 20:05 ketorolac Allergy Unknown Ulcers Verified 03/28/18 20:05 levofloxacin Allergy Unknown unknown Verified 03/28/18 20:05 naproxen Allergy Unknown Ulcers Verified 03/28/18 20:05 oxaprozin Allergy Unknown Ulcers Verified 03/28/18 20:05 thiamine (vitamin B1) Allergy Unknown Vomiting Verified 03/28/18 20:05 Home Medications Medication Instructions Recorded Confirmed Type levothyroxine 50 mcg PO DAILY 12/05/17 03/28/18 History hydrocodone-acetaminophen [Lortab 30 ml PO BID PRN 01/01/18 03/28/18 History Elixir] hydroxyprogest(PF)(preg presv) 275 mg SUBCUT QWEEK 03/04/18 03/28/18 History [Windber (PF)] ondansetron [Zofran ODT] 4 mg PO Q4-6H PRN 03/04/18 03/28/18 History omeprazole 40 mg PO PRN 03/26/18 03/28/18 History vit,[id number] 1 tab PO DAILY 03/26/18 03/28/18 History [PNV 29-1] Exam Vital signs: Vital Signs 03/28/18 20:16 03/28/18 20:25 03/28/18 22:15 Temperature 99.0 F Pulse Rate 83 78 Respiratory Rate 18 Blood Pressure 97/49 L 03/29/18 00:00 03/29/18 00:01 03/29/18 02:57 Temperature 98.5 F 98.8 F Pulse Rate 72 Respiratory Rate 18 18 Blood Pressure 91/42 L 03/29/18 02:58 03/29/18 06:45 03/29/18 06:47 Temperature 98.6 F Pulse Rate 71 74 Respiratory Rate 18 Blood Pressure 100/49 L 93/48 L 03/29/18 07:20 03/29/18 07:36 Temperature Pulse Rate Respiratory Rate 6 L 18 Blood Pressure Intake & Output 03/28/18 03/29/18 03/29/18 18:59 06:59 18:59 Weight 73 kg - Constitutional no acute distress - Routine HEENT Exam Head: Present: normocephalic ENT: Present: mucous membranes moist - Routine Respiratory Exam Present: CTA bilaterally. Absent: accessory muscle use - Routine Cardiovascular Exam Present: RRR, S1, S2 - Routine Abdominal Exam Present: soft, normoactive bowel sounds. Absent: tenderness, guarding, firm Comments: 26 weeks - Routine Extremities Exam Present: full ROM, pulses intact. Absent: edema - Routine Skin Exam Present: dry, warm - Routine Neurological Exam Present: alert - Routine Psychiatric Exam Present: normal affect, cooperative <Rhodes,Regi - Last Filed: 03/29/18 10:16> Vital signs: Vital Signs 03/28/18 20:16 03/28/18 20:25 03/28/18 22:15 Temperature 99.0 F Pulse Rate 83 78 Respiratory Rate 18 Blood Pressure 97/49 L 03/29/18 00:00 03/29/18 00:01 03/29/18 02:57 Temperature 98.5 F 98.8 F Pulse Rate 72 Respiratory Rate 18 18 Blood Pressure 91/42 L 03/29/18 02:58 03/29/18 06:45 03/29/18 06:47 Temperature 98.6 F Pulse Rate 71 74 Respiratory Rate 18 Blood Pressure 100/49 L 93/48 L 03/29/18 07:20 03/29/18 07:36 Temperature Pulse Rate Respiratory Rate 6 L 18 Blood Pressure Intake & Output 03/28/18 03/29/18 03/29/18 18:59 06:59 18:59 Weight 73 kg <Damian Leigh - Last Filed: 03/29/18 11:09> Results - Labs CBC & Chem 7: 03/28/18 20:50 03/29/18 05:02 Labs: Laboratory Results - last 24 hr 03/28/18 03/28/18 03/28/18 20:10 20:50 20:50 WBC 9.0 RBC 3.07 L Hgb 10.2 L Hct 29.1 L MCV 94.9 MCH 33.3 MCHC 35.1 RDW 12.9 Plt Count 204 MPV 8.8 Sodium 143 Potassium 4.0 Chloride 110 H Carbon Dioxide 24.9 Anion Gap 8 BUN 9 Creatinine 0.50 Estimated GFR Greater than 89 Random Glucose 63 L Calcium 7.6 L Urine Color Yellow Urine Clarity Hazy H Urine pH 5.0 Ur Specific [place] 1.015 Urine Protein Negative Urine Glucose (UA) 50 Urine Ketones Negative Urine Occult Blood Negative Urine Nitrate Negative Urine Bilirubin Negative Urine Urobilinogen Less than 2 Ur Leukocyte Esterase Negative Urine RBC 3 Urine WBC 2 Ur Squamous Epith Cells <1 Calcium Oxalate Crystal Moderate H Urine Bacteria Few H Urine Mucus Few H Micro UA Comment Culture not ind Ur Microscopic Review Not Reportable Urine Culture Comments Culture not ind 03/29/18 05:02 WBC RBC Hgb Hct MCV MCH MCHC RDW Plt Count MPV Sodium 141 Potassium 3.5 Chloride 108 H Carbon Dioxide 24.0 Anion Gap 9 BUN 9 Creatinine 0.39 L Estimated GFR Greater than 89 Random Glucose 69 L Calcium 7.5 L Urine Color Urine Clarity Urine pH Ur Specific [place] Urine Protein Urine Glucose (UA) Urine Ketones Urine Occult Blood Urine Nitrate Urine Bilirubin Urine Urobilinogen Ur Leukocyte Esterase Urine RBC Urine WBC Ur Squamous Epith Cells Calcium Oxalate Crystal Urine Bacteria Urine Mucus Micro UA Comment Ur Microscopic Review Urine Culture Comments <Regi Rhodes - Last Filed: 03/29/18 10:16> - Labs CBC & Chem 7: 03/28/18 20:50 03/29/18 05:02 Labs: Laboratory Results - last 24 hr 03/28/18 03/28/18 03/28/18 20:10 20:50 20:50 WBC 9.0 RBC 3.07 L Hgb 10.2 L Hct 29.1 L MCV 94.9 MCH 33.3 MCHC 35.1 RDW 12.9 Plt Count 204 MPV 8.8 Sodium 143 Potassium 4.0 Chloride 110 H Carbon Dioxide 24.9 Anion Gap 8 BUN 9 Creatinine 0.50 Estimated GFR Greater than 89 Random Glucose 63 L Calcium 7.6 L Urine Color Yellow Urine Clarity Hazy H Urine pH 5.0 Ur Specific [place] 1.015 Urine Protein Negative Urine Glucose (UA) 50 Urine Ketones Negative Urine Occult Blood Negative Urine Nitrate Negative Urine Bilirubin Negative Urine Urobilinogen Less than 2 Ur Leukocyte Esterase Negative Urine RBC 3 Urine WBC 2 Ur Squamous Epith Cells <1 Calcium Oxalate Crystal Moderate H Urine Bacteria Few H Urine Mucus Few H Micro UA Comment Culture not ind Ur Microscopic Review Not Reportable Urine Culture Comments Culture not ind 03/29/18 05:02 WBC RBC Hgb Hct MCV MCH MCHC RDW Plt Count MPV Sodium 141 Potassium 3.5 Chloride 108 H Carbon Dioxide 24.0 Anion Gap 9 BUN 9 Creatinine 0.39 L Estimated GFR Greater than 89 Random Glucose 69 L Calcium 7.5 L Urine Color Urine Clarity Urine pH Ur Specific [place] Urine Protein Urine Glucose (UA) Urine Ketones Urine Occult Blood Urine Nitrate Urine Bilirubin Urine Urobilinogen Ur Leukocyte Esterase Urine RBC Urine WBC Ur Squamous Epith Cells Calcium Oxalate Crystal Urine Bacteria Urine Mucus Micro UA Comment Ur Microscopic Review Urine Culture Comments <Damian Leigh - Last Filed: 03/29/18 11:09> Assessment and Plan (1) Diarrhea Status: Acute Code(s): R19.7 - Diarrhea, unspecified (2) Nausea & vomiting Status: Acute Code(s): R11.2 - Nausea with vomiting, unspecified - Plan This patient is a 32-year-old female who is 26 weeks and 5 days who presents to the obstetric emergency department with complaints of nausea and vomiting, diarrhea and lower abdominal pain. Patient describes abdominal pain as cramping sensation, and rates same at 8 out of 10. She states the pain has been constant and feels like intestinal burning. Our service has been consulted to evaluate patient's loose stools, diarrhea. During consultation patient reports lower abdominal cramping with loose watery stools increasing in frequency over the last 4 days. Patient reports that she has had diarrhea/watery stools since September 2017. She estimates having 1-10 stools daily. States history of C. difficile diagnosed in July 2017 resolved after receiving antibiotic therapy. Surgical history includes gastric bypass, small bowel resection(07/2017), ulcer repair, J-tube placement, GJ tube placement, with removal(12/2016), cholecystectomy(01/2015), hiatal hernia repair. Patient states that she is already had 4 loose brown bowel movements today. Denies any noted bleeding. States that her stools are normally gusman colored but are somewhat darker today after receiving iron supplements. States that she has tried Imodium, Tums, and Pepto-Bismol over the last week with no resolution of loose stools. She does report subjectively feeling intermittent fever and chills. States that she has tried brat diet and stools do not form. Patient denies any sick contacts or recent travel. She reports completing a course of Azithromycin 3 weeks ago for sinus infection. Last EGD was done 05/2017 per patient. She states she was diagnosed at that time with gastric ulcers. She does endorse having epigastric pain/burning most days with meals. Patient denies heartburn and states that she takes Protonix 40 mg p.o. twice daily. Patient unable to recollect last colonoscopy. She reports that she was last seen by a general surgeon in the [facility] in July 2017 and does not currently have a local GI physician following. Patient states she has had some degree of nausea and vomiting since gastric bypass surgery however she states that the symptoms have increased in frequency over the last 4 days. She describes emesis as bile colored with foam. Patient denies any known family history of any gastrointestinal disorders. She denies use of tobacco or alcohol products Diarrhea/nausea vomiting Patient reporting loose watery brown stools estimating 1-10 stools daily since September 2017. States she has had 4 stools this a.m. Endorses subjectively fever/ chills. States history of C. difficile infection in July 2017 after receiving antibiotic therapy post gastrointestinal surgery(small bowel resection at the [facility] in [place], [place]). C. difficile toxin negative(03/08/2018) WBC 9.0 hemoglobin 10.2 hematocrit 29.1 Plan -Clear liquid diet -Maintain adequate hydration -Antiemetics as per attending -Continue PPI -Enteric pathogens -Stool WBC -Ova parasite screen -C. difficile PCR -Monitor labs -Supportive care -Further recommendations to follow This patient has been seen by myself and Dr. Leigh and this note is written on his behalf - Attending Attestation <Regi Rhodes - Last Filed: 03/29/18 10:16> (1) Diarrhea Status: Acute Code(s): R19.7 - Diarrhea, unspecified (2) Nausea & vomiting Status: Acute Code(s): R11.2 - Nausea with vomiting, unspecified - Attending Attestation Patient was seen and examined, agree with above note, patient has multiple surgery related to history of bypass, she has significant nausea and vomiting could be related to but also related to her gastric bypass complication, she was supposed to have an EGD at [facility] but this was deferred to be because of her , she is 26-week and unless there is an active GI bleed or other reason for the upper endoscopy will not perform that at this time Patient has significant diarrhea she stated that she has been having diarrhea for at least few months but it is getting worse where she had 10 bowel movements in the last 24 hours, questionable etiology she had C. difficile was treated before for her , we are going to do stool evaluation to rule out any pathogen, we will keep patient hydrated and we will follow-up with you with symptomatic treatment. <Damian Leigh - Last Filed: 03/29/18 11:09> <Regi Rhodes - Last Filed: 03/29/18 10:16> (1) Diarrhea Qualifiers: Diarrhea type: unspecified type Qualified Code(s): R19.7 - Diarrhea, unspecified <Damian Leigh - Last Filed: 03/29/18 11:09> (1) Diarrhea Qualifiers: Diarrhea type: unspecified type Qualified Code(s): R19.7 - Diarrhea, unspecified
--- NOTE | 2018-03-29 12:30 | P.HP ---
History of Present Illness Service: labor and delivery Primary Care Physician: NOT REQUIRED Chief Complaint: abdominal cramping, nausea/vomiting History of Present Illness: 26 weeks , with history of nausea and vomiting and abdominal pain - Diagnosis (1) Second trimester (2) Hyperemesis gravidarum (3) Intractable abdominal pain (4) Anemia (5) Diarrhea Review of Systems All other systems reviewed negative except as stated in HPI PMFSH - History History Provided By: Patient, Medical Record - Medical History Medical History: Medical History (Last Reviewed 01/05/18 @ 10:02 by ADRY Ordoñez) History of delivery, currently History of obesity Hx of cervical incompetence in , currently Hypothyroid Insomnia Jejunostomy tube fell out Short interval between pregnancies affecting in first trimester, antepartum - Surgical History Surgical History: Surgical History (Last Reviewed 01/05/18 @ 09:57 by Lucero Rodriguez) Bariatric surgery status History of dilation and curettage History of low transverse section Hx of hernia repair S/P gastric surgery S/P small bowel resection - Family History Family History: Family History (Last Updated 12/06/17 @ 14:18 by Ghazala Palomo MD) Other Family history non-contributory - Social History I have reviewed the patient's Social History: Yes - Tobacco History Second Hand Smoke Exposure: No Tobacco Use In Past 30 Days: No Smoking Status: Never smoker - Alcohol History How Often Do You Have a Drink Containing Alcohol: Never - Substance Use History Substance History: No History of Abuse - Travel History History of Recent Travel: No Recent Travel in the [place] Within the Last 8 Weeks: No Recent Travel Out of the Country Within the Last 8 Weeks: No Medications and Allergies Active Medications: Active Medications Hydrocodone Bitart/Acetaminophen (Hycet 325/7.5 Mg Liq) 15 ml PO Q4H PRN PRN Reason: ABDOMINAL PAIN Last Admin: 03/29/18 10:30 Dose: 15 ml Lactated Ringer's (Lr 1000 Ml Inj) 1,000 mls @ 75 mls/hr IV.CONT .[id number] [facility] Last Admin: 03/28/18 22:41 Dose: 75 mls/hr Iron Sucrose 200 mg/ Sodium (Chloride) 110 mls @ 110 mls/hr IV.SIG Q24H [facility] Stop: 03/31/18 11:59 Levothyroxine Sodium (Synthroid) 50 mcg PO DAILY@0600 [facility] Last Admin: 03/29/18 07:20 Dose: 50 mcg Ondansetron HCl (Zofran Inj) 4 mg IV.PUSH Q6H PRN PRN Reason: NAUSEA OR VOMITING Last Admin: 03/29/18 02:53 Dose: 4 mg Pantoprazole Sodium (Protonix) 40 mg PO DAILY [facility] Last Admin: 03/29/18 10:30 Dose: 40 mg Promethazine HCl (Phenergan Inj) 25 mg IM Q6H PRN PRN Reason: NAUSEA OR VOMITING Last Admin: 03/29/18 07:32 Dose: 25 mg Sodium Chloride (Ns Flush) 2 ml IV.FLUSH BID [facility] Last Admin: 03/29/18 09:31 Dose: Not Given Sodium Chloride (Ns Flush) 2 ml IV.FLUSH PRN PRN PRN Reason: FLUSH AFTER USING IV ACCESS Allergies Allergy/AdvReac Type Severity Reaction Status Date / Time aspirin Allergy Intermediate Rash Verified 03/28/18 20:05 amoxicillin Allergy Mild Rash Verified 03/28/18 20:05 cefixime Allergy Mild Rash Verified 03/28/18 20:05 clavulanic acid Allergy Mild Rash Verified 03/28/18 20:05 diclofenac Allergy Unknown Ulcers Verified 03/28/18 20:05 etodolac Allergy Unknown Gastrointestinal Verified 03/28/18 20:05 Upset flurbiprofen Allergy Unknown Gastrointestinal Verified 03/28/18 20:05 Upset ibuprofen Allergy Unknown Ulcers Verified 03/28/18 20:05 indomethacin Allergy Unknown Ulcers Verified 03/28/18 20:05 ketoprofen Allergy Unknown Ulcers Verified 03/28/18 20:05 ketorolac Allergy Unknown Ulcers Verified 03/28/18 20:05 levofloxacin Allergy Unknown unknown Verified 03/28/18 20:05 naproxen Allergy Unknown Ulcers Verified 03/28/18 20:05 oxaprozin Allergy Unknown Ulcers Verified 03/28/18 20:05 thiamine (vitamin B1) Allergy Unknown Vomiting Verified 03/28/18 20:05 Home Medications Medication Instructions Recorded Confirmed Type levothyroxine 50 mcg PO DAILY 12/05/17 03/28/18 History hydrocodone-acetaminophen [Lortab 30 ml PO BID PRN 01/01/18 03/28/18 History Elixir] hydroxyprogest(PF)(preg presv) 275 mg SUBCUT QWEEK 03/04/18 03/28/18 History [[place] (PF)] ondansetron [Zofran ODT] 4 mg PO Q4-6H PRN 03/04/18 03/28/18 History omeprazole 40 mg PO PRN 03/26/18 03/28/18 History vit,[id number] 1 tab PO DAILY 03/26/18 03/28/18 History [PNV 29-1] Exam Vital signs: Vital Signs 03/28/18 20:16 03/28/18 20:25 03/28/18 22:15 Temperature 99.0 F Pulse Rate 83 78 Respiratory Rate 18 Blood Pressure 97/49 L 03/29/18 00:00 03/29/18 00:01 03/29/18 02:57 Temperature 98.5 F 98.8 F Pulse Rate 72 Respiratory Rate 18 18 Blood Pressure 91/42 L 03/29/18 02:58 03/29/18 06:45 03/29/18 06:47 Temperature 98.6 F Pulse Rate 71 74 Respiratory Rate 18 Blood Pressure 100/49 L 93/48 L 03/29/18 07:20 03/29/18 07:36 Temperature Pulse Rate Respiratory Rate 6 L 18 Blood Pressure Intake & Output 03/28/18 03/29/18 03/29/18 18:59 06:59 18:59 Weight 73 kg Narrative: examined by dr shelley - Constitutional mild distress - Routine HEENT Exam Head: Present: normocephalic - Routine Respiratory Exam Present: CTA bilaterally - Routine Cardiovascular Exam Present: RRR, S1, S2 - Routine Abdominal Exam Present: soft, normoactive bowel sounds - Routine Skin Exam Present: intact - Routine Neurological Exam Present: alert, oriented X3 Results - Labs CBC & Chem 7: 03/28/18 20:50 03/29/18 05:02 Labs: Laboratory Results - last 24 hr 03/28/18 03/28/18 03/28/18 20:10 20:50 20:50 WBC 9.0 RBC 3.07 L Hgb 10.2 L Hct 29.1 L MCV 94.9 MCH 33.3 MCHC 35.1 RDW 12.9 Plt Count 204 MPV 8.8 Sodium 143 Potassium 4.0 Chloride 110 H Carbon Dioxide 24.9 Anion Gap 8 BUN 9 Creatinine 0.50 Estimated GFR Greater than 89 Random Glucose 63 L Calcium 7.6 L Urine Color Yellow Urine Clarity Hazy H Urine pH 5.0 Ur Specific [place] 1.015 Urine Protein Negative Urine Glucose (UA) 50 Urine Ketones Negative Urine Occult Blood Negative Urine Nitrate Negative Urine Bilirubin Negative Urine Urobilinogen Less than 2 Ur Leukocyte Esterase Negative Urine RBC 3 Urine WBC 2 Ur Squamous Epith Cells <1 Calcium Oxalate Crystal Moderate H Urine Bacteria Few H Urine Mucus Few H Micro UA Comment Culture not ind Ur Microscopic Review Not Reportable Urine Culture Comments Culture not ind 03/29/18 05:02 WBC RBC Hgb Hct MCV MCH MCHC RDW Plt Count MPV Sodium 141 Potassium 3.5 Chloride 108 H Carbon Dioxide 24.0 Anion Gap 9 BUN 9 Creatinine 0.39 L Estimated GFR Greater than 89 Random Glucose 69 L Calcium 7.5 L Urine Color Urine Clarity Urine pH Ur Specific [place] Urine Protein Urine Glucose (UA) Urine Ketones Urine Occult Blood Urine Nitrate Urine Bilirubin Urine Urobilinogen Ur Leukocyte Esterase Urine RBC Urine WBC Ur Squamous Epith Cells Calcium Oxalate Crystal Urine Bacteria Urine Mucus Micro UA Comment Ur Microscopic Review Urine Culture Comments Caprini VTE Risk Assessment Caprini VTE Risk Assessment: No/Low Risk (score <= 1) Caprini Risk Assessment Model: Point Value = 1 Point Value = 2 Point Value = 3 Point Value = 5 Age 41-60 Minor surgery BMI > 25 kg/m2 Swollen legs Varicose veins or History of unexplained or recurrent spontaneous Oral contraceptives or hormone replacement Sepsis (< 1 month) Serious lung disease, including pneumonia (< 1 month) Abnormal pulmonary function Acute myocardial infarction Congestive heart failure (< 1 month) History of inflammatory bowel disease Medical patient at bed rest Age 61-74 Arthroscopic surgery Major open surgery (> 45 min) Laparoscopic surgery (> 45 min) Malignancy Confined to bed (> 72 hours) Immobilizing plaster cast Central venous access Age >= 75 History of VTE Family history of VTE Factor V Leiden Prothrombin [id number] Lupus anticoagulant Anticardiolipin antibodies Elevated serum homocysteine Heparin-induced thrombocytopenia Other congenital or acquired thrombophilia Stroke (< 1 month) Elective arthroplasty Hip, pelvis, or leg fracture Acute spinal cord injury (< 1 month) Prophylaxis Regimen: Total Risk Factor Score Risk Level Prophylaxis Regimen 0-1 Low Early ambulation 2 Moderate Order ONE of the following: *Sequential Compression Device (SCD) *Heparin 5000 units SQ BID 3-4 Higher Order ONE of the following medications: *Heparin 5000 units SQ TID *Enoxaparin/Lovenox 40 mg SQ daily (WT < 150 kg, CrCl > 30 mL/min) *Enoxaparin/Lovenox 30 mg SQ daily (WT < 150 kg, CrCl > 10-29 mL/min) *Enoxaparin/Lovenox 30 mg SQ BID (WT < 150 kg, CrCl > 30 mL/min) AND/OR *Sequential Compression Device (SCD) 5 or more Highest Order ONE of the following medications: *Heparin 5000 units SQ TID (Preferred with Epidurals) *Enoxaparin/Lovenox 40 mg SQ daily (WT < 150 kg, CrCl > 30 mL/min) *Enoxaparin/Lovenox 30 mg SQ daily (WT < 150 kg, CrCl > 10-29 mL/min) *Enoxaparin/Lovenox 30 mg SQ BID (WT < 150 kg, CrCl > 30 mL/min) AND *Sequential Compression Device (SCD) Assessment and Plan - Assessment (1) Second trimester Code(s): Z34.92 - Encounter for supervision of normal , unspecified, second trimester Status: Acute Plan: follow (2) Hyperemesis gravidarum Code(s): O21.0 - Mild hyperemesis gravidarum Status: Acute Plan: consider placement of picc line, iv hydration, zofran pump (3) Intractable abdominal pain Code(s): R10.9 - Unspecified abdominal pain Status: Acute Plan: treat with medication and GI consult (4) Anemia Code(s): D64.9 - Anemia, unspecified Status: Acute Plan: iv Venofer (5) Diarrhea Code(s): R19.7 - Diarrhea, unspecified Status: Acute Plan: GI consult, stool or c diff and ova and parasite (5) Diarrhea Qualifiers: Diarrhea type: unspecified type Qualified Code(s): R19.7 - Diarrhea, unspecified
[2018-03-29] MEDS: Iron Sucrose Inj 200 MG in Sodium Chlor 0.9% Inj 100 ML IV.SIG SCH (12:41)
[2018-03-29] MEDS: Heparin Central Flush 100 UNIT/ML 5 ML Vial IV.FLUSH PRN (17:03)
[2018-03-29] MEDS ORDERED: Loperamide 2 MG Capsule PO ONE (18:45)
[2018-03-29] MEDS: Loperamide 2 MG Capsule PO PRN (23:33)
[2018-03-30] MEDS: Acetaminophen-HYDROcodone 325/7.5 Liq 15 ML UDC PO PRN ×3 (02:22→10:20)
[2018-03-30] MEDS: Levothyroxine 50 MCG Tablet PO SCH (06:21)
[2018-03-30 08:21] VITALS: RESP 18; TEMP 98
[2018-03-30 08:22] VITALS: BP 85/47
[2018-03-30] MEDS ORDERED: Heparin Central Flush 100 UNIT/ML 5 ML Vial IV.FLUSH SCH (09:00)
[2018-03-30] MEDS: Loperamide 2 MG Capsule PO PRN (09:00)
--- NOTE | 2018-03-30 10:09 | P.OBANTE ---
Subjective Antepartum ROS: Reports: movement normal Objective Vital Signs and I&O: Vital Signs 03/29/18 12:22 03/29/18 13:26 03/29/18 14:27 Temperature 98.9 F Pulse Rate 64 Respiratory Rate 18 18 18 Blood Pressure 99/50 L 03/29/18 15:30 03/29/18 15:32 03/29/18 16:50 Temperature Pulse Rate Respiratory Rate 18 18 18 Blood Pressure 03/29/18 17:12 03/29/18 18:21 03/29/18 20:45 Temperature 99.2 F Pulse Rate 68 81 Respiratory Rate 18 41 H Blood Pressure 97/53 L 100/46 L 03/29/18 20:47 03/29/18 20:55 03/29/18 21:25 Temperature 98.8 F Pulse Rate 77 77 Respiratory Rate 14 Blood Pressure 03/29/18 23:35 03/29/18 23:36 03/30/18 05:31 Temperature 98.0 F 98.6 F Pulse Rate 68 69 Respiratory Rate 14 15 Blood Pressure 87/41 L 90/45 L 03/30/18 08:20 03/30/18 08:21 Temperature 98.0 F Pulse Rate 73 Respiratory Rate 18 Blood Pressure 85/47 L Intake & Output 03/29/18 03/30/18 03/30/18 18:59 06:59 18:59 Intake Total 1000 / 1000 1000 / 1000 Balance 1000 / 1000 1000 / 1000 Intake: IV 1000 / 1000 1000 / 1000 LR 1000 mL Inj 1,000 ML @ 75 1000 / 1000 1000 / 1000 mls/hr IV.CONT .[id number] [facility] Rx# :[id number] Lab and Micro Results: Laboratory Results - last 24 hr 03/29/18 03/29/18 08:34 20:10 Stl C.difficile DNA Amp Negative St C. diff Tox Epid 027 Negative Urine Opiates Screen Cancelled Ur Barbiturates Screen Cancelled Ur Amphetamine Screen Cancelled U Benzodiazepines Scrn Cancelled Urine Cocaine Screen Cancelled U Cannabinoids Screen Cancelled Microbiology 03/29/18 08:34 Enteric Pathogens (PCR) - Final Stool No enteric pathogens detected by PCR (No Salmonella sp., Shigella sp., Campylobacter sp., Yersinia enterocolitica, Vibrio sp., Norovirus, or EHEC (Shiga Toxin 1 or Shiga Toxin 2) detected. 03/29/18 08:34 Stool for WBCs - Final Stool No WBC's seen 03/29/18 08:35 Cryptosporidium Antigen - Final Stool Negative - No Cryptosporicium antigen detected In selected cases of patients with a history of immunosuppression or foreign travel, a full ova and parasites examination may be desired. Contact the microbiology lab if full workup is indicated and subit another specimen for testing. Giardia Antigen ([facility]) - Final Negative - No Giardia Antigen detected In selected cases of patients with a history of immunosuppression or foreign travel, a full ova and parasites examination may be desired. Contact the microbiology lab if full workup is indicated and subit another specimen for testing. Physical Exam: GENERAL: Well-nourished, well-developed patient. CARDIOVASCULAR: Regular rate and rhythm without murmurs, gallops, or rubs. RESPIRATORY: Breath sounds equal bilaterally. No accessory muscle use. ABDOMEN/GI: Abdomen soft, non-tender. Fundus: [-] GENITOURINARY: External Genitalia: intact and normal in appearance Uterine Contractions: [denies EXTREMITIES: No cyanosis or edema, non-tender, without signs of DVT. examined by dr shelley Assessment and Plan - Diagnosis (1) Second trimester Code(s): Z34.92 - Encounter for supervision of normal , unspecified, second trimester Status: Acute Plan: follow up in office in one week (2) Hyperemesis gravidarum Code(s): O21.0 - Mild hyperemesis gravidarum Status: Acute Plan: pt tolerated a burger and fries last night (3) Intractable abdominal pain Code(s): R10.9 - Unspecified abdominal pain Status: Acute (4) Anemia Code(s): D64.9 - Anemia, unspecified Status: Acute Plan: will get 2nd dose of Venofer today (5) Diarrhea Code(s): R19.7 - Diarrhea, unspecified Status: Acute Plan: improving, picc line in - Plan pt improving diarrhea improving pt able to tolerate regular diet last night advised to advance diet slowly picc line in place for IV fluids at home cervical length 4.9 cm, will re-evaluate in 2 weeks Discharge Planning: dc home (5) Diarrhea Qualifiers: Diarrhea type: unspecified type Qualified Code(s): R19.7 - Diarrhea, unspecified
[2018-03-30 10:21] VITALS: PULSE 76
[2018-03-30] MEDS: Iron Sucrose Inj 200 MG in Sodium Chlor 0.9% Inj 100 ML IV.SIG SCH (10:54)
--- NOTE | 2018-03-30 11:57 | P.PNGI ---
Subjective Interval history: patient is still having nausea sensation but no obvious vomiting. Loose watery stools decreased today possibly secondary to Imodium. Patient is receiving IV iron supplements which could exacerbate loose stools. <Lizy Green - Last Filed: 03/31/18 15:58> Physical Exam Vital signs: Vital Signs 03/29/18 16:50 03/29/18 17:12 03/29/18 18:21 Temperature 99.2 F Pulse Rate 68 Respiratory Rate 18 18 41 H Blood Pressure 97/53 L 03/29/18 20:45 03/29/18 20:47 03/29/18 20:55 Temperature 98.8 F Pulse Rate 81 77 Respiratory Rate 14 Blood Pressure 100/46 L 03/29/18 21:25 03/29/18 23:35 03/29/18 23:36 Temperature 98.0 F Pulse Rate 77 68 Respiratory Rate 14 Blood Pressure 87/41 L 03/30/18 05:31 03/30/18 08:20 03/30/18 08:21 Temperature 98.6 F 98.0 F Pulse Rate 69 73 Respiratory Rate 15 18 Blood Pressure 90/45 L 85/47 L 03/30/18 10:20 03/30/18 11:22 Temperature Pulse Rate 76 Respiratory Rate 18 Blood Pressure Intake & Output 03/29/18 03/30/18 03/30/18 18:59 06:59 18:59 Intake Total 1110 / 1110 1000 / 1000 Balance 1110 / 1110 1000 / 1000 Intake: IV 1110 / 1110 1000 / 1000 LR 1000 mL Inj 1,000 ML @ 75 1000 / 1000 1000 / 1000 mls/hr IV.CONT .[id number] [facility] Rx# :[id number] Venofer Inj 200 MG In NS Inj 110 / 110 100 ML @ 110 mls/hr IV.SIG Q24H [facility] Rx#:[id number] <Damian Leigh - Last Filed: 03/30/18 16:46> Vital signs: Vital Signs 03/29/18 12:22 03/29/18 13:26 03/29/18 14:27 Temperature 98.9 F Pulse Rate 64 Respiratory Rate 18 18 18 Blood Pressure 99/50 L 03/29/18 15:30 03/29/18 15:32 03/29/18 16:50 Temperature Pulse Rate Respiratory Rate 18 18 18 Blood Pressure 03/29/18 17:12 03/29/18 18:21 03/29/18 20:45 Temperature 99.2 F Pulse Rate 68 81 Respiratory Rate 18 41 H Blood Pressure 97/53 L 100/46 L 03/29/18 20:47 03/29/18 20:55 03/29/18 21:25 Temperature 98.8 F Pulse Rate 77 77 Respiratory Rate 14 Blood Pressure 03/29/18 23:35 03/29/18 23:36 03/30/18 05:31 Temperature 98.0 F 98.6 F Pulse Rate 68 69 Respiratory Rate 14 15 Blood Pressure 87/41 L 90/45 L 03/30/18 08:20 03/30/18 08:21 03/30/18 10:20 Temperature 98.0 F Pulse Rate 73 76 Respiratory Rate 18 Blood Pressure 85/47 L 03/30/18 11:22 Temperature Pulse Rate Respiratory Rate 18 Blood Pressure Intake & Output 03/29/18 03/30/18 03/30/18 18:59 06:59 18:59 Intake Total 1110 / 1110 1000 / 1000 Balance 1110 / 1110 1000 / 1000 Intake: IV 1110 / 1110 1000 / 1000 LR 1000 mL Inj 1,000 ML @ 75 1000 / 1000 1000 / 1000 mls/hr IV.CONT .[id number] [facility] Rx# :[id number] Venofer Inj 200 MG In NS Inj 110 / 110 100 ML @ 110 mls/hr IV.SIG Q24H [facility] Rx#:[id number] - Constitutional mild distress - Routine HEENT Exam Head: Present: normocephalic ENT: Present: mucous membranes moist () - Routine Respiratory Exam Present: accessory muscle use (No obvious shortness of breath at rest) - Routine Cardiovascular Exam Present: S1, S2 - Routine Abdominal Exam Present: soft, normoactive bowel sounds, distended ( otherwise no obvious distention) <Lizy Green - Last Filed: 03/31/18 15:58> Results - Labs CBC & Chem 7: 03/28/18 20:50 03/29/18 05:02 Laboratory Results - last 24 hr 03/29/18 20:10 Urine Opiates Screen Cancelled Ur Barbiturates Screen Cancelled Ur Amphetamine Screen Cancelled U Benzodiazepines Scrn Cancelled Urine Cocaine Screen Cancelled U Cannabinoids Screen Cancelled Microbiology 03/29/18 08:34 Stool Enteric Pathogens (PCR) - Final No enteric pathogens detected by PCR (No Salmonella sp., Shigella sp., Campylobacter sp., Yersinia enterocolitica, Vibrio sp., Norovirus, or EHEC (Shiga Toxin 1 or Shiga Toxin 2) detected. 03/29/18 08:34 Stool Stool for WBCs - Final No WBC's seen 03/29/18 08:35 Stool Cryptosporidium Antigen - Final Negative - No Cryptosporicium antigen detected In selected cases of patients with a history of immunosuppression or foreign travel, a full ova and parasites examination may be desired. Contact the microbiology lab if full workup is indicated and subit another specimen for testing. 03/29/18 08:35 Stool Giardia Antigen ([facility]) - Final Negative - No Giardia Antigen detected In selected cases of patients with a history of immunosuppression or foreign travel, a full ova and parasites examination may be desired. Contact the microbiology lab if full workup is indicated and subit another specimen for testing. <Damian Leigh - Last Filed: 03/30/18 16:46> - Labs CBC & Chem 7: 03/28/18 20:50 03/29/18 05:02 Laboratory Results - last 24 hr 03/29/18 03/29/18 08:34 20:10 Stl C.difficile DNA Amp Negative St C. diff Tox Epid 027 Negative Urine Opiates Screen Cancelled Ur Barbiturates Screen Cancelled Ur Amphetamine Screen Cancelled U Benzodiazepines Scrn Cancelled Urine Cocaine Screen Cancelled U Cannabinoids Screen Cancelled Microbiology 03/29/18 08:34 Stool Enteric Pathogens (PCR) - Final No enteric pathogens detected by PCR (No Salmonella sp., Shigella sp., Campylobacter sp., Yersinia enterocolitica, Vibrio sp., Norovirus, or EHEC (Shiga Toxin 1 or Shiga Toxin 2) detected. 03/29/18 08:34 Stool Stool for WBCs - Final No WBC's seen 03/29/18 08:35 Stool Cryptosporidium Antigen - Final Negative - No Cryptosporicium antigen detected In selected cases of patients with a history of immunosuppression or foreign travel, a full ova and parasites examination may be desired. Contact the microbiology lab if full workup is indicated and subit another specimen for testing. 03/29/18 08:35 Stool Giardia Antigen ([facility]) - Final Negative - No Giardia Antigen detected In selected cases of patients with a history of immunosuppression or foreign travel, a full ova and parasites examination may be desired. Contact the microbiology lab if full workup is indicated and subit another specimen for testing. 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 States she has had 4 stools this a.m. Endorses subjectively fever/ chills. States history of C. difficile infection in July 2017 after receiving antibiotic therapy post gastrointestinal surgery(small bowel resection at the [facility] in [place], [place]). C. difficile toxin negative(03/08/2018) WBC 9.0 hemoglobin 10.2 hematocrit 29.1 03/30/2018 patient is still having nausea sensation but no obvious vomiting. Loose watery stools decreased today possibly secondary to Imodium. Patient is receiving IV iron supplements which could exacerbate loose stools. Patient also has history of small bowel resection as well as multiple complications since gastric bypass in 2013 noted EGD done at [facility] and cholecystectomy approximately 3 years ago. Stool studies are negative so no obvious infection or pathogens noted including negative C. difficile. Discussed with patient symptom management especially during her and consider colonoscopy once she has recovered from childbirth. She will need evaluation loose diarrhea stools and just causes. According to staff patient is going home with a PICC line for IV hydration during her . Notes diarrhea stools with sugar in her diet. Last hemoglobin 10.2 Plan Diet recommend, no sugar, protein soft bland foods but maintain calories to support her PICC line for IV hydration planned for discharge use Monitor number of stools Monitor for any obvious rectal bleeding Monitor labs Supportive care, when patient is discharge she can follow-up with GI in the office for outpatient colonoscopy after childbirth. Also can follow-up for any medical management she needs further control of her diarrhea stools Patient was seen per myself and Dr. Leigh, note was written on his behalf <Lizy Green - Last Filed: 03/31/18 15:58> <Damian Leigh - Last Filed: 03/30/18 16:46> (1) Diarrhea Qualifiers: Diarrhea type: unspecified type Qualified Code(s): R19.7 - Diarrhea, unspecified <Lizy Green - Last Filed: 03/31/18 15:58> (1) Diarrhea Qualifiers: Diarrhea type: unspecified type Qualified Code(s): R19.7 - Diarrhea, unspecified
[2018-03-30] MEDS: Heparin Central Flush 100 UNIT/ML 5 ML Vial IV.FLUSH PRN (12:27)
== END 2018-03-30 12:39 | disposition home or self-care (01) ==
LOC: HOBED 19:54 → H2E 19:54
PROVIDERS: ADMIT Obstetrics & Gynecology; ATTEND Obstetrics & Gynecology

== ENCOUNTER 2018-05-10 11:24 | Observation (INO) ==
[2018-05-10] MEDS ORDERED: Sod Chloride 0.9% Inj 1,000 ML IV.SIG SCH (12:00)
--- NOTE | 2018-05-10 12:12 | ED ---
HPI General Chief Complaint: Fever Stated Complaint: Doctor Sent Time Seen by Provider: 05/10/18 11:47 Source: patient Mode of arrival: ambulatory Limitations: no limitations History of Present Illness HPI Narrative: Patient is a 32-year-old female presenting to the emergency department for evaluation of fevers. Patient is approximately 33 weeks , she has history of hyperemesis gravidarum and currently has a PICC line in her right upper arm. She states she was sent by her OB to have the PICC line removed. Patient reports a max temp of 102.3 on Thursday night. She reports that she has had 7-10 episodes of diarrhea daily as well as vomiting throughout her which resulted in a PICC line for which she currently receives Zofran drip and IV fluids daily. Patient states that her home health nurse saw pus at the PICC line insertion site on Thursday of last week and advised her to have it checked by her physician. Patient reports that she went to the OB ED on Thursday with abdominal pain, patient states she continues to have the same epigastric pain that she had on Thursday. Patient has no related complaints, she reports movement. Related Data Home Medications Medication Instructions Recorded Confirmed levothyroxine 50 mcg PO DAILY 12/05/17 05/10/18 hydroxyprogest(PF)(preg presv) 275 mg SUBCUT QWEEK 03/04/18 05/10/18 [Janny (PF)] ondansetron [Zofran ODT] 4 mg PO Q4-6H PRN 03/04/18 05/10/18 omeprazole 40 mg PO PRN 03/26/18 05/10/18 vit,[id number] 1 tab PO DAILY 03/26/18 05/10/18 [PNV 29-1] hydrocodone-acetaminophen 30 mg PO TID 03/31/18 05/10/18 loperamide [Imodium A-D] 2 mg PO Q2-4H PRN 04/07/18 05/10/18 Allergies Allergy/AdvReac Type Severity Reaction Status Date / Time aspirin Allergy Intermediate Rash Verified 05/10/18 12:01 amoxicillin Allergy Mild Rash Verified 05/10/18 12:01 cefixime Allergy Mild Rash Verified 05/10/18 12:01 clavulanic acid Allergy Mild Rash Verified 05/10/18 12:01 diclofenac Allergy Unknown Ulcers Verified 05/10/18 12:01 etodolac Allergy Unknown Gastrointestinal Verified 05/10/18 12:01 Upset flurbiprofen Allergy Unknown Gastrointestinal Verified 05/10/18 12:01 Upset ibuprofen Allergy Unknown Ulcers Verified 05/10/18 12:01 indomethacin Allergy Unknown Ulcers Verified 05/10/18 12:01 ketoprofen Allergy Unknown Ulcers Verified 05/10/18 12:01 ketorolac Allergy Unknown Ulcers Verified 05/10/18 11:38 levofloxacin Allergy Unknown unknown Verified 05/10/18 11:38 naproxen Allergy Unknown Ulcers Verified 05/10/18 11:38 oxaprozin Allergy Unknown Ulcers Verified 05/10/18 11:38 thiamine (vitamin B1) Allergy Unknown Vomiting Verified 05/10/18 11:38 Review of Systems ROS: all other systems reviewed are negative PMFSH Medical History Medical History History of delivery, currently (Acute) History of obesity (Acute) Hx of cervical incompetence in , currently (Acute) Hypothyroid (Acute) Insomnia (Acute) Jejunostomy tube fell out (Acute) Short interval between pregnancies affecting in first trimester, antepartum (Acute) Surgical History Surgical History Bariatric surgery status (Acute) History of dilation and curettage (Acute) History of low transverse section (Acute) Hx of hernia repair (Acute) S/P gastric surgery (Acute) S/P small bowel resection (Acute) Family History Family History Other Family history non-contributory Social History Social History Substance History: No History of Abuse Second Hand Smoke Exposure: No Smoking Status: Former smoker Tobacco Type: Cigarettes How Often Do You Have a Drink Containing Alcohol: Never Hx Recent Travel: No Recent Travel in [place] within the Last 8 Weeks: No Recent Out of Country Travel within the Last 8 Weeks: No Immunization History Tetanus Immunization: <5 Years Exam Narrative Exam Narrative: GENERAL: Well-developed, well-nourished, alert female. Presenting in no acute distress. SKIN: Focused skin assessment warm/dry. PICC line to right upper arm, no significant erythema or induration noted. HEAD: Atraumatic. Normocephalic. EYES: Pupils equal and round. No scleral icterus. No injection or drainage. ENT: No nasal bleeding or discharge. Mucous membranes pink and moist. NECK: Trachea midline. No JVD. CARDIOVASCULAR: Regular rate and rhythm. No murmur appreciated. RESPIRATORY: No accessory muscle use. Clear to auscultation. Breath sounds equal bilaterally. GASTROINTESTINAL: Abdomen soft, non-tender, nondistended. Hepatic and splenic margins not palpable. MUSCULOSKELETAL: No obvious deformities. No clubbing. No cyanosis. No edema. NEUROLOGICAL: Awake and alert. No obvious cranial nerve deficits. Motor grossly within normal limits. Normal speech. PSYCHIATRIC: Appropriate mood and affect; insight and judgment normal. Course Initial Documented Vital Signs Temperature 98.8 F 05/10/18 11:34 Pulse Rate 95 H 05/10/18 11:34 Respiratory Rate 18 05/10/18 11:34 Blood Pressure 119/60 05/10/18 11:34 Pulse Oximetry 97 05/10/18 11:34 Last Documented Vital Signs Temperature 98.4 F 05/10/18 12:58 Pulse Rate 88 05/10/18 12:05 Respiratory Rate 20 05/10/18 12:05 Blood Pressure 101/61 05/10/18 12:05 Pulse Oximetry 97 05/10/18 12:05 Medical Decision Making VERO Attestation VERO supervised visit: Yes Attestation: I, Dr. Raya, have reviewed the advance practice practitioner's documentation and am in agreement, met with the patient face to face, made the diagnosis, and the medical decision making was done by me. *My assessment and Findings: Patient seen and examined by me in addition to Autumn BRIGGS, this is a 32-year-old female 33 weeks gestational age female presents emergency department for evaluation of possible PICC line infection. According to patient she had some purulent material being discharged from her PICC line site 5 days ago, she has a PICC line in place because she has a history of hyperemesis gravidarum as well as bariatric surgery. On my examination patient does not have any erythema of the site he appears well but she reports 102.5 fever to me yesterday. She is afebrile here in emergency department, over the past 3 days her white blood cell count is increased from 9 up to 12 and she does have a left shift. Patient is not technically septic at this time but if she did have a PICC line and bacteremia my concern would be to go into premature labor. This was discussed with Dr. Cha who agrees with me and then ultimately I discussed with Dr. Bolden would like the residents to admit to him. Vancomycin and Azactam have been ordered, official consult has been ordered per Dr. Cha as well for her input. MDM Narrative Medical decision making narrative: Patient is a 32-year-old female presented to emergency department for evaluation of fevers possibly related to patient's PICC line. PICC line was removed by me without difficulty. Length was [address] Bolden prior to removing PICC line to confirm. Labs ordered and pending. Care of patient was assumed by my attending physician, please see his documentation. Medical Screen Exam Complete: Yes Emergency Medical Condition: Yes Differential Diagnosis Differential Diagnosis: Bacteremia versus metabolic abnormality versus cellulitis versus other Medical Records Medical records reviewed: Yes I reviewed the patient's medical records. Lab Data Result diagrams: 05/10/18 12:25 05/10/18 12:25 Lab Results 05/10/18 05/10/18 05/10/18 Range/Units 12:25 12:25 12:25 WBC 12.3 H (4.0-11.0) th/mm3 RBC 3.44 L (4.00-5.30) mil/mm3 Hgb 11.4 L (11.6-15.3) gm/dL Hct 33.8 L (35.0-46.0) % MCV 98.5 (80.0-100.0) fL MCH 33.2 (27.0-34.0) pg MCHC 33.7 (32.0-36.0) % RDW 15.0 (11.6-17.2) % Plt Count 154 (150-450) th/mm3 MPV 7.9 (7.0-11.0) fL Neut % (Auto) 84.7 H (16.0-70.0) % Lymph % (Auto) 9.4 (9.0-44.0) % [place] % (Auto) 5.1 (0.0-8.0) % Eos % (Auto) 0.5 (0.0-4.0) % Baso % (Auto) 0.3 (0.0-2.0) % Neut # (Auto) 10.4 H (1.8-7.7) th/mm3 Lymph # (Auto) 1.2 (1.0-4.8) th/mm3 [place] # (Auto) 0.6 (0.0-0.9) th/mm3 Eos # (Auto) 0.1 (0.0-0.4) th/mm3 Baso # (Auto) 0.0 (0.0-0.2) th/mm3 WBC Differential . Differential Comment Auto diff final Sodium 139 (136-145) meq/L Potassium 3.8 (3.5-5.1) meq/L Chloride 107 (98-107) meq/L Carbon Dioxide 22.0 (21.0-32.0) meq/L Anion Gap 10 (5-15) meq/L BUN 12 (7-18) mg/dL Creatinine 0.57 (0.50-1.00) mg/dL Estimated GFR Greater than 89 (>89) mL/min Random Glucose 86 (74-106) mg/dL Lactic Acid 2.0 (0.4-2.0) mmol/L Calcium 7.6 L (8.5-10.1) mg/dL Magnesium 1.8 (1.5-2.5) mg/dL Total Bilirubin 0.2 (0.2-1.0) mg/dL AST 14 L (15-37) U/L ALT 26 (10-53) U/L Alkaline Phosphatase 89 (45-117) U/L Total Protein 6.1 L (6.4-8.2) g/dL Albumin 2.7 L (3.4-5.0) g/dL Lipase 53 L (73-393) U/L Urine Color (Yellw/Straw) Urine Clarity (Clear) Urine pH (5.0-8.5) Ur Specific [place] (1.002-1.035) Urine Protein (Neg-Trace) mg/dL Urine Glucose (UA) (Negative) mg/dL Urine Ketones (Negative) mg/dL Urine Occult Blood (Negative) Urine Nitrate (Negative) Urine Bilirubin (Negative) Urine Urobilinogen (Less than 2) mg/dL Ur Leukocyte Esterase (Negative) Urine RBC (0-3) /hpf Urine WBC (0-5) /hpf Ur Squamous Epith Cells (0-5) /hpf Urine Bacteria (None) /hpf Urine Mucus (Occasional) /lpf Micro UA Comment Ur Microscopic Review Urine Culture Comments 05/10/18 Range/Units 13:50 WBC (4.0-11.0) th/mm3 RBC (4.00-5.30) mil/mm3 Hgb (11.6-15.3) gm/dL Hct (35.0-46.0) % MCV (80.0-100.0) fL MCH (27.0-34.0) pg MCHC (32.0-36.0) % RDW (11.6-17.2) % Plt Count (150-450) th/mm3 MPV (7.0-11.0) fL Neut % (Auto) (16.0-70.0) % Lymph % (Auto) (9.0-44.0) % [place] % (Auto) (0.0-8.0) % Eos % (Auto) (0.0-4.0) % Baso % (Auto) (0.0-2.0) % Neut # (Auto) (1.8-7.7) th/mm3 Lymph # (Auto) (1.0-4.8) th/mm3 [place] # (Auto) (0.0-0.9) th/mm3 Eos # (Auto) (0.0-0.4) th/mm3 Baso # (Auto) (0.0-0.2) th/mm3 WBC Differential Differential Comment Sodium (136-145) meq/L Potassium (3.5-5.1) meq/L Chloride (98-107) meq/L Carbon Dioxide (21.0-32.0) meq/L Anion Gap (5-15) meq/L BUN (7-18) mg/dL Creatinine (0.50-1.00) mg/dL Estimated GFR (>89) mL/min Random Glucose (74-106) mg/dL Lactic Acid (0.4-2.0) mmol/L Calcium (8.5-10.1) mg/dL Magnesium (1.5-2.5) mg/dL Total Bilirubin (0.2-1.0) mg/dL AST (15-37) U/L ALT (10-53) U/L Alkaline Phosphatase (45-117) U/L Total Protein (6.4-8.2) g/dL Albumin (3.4-5.0) g/dL Lipase (73-393) U/L Urine Color Yellow (Yellw/Straw) Urine Clarity Clear (Clear) Urine pH 5.0 (5.0-8.5) Ur Specific [place] 1.016 (1.002-1.035) Urine Protein Negative (Neg-Trace) mg/dL Urine Glucose (UA) Negative (Negative) mg/dL Urine Ketones Negative (Negative) mg/dL Urine Occult Blood Negative (Negative) Urine Nitrate Negative (Negative) Urine Bilirubin Negative (Negative) Urine Urobilinogen Less than 2 (Less than 2) mg/dL Ur Leukocyte Esterase Negative (Negative) Urine RBC Less than 1 (0-3) /hpf Urine WBC Less than 1 (0-5) /hpf Ur Squamous Epith Cells <1 (0-5) /hpf Urine Bacteria Rare H (None) /hpf Urine Mucus Few H (Occasional) /lpf Micro UA Comment Culture not ind Ur Microscopic Review Not Reportable Urine Culture Comments Culture not ind Discharge Plan Discharge Order Discharge Orders: ED Use Only Admit Order (Routine); Ordered 05/10/18 Ordered By: Rik Raya Physicians Team ED Provider: Rik Raya ED Midlevel Provider: Karyn Christie Primary Care Provider: NON STAFF,PROVIDER Attending Provider: Oscar Bolden Other Providers: Meghan Cha Rxs /Orders / Referrals /Forms Prescriptions: No Action ondansetron [Zofran ODT] 4 mg Tablet,Disintegrating 4 mg PO Q4-6H PRN (Reason: Nausea) RF: 0 hydroxyprogest(PF)(preg presv) [Janny (PF)] 275 mg/1.1 mL Auto-Injector 275 mg SUBCUT QWEEK RF: 0 levothyroxine 50 mcg Tablet 50 mcg PO DAILY RF: 0 vit,[id number] [PNV 29-1] 29 mg iron- 1 mg Tablet 1 tab PO DAILY RF: 0 omeprazole 40 mg capsule,delayed release(DR/EC) 40 mg PO PRN RF: 0 hydrocodone-acetaminophen liquid 30 mg PO TID RF: 0 loperamide [Imodium A-D] 2 mg Capsule 2 mg PO Q2-4H PRN (Reason: Diarrhea) RF: 0 Discharge Interventions Interventions: Vital Signs Last Done: 05/10/18 12:58 Status ED Status: Admitted Patient
[2018-05-10 12:39] LABS: Baso % (Auto) 0.3 % (0.0-2.0); Eos # (Auto) 0.1 th/mm3 (0.0-0.4); Eos % (Auto) 0.5 % (0.0-4.0); Hematocrit 33.8 % (35.0-46.0); Hemoglobin 11.4 gm/dL (11.6-15.3); Lymph # (Auto) 1.2 th/mm3 (1.0-4.8); Lymph % (Auto) 9.4 % (9.0-44.0); Mean Corpuscular HGB Conc 33.7 % (32.0-36.0); Mean Corpuscular Hemoglobin 33.2 pg (27.0-34.0); Mean Corpuscular Volume 98.5 fL (80.0-100.0); Mean Platelet Volume 7.9 fL (7.0-11.0); Mono # (Auto) 0.6 th/mm3 (0.0-0.9); Mono % (Auto) 5.1 % (0.0-8.0); Neut # (Auto) 10.4 th/mm3 (1.8-7.7); Neut % (Auto) 84.7 % (16.0-70.0); Platelet Count 154 th/mm3 (150-450); Red Blood Count 3.44 mil/mm3 (4.00-5.30); White Blood Count 12.3 th/mm3 (4.0-11.0)
[2018-05-10 13:04] LABS: Alanine Aminotransferase 26 U/L (10-53); Albumin 2.7 g/dL (3.4-5.0); Anion Gap 10 meq/L (5-15); Aspartate Aminotransferase 14 U/L (15-37); Blood Urea Nitrogen 12 mg/dL (7-18); Calcium 7.6 mg/dL (8.5-10.1); Chloride 107 meq/L (98-107); Glomerular Filtration Rate Greater Than 89 mL/min (>89); Glucose,Random 86 mg/dL (74-106); Lipase 53 U/L (73-393); Magnesium 1.8 mg/dL (1.5-2.5); Potassium 3.8 meq/L (3.5-5.1); Sodium 139 meq/L (136-145)
[2018-05-10 13:07] LABS: Alkaline Phosphatase 89 U/L (45-117); Total Protein 6.1 g/dL (6.4-8.2)
[2018-05-10] MEDS ORDERED: Vancomycin Inj 1,000 MG in Sodium Chlor 0.9% Inj 250 ML IV.SIG ONE (13:23)
[2018-05-10 14:11] LABS: Bacteria,Urine Rare /hpf; Bilirubin,Urine Negative (Negative); Clarity,Urine Clear (Clear); Color,Urine Yellow (Yellw/Straw); Glucose,Urine (UA) Negative (Negative); Leukocyte Esterase,Urine Negative (Negative); Mucus,Urine Few /lpf (Occasional); Nitrite,Urine Negative (Negative); Specific Gravity,Urine 1.016 (1.002-1.035); Squamous Epithelial Cell,Urine <1 /hpf (0-5)
[2018-05-10 16:30] VITALS: O2SAT 99
[2018-05-10] MEDS ORDERED: Acetaminophen 325 MG Tablet PO PRN (16:38)
[2018-05-10] MEDS ORDERED: Vancomycin Consult Pharmacy OTHER PRN (16:42)
[2018-05-10] MEDS ORDERED: Loperamide 2 MG Capsule PO PRN ×2 (16:47→17:26)
--- NOTE | 2018-05-10 16:50 | P.HPOB ---
History of Present Illness Primary Care Physician: PROVIDER NON STAFF Chief Complaint: Fever History of Present Illness: 32-year-old at 33 WGA presented to the OB floor from ED. Pt was seen for evaluation of fevers. Patient has history of hyperemesis gravidarum, and had a PICC line in her right upper arm since late March for IV fluids administration , and nausea medication. Pt was sent by Dr. Bolden to have the PICC line removed, which was done in ED. Patient reports a max temp of 102.3 on last night. Pt is feeling FM, denies VB, or CTX, but reports increased vaginal discharge. Weeks Gestation:: 33 Para: 1 : 3 Total # of Miscarriage(s): 1 - Inpatient Certification I certify that the inpatient services were ordered in accordance with Medicare regulations governing the order. This includes certification that hospital inpatient services are reasonable and necessary and in the case of services not specified as inpatient-only under 42 CFR 419.22(n), that they are appropriately provided as inpatient services in accordance to with the 2-midnight benchmark under 43 CFR 412.3(e) Review of Systems Constitutional: Reports fever(s), Reports headache(s) Cardiovascular: Denies chest pain, Denies shortness of breath Respiratory: Denies chest congestion, Denies cough Gastrointestinal: Reports abdominal pain, Reports cramping, Reports loose stools , Reports nausea, Reports vomiting, Denies constipation, Denies vomiting blood Genitourinary: Reports vaginal discharge, Denies urinary incontinence, Denies urinary urgency, Denies vaginal odor, Denies vaginal itching PMFSH - History History Provided By: Patient - Medical History Medical History: Medical History (Last Updated 05/10/18 @ 16:48 by Amara Torrez MD, R1) History of delivery, currently History of obesity Hx of cervical incompetence in , currently Hx of delivery, currently Hypothyroid Insomnia Jejunostomy tube fell out Short interval between pregnancies affecting in first trimester, antepartum - Surgical History Surgical History: Surgical History (Last Reviewed 05/10/18 @ 16:48 by Amara Torrez MD, R1) Bariatric surgery status History of dilation and curettage History of low transverse section Hx of hernia repair S/P gastric surgery S/P small bowel resection - Family History Family History: Family History (Last Reviewed 05/10/18 @ 16:48 by Amara Torrez MD, R1 ) Other Family history non-contributory - Social History I have reviewed the patient's Social History: Yes - Tobacco History Second Hand Smoke Exposure: No Tobacco Use In Past 30 Days: No Smoking Status: Former smoker Tobacco Type: Cigarettes - Alcohol History How Often Do You Have a Drink Containing Alcohol: Never - Substance Use History Substance History: No History of Abuse - Travel History History of Recent Travel: No Recent Travel in the [place] Within the Last 8 Weeks: No Recent Travel Out of the Country Within the Last 8 Weeks: No - Immunization History Tetanus Immunization: <5 Years Medications and Allergies Active Medications: Active Medications Acetaminophen (Tylenol) 650 mg PO Q4H PRN PRN Reason: FEVER Sodium Chloride (Ns Flush) 2 ml IV.FLUSH BID CHANA Sodium Chloride (Ns Flush) 2 ml IV.FLUSH PRN PRN PRN Reason: FLUSH AFTER USING IV ACCESS Allergies Allergy/AdvReac Type Severity Reaction Status Date / Time aspirin Allergy Intermediate Rash Verified 05/10/18 12:01 amoxicillin Allergy Mild Rash Verified 05/10/18 12:01 cefixime Allergy Mild Rash Verified 05/10/18 12:01 clavulanic acid Allergy Mild Rash Verified 05/10/18 12:01 diclofenac Allergy Unknown Ulcers Verified 05/10/18 12:01 etodolac Allergy Unknown Gastrointestinal Verified 05/10/18 12:01 Upset flurbiprofen Allergy Unknown Gastrointestinal Verified 05/10/18 12:01 Upset ibuprofen Allergy Unknown Ulcers Verified 05/10/18 12:01 indomethacin Allergy Unknown Ulcers Verified 05/10/18 12:01 ketoprofen Allergy Unknown Ulcers Verified 05/10/18 12:01 ketorolac Allergy Unknown Ulcers Verified 05/10/18 11:38 levofloxacin Allergy Unknown unknown Verified 05/10/18 11:38 naproxen Allergy Unknown Ulcers Verified 05/10/18 11:38 oxaprozin Allergy Unknown Ulcers Verified 05/10/18 11:38 thiamine (vitamin B1) Allergy Unknown Vomiting Verified 05/10/18 11:38 Home Medications Medication Instructions Recorded Confirmed Type levothyroxine 50 mcg PO DAILY 12/05/17 05/10/18 History hydroxyprogest(PF)(preg presv) 275 mg SUBCUT QWEEK 03/04/18 05/10/18 History [Janny (PF)] ondansetron [Zofran ODT] 4 mg PO Q4-6H PRN 03/04/18 05/10/18 History omeprazole 40 mg PO PRN 03/26/18 05/10/18 History vit,[id number] 1 tab PO DAILY 03/26/18 05/10/18 History [PNV 29-1] hydrocodone-acetaminophen 30 mg PO TID 03/31/18 05/10/18 History loperamide [Imodium A-D] 2 mg PO Q2-4H PRN 04/07/18 05/10/18 History Exam Vital signs: Vital Signs 05/10/18 11:34 05/10/18 12:05 05/10/18 12:58 Temperature 98.8 F 98.4 F Pulse Rate 95 H 88 Respiratory Rate 18 20 Blood Pressure 119/60 101/61 Pulse Oximetry 97 97 05/10/18 15:29 Temperature Pulse Rate 82 Respiratory Rate 20 Blood Pressure 88/54 L Pulse Oximetry 99 Intake & Output 05/09/18 05/10/18 05/10/18 18:59 06:59 18:59 Intake Total 1350 / 1350 Balance 1350 / 1350 Weight 77.111 kg Intake: IV 1350 / 1350 Azactam Inj 1,000 MG In NS Inj 100 / 100 100 ML @ 200 mls/hr IV.SIG ONCE ONE Rx#:[id number] NS Inj 1,000 ML @ 1000 mls/hr 1000 / 1000 IV.SIG BOLUS CHANA Rx#:[id number] Vancomycin Inj 1,000 MG In NS 250 / 250 Inj 250 ML @ 250 mls/hr IV.SIG ONCE ONE Rx#:[id number] Narrative: GENERAL: Well-nourished, well-developed patient. SKIN: Warm and dry. Slight increased temperature to touch in LUE where PICC line was. No erythema, no rash, no pus observed. HEAD: Normocephalic and atraumatic. EYES: No scleral icterus. No injection or drainage. ENT: No nasal drainage noted. Mucous membranes pink. Airway patent. NECK: Supple, trachea midline. No LAD CARDIOVASCULAR: Regular rate and rhythm without murmurs, gallops, or rubs. RESPIRATORY: Breath sounds equal bilaterally. No accessory muscle use. ABDOMEN/GI: Abdomen soft, non-tender, bowel sounds present, no rebound, no guarding EXTREMITIES: No cyanosis or edema. BACK: Nontender without obvious deformity. No CVA tenderness. NEUROLOGICAL: Awake and alert. Motor and sensory grossly within normal limits. Normal speech. Results - Labs CBC & Chem 7: 05/10/18 12:25 05/10/18 12:25 Labs: Laboratory Results - last 24 hr 05/10/18 05/10/18 05/10/18 12:25 12:25 12:25 WBC 12.3 H RBC 3.44 L Hgb 11.4 L Hct 33.8 L MCV 98.5 MCH 33.2 MCHC 33.7 RDW 15.0 Plt Count 154 MPV 7.9 Neut % (Auto) 84.7 H Lymph % (Auto) 9.4 [place] % (Auto) 5.1 Eos % (Auto) 0.5 Baso % (Auto) 0.3 Neut # (Auto) 10.4 H Lymph # (Auto) 1.2 [place] # (Auto) 0.6 Eos # (Auto) 0.1 Baso # (Auto) 0.0 WBC Differential . Differential Comment Auto diff final Sodium 139 Potassium 3.8 Chloride 107 Carbon Dioxide 22.0 Anion Gap 10 BUN 12 Creatinine 0.57 Estimated GFR Greater than 89 Random Glucose 86 Lactic Acid 2.0 Calcium 7.6 L Magnesium 1.8 Total Bilirubin 0.2 AST 14 L ALT 26 Alkaline Phosphatase 89 Total Protein 6.1 L Albumin 2.7 L Lipase 53 L Urine Color Urine Clarity Urine pH Ur Specific [place] Urine Protein Urine Glucose (UA) Urine Ketones Urine Occult Blood Urine Nitrate Urine Bilirubin Urine Urobilinogen Ur Leukocyte Esterase Urine RBC Urine WBC Ur Squamous Epith Cells Urine Bacteria Urine Mucus Micro UA Comment Ur Microscopic Review Urine Culture Comments 05/10/18 13:50 WBC RBC Hgb Hct MCV MCH MCHC RDW Plt Count MPV Neut % (Auto) Lymph % (Auto) [place] % (Auto) Eos % (Auto) Baso % (Auto) Neut # (Auto) Lymph # (Auto) [place] # (Auto) Eos # (Auto) Baso # (Auto) WBC Differential Differential Comment Sodium Potassium Chloride Carbon Dioxide Anion Gap BUN Creatinine Estimated GFR Random Glucose Lactic Acid Calcium Magnesium Total Bilirubin AST ALT Alkaline Phosphatase Total Protein Albumin Lipase Urine Color Yellow Urine Clarity Clear Urine pH 5.0 Ur Specific [place] 1.016 Urine Protein Negative Urine Glucose (UA) Negative Urine Ketones Negative Urine Occult Blood Negative Urine Nitrate Negative Urine Bilirubin Negative Urine Urobilinogen Less than 2 Ur Leukocyte Esterase Negative Urine RBC Less than 1 Urine WBC Less than 1 Ur Squamous Epith Cells <1 Urine Bacteria Rare H Urine Mucus Few H Micro UA Comment Culture not ind Ur Microscopic Review Not Reportable Urine Culture Comments Culture not ind Caprini VTE Risk Assessment Caprini VTE Risk Assessment: No/Low Risk (score <= 1) Caprini Risk Assessment Model: Point Value = 1 Point Value = 2 Point Value = 3 Point Value = 5 Age 41-60 Minor surgery BMI > 25 kg/m2 Swollen legs Varicose veins or History of unexplained or recurrent spontaneous Oral contraceptives or hormone replacement Sepsis (< 1 month) Serious lung disease, including pneumonia (< 1 month) Abnormal pulmonary function Acute myocardial infarction Congestive heart failure (< 1 month) History of inflammatory bowel disease Medical patient at bed rest Age 61-74 Arthroscopic surgery Major open surgery (> 45 min) Laparoscopic surgery (> 45 min) Malignancy Confined to bed (> 72 hours) Immobilizing plaster cast Central venous access Age >= 75 History of VTE Family history of VTE Factor V Leiden Prothrombin [id number] Lupus anticoagulant Anticardiolipin antibodies Elevated serum homocysteine Heparin-induced thrombocytopenia Other congenital or acquired thrombophilia Stroke (< 1 month) Elective arthroplasty Hip, pelvis, or leg fracture Acute spinal cord injury (< 1 month) Prophylaxis Regimen: Total Risk Factor Score Risk Level Prophylaxis Regimen 0-1 Low Early ambulation 2 Moderate Order ONE of the following: *Sequential Compression Device (SCD) *Heparin 5000 units SQ BID 3-4 Higher Order ONE of the following medications: *Heparin 5000 units SQ TID *Enoxaparin/Lovenox 40 mg SQ daily (WT < 150 kg, CrCl > 30 mL/min) *Enoxaparin/Lovenox 30 mg SQ daily (WT < 150 kg, CrCl > 10-29 mL/min) *Enoxaparin/Lovenox 30 mg SQ BID (WT < 150 kg, CrCl > 30 mL/min) AND/OR *Sequential Compression Device (SCD) 5 or more Highest Order ONE of the following medications: *Heparin 5000 units SQ TID (Preferred with Epidurals) *Enoxaparin/Lovenox 40 mg SQ daily (WT < 150 kg, CrCl > 30 mL/min) *Enoxaparin/Lovenox 30 mg SQ daily (WT < 150 kg, CrCl > 10-29 mL/min) *Enoxaparin/Lovenox 30 mg SQ BID (WT < 150 kg, CrCl > 30 mL/min) AND *Sequential Compression Device (SCD) Assessment and Plan - Diagnosis (1) Hyperemesis gravidarum Code(s): O21.0 - Mild hyperemesis gravidarum Status: Acute Current Visit: Yes (2) Bacteremia associated with intravascular line Code(s): T82.7XXA - Infection and inflammatory reaction due to other cardiac and vascular devices, implants and grafts, initial encounter; R78.81 - Bacteremia Status: Suspected Current Visit: Yes (3) Hypothyroid Code(s): E03.9 - Hypothyroidism, unspecified Status: Chronic (4) 33 weeks gestation of Code(s): Z3A.33 - 33 weeks gestation of Status: Acute (5) Chronic headaches Code(s): R51 - Headache Status: Chronic (6) Hx of delivery, currently Code(s): O09.219 - Supervision of with history of pre-term labor, unspecified trimester Status: Chronic - Plan 32 yr old female with hx of delivery at 29 WGA, and current hyperemesis gravidum condition admitted for observation due to suspected PICC line infection. Plan: - PICC line has been removed, but not cultured in ED - Blood cultures pending x2 - ID consulted, appreciate reccs - Continue Aztreonam 1gr IV q8h - Continue Vancomycin, pharmacy consulted for dosing adjustment - LR 100ml/hr - Phenergan IM 25mg q6 PRN for nausea/ vomiting - Tylenol PRN for fever - Continue home medications: Lortab 30mg TID - NST q shift - Monitor for fevers - Regular diet - SCDs for DVT prophylaxis Plan discussed with Dr. Bolden, Dr. Wright, and Dr. Renner (2) Bacteremia associated with intravascular line Qualifiers: Encounter type: initial encounter Qualified Code(s): T82.7XXA - Infection and inflammatory reaction due to other cardiac and vascular devices, implants and grafts, initial encounter; R78.81 - Bacteremia
[2018-05-10 16:56] VITALS: RESP 18
[2018-05-10] MEDS ORDERED: HYDROCODONE PO SCH (18:00)
[2018-05-10] MEDS ORDERED: Acetaminophen-HYDROcodone 325/7.5 Liq 15 ML UDC PO SCH (18:00)
[2018-05-10] MEDS ORDERED: ACETAMINOPHEN PO SCH (18:00)
[2018-05-10] MEDS ORDERED: Zolpidem Tartrate 5 MG Tablet PO PRN (20:02)
[2018-05-10] MEDS: Vancomycin Inj 1,000 MG in Sodium Chlor 0.9% Inj 250 ML IV.SIG SCH (22:06)
[2018-05-11] MEDS ORDERED: Vancomycin Inj 1,500 MG in Sodium Chlor 0.9% Inj 500 ML IV.SIG SCH (03:00)
[2018-05-11] MEDS: Vancomycin Inj 1,000 MG in Sodium Chlor 0.9% Inj 250 ML IV.SIG SCH ×2 (05:37→14:13)
[2018-05-11 05:50] LABS: Hematocrit 29.4 % (35.0-46.0); Hemoglobin 9.9 gm/dL (11.6-15.3); Mean Corpuscular HGB Conc 33.5 % (32.0-36.0); Mean Corpuscular Hemoglobin 33.4 pg (27.0-34.0); Mean Corpuscular Volume 99.5 fL (80.0-100.0); Platelet Count 119 th/mm3 (150-450); Red Blood Count 2.95 mil/mm3 (4.00-5.30)
[2018-05-11] MEDS ORDERED: Levothyroxine 50 MCG Tablet PO SCH (06:00)
[2018-05-11 06:19] LABS: Alanine Aminotransferase 21 U/L (10-53); Albumin 2.1 g/dL (3.4-5.0); Alkaline Phosphatase 78 U/L (45-117); Anion Gap 11 meq/L (5-15); Aspartate Aminotransferase 14 U/L (15-37); Blood Urea Nitrogen 8 mg/dL (7-18); Calcium 7.1 mg/dL (8.5-10.1); Carbon Dioxide 20.4 meq/L (21.0-32.0); Chloride 109 meq/L (98-107); Glomerular Filtration Rate Greater Than 89 mL/min (>89); Glucose,Random 79 mg/dL (74-106); Potassium 3.6 meq/L (3.5-5.1); Sodium 140 meq/L (136-145); Total Protein 4.9 g/dL (6.4-8.2)
[2018-05-11] MEDS: Acetaminophen-HYDROcodone 325/7.5 Liq 15 ML UDC PO SCH ×2 (08:57→14:33)
[2018-05-11] MEDS ORDERED: [UNRECOGNIZED DRUG - OTHER] PO SCH (09:00)
[2018-05-11] MEDS ORDERED: [UNRECOGNIZED DRUG - OTHER] PO SCH (09:00)
--- NOTE | 2018-05-11 11:26 | P.CONID ---
History of Present Illness Service: Infectious disease Consult date: 05/11/18 Requesting Physician: Rik Raya Reason for Consult: Evaluate patient for possible sepsis Primary Care Provider: PROVIDER NON STAFF Chief Complaint: Fever History of Present Illness: Patient seen and examined. Records reviewed. Patient is a 32-year-old female who is 33 weeks , presented to the hospital for removal of her PICC line. Patient has problem with hyperemesis gravidarum, and has been getting IV fluids via PICC line since March. Patient also has had problem with constant diarrhea since she got . Her IV fluids get infuse throughout the whole day. She has home health nurses coming to her home and doing dressing changes on her PICC line. About 6 days prior to admission, the nurse noted a little bit of redness and a little bit of purulent drainage coming out of her PICC line. She started having fevers about 3 days prior to admission. She went to see her OB on the day of admission, and her temperature was normal then. She was sent to the emergency room for removal of the PICC line. Patient was afebrile in the doctor's office, as well as in the emergency room. Her white count however had gone up to 12,000 from 9000 previously. She was not tachycardic. She was admitted for possible sepsis. Infectious disease consultation has been requested to assist with evaluation and treatment. Patient received vancomycin and Azactam. Review of Systems Constitutional: Reports chills, Reports fever(s) Eyes: Denies discharge, Denies dry eyes Ears, Nose, Mouth, and Throat: Denies difficulty swallowing, Denies facial pain , Denies nasal discharge, Denies sore throat Cardiovascular: Denies chest pain, Denies shortness of breath Respiratory: Denies chest congestion, Denies cough, Denies shortness of breath Gastrointestinal: Reports loose stools, Reports nausea, Reports vomiting, Denies abdominal pain, Denies pain with swallowing Genitourinary: Denies difficulty urinating, Denies painful urination Musculoskeletal: Denies joint pain, Denies joint swelling Skin/Breast: Denies rash, Denies sores PMFSH - History History Provided By: Patient - Medical History Medical History: Medical History (Last Reviewed 05/11/18 @ 11:23 by Meghan Cha MD) History of delivery, currently History of obesity Hx of cervical incompetence in , currently Hx of delivery, currently Hypothyroid Insomnia Jejunostomy tube fell out Short interval between pregnancies affecting in first trimester, antepartum - Surgical History Surgical History: Surgical History (Last Reviewed 05/11/18 @ 11:23 by Meghan Cha MD) Bariatric surgery status History of dilation and curettage History of low transverse section Hx of hernia repair S/P gastric surgery S/P small bowel resection - Family History Family History: Family History (Last Reviewed 05/10/18 @ 16:48 by Amara Torrez MD, R1 ) Other Family history non-contributory - Tobacco History Second Hand Smoke Exposure: No Tobacco Use In Past 30 Days: No Smoking Status: Former smoker Tobacco Type: Cigarettes - Alcohol History How Often Do You Have a Drink Containing Alcohol: Never - Substance Use History Substance History: No History of Abuse - Travel History History of Recent Travel: No Recent Travel in the [place] Within the Last 8 Weeks: No Recent Travel Out of the Country Within the Last 8 Weeks: No - Immunization History Tetanus Immunization: <5 Years Medications and Allergies Active Medications: Active Medications Acetaminophen (Tylenol) 650 mg PO Q4H PRN PRN Reason: FEVER Hydrocodone Bitart/Acetaminophen (Hycet 325/7.5 Mg Liq) 30 ml PO Q6H [facility] Last Admin: 05/11/18 08:57 Dose: 30 ml Aztreonam 1,000 mg/ Sodium (Chloride) 100 mls @ 200 mls/hr IV.SIG Q8H [facility] Last Infusion: 05/11/18 08:45 Dose: Infused Lactated Ringer's (Lr 1000 Ml Inj) 1,000 mls @ 100 mls/hr IV.CONT .Q10H [facility] Last Admin: 05/11/18 04:52 Dose: 100 mls/hr Vancomycin HCl 1,000 mg/ (Sodium Chloride) 250 mls @ 250 mls/hr IV.SIG Q8H [facility] Last Admin: 05/11/18 05:37 Dose: 250 mls/hr Levothyroxine Sodium (Synthroid) 50 mcg PO DAILY@0600 [facility] Last Admin: 05/11/18 06:28 Dose: 50 mcg Loperamide HCl (Imodium) 2 mg PO Q4H PRN PRN Reason: Diarrhea Miscellaneous Information ([facility] Ordered Lab Info) 0 each OTHER ONCE ONE Stop: 05/11/18 13:46 Pantoprazole Sodium (Protonix) 40 mg PO DAILY PRN PRN Reason: GERD Last Admin: 05/10/18 17:56 Dose: 40 mg Pt: Vit 29-1 0 each PO DAILY [facility] [place]town: Hydroxyprogesterone Caproate 250 Mg Im Once 1 each IM ONCE ONE Stop: 05/11/18 11:31 Pharmacy Profile Note (Vancomycin Consult Pharmacy) 1 each OTHER UNSCH PRN PRN Reason: Pharmacy to dose Promethazine HCl (Phenergan Inj) 25 mg IM Q6H PRN PRN Reason: nausea/vomiting Last Admin: 05/11/18 07:31 Dose: 25 mg Sodium Chloride (Ns Flush) 2 ml IV.FLUSH BID [facility] Last Admin: 05/11/18 11:17 Dose: Not Given Sodium Chloride (Ns Flush) 2 ml IV.FLUSH PRN PRN PRN Reason: FLUSH AFTER USING IV ACCESS Zolpidem Tartrate (Ambien) 5 mg PO HS PRN PRN Reason: INSOMNIA Last Admin: 05/11/18 00:44 Dose: 5 mg Allergies Allergy/AdvReac Type Severity Reaction Status Date / Time aspirin Allergy Intermediate Rash Verified 05/10/18 12:01 amoxicillin Allergy Mild Rash Verified 05/10/18 12:01 cefixime Allergy Mild Rash Verified 05/10/18 12:01 clavulanic acid Allergy Mild Rash Verified 05/10/18 12:01 diclofenac Allergy Unknown Ulcers Verified 05/10/18 12:01 etodolac Allergy Unknown Gastrointestinal Verified 05/10/18 12:01 Upset flurbiprofen Allergy Unknown Gastrointestinal Verified 05/10/18 12:01 Upset ibuprofen Allergy Unknown Ulcers Verified 05/10/18 12:01 indomethacin Allergy Unknown Ulcers Verified 05/10/18 12:01 ketoprofen Allergy Unknown Ulcers Verified 05/10/18 12:01 ketorolac Allergy Unknown Ulcers Verified 05/10/18 11:38 levofloxacin Allergy Unknown unknown Verified 05/10/18 11:38 naproxen Allergy Unknown Ulcers Verified 05/10/18 11:38 oxaprozin Allergy Unknown Ulcers Verified 05/10/18 11:38 thiamine (vitamin B1) Allergy Unknown Vomiting Verified 05/10/18 11:38 Home Medications Medication Instructions Recorded Confirmed Type levothyroxine 50 mcg PO DAILY 12/05/17 05/10/18 History hydroxyprogest(PF)(preg presv) 275 mg SUBCUT QWEEK 03/04/18 05/10/18 History [Arpin (PF)] ondansetron [Zofran ODT] 4 mg PO Q4-6H PRN 03/04/18 05/10/18 History omeprazole 40 mg PO PRN 03/26/18 05/10/18 History vit,[id number] 1 tab PO DAILY 03/26/18 05/10/18 History [PNV 29-1] hydrocodone-acetaminophen 30 mg PO TID 03/31/18 05/10/18 History loperamide [Imodium A-D] 2 mg PO Q2-4H PRN 04/07/18 05/10/18 History Exam Vital signs: Vital Signs 05/10/18 11:34 05/10/18 12:05 05/10/18 12:58 Temperature 98.8 F 98.4 F Pulse Rate 95 H 88 Respiratory Rate 18 20 Blood Pressure 119/60 101/61 Pulse Oximetry 97 97 05/10/18 15:29 05/10/18 16:56 05/10/18 19:52 Temperature 98.9 F 98.2 F Pulse Rate 82 88 88 Respiratory Rate 20 18 18 Blood Pressure 88/54 L 99/61 L 91/48 L Pulse Oximetry 99 05/10/18 23:53 05/11/18 04:07 05/11/18 07:36 Temperature 97.8 F 98.0 F 98.6 F Pulse Rate 84 83 86 Respiratory Rate 18 18 18 Blood Pressure 110/62 102/58 L 97/55 L Pulse Oximetry Intake & Output 05/10/18 05/11/18 05/11/18 18:59 06:59 18:59 Intake Total 1350 / 1350 350 / 350 100 / 100 Balance 1350 / 1350 350 / 350 100 / 100 Weight 77.111 kg Intake: IV 1350 / 1350 350 / 350 100 / 100 Azactam Inj 1,000 MG In NS Inj 100 / 100 100 / 100 100 / 100 100 ML @ 200 mls/hr IV.SIG Q8H [facility] Rx#:[id number] NS Inj 1,000 ML @ 1000 mls/hr 1000 / 1000 IV.SIG BOLUS [facility] Rx#:[id number] Vancomycin Inj 1,000 MG In NS 250 / 250 250 / 250 Inj 250 ML @ 250 mls/hr IV.SIG Q8H [facility] Rx#:[id number] Narrative: Physical examination GENERAL: Patient is a well-nourished, well-developed female, awake and alert , not in respiratory distress. She does not look toxic appearing. SKIN: Warm and dry. No generalized rash, no ecchymoses and no evidence of embolic lesions. HEAD: Atraumatic. Normocephalic. No temporal wasting, or tenderness. EYES: [place] conjunctiva. No petechia or hemorrhage. Pupils equal, round and reactive to light. Extraocular movements full and intact. No scleral icterus. No injection or drainage. EARS, NOSE AND THROAT: Nose without bleeding or purulent nasal discharge. No sinus tenderness. Mucous membranes pink and moist. No oral lesions noted. No exudate. No oral thrush. NECK: Trachea midline. Supple and not tender, no meningeal signs CARDIOVASCULAR: Regular rate and rhythm. No murmurs, rubs or gallops heard RESPIRATORY: Clear to auscultation. Breath sounds equal bilaterally. No rales , wheezing or rhonchi ABDOMEN: Soft, globular, non-tender, nondistended. Bowel sounds present and normoactive. No guarding. No rebound. No organomegaly. EXTREMITIES: No clubbing, cyanosis, or edema. No joint effusion, has good ROM. No calf tenderness. Well perfused and warm. Previous PICC site R arm dry, no drainage, no pustule, no tender palpable cord, no erythema NEUROLOGICAL: Awake and alert. Cranial nerves grossly intact. Motor grossly within normal limits. PSYCHIATRIC: Normal affect, calm and cooperative. LINE: No evidence of infection Results - Labs CBC & Chem 7: 05/11/18 04:54 05/11/18 04:54 Labs: Laboratory Results - last 24 hr 05/10/18 05/10/18 05/10/18 12:25 12:25 12:25 WBC 12.3 H RBC 3.44 L Hgb 11.4 L Hct 33.8 L MCV 98.5 MCH 33.2 MCHC 33.7 RDW 15.0 Plt Count 154 MPV 7.9 Neut % (Auto) 84.7 H Lymph % (Auto) 9.4 Mclennan % (Auto) 5.1 Eos % (Auto) 0.5 Baso % (Auto) 0.3 Neut # (Auto) 10.4 H Lymph # (Auto) 1.2 Mclennan # (Auto) 0.6 Eos # (Auto) 0.1 Baso # (Auto) 0.0 WBC Differential . Differential Comment Auto diff final Sodium 139 Potassium 3.8 Chloride 107 Carbon Dioxide 22.0 Anion Gap 10 BUN 12 Creatinine 0.57 Estimated GFR Greater than 89 Random Glucose 86 Lactic Acid 2.0 Calcium 7.6 L Calcium Adj for Albumin Magnesium 1.8 Total Bilirubin 0.2 AST 14 L ALT 26 Alkaline Phosphatase 89 Total Protein 6.1 L Albumin 2.7 L Lipase 53 L Urine Color Urine Clarity Urine pH Ur Specific [place] Urine Protein Urine Glucose (UA) Urine Ketones Urine Occult Blood Urine Nitrate Urine Bilirubin Urine Urobilinogen Ur Leukocyte Esterase Urine RBC Urine WBC Ur Squamous Epith Cells Urine Bacteria Urine Mucus Micro UA Comment Ur Microscopic Review Urine Culture Comments 05/10/18 05/11/18 05/11/18 13:50 04:54 04:54 WBC 9.0 RBC 2.95 L Hgb 9.9 L Hct 29.4 L MCV 99.5 MCH 33.4 MCHC 33.5 RDW 15.0 Plt Count 119 L MPV 8.0 Neut % (Auto) Lymph % (Auto) Mclennan % (Auto) Eos % (Auto) Baso % (Auto) Neut # (Auto) Lymph # (Auto) Mclennan # (Auto) Eos # (Auto) Baso # (Auto) WBC Differential Differential Comment Sodium 140 Potassium 3.6 Chloride 109 H Carbon Dioxide 20.4 L Anion Gap 11 BUN 8 Creatinine 0.51 Estimated GFR Greater than 89 Random Glucose 79 Lactic Acid Calcium 7.1 L* Calcium Adj for Albumin 8.6 Magnesium Total Bilirubin 0.2 AST 14 L ALT 21 Alkaline Phosphatase 78 Total Protein 4.9 L D Albumin 2.1 L D Lipase Urine Color Yellow Urine Clarity Clear Urine pH 5.0 Ur Specific [place] 1.016 Urine Protein Negative Urine Glucose (UA) Negative Urine Ketones Negative Urine Occult Blood Negative Urine Nitrate Negative Urine Bilirubin Negative Urine Urobilinogen Less than 2 Ur Leukocyte Esterase Negative Urine RBC Less than 1 Urine WBC Less than 1 Ur Squamous Epith Cells <1 Urine Bacteria Rare H Urine Mucus Few H Micro UA Comment Culture not ind Ur Microscopic Review Not Reportable Urine Culture Comments Culture not ind Assessment and Plan - Plan Impression ?Sepsis Possible infection od PICC site 33 weeks AOG Recommendation On vanco and Azactam Follow C/S Follow temps If no fever and C/S negative, of to D/C on no Abx I will follow along with you Thank you for this consultation Explained plan to the patient
[2018-05-11] MEDS ORDERED: HYDROXYPROGESTERONE CAPROATE IM ONE (11:30)
[2018-05-11 11:43] VITALS: PULSE 73
[2018-05-11] MEDS ORDERED: Pharmacy Ordered Lab Info OTHER ONE (13:45)
[2018-05-11 15:37] VITALS: BP 103/58
[2018-05-11 15:38] VITALS: TEMP 99.1
--- NOTE | 2018-05-11 15:43 | P.OBGPN ---
Pt is doing well today without any complaints. Good oral intake. She has remained afebrile since arrival and denies chills. WBC decreased to 9.0. General appearance: alert and oriented in no acute distress HEENT: normocephalic Neck: supple, no thyromegaly, no lymphadenopathy Lungs: clear to auscultation bilaterally Heart: Regular rate and rhythm with no gallops or murmurs Abdomen: gravid consistent with gestational age, soft and non tender. Extremities: no edema of face, hands, or lower extremities, no cyanosis. No erythema or induration at previous PICC site. Plan: Discharge patient today with instructions to follow up next week in the office.
[2018-05-11] MEDS ORDERED: Vancomycin Inj 1,250 MG in Sodium Chlor 0.9% Inj 250 ML IV.SIG SCH (22:00)
[2018-05-12] MEDS ORDERED: Pharmacy Ordered Lab Info OTHER ONE (21:45)
== END 2018-05-11 16:29 | disposition home or self-care (01) ==
LOC: NEPC 11:24 → NEDA 14:39 → INTOOBSV 14:39 → H2E 17:16
PROVIDERS: ADMIT Obstetrics & Gynecology; ATTEND Obstetrics & Gynecology

== ENCOUNTER 2018-06-14 10:17 | Inpatient (IN) ==
[2018-06-14 11:35] LABS: Bacteria,Urine Few /hpf; Bilirubin,Urine Negative (Negative); Clarity,Urine Hazy (Clear); Color,Urine Yellow (Yellw/Straw); Glucose,Urine (UA) Negative (Negative); Leukocyte Esterase,Urine Negative (Negative); Mucus,Urine Few /lpf (Occasional); Nitrite,Urine Negative (Negative); Specific Gravity,Urine 1.026 (1.002-1.035); Squamous Epithelial Cell,Urine 3 /hpf (0-5); Urobilinogen,Urine 0.2 mg/dL (Less than 2)
[2018-06-14] MEDS ORDERED: Citric Acid/Sodium Citrate Liq 30 ML UDC PO SCH (11:45)
[2018-06-14] MEDS ORDERED: ceFAZolin 2 GM Premix Inj 2 GM/50 ML PIGGYBACK IV.SIG SCH (12:00)
[2018-06-14 12:23] LABS: Baso % (Auto) 0.6 % (0.0-2.0); Eos % (Auto) 0.5 % (0.0-4.0); Hematocrit 31.7 % (35.0-46.0); Hemoglobin 10.7 gm/dL (11.6-15.3); Lymph # (Auto) 1.5 th/mm3 (1.0-4.8); Lymph % (Auto) 20.3 % (9.0-44.0); Mean Corpuscular HGB Conc 33.8 % (32.0-36.0); Mean Corpuscular Hemoglobin 31.6 pg (27.0-34.0); Mean Corpuscular Volume 93.7 fL (80.0-100.0); Mono # (Auto) 0.5 th/mm3 (0.0-0.9); Mono % (Auto) 6.9 % (0.0-8.0); Neut # (Auto) 5.4 th/mm3 (1.8-7.7); Neut % (Auto) 71.7 % (16.0-70.0); Platelet Count 172 th/mm3 (150-450); Red Blood Count 3.39 mil/mm3 (4.00-5.30); Red Cell Distribution Width 14.6 % (11.6-17.2); White Blood Count 7.5 th/mm3 (4.0-11.0)
--- NOTE | 2018-06-14 12:24 | P.HP ---
History of Present Illness Service: labor and delivery Primary Care Physician: Afua Danielson Chief Complaint: IUGR at 37 6/7 History of Present Illness: pt delivery at 29 weeks via c/section admitted today for repeat c section and bilateral tubal ligation at 37 6/7 weeks baby IUGR GBS negative hx of chronic abdominal pain post bypass surgery ([id number]) she has been on large doses of opiates prior to and during her - Diagnosis (1) Previous section (2) IUGR (intrauterine growth restriction) (3) Sterilization (4) Narcotic dependency, continuous Inpatient Certification: I certify that the inpatient services were ordered in accordance with Medicare regulations governing the order. This includes certification that hospital inpatient services are reasonable and necessary and in the case of services not specified as inpatient-only under 42 CFR 419.22(n), that they are appropriately provided as inpatient services in accordance to with the 2-midnight benchmark under 43 CFR 412.3(e) Estimated Total Length of Stay (Days): 3 Plans for Post Hospital Care: Home Review of Systems All other systems reviewed negative except as stated in HPI PMFSH - History History Provided By: Patient - Medical History Medical History: Medical History (Last Updated 06/14/18 @ 12:17 by CHESTER Nicholas) Chronic abdominal pain History of delivery, currently History of obesity Hx of cervical incompetence in , currently Hx of delivery, currently Hypothyroid Insomnia Jejunostomy tube fell out Short interval between pregnancies affecting in first trimester, antepartum - Surgical History Surgical History: Surgical History (Last Reviewed 06/07/18 @ 14:19 by Lorraine Cornejo, , R1) Bariatric surgery status History of dilation and curettage History of low transverse section Hx of hernia repair S/P gastric surgery S/P small bowel resection - Family History Family History: Family History (Last Reviewed 06/07/18 @ 14:19 by Lorraine Cornejo, , R1) Other Family history non-contributory - Social History I have reviewed the patient's Social History: Yes - Tobacco History Second Hand Smoke Exposure: No Smoking Status: Never smoker Tobacco Type: Cigarettes - Alcohol History How Often Do You Have a Drink Containing Alcohol: Never - Substance Use History Substance History: Active Abuse (pt is dependent on prescription narcotics) - Travel History History of Recent Travel: No Recent Travel in the [place] Within the Last 8 Weeks: No Recent Travel Out of the Country Within the Last 8 Weeks: No - Immunization History Hx Influenza Vaccine This Season: Yes Medications and Allergies Active Medications: Active Medications Citric Acid/Sodium Citrate (Sodium Citrate/Citric Acid Liq) 30 ml PO [employer] [facility] Stop: 06/18/18 11:44 Lactated Ringer's (Lr 1000 Ml Inj) 1,000 mls @ 150 mls/hr IV.CONT .Q6H40M [facility] Cefazolin Sodium/Dextrose (Ancef 2 Gm Premix Inj) 2 gm in 50 mls @ 100 mls/hr IV.SIG [employer] [facility] Stop: 06/18/18 11:59 Allergies Allergy/AdvReac Type Severity Reaction Status Date / Time aspirin Allergy Intermediate Rash Verified 05/10/18 12:01 amoxicillin Allergy Mild Rash Verified 05/10/18 12:01 cefixime Allergy Mild Rash Verified 05/10/18 12:01 clavulanic acid Allergy Mild Rash Verified 05/10/18 12:01 diclofenac Allergy Unknown Ulcers Verified 05/10/18 12:01 etodolac Allergy Unknown Gastrointestinal Verified 05/10/18 12:01 Upset flurbiprofen Allergy Unknown Gastrointestinal Verified 05/10/18 12:01 Upset ibuprofen Allergy Unknown Ulcers Verified 05/10/18 12:01 indomethacin Allergy Unknown Ulcers Verified 05/10/18 12:01 ketoprofen Allergy Unknown Ulcers Verified 05/10/18 12:01 ketorolac Allergy Unknown Ulcers Verified 05/10/18 11:38 levofloxacin Allergy Unknown unknown Verified 05/10/18 11:38 naproxen Allergy Unknown Ulcers Verified 05/10/18 11:38 oxaprozin Allergy Unknown Ulcers Verified 05/10/18 11:38 thiamine (vitamin B1) Allergy Unknown Vomiting Verified 05/10/18 11:38 chlorahexadine prep AdvReac Rash, Uncoded 05/12/18 13:35 Localized Home Medications Medication Instructions Recorded Confirmed Type levothyroxine 50 mcg PO DAILY 12/05/17 06/14/18 History ondansetron [Zofran ODT] 4 mg PO Q4-6H PRN 03/04/18 06/14/18 History omeprazole 40 mg PO PRN 03/26/18 06/14/18 History vit,[id number] 1 tab PO DAILY 03/26/18 06/14/18 History [PNV 29-1] hydrocodone-acetaminophen 30 ml/dose PO TID 03/31/18 06/14/18 History Exam Vital signs: Vital Signs 06/14/18 10:31 06/14/18 10:45 Temperature 98.2 F Pulse Rate 81 Respiratory Rate 17 Blood Pressure 112/64 Intake & Output 06/13/18 06/14/18 06/14/18 18:59 06:59 18:59 Weight 81.647 kg Other: Weight On Admission 81.647 kg - Constitutional no acute distress - Routine HEENT Exam Head: Present: normocephalic ENT: Present: mucous membranes moist - Routine Neck Exam Present: supple, full ROM - Routine Respiratory Exam Present: CTA bilaterally - Routine Cardiovascular Exam Present: RRR, S1, S2 - Routine Abdominal Exam Present: soft Comments: gravid, having occ mild contraction - Routine Extremities Exam Comments: mild dependant lower extremity edema - Routine Skin Exam Present: intact - Routine Neurological Exam Present: alert, oriented X3 Results - Labs CBC & Chem 7: 06/15/18 07:40 Labs: Laboratory Results - last 24 hr 06/14/18 10:50 Urine Color Yellow Urine Clarity Hazy H Urine pH 5.0 Ur Specific [place] 1.026 Urine Protein Negative Urine Glucose (UA) Negative Urine Ketones 20 Urine Occult Blood Negative Urine Nitrate Negative Urine Bilirubin Negative Urine Urobilinogen 0.2 Ur Leukocyte Esterase Negative Urine RBC Less than 1 Urine WBC 2 Ur Squamous Epith Cells 3 Urine Bacteria Few H Urine Mucus Few H Micro UA Comment Culture not ind Ur Microscopic Review Not Reportable Urine Culture Comments Culture not ind Caprini VTE Risk Assessment Caprini VTE Risk Assessment: No/Low Risk (score <= 1) Caprini Risk Assessment Model: Point Value = 1 Point Value = 2 Point Value = 3 Point Value = 5 Age 41-60 Minor surgery BMI > 25 kg/m2 Swollen legs Varicose veins or History of unexplained or recurrent spontaneous Oral contraceptives or hormone replacement Sepsis (< 1 month) Serious lung disease, including pneumonia (< 1 month) Abnormal pulmonary function Acute myocardial infarction Congestive heart failure (< 1 month) History of inflammatory bowel disease Medical patient at bed rest Age 61-74 Arthroscopic surgery Major open surgery (> 45 min) Laparoscopic surgery (> 45 min) Malignancy Confined to bed (> 72 hours) Immobilizing plaster cast Central venous access Age >= 75 History of VTE Family history of VTE Factor V Leiden Prothrombin [id number] Lupus anticoagulant Anticardiolipin antibodies Elevated serum homocysteine Heparin-induced thrombocytopenia Other congenital or acquired thrombophilia Stroke (< 1 month) Elective arthroplasty Hip, pelvis, or leg fracture Acute spinal cord injury (< 1 month) Prophylaxis Regimen: Total Risk Factor Score Risk Level Prophylaxis Regimen 0-1 Low Early ambulation 2 Moderate Order ONE of the following: *Sequential Compression Device (SCD) *Heparin 5000 units SQ BID 3-4 Higher Order ONE of the following medications: *Heparin 5000 units SQ TID *Enoxaparin/Lovenox 40 mg SQ daily (WT < 150 kg, CrCl > 30 mL/min) *Enoxaparin/Lovenox 30 mg SQ daily (WT < 150 kg, CrCl > 10-29 mL/min) *Enoxaparin/Lovenox 30 mg SQ BID (WT < 150 kg, CrCl > 30 mL/min) AND/OR *Sequential Compression Device (SCD) 5 or more Highest Order ONE of the following medications: *Heparin 5000 units SQ TID (Preferred with Epidurals) *Enoxaparin/Lovenox 40 mg SQ daily (WT < 150 kg, CrCl > 30 mL/min) *Enoxaparin/Lovenox 30 mg SQ daily (WT < 150 kg, CrCl > 10-29 mL/min) *Enoxaparin/Lovenox 30 mg SQ BID (WT < 150 kg, CrCl > 30 mL/min) AND *Sequential Compression Device (SCD) Assessment and Plan - Assessment (1) Previous section Code(s): Z98.891 - History of uterine scar from previous surgery Status: Acute Plan: repeat c section (2) IUGR (intrauterine growth restriction) Status: Acute Plan: delivery at 37 6/7 (3) Sterilization Code(s): Z30.2 - Encounter for sterilization Status: Acute Plan: tubal ligation after repeat c section (4) Narcotic dependency, continuous Code(s): F11.20 - Opioid dependence, uncomplicated Status: Acute Plan: manage pain in hospital and consider referral to pain rehabilitation - Plan repeat c section with bilateral tubal ligation routine post op care pain management Code Status: full
[2018-06-14] MEDS ORDERED: Morphine Sulfate PF Inj 5 MG/10 ML Ampul ONE (13:02)
[2018-06-14] MEDS ORDERED: fentaNYL Citrate Inj 100 MCG/2 ML Ampul ONE (14:03)
[2018-06-14] MEDS ORDERED: Simethicone 80 MG Chew Tablet PO PRN (14:38)
--- NOTE | 2018-06-14 14:45 | P.OP ---
- Preoperative Diagnosis (1) Previous delivery, delivered (2) Sterilization (3) 37 weeks gestation of (4) IUGR (intrauterine growth restriction) - Postoperative Diagnosis (1) 37 weeks gestation of (2) Previous section (3) IUGR (intrauterine growth restriction) (4) Sterilization Date of procedure: 06/14/18 Procedure: Repeat C/S and BTL. Anesthesia: spinal Surgeon: Oscar Bolden MD Estimated blood loss (mL): 500 Operation and Findings: Counts are correct Findings Female infant, Apgars 8/8, Wt 5lbs 1 oz Normal tubes and ovaries. Normal pelvic anatomy. Explored the pelvis and lower abdomen,,,,all normal. Taken to the operating room identified by name band and verbally and given a spinal anesthetic. She was prepped and draped in the usual sterile manner for a section. A time out was taken. The old incision was excised sharply and the Pfannenstiel incision was made and carried down to the fascia the fascia was nicked bilaterally and the fascia was taken off the rectus muscle by blunt and sharp dissection. The rectus muscles were spread bluntly and the peritoneum was entered under direct vision. The incision was extended with care to avoid the urinary bladder. A bladder blade was placed and a bladder flap was created in the usual fashion. The lower uterine segment was then incised sharply in a transverse manner and taken down in the midline until the uterine cavity was entered. The incision was extended with the surgeon's fingers. The vertex was grasped and with fundal pressure the vertex was delivered without difficulty hypopharynx and nasopharynx were suctioned and the remainder of the delivered without difficulty. The cord clamping was delayed 45 seconds and then the cord was clamped cut and the was handed over to the resuscitation team cord blood was obtained the placenta was removed manually and the uterus was curettaged twice with a wet lap. The uterus was delivered from the abdomen. The uterine incision was repaired with 0 Vicryl in a running fashion in 2 layers the second layer imbricating the first. The fallopian tubes were then ligated and a portion sent to pathology. The cul-de-sac and gutters were cleaned of blood and debris the uterus was delivered back into the abdomen. The rectus muscles were reapproximated with 0 Vicryl in a running the fascia was repaired with 0 Vicryl from lateral to midline bilaterally. The subcutaneous layer was repaired with a 3-0 Vicryl. The skin was repaired with a 4-0 Monocryl in a subcuticular manner. Patient tolerated the procedure well and went to recovery room in good condition.
[2018-06-14] MEDS ORDERED: Oxytocin 30 Units/500ml Premix 30 UNITS/500 ML BAG IV.SIG ONE (15:00)
[2018-06-14] MEDS ORDERED: Morphine Inj 4 MG/ML Vial ONE (15:20)
[2018-06-14] MEDS ORDERED: Bupivacaine Liposomal PF 1.3% Inj 20 ML Vial ONE (15:33)
[2018-06-14] MEDS ORDERED: Oxytocin 30 Units/500ml Premix 30 UNITS/500 ML BAG ONE (15:36)
[2018-06-14 16:10] VITALS: RESP 18
[2018-06-14] MEDS ORDERED: Naloxone Inj 0.4 MG/ML Vial IV.PUSH PRN (16:35)
[2018-06-14] MEDS ORDERED: Morphine Inj 4 MG/ML Vial IV.PUSH ONE (16:45)
[2018-06-14] MEDS ORDERED: Oxytocin 30 Units/500ml Premix 30 UNITS/500 ML BAG IV.SIG PRN (19:38)
[2018-06-14] MEDS: Morphine Inj 4 MG/ML Vial IV.PUSH PRN (20:21)
[2018-06-14] MEDS: Zolpidem Tartrate 5 MG Tablet PO PRN (22:12)
[2018-06-14] MEDS: ceFAZolin Inj 1 GM in Sodium Chlor 0.9% Inj 100 ML IV.SIG SCH (22:12)
[2018-06-15] MEDS: Morphine Inj 4 MG/ML Vial IV.PUSH PRN ×2 (02:35→08:22)
[2018-06-15] MEDS: Levothyroxine 50 MCG Tablet PO SCH (06:01)
[2018-06-15] MEDS: ceFAZolin Inj 1 GM in Sodium Chlor 0.9% Inj 100 ML IV.SIG SCH (06:01)
[2018-06-15] MEDS: Senna/Docusate Sodium 8.6/50 MG Tablet PO PRN ×2 (06:32→22:10)
[2018-06-15] MEDS: Prenatal Vit/Ca/Iron/Folic Acid Tablet PO SCH (08:22)
[2018-06-15 09:03] LABS: Baso % (Auto) 0.3 % (0.0-2.0); Eos % (Auto) 0.4 % (0.0-4.0); Hematocrit 26.4 % (35.0-46.0); Hemoglobin 8.9 gm/dL (11.6-15.3); Lymph # (Auto) 1.7 th/mm3 (1.0-4.8); Lymph % (Auto) 20.5 % (9.0-44.0); Mean Corpuscular HGB Conc 33.7 % (32.0-36.0); Mean Corpuscular Hemoglobin 31.7 pg (27.0-34.0); Mean Platelet Volume 9.2 fL (7.0-11.0); Mono # (Auto) 0.6 th/mm3 (0.0-0.9); Mono % (Auto) 7.3 % (0.0-8.0); Neut # (Auto) 5.8 th/mm3 (1.8-7.7); Neut % (Auto) 71.5 % (16.0-70.0); Platelet Count 146 th/mm3 (150-450); Red Blood Count 2.81 mil/mm3 (4.00-5.30); Red Cell Distribution Width 14.9 % (11.6-17.2); White Blood Count 8.1 th/mm3 (4.0-11.0)
--- NOTE | 2018-06-15 10:12 | P.PNOB ---
Subjective Post op day: 1 Objective Vital Signs/I&O: Vital Signs 06/14/18 10:31 06/14/18 10:45 06/14/18 14:41 Temperature 98.2 F 97.6 F Pulse Rate 81 87 Respiratory Rate 17 18 18 Blood Pressure 112/64 107/51 L 06/14/18 15:00 06/14/18 15:15 06/14/18 15:30 Temperature 97.7 F Pulse Rate 83 88 75 Respiratory Rate 18 18 20 Blood Pressure 102/50 L 108/59 L 103/53 L 06/14/18 15:45 06/14/18 16:00 06/14/18 16:45 Temperature 97.6 F 99.1 F Pulse Rate 74 78 16 L Respiratory Rate 20 18 18 Blood Pressure 102/52 L 103/59 L 103/52 L 06/14/18 20:00 06/14/18 23:15 06/14/18 23:30 Temperature 98.8 F 98.4 F Pulse Rate 74 67 Respiratory Rate 18 18 Blood Pressure 82/46 L 80/44 L 90/56 L 06/15/18 02:30 06/15/18 03:52 06/15/18 08:30 Temperature 98.5 F 98.7 F Pulse Rate 69 63 Respiratory Rate 18 18 Blood Pressure 102/64 87/54 L 80/59 L Intake & Output 06/14/18 06/15/18 06/15/18 18:59 06:59 18:59 Intake Total 2150 / 2150 100 / 100 Balance 2150 / 2150 100 / 100 Weight 81.647 kg Intake: IV 2150 / 2150 100 / 100 LR 1000 mL Inj 1,000 ML @ 150 1000 / 1000 mls/hr IV.CONT .Q6H40M [facility] Rx#: [id number] Ofirmev Inj 1,000 mg In 100 ml 100 / 100 @ 400 mls/hr IV.SIG ONCE ONE Rx #:[id number] LR 1000 mL Inj 1,000 ML @ 2000 1000 / 1000 mls/hr IV.SIG .Q30M ONE Rx#: [id number] Ancef 2 GM Premix Inj 2 gm In 50 / 50 50 ml @ 100 mls/hr IV.SIG RUG INSPECTOR [facility] Rx#:[id number] Ancef Inj 1 GM In NS Inj 100 ML 100 / 100 @ 200 mls/hr IV.SIG Q8H [facility] Rx #:[id number] Other: Weight On Admission 81.647 kg Result Diagrams: 06/15/18 07:40 Objective Remarks: GENERAL: Well-nourished, well-developed patient. CARDIOVASCULAR: Regular rate and rhythm without murmurs, gallops, or rubs. RESPIRATORY: Breath sounds equal bilaterally. No accessory muscle use. ABDOMEN/GI: Abdomen soft, non-tender, bowel sounds present. Incision: dressing, Clean, dry and intact. Fundus: Firm, non-tender at umbilicus. GENITOURINARY: Light to moderate bleeding. Tobin to BSD clear yellow urine. EXTREMITIES: No cyanosis or edema, non-tender, without signs of DVT. Medications and IVs: Active Medications Citric Acid/Sodium Citrate (Sodium Citrate/Citric Acid Liq) 30 ml PO RUG INSPECTOR [facility] Stop: 06/18/18 11:44 Last Admin: 06/14/18 12:53 Dose: 30 ml Diphenhydramine HCl (Benadryl Inj) 25 mg IV.PUSH Q6H PRN PRN Reason: MILD TO MODERATE ITCHING Stop: 06/15/18 13:15 Diphenhydramine HCl (Benadryl) 50 mg PO Q6H PRN PRN Reason: MILD TO MODERATE ITCHING Stop: 06/15/18 13:15 Last Admin: 06/15/18 06:32 Dose: 50 mg Diphtheria/Pertussis/Tetanus Vacc (Boostrix Vaccine Inj) 0.5 ml IM .ONCE ONE Stop: 06/15/18 16:01 Lactated Ringer's (Lr 1000 Ml Inj) 1,000 mls @ 100 mls/hr IV.CONT .Q10H [facility] Stop: 06/15/18 15:37 Last Admin: 06/15/18 02:36 Dose: 100 mls/hr Oxytocin (Pitocin 30 Units/Ns 500 Ml Premix) 30 units in 500 mls @ 100 mls/hr IV.SIG UNSCH PRN PRN Reason: Heavy bleeding Levothyroxine Sodium (Synthroid) 50 mcg PO DAILY@0600 [facility] Last Admin: 06/15/18 06:01 Dose: 50 mcg Measles/Mumps/Rubella Vaccine Live (M-M-R Ii Vaccine Inj) 0.5 ml SQ .ONCE ONE Stop: 06/15/18 16:01 Miscellaneous Information ([facility]) 1 each OTHER UNSCH PRN PRN Reason: SEE LABEL COMMENTS Stop: 06/15/18 13:15 Miscellaneous Information ([facility] [place] [facility]) 1 each OTHER UNSCH PRN PRN Reason: SEE LABEL COMMENTS Stop: 06/15/18 13:15 Morphine Sulfate (Morphine Inj) 2 mg IV.PUSH Q6H PRN PRN Reason: BREAKTHROUGH PAIN Last Admin: 06/15/18 08:22 Dose: 2 mg Naloxone HCl (Narcan Inj) 0.4 mg IV.PUSH UNSCH PRN PRN Reason: SEE LABEL COMMENTS Stop: 06/15/18 13:15 Ondansetron HCl (Zofran Inj) 4 mg IV.PUSH Q6H PRN PRN Reason: NAUSEA OR VOMITING Last Admin: 06/14/18 22:12 Dose: 4 mg Oxycodone/Acetaminophen (Percocet 5/325 Mg) 1 tab PO Q4H PRN PRN Reason: PAIN SCALE 3 TO 5 Last Admin: 06/15/18 09:44 Dose: 1 tab Oxycodone/Acetaminophen (Percocet 5/325 Mg) 2 tab PO Q4H PRN PRN Reason: PAIN SCALE 6 TO 10 Last Admin: 06/15/18 04:32 Dose: 2 tab Pantoprazole Sodium (Protonix) 40 mg PO DAILY [facility] Last Admin: 06/15/18 08:22 Dose: 40 mg Vit/Calcium/Iron/Folic Ac (Stuartnatal Plus 3) 1 tab PO DAILY [facility] Last Admin: 06/15/18 08:22 Dose: 1 tab Senna/Docusate Sodium (Yulissa-Colace) 2 tab PO Q12H PRN PRN Reason: CONSTIPATION Last Admin: 06/15/18 06:32 Dose: 2 tab Simethicone (Mylicon Chew) 80 mg PO QID PRN PRN Reason: FLATULENCE Last Admin: 06/15/18 06:32 Dose: 80 mg Sodium Chloride (Ns Flush) 2 ml IV.FLUSH BID [facility] Last Admin: 06/14/18 20:22 Dose: Not Given Sodium Chloride (Ns Flush) 2 ml IV.FLUSH PRN PRN PRN Reason: FLUSH AFTER USING IV ACCESS Last Admin: 06/15/18 02:37 Dose: 2 ml Zolpidem Tartrate (Ambien) 5 mg PO HS PRN PRN Reason: INSOMNIA Last Admin: 06/14/18 22:12 Dose: 5 mg Assessment and Plan - Diagnosis (1) S/P repeat low transverse Code(s): Z98.891 - History of uterine scar from previous surgery Status: Acute Plan: routine post op - Plan pt doing well Hgb 8.9, will order Venofer c/o epigastric pain, she has been on morphine IV for pain, discussed with pt that she will no longer receive IV pain med tobin to be removed and shower encourage ambulation routine post op care Discharge Planning: dc home 1-2 days
[2018-06-15] MEDS: Iron Sucrose Inj 200 MG in Sodium Chlor 0.9% Inj 100 ML IV.SIG SCH (11:51)
[2018-06-15] MEDS ORDERED: Diphtheria/Tetanus/Pertussis Vaccine Inj 0.5 ML Syringe IM ONE (16:00)
[2018-06-15] MEDS ORDERED: Measles/Mumps/Rubella Vaccine Inj 0.5 ML Vial SQ ONE (16:00)
[2018-06-15] MEDS: Zolpidem Tartrate 5 MG Tablet PO PRN (22:10)
[2018-06-16] MEDS: Levothyroxine 50 MCG Tablet PO SCH (06:19)
[2018-06-16] MEDS: Iron Sucrose Inj 200 MG in Sodium Chlor 0.9% Inj 100 ML IV.SIG SCH (08:44)
[2018-06-16] MEDS: Prenatal Vit/Ca/Iron/Folic Acid Tablet PO SCH (08:44)
--- NOTE | 2018-06-16 10:12 | P.PNOB ---
Subjective Post op day: 2 Objective Vital Signs/I&O: Vital Signs 06/15/18 11:17 06/15/18 20:00 06/16/18 08:30 Temperature 98.3 F 98.1 F Pulse Rate 73 76 91 H Respiratory Rate 18 18 18 Blood Pressure 86/50 L 89/54 L 90/51 L Intake & Output 06/15/18 06/16/18 06/16/18 18:59 06:59 18:59 Intake Total 1110 / 1110 Balance 1110 / 1110 Intake: IV 1110 / 1110 LR 1000 mL Inj 1,000 ML @ 100 1000 / 1000 mls/hr IV.CONT .Q10H [facility] Rx#: [id number] Venofer Inj 200 MG In NS Inj 110 / 110 100 ML @ 110 mls/hr IV.SIG DAILY [facility] Rx#:[id number] Result Diagrams: 06/15/18 07:40 Objective Remarks: GENERAL: Well-nourished, well-developed patient. CARDIOVASCULAR: Regular rate and rhythm without murmurs, gallops, or rubs. RESPIRATORY: Breath sounds equal bilaterally. No accessory muscle use. ABDOMEN/GI: Abdomen soft, non-tender, bowel sounds present. Incision: Clean, dry and intact. Fundus: Firm, non-tender at umbilicus. GENITOURINARY: Light to moderate bleeding. EXTREMITIES: No cyanosis or edema, non-tender, without signs of DVT. 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[employer] [facility] Stop: 06/18/18 11:44 Last Admin: 06/14/18 12:53 Dose: 30 ml Oxytocin (Pitocin 30 Units/Ns 500 Ml Premix) 30 units in 500 mls @ 100 mls/hr IV.SIG UNSCH PRN PRN Reason: Heavy bleeding Iron Sucrose 200 mg/ Sodium (Chloride) 110 mls @ 110 mls/hr IV.SIG DAILY [facility] Stop: 06/17/18 09:59 Last Admin: 06/16/18 08:44 Dose: 110 mls/hr Levothyroxine Sodium (Synthroid) 50 mcg PO DAILY@0600 [facility] Last Admin: 06/16/18 06:19 Dose: 50 mcg Ondansetron HCl (Zofran Inj) 4 mg IV.PUSH Q6H PRN PRN Reason: NAUSEA OR VOMITING Last Admin: 06/16/18 06:19 Dose: 4 mg Oxycodone/Acetaminophen (Percocet 5/325 Mg) 1 tab PO Q4H PRN PRN Reason: PAIN SCALE 3 TO 5 Last Admin: 06/15/18 09:44 Dose: 1 tab Oxycodone/Acetaminophen (Percocet 5/325 Mg) 2 tab PO Q4H PRN PRN Reason: PAIN SCALE 6 TO 10 Last Admin: 06/16/18 06:18 Dose: 2 tab Pantoprazole Sodium (Protonix) 40 mg PO DAILY [facility] Last Admin: 06/16/18 08:44 Dose: 40 mg Vit/Calcium/Iron/Folic Ac (Stuartnatal Plus 3) 1 tab PO DAILY [facility] Last Admin: 06/16/18 08:44 Dose: 1 tab Senna/Docusate Sodium (Yulissa-Colace) 2 tab PO Q12H PRN PRN Reason: CONSTIPATION Last Admin: 06/15/18 22:10 Dose: 2 tab Simethicone (Mylicon Chew) 80 mg PO QID PRN PRN Reason: FLATULENCE Last Admin: 06/15/18 06:32 Dose: 80 mg Sodium Chloride (Ns Flush) 2 ml IV.FLUSH BID [facility] Last Admin: 06/15/18 10:53 Dose: Not Given Sodium Chloride (Ns Flush) 2 ml IV.FLUSH PRN PRN PRN Reason: FLUSH AFTER USING IV ACCESS Last Admin: 06/16/18 06:25 Dose: 2 ml Zolpidem Tartrate (Ambien) 5 mg PO HS PRN PRN Reason: INSOMNIA Last Admin: 06/15/18 22:10 Dose: 5 mg Assessment and Plan - Diagnosis (1) S/P repeat low transverse Code(s): Z98.891 - History of uterine scar from previous surgery Status: Acute Plan: routine post op - Plan pt doing well PT C/O BREAKTHROUGH PAIN 2 HOURS AFTER PERCOCET, WE ILL CHANGE DOSING OF PERCOCET AND ADD TYLENOL PO encourage ambulation BABY DOING WELL AT THIS TIME ROUTINE POST OP CARE Discharge Planning: dc home TOMORROW
[2018-06-16] MEDS: oxyCODONE/Acetaminophen 10/325 Tablet PO PRN ×4 (10:44→23:29)
[2018-06-16] MEDS: Senna/Docusate Sodium 8.6/50 MG Tablet PO PRN ×2 (10:44→23:29)
[2018-06-16] MEDS: Acetaminophen 500 MG Tablet PO PRN ×2 (12:27→23:30)
[2018-06-16] MEDS: Zolpidem Tartrate 5 MG Tablet PO PRN (23:31)
[2018-06-17] MEDS: oxyCODONE/Acetaminophen 10/325 Tablet PO PRN ×3 (03:18→11:48)
[2018-06-17] MEDS: Levothyroxine 50 MCG Tablet PO SCH (06:15)
[2018-06-17] MEDS: Acetaminophen 500 MG Tablet PO PRN (06:15)
[2018-06-17] MEDS: Prenatal Vit/Ca/Iron/Folic Acid Tablet PO SCH (09:00)
[2018-06-17] MEDS: Iron Sucrose Inj 200 MG in Sodium Chlor 0.9% Inj 100 ML IV.SIG SCH (09:01)
[2018-06-17 09:26] VITALS: BP 83/51; PULSE 62; TEMP 97.9
--- NOTE | 2018-06-17 10:07 | P.PNOB ---
Subjective Post op day: 3 Objective Vital Signs/I&O: Vital Signs 06/16/18 20:25 06/17/18 08:30 Temperature 98.2 F 97.9 F Pulse Rate 70 62 Respiratory Rate 18 18 Blood Pressure 104/61 83/51 L Intake & Output 06/16/18 06/17/18 06/17/18 18:59 06:59 18:59 Intake Total 110 / 110 Balance 110 / 110 Intake: IV 110 / 110 Venofer Inj 200 MG In NS Inj 110 / 110 100 ML @ 110 mls/hr IV.SIG DAILY [facility] Rx#:[id number] Result Diagrams: 06/15/18 07:40 Objective Remarks: GENERAL: Well-nourished, well-developed patient. CARDIOVASCULAR: Regular rate and rhythm without murmurs, gallops, or rubs. RESPIRATORY: Breath sounds equal bilaterally. No accessory muscle use. ABDOMEN/GI: Abdomen soft, non-tender, bowel sounds present. Incision: Clean, dry and intact. Fundus: Firm, non-tender at umbilicus. GENITOURINARY: Light to moderate bleeding. EXTREMITIES: No cyanosis or edema, non-tender, without signs of DVT. Medications and IVs: Active Medications Acetaminophen (Tylenol) 500 mg PO Q6H PRN PRN Reason: BREAKTHROUGH PAIN Last Admin: 06/17/18 06:15 Dose: 500 mg Citric Acid/Sodium Citrate (Sodium Citrate/Citric Acid Liq) 30 ml PO LACE FINISHER [facility] Stop: 06/18/18 11:44 Last Admin: 06/14/18 12:53 Dose: 30 ml Oxytocin (Pitocin 30 Units/Ns 500 Ml Premix) 30 units in 500 mls @ 100 mls/hr IV.SIG UNSCH PRN PRN Reason: Heavy bleeding Levothyroxine Sodium (Synthroid) 50 mcg PO DAILY@0600 [facility] Last Admin: 06/17/18 06:15 Dose: 50 mcg Ondansetron HCl (Zofran Inj) 4 mg IV.PUSH Q6H PRN PRN Reason: NAUSEA OR VOMITING Last Admin: 06/16/18 21:35 Dose: 4 mg Oxycodone/Acetaminophen (Percocet 5/325 Mg) 1 tab PO Q4H PRN PRN Reason: PAIN SCALE 3 TO 5 Last Admin: 06/15/18 09:44 Dose: 1 tab Oxycodone/Acetaminophen (Percocet 10/325 Mg) 1 tab PO Q4H PRN PRN Reason: PAIN SCALE 6 TO 10 Last Admin: 06/17/18 07:33 Dose: 1 tab Pantoprazole Sodium (Protonix) 40 mg PO DAILY [facility] Last Admin: 06/17/18 09:00 Dose: 40 mg Vit/Calcium/Iron/Folic Ac (Stuartnatal Plus 3) 1 tab PO DAILY [facility] Last Admin: 06/17/18 09:00 Dose: 1 tab Senna/Docusate Sodium (Yulissa-Colace) 2 tab PO Q12H PRN PRN Reason: CONSTIPATION Last Admin: 06/16/18 23:29 Dose: 2 tab Simethicone (Mylicon Chew) 80 mg PO QID PRN PRN Reason: FLATULENCE Last Admin: 06/15/18 06:32 Dose: 80 mg Sodium Chloride (Ns Flush) 2 ml IV.FLUSH BID [facility] Last Admin: 06/16/18 21:35 Dose: 2 ml Sodium Chloride (Ns Flush) 2 ml IV.FLUSH PRN PRN PRN Reason: FLUSH AFTER USING IV ACCESS Last Admin: 06/16/18 06:25 Dose: 2 ml Zolpidem Tartrate (Ambien) 5 mg PO HS PRN PRN Reason: INSOMNIA Last Admin: 06/16/18 23:31 Dose: 5 mg Assessment and Plan - Diagnosis (1) S/P repeat low transverse Code(s): Z98.891 - History of uterine scar from previous surgery Status: Acute Plan: routine post op - Plan POD 3 pt doing well PAIN BETTER MANAGED, TAKING ORAL PAIN MEDICATIONS PT HAD PPD WITH LAST , WE WILL WATCH CLOSELY, DISCUSSED WITH FOB AND PT PT WILL BE GOING TO STAY CLOSE WITH BABY ROUTINE POST OP CARE Discharge Planning: dc home TODAY
--- NOTE | 2018-06-17 10:29 | P.DS ---
Date of admission: 06/14/18 10:17 Primary care physician: Afua Danielson Attending physician on discharge: Oscar Bolden Anticipated date of discharge: 06/17/18 Brief History from admission: pt delivery at 29 weeks via c/section admitted today for repeat c section and bilateral tubal ligation at 37 6/7 weeks baby IUGR GBS negative hx of chronic abdominal pain post bypass surgery ([id number]) she has been on large doses of opiates prior to and during her DS: Diagnosis - Discharge Diagnosis (1) S/P repeat low transverse Status: Acute DS: Medications - Discharge Medications Prescriptions: oxycodone-acetaminophen 1 tab PO Q4H PRN #24 tab PRN Reason: moderate pain DS: Summary Hospital Course: PT ADMITTED FOR REPEAT C SECTION AT 37 + WEEKS DUE TO IUGR REPEAT C SECTION WITH BILATERAL TUBAL LIGATION PREFORMED ANEMIA NOTED AND TREATED WITH IV VENOFER PT WITH HX OF NARCOTIC DEPENDENCY(PRESCRIBED DRUGS), PAIN WELL MANAGED WITH ORAL MEDICATION, SHE WILL BE F/U WITH PAIN MANAGEMENT AND GI PT TO BE DC HOME BUT WILL BE GOING TO STAY CLOSE DUE TO BEING MONITORED ROUTINE POST OP CARE - Time Spent with Patient Total time spent providing and/or coordinating discharge services: Less than 30 minutes Exam Vital signs: Vital Signs 06/16/18 20:25 06/17/18 08:30 Temperature 98.2 F 97.9 F Pulse Rate 70 62 Respiratory Rate 18 18 Blood Pressure 104/61 83/51 L Intake & Output 06/16/18 06/17/18 06/17/18 18:59 06:59 18:59 Intake Total 110 / 110 Balance 110 / 110 Intake: IV 110 / 110 Venofer Inj 200 MG In NS Inj 110 / 110 100 ML @ 110 mls/hr IV.SIG DAILY [facility] Rx#:[id number] Narrative: SEE POST OP EXAM Results Procedures completed during hospitalization: REPEAT C SECTION WITH BILATERAL TUBAL LIGATION Discharge Plan - Discharge Disposition Patient Disposition: Discharge Home - Discharge Condition Condition: Good - Discharge Order Discharge Orders: Discharge Order (Routine); Ordered 06/17/18 Ordered By: Allie Cortes STAND UP COMEDIAN Clear for Discharge (Routine); Ordered 06/17/18 Ordered By: Allie Cortes - Discharge Details Anticipated Discharge Date: 06/17/18 - Physicians Team Primary Care Provider: Afua Danielson Attending Provider: Oscar Bolden - Rxs /Orders / Referrals /Forms Prescriptions: New oxycodone-acetaminophen 10-325 mg Tablet 1 tab PO Q4H PRN (Reason: moderate pain) Qty: 24 RF: 0 Continue levothyroxine 50 mcg Tablet 50 mcg PO DAILY omeprazole 40 mg capsule,delayed release(DR/EC) 40 mg PO PRN ondansetron [Zofran ODT] 4 mg Tablet,Disintegrating 4 mg PO Q4-6H PRN (Reason: Nausea) vit,[id number] [PNV 29-1] 29 mg iron- 1 mg Tablet 1 tab PO DAILY Discontinued hydrocodone-acetaminophen liquid 30 ml/dose PO TID Referrals: Afua Danielson [Primary Care Provider] - See Instructions Primary Care Latisha Lora [Family Provider] - See Instructions Oscar Bolden MD [Physician] - See Instructions (CALL TO BE SEEN IN ONE WEEK) - Discharge Instructions Patient Printed Instructions: Depression (DC), Preeclampsia and Eclampsia After Delivery (GEN), (DC) - Post Discharge Care Plan Care Plan Goals: Discharge Care Plan Goals After Section Congratulations on your new baby! We want your recovery to be morales and trouble free. You had a section, or . During the , your baby was delivered through an incision in your abdomen and uterus. Full recovery after a can take time. Its important to take care of yourself for your own sake and because your new baby needs you. Here are some guidelines to follow at home. Incision care: Here's how to take care of your incision: * Shower as needed. Pat your incision dry. * Watch your incision for signs of infection, like more redness or drainage. * Hold a pillow against the incision when you laugh or cough and when you get up from a lying or sitting position. * Remember, it can take as long as 6 weeks for your incision to heal. Diet and Activity: Here are some suggestions: * Dont try to take care of anyone other than your baby and yourself. * Remember, the more active you are, the more likely you are to have an increase in your bleeding. * Get lots of rest. Take naps when the is napping. * Increase your activities bit by bit. * Plan your activities so that you dont have to go up or down stairs more than needed. * Do postsurgical deep breathing and coughing exercises. Follow your physician' s instructions. * Dont lift anything heavier than your baby until your physician tells you it s OK. * Dont drive when you are on pain medications. * Dont have sexual intercourse until after youve had a checkup with your physician and you have decided on a control method. * Allow others to do things for you. Don't hesitate to ask for help. If you are : * Ask before you take any medicine. * If you leak milk, it will help to nurse right before the activity. * Talk to your healthcare provider about alcohol, if you choose to drink. * When youre sick, check with your physician if the medications would impact the breast feeding * Ask your physician before taking any prescription or over-the- counter medicines, herbs, or supplements. * Ask your physician what to use for prevention while you are nursing. Balancing the Blues: Recognize your need to talk, to feel protected, to have private time. Allow yourself to cry, to sit, to think. Ask for help when you need it, and accept help when its offered. Knowing your needs is not a weakness. Share your thoughts with your partner. Or picking machine operator helper the phone and call a friend, your mother , a sister, or an aunt. Rest, eat right, and get some light exercise. The mind feels best when the body feels good. When to Call your Physician: * Fever of 100.5F or higher. * Redness, pain, or drainage at your incision site * Bleeding that requires a new sanitary pad every hour * Severe pain in the abdomen * Pain or urgency with urination * Foul odor from vaginal discharge * Trouble urinating or emptying your bladder * No bowel movement within 1 week after the of your baby * Swollen, red, painful area in the calf/leg * Appearance of rash or hives * Sore, red, painful area on the breasts that may come with flu-like symptoms * Feelings of anxiety, panic, and/or depression Signs of Depression include: You dont want to be with the baby. Your symptoms are not getting better, and youre getting more upset. You have no interest in eating or are not able to sleep. You think you may harm yourself or the baby. The Depression After Delivery hotline (243-760-2788) may also be helpful. Follow-Up: * Keep your appointments as scheduled. * If your symptoms worsen call your OB Physician, or go to an Urgent Care Center or Emergency Room. * Smoking is Dangerous to your health. Avoid second hand smoke. * Call the 24-hour crisis hotline for domestic abuse at Call 911: Call 911 right away if you have: * Sudden onset of chest pain that is not relieved by medications. * Shortness of breath * Severe Depression /Thoughts of harm to self and others
== END 2018-06-17 14:50 | disposition home or self-care (01) | DRG 797 ==
LOC: H2E 10:17 → H1EA 16:29 → H6YA 06-17 14:46
PROVIDERS: ADMIT Obstetrics & Gynecology; ATTEND Obstetrics & Gynecology
CPT/HCPCS: 59025; 76937; 81001; 85025; 86850; 86900; 86901; 88302; C9290; J0131; J0690; J1200; J1756; J2270; J2274; J2405; J2590; J3010; J7120; Q0163